=== PATIENT | female | born 1975 | race African-American/Black ===

== ENCOUNTER 2018-12-06 13:11 | Emergency (ER) | payer SELFPAY ==
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
== END 2018-12-06 13:54 | disposition home or self-care (01) ==
LOC: ER 13:11
DX: Z71.1 Person with feared health complaint in whom no diagnosis is made (principal); I10 Essential (primary) hypertension; Z72.0 Tobacco use
CPT/HCPCS: 99283

== ENCOUNTER 2019-10-24 14:52 | Emergency (ER) | payer SELFPAY ==
--- NOTE | 2019-10-24 15:18 | ER ---
Nurse's Notes [facility] Name: Barb Duff Age: 44 yrs Sex: Female : 1975 Arrival Date: 10/24/2019 Time: 14:54 Bed 11 Private MD: Diagnosis: Cellulitis of face;Conjunctivitis Presentation: 10/24 14:59 Presenting complaint: Abscess on forehead and chin x 3 days, left eye redness and pain hb upon waking today. Transition of care: patient was not received from another setting of care. Onset of symptoms was October 24, 2019. Risk Assessment: Do you want to hurt yourself or someone else? Patient reports no desire to harm self or others. Initial Sepsis Screen: Does the patient meet any 2 criteria? No. Patient's initial sepsis screen is negative. Care prior to arrival: None. 14:59 Method Of Arrival: Ambulatory hb 14:59 Acuity: MARA 4 hb 15:15 Initial Sepsis Screen: Does the patient have a suspected source of infection? No. hb Patient's initial sepsis screen is negative. 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 - Social history:: Smoking status: Patient uses tobacco products, smokes one-half pack cigarettes per day. - Ebola Screening: : No symptoms or risks identified at this time. Screenin:15 Abuse screen: Denies threats or abuse. Denies injuries from another. Nutritional hb screening: No deficits noted. Tuberculosis screening: No symptoms or risk factors identified. Fall Risk None identified. Assessment: 15:15 General: Appears in no apparent distress. Behavior is calm, cooperative. Pain: Pain hb currently is 5 out of 10 on a pain scale. Neuro: Level of Consciousness is awake, alert, obeys commands, Oriented to person, place, time, situation. Cardiovascular: Capillary refill < 3 seconds Patient's skin is warm and dry. Respiratory: Airway is patent Respiratory effort is even, unlabored, Respiratory pattern is regular, symmetrical. GI: No signs and/or symptoms were reported involving the gastrointestinal system. : No signs and/or symptoms were reported regarding the genitourinary system. EENT: left eye redness. Derm: abscess on forehead, chin, neck. Musculoskeletal: No signs and/or symptoms reported regarding the musculoskeletal system. Vital Signs: 15:01 BP 153 / 81; Pulse 71; Resp 16; Temp 98.2; Pulse Ox 100% on R/A; Weight 79.38 kg; hb Height 5 ft. 5 in. (165.10 cm); Pain 5/10; 15:01 Body Mass Index 29.12 (79.38 kg, 165.10 cm) hb ED Course: 14:54 Patient arrived in ED. as 14:59 Triage completed. hb 15:01 Arm band placed on. hb 15:03 Leonora Bates FNP-C is PHCP. snw 15:03 Ruben Galo MD is Attending Physician. snw 15:15 Patient has correct armband on for positive identification. Call light in reach. hb 15:23 Rajani Lynn, RN is Primary Nurse. hb 15:47 No provider procedures requiring assistance completed. Patient did not have IV access hb during this emergency room visit. 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 Exp: 04/29/2021. Lot #: [id number]. } Route: IM; Site: left deltoid; 15:56 Follow up: Response: No adverse reaction hb 15:37 Drug: Hibiclens 4 % 1 application Route: Topical; Site: affected area; hb 15:56 Follow up: Response: No adverse reaction hb Outcome: 15:17 Discharge ordered by . carissa 15:54 Discharged to home ambulatory. hb 15:54 Condition: stable 15:54 Discharge instructions given to patient, Instructed on discharge instructions, follow up and referral plans. medication usage, wound care, Demonstrated understanding of instructions, follow-up care, medications, Prescriptions given X 1. 15:55 Patient left the ED. hb Signatures: Leonora Bates, FURNITURE FABRICATOR-C FURNITURE FABRICATOR-Yessica Dahl Heather, RN RN hb
--- NOTE | 2019-10-24 15:18 | EDPHYS ---
Physician Documentation [facility] Name: Barb Duff Age: 44 yrs Sex: Female : 1975 Arrival Date: 10/24/2019 Time: 14:54 Bed 11 Private MD: ED Physician Ruben Galo HPI: 10/24 15:33 This 44 yrs old Black Female presents to ER via Ambulatory with complaints of Abscess, snw Redness of Eye. 15:33 the patient presents with a swollen area of the chin and forehead. Description: snw ruptured last pm and areas are mildly scabbed now. Onset: The symptoms/episode began/occurred 1 week(s) ago, and became persistent. Possible cause(s): unknown. Associated signs and symptoms: Pertinent positives: when chin abscess popped it squirted in pt"s left eye and now conjunctiva is injected and itching. Severity of symptoms: At their worst the symptoms were moderate. The patient has not experienced similar symptoms in the past. It is unknown whether or not the patient has recently seen a physician. afebrile, full eomi. 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 - Social history:: Smoking status: Patient uses tobacco products, smokes one-half pack cigarettes per day. - Ebola Screening: : No symptoms or risks identified at this time. ROS: 15:32 Constitutional: Negative for fever, chills, and weight loss. snw 15:32 ENT: Negative for injury, pain, and discharge, Neck: Negative for injury, pain, and swelling, Cardiovascular: Negative for chest pain, palpitations, and edema, Respiratory: Negative for shortness of breath, cough, wheezing, and pleuritic chest pain, Abdomen/GI: Negative for abdominal pain, nausea, vomiting, diarrhea, and constipation, Back: Negative for injury and pain, : Negative for injury, bleeding, discharge, and swelling, MS/Extremity: Negative for injury and deformity, Neuro: Negative for headache, weakness, numbness, tingling, and seizure, Psych: Negative for depression, anxiety, suicide ideation, homicidal ideation, and hallucinations. 15:32 Eyes: Positive for itching, redness. 15:32 Skin: Positive for cellulitis, of the chin and forehead. Exam: 15:31 Constitutional: This is a well developed, well nourished patient who is awake, alert, snw and in no acute distress. ENT: Nares patent. No nasal discharge, no septal abnormalities noted. Tympanic membranes are normal and external auditory canals are clear. Oropharynx with no redness, swelling, or masses, exudates, or evidence of obstruction, uvula midline. Mucous membranes moist. Neck: Trachea midline, no thyromegaly or masses palpated, and no cervical lymphadenopathy. Supple, full range of motion without nuchal rigidity, or vertebral point tenderness. No Meningismus. Chest/axilla: Normal chest wall appearance and motion. Nontender with no deformity. No lesions are appreciated. Cardiovascular: Regular rate and rhythm with a normal S1 and S2. No gallops, murmurs, or rubs. Normal PMI, no JVD. No pulse deficits. Respiratory: Lungs have equal breath sounds bilaterally, clear to auscultation and percussion. No rales, rhonchi or wheezes noted. No increased work of breathing, no retractions or nasal flaring. Abdomen/GI: Soft, non-tender, with normal bowel sounds. No distension or tympany. No guarding or rebound. No evidence of tenderness throughout. Back: No spinal tenderness. No costovertebral tenderness. Full range of motion. Skin: Warm, dry with normal turgor. Normal color with no rashes, no lesions, and no evidence of cellulitis. MS/ Extremity: Pulses equal, no cyanosis. Neurovascular intact. Full, normal range of motion. Neuro: Awake and alert, GCS 15, oriented to person, place, time, and situation. Cranial nerves II-XII grossly intact. Motor strength 5/5 in all extremities. Sensory grossly intact. Cerebellar exam normal. Normal gait. Psych: Awake, alert, with orientation to person, place and time. Behavior, mood, and affect are within normal limits. 15:31 Head/face: Noted is swelling, tenderness, that is moderate, of the forehead and chin. 15:31 Eyes: Pupils: no acute changes, Conjunctiva: injected, in the left eye. Vital Signs: 15:01 BP 153 / 81; Pulse 71; Resp 16; Temp 98.2; Pulse Ox 100% on R/A; Weight 79.38 kg; hb Height 5 ft. 5 in. (165.10 cm); Pain 5/10; 15:01 Body Mass Index 29.12 (79.38 kg, 165.10 cm) hb MDM: 15:03 Patient medically screened. snw 15:32 Data reviewed: vital signs, nurses notes. Data interpreted: Pulse oximetry: on room air snw is 100 %. Interpretation: normal. Counseling: I had a detailed discussion with the patient and/or guardian regarding: the historical points, exam findings, and any diagnostic results supporting the discharge/admit diagnosis, the presence of at least one elevated blood pressure reading (>120/80) during this emergency department visit, the need for outpatient follow up, to return to the emergency department if symptoms worsen or persist or if there are any questions or concerns that arise at home. Special discussion: I have referred the patient to see his PCP for further evaluation of high blood pressure. I discussed in detail with the patient the higher chance of wound infection based on his presenting history. Based on the history and exam findings, there is no indication for further emergent testing or inpatient evaluation. I discussed with the patient/guardian the need to see the primary care provider for further evaluation of the symptoms. 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 Exp: hb 04/29/2021. Lot #: [id number]. } Route: IM; Site: left deltoid; 15:56 Follow up: Response: No adverse reaction hb 15:37 Drug: Hibiclens 4 % 1 application Route: Topical; Site: affected area; hb 15:56 Follow up: Response: No adverse reaction hb Disposition: 17:50 Co-signature as Attending Physician, Ruben Galo MD Did not see or evaluate the ps1 patient. Signing the chart for administrative purposes. Not an endorsement of care provided. . Disposition: 10/24/19 15:17 Discharged to Home. Impression: Cellulitis of face, Conjunctivitis. - Condition is Stable. - Discharge Instructions: Cellulitis, Adult, Bacterial Conjunctivitis, VIS, Tetanus, Diphtheria (Td) - CDC, Hand Washing, Heat Therapy. - Prescriptions for Clindamycin HCl 300 mg Oral Capsule - take 1 capsule by ORAL route every 6 hours for 10 days; 40 capsule. - Work release form, Medication Reconciliation Form, Thank You Letter, Antibiotic Education, Prescription Opioid Use form. - Follow up: Private Physician; When: 2 - 3 days; Reason: Recheck today's complaints, Continuance of care, Re-evaluation by your physician. Follow up: Emergency Department; When: As needed; Reason: Worsening of condition. Signatures: Leonora Bates, YOLANDA-C SUPERVISOR DATA PROCESSING-Csnw Rajani Lynn RN RN Ruben Christine MD MD ps1 Corrections: (The following items were deleted from the chart) 15:51 15:33 afebrile. snw snw 15:55 15:17 10/24/2019 15:17 Discharged to Home. Impression: Cellulitis of face; hb Conjunctivitis. Condition is Stable. Forms are Medication Reconciliation Form, Thank You Letter, Antibiotic Education, Prescription Opioid Use. Follow up: Private Physician; When: 2 - 3 days; Reason: Recheck today's complaints, Continuance of care, Re-evaluation by your physician. Follow up: Emergency Department; When: As needed; Reason: Worsening of condition. snw
[2019-10-24] MEDS ORDERED: CLINDAMYCIN IV 150 MG/ML (4 mL) VIAL ONE (15:28)
[2019-10-24] MEDS ORDERED: TETANUS & DIPHTHERIA TOX,ADULT 0.5 ML VIAL ONE (15:28)
[2019-10-24] MEDS ORDERED: TOBRAMYCIN SULF 0.3% OPTH OINT ONE (15:28)
[2019-10-24 16:07] VITALS: BP 153/81; TEMP 98.2; O2SAT 100
== END 2019-10-24 15:55 | disposition home or self-care (01) ==
LOC: ER 14:52
DX: L03.211 Cellulitis of face (principal); H10.9 Unspecified conjunctivitis; I10 Essential (primary) hypertension; I50.9 Heart failure, unspecified; F17.210 Nicotine dependence, cigarettes, uncomplicated; Z23 Encounter for immunization
CPT/HCPCS: 90471; 90714; 96372; 99283; S0077

== ENCOUNTER 2020-02-10 | Emergency (ER) | payer SELFPAY ==
--- NOTE | 2020-02-10 12:56 | EDPHYS ---
Physician Documentation [facility] Name: Barb Duff Age: 44 yrs Sex: Female : 1975 Arrival Date: 02/10/2020 Time: 11:51 Bed 15 Private MD: ED Physician Ruben Galo HPI: 02/09 12:43 This 44 yrs old Black Female presents to ER via Ambulatory with complaints of Abscess. ps1 12:43 Patient states that she has had small abscess on chin and forehead for 4 days. No ps1 fever. Pain mild. No drainage. Previously seen and evaluated for same in September. No fever, cough, or known COVID encounter. . Historical: - Allergies: 12:30 No Known Allergies; em - Home Meds: 12:30 carvedilol 3.125 mg Oral tab 1 tab 2 times per day [Active]; clonidine HCl 0.2 mg Oral em tab [Active]; Entresto 49-51 mg Oral tab 1 tab 2 times per day [Active]; hydralazine 50 mg Oral tab 1 tab 2 times per day [Active]; Lasix 40 mg Oral tab 1 tab once daily [Active]; Metoprolol Tartrate Oral [Active]; - PMHx: 12:30 CHF; Hypertension; em - PSHx: 12:30 Tubal ligation; em - Immunization history:: Adult Immunizations up to date. - Social history:: Smoking status: Patient reports the use of cigarette tobacco products, smokes one-half pack cigarettes per day. ROS: 12:43 Constitutional: Negative for fever, chills, and weight loss, Eyes: Negative for injury, ps1 pain, redness, and discharge, Cardiovascular: Negative for chest pain, palpitations, and edema, Respiratory: Negative for shortness of breath, cough, wheezing, and pleuritic chest pain, Abdomen/GI: Negative for abdominal pain, nausea, vomiting, diarrhea, and constipation. 12:43 Skin: Positive for furuncle. Exam: 12:43 Constitutional: This is a well developed, well nourished patient who is awake, alert, ps1 and in no acute distress. Eyes: Pupils equal round and reactive to light, extra-ocular motions intact. Lids and lashes normal. Conjunctiva and sclera are non-icteric and not injected. ENT: Nares patent. No nasal discharge, no septal abnormalities noted. Tympanic membranes are normal and external auditory canals are clear. Oropharynx with no redness, swelling, or masses, exudates, or evidence of obstruction, uvula midline. Mucous membranes moist. Neck: Trachea midline, no thyromegaly or masses palpated, and no cervical lymphadenopathy. Supple, full range of motion without nuchal rigidity, or vertebral point tenderness. No Meningismus. Chest/axilla: Normal chest wall appearance and motion. Nontender with no deformity. No lesions are appreciated. 12:43 Cardiovascular: normal HR. auscultation deferred. . 12:43 Respiratory: Normal respiratory effort. Auscultation deferred. . 12:43 Abdomen/GI: deferred. No stated pain. 12:43 Skin: multiple furuncle on chin and forehead. . Vital Signs: 12:27 BP 156 / 106; Pulse 74; Resp 18; Temp 97.4; Pulse Ox 100% on R/A; Weight 81.65 kg; em Height 5 ft. 5 in. (165.10 cm); Pain 0/10; 12:38 BP 147 / 85; em 12:27 Body Mass Index 29.95 (81.65 kg, 165.10 cm) em MDM: 12:43 Differential diagnosis: abscess, cellulitis, furuncle. Data reviewed: vital signs, ps1 nurses notes. Counseling: I had a detailed discussion with the patient and/or guardian regarding: the historical points, exam findings, and any diagnostic results supporting the discharge/admit diagnosis, to return to the emergency department if symptoms worsen or persist or if there are any questions or concerns that arise at home. ED course: Multiple furuncle, no cellulitis. Home with bactrim DS. . 12:55 Patient medically screened. ps1 Administered Medications: No medications were administered Disposition: 02/10/20 12:55 Discharged to Home. Impression: Furuncle of face. - Condition is Stable. - Discharge Instructions: Skin Abscess. - Prescriptions for Bactrim DS 800- 160 mg Oral Tablet - take 1 tablet by ORAL route every 12 hours for 10 days; 20 tablet. - Medication Reconciliation Form, Thank You Letter, Antibiotic Education, Prescription Opioid Use form. - Follow up: Private Physician; When: As needed; Reason: Recheck today's complaints, Continuance of care, Re-evaluation by your physician. Follow up: Emergency Department; When: As needed; Reason: Fever > 102 F, Worsening of condition. - Problem is new. - Symptoms are unchanged. Signatures: Gary Melchor RN RN em Ruben Galo MD MD ps1 Corrections: (The following items were deleted from the chart) 13:25 12:55 02/10/2020 12:55 Discharged to Home. Impression: Furuncle of face. Condition is em Stable. Forms are Medication Reconciliation Form, Thank You Letter, Antibiotic Education, Prescription Opioid Use. Follow up: Private Physician; When: As needed; Reason: Recheck today's complaints, Continuance of care, Re-evaluation by your physician. Follow up: Emergency Department; When: As needed; Reason: Fever > 102 F, Worsening of condition. Problem is new. Symptoms are unchanged. ps1
--- NOTE | 2020-02-10 12:56 | ER ---
Nurse's Notes [facility] Name: Barb Duff Age: 44 yrs Sex: Female : 1975 Arrival Date: 02/10/2020 Time: 11:51 Bed 15 Private MD: Diagnosis: Furuncle of face Presentation: 02/09 12:27 Chief complaint: Patient states: swelling that started 3 days ago under chin and on em forehead, denies fever, would like to have some antibiotics. Coronavirus screen: The patient has NOT traveled to a country currently being monitored by the [facility] within the last 14 days. The patient has NOT had contact with any known and/or suspected case of coronavirus. Ebola Screen: Patient negative for fever greater than or equal to 101.5 degrees Fahrenheit, and additional compatible Ebola Virus Disease symptoms Patient denies exposure to infectious person. Patient denies travel to an Ebola-affected area in the 21 days before illness onset. No symptoms or risks identified at this time. Initial Sepsis Screen: Does the patient meet any 2 criteria? No. Patient's initial sepsis screen is negative. Does the patient have a suspected source of infection? Yes: Skin breakdown/wound. Risk Assessment: Do you want to hurt yourself or someone else? Patient reports no desire to harm self or others. 12:27 Method Of Arrival: Ambulatory em 12:27 Acuity: MARA 4 em Historical: - Allergies: 12:30 No Known Allergies; em - Home Meds: 12:30 carvedilol 3.125 mg Oral tab 1 tab 2 times per day [Active]; clonidine HCl 0.2 mg Oral em tab [Active]; Entresto 49-51 mg Oral tab 1 tab 2 times per day [Active]; hydralazine 50 mg Oral tab 1 tab 2 times per day [Active]; Lasix 40 mg Oral tab 1 tab once daily [Active]; Metoprolol Tartrate Oral [Active]; - PMHx: 12:30 CHF; Hypertension; em - PSHx: 12:30 Tubal ligation; em - Immunization history:: Adult Immunizations up to date. - Social history:: Smoking status: Patient reports the use of cigarette tobacco products, smokes one-half pack cigarettes per day. Screenin:31 Abuse screen: Denies threats or abuse. Nutritional screening: No deficits noted. em Tuberculosis screening: No symptoms or risk factors identified. Fall Risk None identified. Assessment: 12:36 General: Appears in no apparent distress. comfortable, well groomed, well developed, em well nourished, Behavior is calm, cooperative, Denies fever. Pain: Denies pain. Neuro: Level of Consciousness is awake, alert, obeys commands, Oriented to person, place, time, situation, Appropriate for age. Cardiovascular: Capillary refill < 3 seconds Patient's skin is warm and dry. Respiratory: Airway is patent Respiratory effort is even, unlabored, Respiratory pattern is regular, symmetrical. GI: Patient currently denies nausea, vomiting. Derm: Skin is intact, is healthy with good turgor, Skin is pink, warm \T\ dry. Wound noted forehead and submental area. Musculoskeletal: Capillary refill < 3 seconds, Range of motion: intact in all extremities. Vital Signs: 12:27 BP 156 / 106; Pulse 74; Resp 18; Temp 97.4; Pulse Ox 100% on R/A; Weight 81.65 kg; em Height 5 ft. 5 in. (165.10 cm); Pain 0/10; 12:38 BP 147 / 85; em 12:27 Body Mass Index 29.95 (81.65 kg, 165.10 cm) em ED Course: 11:51 Patient arrived in ED. mr 12:16 Gary Melchor, RN is Primary Nurse. em 12:29 Triage completed. em 12:31 Arm band placed on. em 12:31 Patient has correct armband on for positive identification. em 12:33 Ruben Galo MD is Attending Physician. ps1 13:24 No provider procedures requiring assistance completed. Patient did not have IV access em during this emergency room visit. Administered Medications: No medications were administered Outcome: 12:55 Discharge ordered by . ps1 13:24 Discharged to home ambulatory. em 13:24 Condition: good 13:24 Discharge instructions given to patient, Instructed on discharge instructions, follow up and referral plans. medication usage, Demonstrated understanding of instructions, follow-up care, medications, Prescriptions given X 1. 13:25 Patient left the ED. em Signatures: Elizabeth Raya mr Gary Melchor, KATHLEEN RN em Ruben Galo MD MD ps1
== END 2020-02-10 13:25 | disposition home or self-care (01) ==
CPT/HCPCS: 99282

== ENCOUNTER 2022-06-29 11:29 | Emergency (ER) | payer SELFPAY ==
--- OUTSIDE RECORDS SUMMARY | 2022-06-29 11:35 | XMS REPORT | Continuity of Care Document ---
:1975 Author Organization [facility] t Address [address] [place] [address] [address] [place] [address] Care Team Providers Name Role Phone PCP, PATIENT DOES NOT HAVE A Primary Care Physician UnavailAnisha Benton MD Attending Clinician [phone] Doctor Unassigned, [place] Attending Clinician Unavailable ANISHA PALM Attending Clinician Unavailable 2, [facility] Attending Clinician Unavailable ANISHA PALM Admitting Clinician Unavailable Payers Payer Name Policy Type Policy Number Effective Date Expiration Date S sherri MEDICAID PENDING PENDING 2021 00:00:00 Problems Condition Condition Condition Status Onset Resolution Last Treating Co mments Source Name Details Category Date Date Treatment Clinician Date Heart Heart Disease Active 2020-11 Univers failure failure 2-03 ity of 00:00: [address] Hypertensi Hypertensi Disease Active 2020-11 U nivers ve urgency ve urgency 2-02 it y of 00:00: [address] Obesity Obesity Disease Active 2020-11 Univers (BMI (BMI 2-02 ity of 30-39.9) 30-39.9) 00:00: [address] Essential Essential Disease Active Uni vers hypertensi hypertensi 6-13 [place] benign [place] [facility] Contracept Contracept Disease Active U nivers piero piero 6-13 ity of management management 00:00: [place] [facility] BV BV Disease Active Univers (bacterial (bacterial 6-13 it y of vaginosis[place] vaginosis[place] Sexually Sexually Disease Active Unive rs transmitte transmitte 6-13 [place] d disease d disease [place] History of History of Disease Active U nivers tubal tubal 6-13 ity of ligation ligation 00:00: [address] Allergies, Adverse Reactions, Alerts Allergy Allergy Status Severity Reaction(s) Onset Inactive Treating Comm ents Source Name Type Date Date Clinician NO KNOWN Drug Active Univers ALLERGIE Class ity of [facility] Social History Social Habit Start Date Stop Date Quantity Comments Source History of Cigarette Smoker Universi ty of tobacco use [facility] Exposure to Not sure University of SARS-CoV-2 [facility] (event) [place] Tobacco use and 2021-11-05 2021-11-05 Never used Universit y of exposure 00:00:00 00:00:00 [facility] History SDOH 2021-11-05 2021-11-05 2 University o f Stress 00:00:00 00:00:00 [facility] History SDOH 2021-11-05 2021-11-05 2 University o f Financial 00:00:00 00:00:00 [facility] History SDOH Food 2021-11-05 2021-11-05 1 Univers ity of Worry 00:00:00 00:00:00 [facility] History SDOH Food 2021-11-05 2021-11-05 1 Univers ity of Scarcity 00:00:00 00:00:00 [facility] History SDOH 2021-11-05 2021-11-05 2 University o f Transport Med 00:00:00 00:00:00 [facility] al Branch History SDOH 2021-11-05 2021-11-05 2 University o f Transport Non-Med 00:00:00 00:00:00 [facility] [place] Alcohol intake 2021-11-05 2021-11-05 0 /d University of 00:00:00 00:00:00 [facility] Sex Ass[birth year] At [birth year] Universit y of 00:00:00 00:00:00 [facility] Smoking Status Start Date Stop Date Source Current every day [facility] [place] smoker Medical Branch Former smoker 2021-11-05 00:00:00 2021-11-05 00:00:00 [facility] Medical Branch Medications Ordered Filled Start Stop Current Ordering Indication Dosage Frequency Signature Comments Components Source Medication Medication Date Date Medication? Clinician (SIG) Name Name metoprolol 2020-11 Yes [id number] 75mg Take 3 Univers succinate 2-13 tablets by ity of XL 25 mg 24 00:00: mouth 2 [place] hr tablet 00 (two) Medical times Branch daily. hydrALAZINE 2020-11 Yes [id number] 50mg Take 1 Univers 50 mg 2-13 tablet by ity of tablet 00:00: mouth [place] 00 every 12 Medical (twelve) Branch hours. bumetanide 2020-11 Yes [id number] 2mg Take 1 Univers 2 mg tablet 2-13 tablet by ity of 00:00: mouth 2 [place] 00 (two) Medical times Branch daily. atorvastati 2020-11 Yes [id number] 40mg Take 1 Univers n 40 mg 2-13 tablet by ity of tablet 00:00: mouth at [place] 00 bedtime. Medical Branch aspirin 81 2020-11 Yes [id number] 81mg Take 1 Univers mg chewable 2-13 tablet by ity of tablet 00:00: mouth [place] 00 daily. Medical Branch Magnesium 2020-11 Yes [id number] 400mg Take 400 Univers Oxide 420 2-13 mg by ity of mg Tab 00:00: mouth [place] 00 daily. Medical Branch metoprolol 2020-11 Yes [id number] 75mg Take 3 Univers succinate 2-13 tablets by ity of XL 25 mg 24 00:00: mouth 2 [place] hr tablet 00 (two) Medical times Branch daily. hydrALAZINE 2020-11 Yes [id number] 50mg Take 1 Univers 50 mg 2-13 tablet by ity of tablet 00:00: mouth [place] 00 every 12 Medical (twelve) Branch hours. bumetanide 2020-11 Yes [id number] 2mg Take 1 Univers 2 mg tablet 2-13 tablet by ity of 00:00: mouth 2 [place] 00 (two) Medical times Branch daily. atorvastati 2020-11 Yes [id number] 40mg Take 1 Univers n 40 mg 2-13 tablet by ity of tablet 00:00: mouth at [place] 00 bedtime. Medical Branch aspirin 81 2020-11 Yes [id number] 81mg Take 1 Univers mg chewable 2-13 tablet by ity of tablet 00:00: mouth [place] 00 daily. Medical Branch Magnesium 2020-11 Yes [id number] 400mg Take 400 Univers Oxide 420 2-13 mg by ity of mg Tab 00:00: mouth [place] 00 daily. Medical Branch metoprolol 2020-11 Yes [id number] 75mg Take 3 Univers succinate 2-13 tablets by ity of XL 25 mg 24 00:00: mouth 2 [place] hr tablet 00 (two) Medical times Branch daily. hydrALAZINE 2020-11 Yes [id number] 50mg Take 1 Univers 50 mg 2-13 tablet by ity of tablet 00:00: mouth [place] 00 every 12 Medical (twelve) Branch hours. bumetanide 2020-11 Yes [id number] 2mg Take 1 Univers 2 mg tablet 2-13 tablet by ity of 00:00: mouth 2 [place] 00 (two) Medical times Branch daily. atorvastati 2020-11 Yes [id number] 40mg Take 1 Univers n 40 mg 2-13 tablet by ity of tablet 00:00: mouth at [place] 00 bedtime. Medical Branch aspirin 81 2020-11 Yes [id number] 81mg Take 1 Univers mg chewable 2-13 tablet by ity of tablet 00:00: mouth [place] 00 daily. Medical Branch Magnesium 2020-11 Yes [id number] 400mg Take 400 Univers Oxide 420 2-13 mg by ity of mg Tab 00:00: mouth [place] 00 daily. Medical Branch KLOR-CON 2020-11 Yes Univers M20 20 mEq 2-10 ity of tablet 00:00: [place] 00 Medical Branch KLOR-CON 2020-11 Yes Univers M20 20 mEq 2-10 ity of tablet 00:00: [place] 00 Medical Branch KLOR-CON 2020-11 Yes Univers M20 20 mEq 2-10 ity of tablet 00:00: [place] 00 Medical Branch magnesium 2020-11 Yes [id number] 400mg Take 400 Univers oxide 420 2-07 mg by ity of mg Tab 00:00: mouth [place] 00 daily. Medical Branch cloNIDine 2020-11 Yes [id number] .1mg Take 0.5 Univers 0.2 mg 2-07 tablets by ity of tablet 00:00: mouth 2 [place] 00 (two) Medical times Branch daily. metoprolol 2020-11 Yes [id number] 75mg Take 3 Univers succinate 2-07 tablets by ity of XL 25 mg 24 00:00: mouth 2 [place] hr tablet 00 (two) Medical times Branch daily. aspirin 81 2020-11 Yes [id number] 81mg Take 1 Univers mg chewable 2-07 tablet by ity of tablet 00:00: mouth [place] 00 daily. Medical Branch atorvastati 2020-11 Yes [id number] 40mg Take 1 Univers n 40 mg 2-07 tablet by ity of tablet 00:00: mouth at [place] 00 bedtime. Medical Branch bumetanide 2020-11 Yes [id number] 2mg Take 1 Univers 2 mg tablet 2-07 tablet by ity of 00:00: mouth 2 [place] 00 (two) Medical times Branch daily. hydrALAZINE 2020-11 Yes [id number] 50mg Take 1 Univers 50 mg 2-07 tablet by ity of tablet 00:00: mouth [place] 00 every 12 Medical (twelve) Branch hours. sacubitriL- 2020-11 Yes [id number] 1{tbl} Take 1 Univers valsartan 2-07 tablet by ity o f (ENTRESTO) 00:00[place] 24-26 [place] 00 (two) Medical tablet times Branch daily. magnesium 2020-11 Yes [id number] 400mg Take 400 Univers oxide 420 2-07 mg by ity of mg Tab 00:00: mouth [place] 00 daily. Medical Branch cloNIDine 2020-11 Yes [id number] .1mg Take 0.5 Univers 0.2 mg 2-07 tablets by ity of tablet 00:00: mouth 2 [place] 00 (two) Medical times Branch daily. metoprolol 2020-11 Yes [id number] 75mg Take 3 Univers succinate 2-07 tablets by ity of XL 25 mg 24 00:00: mouth 2 [place] hr tablet 00 (two) Medical times Branch daily. aspirin 81 2020-11 Yes [id number] 81mg Take 1 Univers mg chewable 2-07 tablet by ity of tablet 00:00: mouth [place] 00 daily. Medical Branch atorvastati 2020-11 Yes [id number] 40mg Take 1 Univers n 40 mg 2-07 tablet by ity of tablet 00:00: mouth at [place] 00 bedtime. Medical Branch bumetanide 2020-11 Yes [id number] 2mg Take 1 Univers 2 mg tablet 2-07 tablet by ity of 00:00: mouth 2 [place] 00 (two) Medical times Branch daily. hydrALAZINE 2020-11 Yes [id number] 50mg Take 1 Univers 50 mg 2-07 tablet by ity of tablet 00:00: mouth [place] 00 every 12 Medical (twelve) Branch hours. sacubitriL- 2020-11 Yes [id number] 1{tbl} Take 1 Univers valsartan 2-07 tablet by ity o f (ENTRESTO) 00:00: [place] 24-26 [place] 00 (two) Medical tablet times Branch daily. magnesium 2020-11 Yes [id number] 400mg Take 400 Univers oxide 420 2-07 mg by ity of mg Tab 00:00: mouth [place] 00 daily. Medical Branch cloNIDine 2020-11 Yes [id number] .1mg Take 0.5 Univers 0.2 mg 2-07 tablets by ity of tablet 00:00: mouth 2 [place] 00 (two) Medical times Branch daily. metoprolol 2020-11 Yes [id number] 75mg Take 3 Univers succinate 2-07 tablets by ity of XL 25 mg 24 00:00: mouth 2 [place] hr tablet 00 (two) Medical times Branch daily. aspirin 81 2020-11 Yes [id number] 81mg Take 1 Univers mg chewable 2-07 tablet by ity of tablet 00:00: mouth [place] 00 daily. Medical Branch atorvastati 2020-11 Yes [id number] 40mg Take 1 Univers n 40 mg 2-07 tablet by ity of tablet 00:00: mouth at [place] 00 bedtime. Medical Branch bumetanide 2020-11 Yes [id number] 2mg Take 1 Univers 2 mg tablet 2-07 tablet by ity of 00:00: mouth 2 [place] 00 (two) Medical times Branch daily. hydrALAZINE 2020-11 Yes [id number] 50mg Take 1 Univers 50 mg 2-07 tablet by ity of tablet 00:00: mouth [place] 00 every 12 Medical (twelve) Branch hours. sacubitriL- 2020-11 Yes [id number] 1{tbl} Take 1 Univers valsartan 2-07 tablet by ity o f (ENTRESTO) 00:00: [place] 24-26 [place] 00 (two) Medical tablet times Branch daily. sacubitriL- 2020-11 Yes [id number] 1{tbl} Take 1 Univers valsartan 2-07 tablet by ity o f (ENTRESTO) 00:00: [place] 24-26 mg 00 (two) Medical tablet times Branch daily. sacubitriL- 2020-11 Yes [id number] 1{tbl} Take 1 Univers valsartan 2-07 tablet by ity o f (ENTRESTO) 00:00: [place] 24-26 [place] 00 (two) Medical tablet times Branch daily. sacubitriL- 2020-11 Yes [id number] 1{tbl} Take 1 Univers valsartan 2-07 tablet by ity o f (ENTRESTO) 00:00: [place] 24-26 [place] 00 (two) Medical tablet times Branch daily. Procedures Procedure Date / Time Performed Performing Clinician Shanita PETERS'S CONSENT 2021-11-05 16:05:09 Doctor Unassigned, No U [facility] Name Medical [facility] h FORM Encounters Start End Encounter Admission Attending Care Care Encounter Source Date/Time Date/Time Type Type Clinicians Facility Department ID 2022-03-27 2022-03-27 Outpatient [facility] [id number] Univers 00:00:00 00:00:00 [facility] 2022-02-20 2022-02-20 Outpatient [facility] [id number] Univers 00:00:00 00:00:00 [facility] 2022-01-23 2022-01-23 Outpatient [facility] [id number] Univers 00:00:00 00:00:00 [facility] 2022-01-09 2022-01-09 Outpatient [facility] [id number] Univers 00:00:00 00:00:00 [facility] 2021-12-12 2021-12-12 Outpatient [facility] [id number] Univers 00:00:00 00:00:00 [facility] 2021-12-06 2021-12-06 [facility] [id number] Univers 00:00:00 00:00:00 [facility] HEALTH [id number] it y of [facility] [id number] MANN [phone] [address] OFFICE BUILDING 2021-11-21 2021-11-21 Telephone NEVAEH PalmIT [id number] Univers 00:00:00 00:00:00 [facility] HEALTH [id number] i ty of [facility] CL[place]ICS [id number] [phone] [address] 2021-11-08 2021-11-08 [facility] [id number] Univers 00:00:00 00:00:00 Management [facility] HEALTH [id number] ity of [facility] [id number] [phone] [address] OFFICE BUILDING 2021-11-05 2021-11-05 Outpatient [facility] [id number] Univers 00:00:00 00:00:00 ity of [facility] 2021-11-05 2021-11-05 Orders Doctor [place] [id number] Univers 00:00:00 00:00:00 Only Unassigned, JUAN A [id number] ity of [place] [facility] [id number] [place] [phone] [address] 2021-11-02 2021-11-02 Outpatient R GUILLERMOALEXY [facility] [id number] Univers 11:15:00 13:41:22 [facility] 2021-11-02 2021-11-02 [place] 2, [facility] [id number] Univers 11:18:54 11:33:54 Visit Britany Palmheydi Man [place] [id number] [id number] ity [id number] PROF[place] [phone] [address] [facility] 2021-11-01 2021-11-01 Telephone Arpita [facility] [id number] Univers 00:00:00 00:00:00 [facility] [id number] i [facility] [id number] [phone] [facility] 059 Branch 2021-10-24 2021-10-30 Inpatient X [facility] [id number] Univers 15:00:00 17:30:00 [facility] Results This patient has no known results.
--- NOTE | 2022-06-29 11:57 | EDPHYS ---
Physician Documentation [facility] Name: Barb Duff Age: 47 yrs Sex: Female : 1975 Arrival Date: 06/29/2022 Time: 11:33 Bed DIS2 Private MD: ED Physician Chaka Cotton HPI: 06/29 11:53 This 47 yrs old Black Female presents to ER via Ambulatory with complaints of right ear jl9 ringing.. 11:53 Onset: The symptoms/episode began/occurred 3 day(s) ago. Modifying factors: The jl9 symptoms are alleviated by. Associated signs and symptoms: Pertinent negatives: dizziness, headache, lightheadedness, nausea, visual changes. 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 - Social history:: Smoking status: Patient reports the use of cigarette tobacco products, smokes one-half pack cigarettes per day. ROS: 11:54 Constitutional: Negative for fever, chills, and weight loss. jl9 11:54 Eyes: Negative for injury, pain, redness, and discharge, ENT: Negative for injury, pain, and discharge. Right ear ringing. Neck: Negative for injury, pain, and swelling, Cardiovascular: Negative for chest pain, palpitations, and edema, Respiratory: Negative for shortness of breath, cough, wheezing, and pleuritic chest pain, Abdomen/GI: Negative for abdominal pain, nausea, vomiting, diarrhea, and constipation, Back: Negative for injury and pain, : Negative for injury, bleeding, discharge, and swelling, MS/Extremity: Negative for injury and deformity, Skin: Negative for injury, rash, and discoloration, Neuro: Negative for headache, weakness, numbness, tingling, and seizure, Psych: Negative for depression, anxiety, suicide ideation, homicidal ideation, and hallucinations, Allergy/Immunology: Negative for hives, rash, and allergies, Endocrine: Negative for neck swelling, polydipsia, polyuria, polyphagia, and marked weight changes, Hematologic/Lymphatic: Negative for swollen nodes, abnormal bleeding, and unusual bruising. Exam: 11:55 Constitutional: This is a well developed, well nourished patient who is awake, alert, jl9 and in no acute distress. Head/Face: Normocephalic, atraumatic. Eyes: Pupils equal round and reactive to light, extra-ocular motions intact. Lids and lashes normal. Conjunctiva and sclera are non-icteric and not injected. Cornea within normal limits. Periorbital areas with no swelling, redness, or edema. 11:55 Neck: Trachea midline, no thyromegaly or masses palpated, and no cervical lymphadenopathy. Supple, full range of motion without nuchal rigidity, or vertebral point tenderness. No Meningismus. Chest/axilla: Normal chest wall appearance and motion. Nontender with no deformity. No lesions are appreciated. Cardiovascular: Regular rate and rhythm with a normal S1 and S2. No gallops, murmurs, or rubs. Normal PMI, no JVD. No pulse deficits. Respiratory: Lungs have equal breath sounds bilaterally, clear to auscultation and percussion. No rales, rhonchi or wheezes noted. No increased work of breathing, no retractions or nasal flaring. Abdomen/GI: Soft, non-tender, with normal bowel sounds. No distension or tympany. No guarding or rebound. No evidence of tenderness throughout. Back: No spinal tenderness. No costovertebral tenderness. Full range of motion. Skin: Warm, dry with normal turgor. Normal color with no rashes, no lesions, and no evidence of cellulitis. MS/ Extremity: Pulses equal, no cyanosis. Neurovascular intact. Full, normal range of motion. Neuro: Awake and alert, GCS 15, oriented to person, place, time, and situation. Cranial nerves II-XII grossly intact. Motor strength 5/5 in all extremities. Sensory grossly intact. Cerebellar exam normal. Normal gait. Psych: Awake, alert, with orientation to person, place and time. Behavior, mood, and affect are within normal limits. 11:55 ENT: TM's: bulging, on the right, erythema, that is moderate, on the right, fluid levels, on the right. Vital Signs: 11:36 BP 155 / 86; Pulse 81; Resp 17; Temp 98.0; Pulse Ox 100% ; Weight 87.54 kg; Height 5 ap3 ft. 5 in. (165.10 cm); 11:36 Body Mass Index 32.12 (87.54 kg, 165.10 cm) ap3 MDM: 11:49 Patient medically screened. [facility] 11:56 Data reviewed: vital signs, nurses notes. Counseling: I had a detailed discussion with jlOli the patient and/or guardian regarding: the historical points, exam findings, and any diagnostic results supporting the discharge/admit diagnosis, the need for outpatient follow up, to return to the emergency department if symptoms worsen or persist or if there are any questions or concerns that arise at home. Administered Medications: No medications were administered Disposition Summary: 06/29/22 11:56 Discharge Ordered Location: Home jl9 Condition: Stable jl9 Diagnosis - Otitis media, unspecified, right ear jl9 Followup: jl9 - With: Private Physician - When: 1 - 2 days - Reason: Recheck today's complaints, Continuance of care, Re-evaluation by your physician Discharge Instructions: - Discharge Summary Sheet jl9 - Otitis Media, Adult, [id number] jl9 Forms: - Medication Reconciliation Form jl9 - Thank You Letter jl9 - Antibiotic Education jl9 - Prescription Opioid Use jl9 Prescriptions: - Amoxicillin 875 mg Oral Tablet - take 1 tablet by ORAL route every 12 hours for 10 days; 20 tablet; Refills: 0, jl9 Product Selection Permitted - Medrol (Justin) 4 mg Oral Tablets, Dose Pack - take 1 tablet by ORAL route as directed - follow package instructions; 1 jl9 packet; Refills: 0, Product Selection Permitted Signatures: Chaka Cotton MD MD cha Prokisch, Amanda, RN RN phan3 Chucho Heller jl9
--- NOTE | 2022-06-29 11:57 | ER ---
Nurse's Notes [facility] Name: Barb Duff Age: 47 yrs Sex: Female : 1975 Arrival Date: 06/29/2022 Time: 11:33 Bed DIS2 Private MD: Diagnosis: Otitis media, unspecified, right ear Presentation: 06/29 11:36 Chief complaint: Patient states: she is hearing a buzzing sound in her right ear. She ap3 states it sounds like a buzzing sound that follows her around, and resembles the sound after she gets fluid in her ear. It is also reported that patient has an ingrown hair in her scalp, and she has fluid that comes out of the top of her head from the ingrown hair. Patient states that her PCP is aware and has been following this issue but was unaware if this could be causing the ringing in her right ear. Coronavirus screen: At this time, the client does not indicate any symptoms associated with coronavirus-19. Ebola Screen: No symptoms or risks identified at this time. Initial Sepsis Screen: Does the patient meet any 2 criteria? No. Patient's initial sepsis screen is negative. Does the patient have a suspected source of infection? No. Patient's initial sepsis screen is negative. Risk Assessment: Do you want to hurt yourself or someone else? Patient reports no desire to harm self or others. Onset of symptoms was June 26, 2022. 11:36 Method Of Arrival: Ambulatory ap3 11:36 Acuity: MARA 3 ap3 Triage Assessment: 11:45 General: Appears in no apparent distress. Behavior is calm, cooperative. Pain: Denies ap3 pain. EENT: Reports ringing in right ear since 06/26/2022. Neuro: Level of Consciousness is awake, alert, obeys commands, Oriented to person, place, time, situation, Gait is steady, Speech is normal. Cardiovascular: Patient's skin is warm and dry. Respiratory: Airway is patent Respiratory effort is even, unlabored, Respiratory pattern is regular, symmetrical. 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 - Social history:: Smoking status: Patient reports the use of cigarette tobacco products, smokes one-half pack cigarettes per day. Screenin:45 Abuse screen: Denies threats or abuse. Nutritional screening: No deficits noted. ap3 Tuberculosis screening: No symptoms or risk factors identified. 12:12 Fall Risk None identified. ap3 Vital Signs: 11:36 BP 155 / 86; Pulse 81; Resp 17; Temp 98.0; Pulse Ox 100% ; Weight 87.54 kg; Height 5 ap3 ft. 5 in. (165.10 cm); 11:36 Body Mass Index 32.12 (87.54 kg, 165.10 cm) ap3 ED Course: 11:33 Patient arrived in ED. as 11:41 Triage completed. ap3 11:46 Chucho Heller is PHCP. jl9 11:46 Chaka Cotton MD is Attending Physician. jl9 11:46 Arm band placed on left wrist. ap3 12:12 No provider procedures requiring assistance completed. Patient did not have IV access ap3 during this emergency room visit. 12:13 Patient has correct armband on for positive identification. Bed in low position. Call ap3 light in reach. Adult w/ patient. Administered Medications: No medications were administered Medication: 12:13 VIS not applicable for this client. ap3 Outcome: 11:56 Discharge ordered by . jl9 12:12 Discharged to home ambulatory, with family. ap3 12:12 Condition: good 12:12 Discharge instructions given to patient, Instructed on discharge instructions, follow up and referral plans. medication usage, Demonstrated understanding of instructions, follow-up care, medications, Prescriptions given X 2. 12:13 Patient left the ED. ap3 Signatures: Yessica Ruiz Amanda RN RN ap3 Chucho Heller jl9
[2022-06-29 12:24] VITALS: BP 155/86; TEMP 98; O2SAT 100
== END 2022-06-29 12:13 | disposition home or self-care (01) ==
LOC: ER 11:29
DX: H66.91 Otitis media, unspecified, right ear (principal); I10 Essential (primary) hypertension; I50.9 Heart failure, unspecified; F17.210 Nicotine dependence, cigarettes, uncomplicated
CPT/HCPCS: 99282

== ENCOUNTER 2024-06-27 15:46 | Emergency (ER) | payer SELFPAY ==
--- OUTSIDE RECORDS SUMMARY | 2024-06-27 15:52 | XMS REPORT | Continuity of Care Document ---
Author Name Unknown Address [address] [facility] [address] [place] [address] [facility] Address [address] [facility] 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 Phone Pcp, Patient Does Not Have A Primary Care Physic annita MALATHI CHILDERS Attending Clinician Unavailable CULLEN ATKINSON Attending Clinician Unavail JULIA Khan Attending Clinician Julia Maciel CNM Attending Clinician [phone] China Cullen CHEN Attending Clinician + Doctor Unassigned, Tuckerman Attending Clinician U AREN Dave Attending Clinician UnavailAren Moncada MD Attending Clinician [phone] JENNA KAPOOR Attending Clinician Unavailable Jenna Tyler Attending Clinician [phone] [facility] Unava ilmookie Provider, Neliakayla Temp Attending Clinician Shanique vailaKACI Cleveland Attending Clinician Unavailable Kaci Baron Attending Clinician [phone] Chelly Levy MD Attending Clinician [phone] CHARLETTE GRIMM S Attending Clinician Unavailable Charlette Vega S Attending Clinician [phone] RADHA MATSON Attending Clinician Unavailable RADHA MATSON Attending Clinician Unavailable Radha Maston DO Attending Clinician [phone] KATJA THOMPSON Attending Clinician Unavailable Katja Thompson MD Attending Clinician [phone] Slade COLLIER, Enedelia Alejandro Attending Clinician Unaalexey Palm MD, Aiyana Man Attending Clinician + AIYANA PALM Attending Clinician Unaponcho connelly 2, [facility] Attending Clinician Unavailable Kermit WANG, Lisseth Mittal Attending Clinician UnavailLakeisha So Attending Clinician [phone] Linnea ORTEGA, Coleen Attending Clinician [phone] Alicia Benton MD Attending Clinician [phone] MORAREN HENSLEY Admitting Clinician UnavailAIYANA Larsen Admitting Clinician Cedric Palm MD, Aiyana Man Admitting Clinician + Payers Payer Name Policy Type Policy Number Effective Date Expirati on Date Source MEDICAID PENDING PENDING 2021 00:00:00 Problems Condition Name Condition Details Condition Category Status Onset Date Resolution Date Last Treatment Date Treating Clinician Comments Source Tobacco use disorder Tobacco use disorder Disease Active 02-09 00:00: 00 [facility] Heart failure Heart failure Disease Active 2020-11 00:00: 00 [facility] Hypertensi ve urgency Hypertensi ve urgency Disease Active 2020-11 00:00: 00 [facility] Essential hypertensi on, benign Essential hypertensi on, benign Disease Active 05-06 00:00: 00 [facility] History of tubal ligation History of tubal ligation Disease Active 05-06 00:00: 00 [facility] Obesity (BMI 30-39.9) Obesity (BMI 30-39.9) Disease Resolve d 2020-11 2- 00:00: 00 2024-03-09 00:00:00 2024-03-09 14:15:46 [facility] Contracept piero management Contracept piero management Disease Resolve d 05-06 00:00: 00 2023-02-09 00:00:00 2023-02-09 14:08:22 [facility] Sexually transmitte d disease exposure Sexually transmitte d disease exposure Disease Resolve d 05-06 00:00: 00 2023-02-09 00:00:00 2023-02-09 14:08:46 [facility] BV (bacterial vaginosis) BV (bacterial vaginosis) Disease Resolve d 05-06 00:00: 00 2023-02-06 00:00:00 2023-02-06 13:08:54 [facility] Allergies, Adverse Reactions, Alerts Allergy Name Allergy Type Status Severity Reaction(s) Onset Date Inactive Date Treating Clinician Comments Source NO KNOWN ALLERGIE S Drug Class Active [facility] Social History Social Habit Start Date Stop Date Quantity Comments Source History of tobacco use Cigarette Smoker [facility] ASSERTION [facility] History SDOH Alcohol Std Drinks [facility] Gender identity [facility] Alcoholic beverage intake 2024-03-17 00:00:00 2024-03-17 00:00:00 Current drinker of alcohol (finding) [facility] Alcohol intake 2024-03-17 00:00:00 2024-03-17 00:00:00 Current drinker of alcohol (finding) [facility] History of Social function 2024-02-09 00:00:00 2024-02-09 00:00:00 [facility] Exposure to SARS-CoV-2 (event) 2023-03-07 00:00:00 2023-03-17 15:14:00 Not sure [facility] Alcohol Comment 2023-02-06 00:00:00 2023-02-06 00:00:00 socially [facility] History SDOH Financial 2022-10-10 00:00:00 2022-10-10 00:00:00 3 [facility] History SDOH Food Worry 2022-10-10 00:00:00 2022-10-10 00:00:00 1 [facility] History SDOH Food Scarcity 2022-10-10 00:00:00 2022-10-10 00:00:00 1 [facility] History SDOH Transport Med 2022-10-10 00:00:00 2022-10-10 00:00:00 2 [facility] History SDOH Transport Non-Med 2022-10-10 00:00:00 2022-10-10 00:00:00 2 [facility] History SDOH Alcohol Frequency 2022-10-10 00:00:00 2022-10-10 00:00:00 1 [facility] History SDOH Alcohol Binge 2022-10-10 00:00:00 2022-10-10 00:00:00 1 [facility] Tobacco use and exposure 2022-07-01 00:00:00 2022-07-01 00:00:00 Smokeless tobacco non-user [facility] Cigarettes smoked current (pack per day) - Reported 2022-07-01 00:00:00 2022-07-01 00:00:00 [facility] Cigarette pack-years 2022-07-01 00:00:00 2022-07-01 00:00:00 [facility] History SDOH Stress 2021-11-05 00:00:00 2021-11-05 00:00:00 2 [facility] Sex assigned at 1975 00:00:00 1975 00:00:00 [facility] Smoking Status Start Date Stop Date Source [facility] smoker 2022-07-01 00:00:00 [facility] Ex-smoker 2021-11-05 00:00:00 2021-11-05 00:00:00 [facility] Medications Ordered Medication Name Filled Medication Name Start Date Stop Date Current Medication? Ordering Clinician Indication Dosage Frequency Signature (SIG) Comments Components Source etonogestre L (NEXPLANON) implant 68 mg 6-20 19:30: 00 05-13 19:39 :03 No 68mg [facility] sacubitriL- valsartan (ENTRESTO) 97-103 mg tablet 03-23 00:00: 00 Yes 1{tbl} Take 1 tablet by mouth in the morning and 1 tablet in the evening. [facility] levonorgest reL (MIRENA) IUD 1 Device 03-17 19:30: 00 03-17 19:07 :00 No [id number] 100 1{devic e} 1 Device, Intrauteri ne, ONCE, 1 dose, On Fri03/17/24 at 1430, Routine [facility] sacubitriL- valsartan (ENTRESTO) 24-26 mg tablet 03-12 00:00: 00 Yes [id number] 1{tbl} Take 1 tablet by mouth in the morning and 1 tablet in the evening. [facility] ARIPIPRAZOL E 15 mg tablet 03-12 00:00: 00 Yes [id number] 15mg TAKE ONE (1) TABLET(S) BY MOUTH ONCE A DAY AT BEDTIME. [facility] sacubitriL- valsartan (ENTRESTO) 49-51 mg tablet -18 13:22: 56 Yes 1{tbl} Take 1 tablet by mouth in the morning and 1 tablet in the evening. [facility] amLODIPine 5 mg tablet 2-14 00:00: 00 Yes [id number] 5mg Take 1 tablet by mouth in the morning. [facility] atorvastati n 40 mg tablet - 00:00: 00 Yes [id number] 40mg Take 1 tablet by mouth at bedtime. [facility] bumetanide 2 mg tablet - 00:00: 00 Yes [id number] 2mg Take 1 tablet by mouth in the morning and 1 tablet in the evening. [facility] metoprolol succinate XL 50 mg 24 hr tablet -06 00:00: 00 Yes [id number] 50mg Take 1 tablet by mouth in the morning and 1 tablet in the evening. [facility] ARIPiprazol e (ABILIFY) 15 mg tablet 2-06 00:00: 00 Yes [id number] 15mg Take 1 tablet by mouth at bedtime. [facility] dapaglifloz in propanediol (FARXIGA) 10 mg tablet 2-06 00:00: 00 02-08 00:00 :00 No 10mg Take 1 tablet by mouth in the morning. [facility] metoprolol succinate XL 25 mg 24 hr tablet 4-24 00:00: 00 Yes [id number] 25mg Take 1 tablet by mouth in the morning and 1 tablet in the evening. [facility] ARIPiprazol e (ABILIFY) 15 mg tablet 4-24 00:00: 00 Yes [id number] 15mg Take 1 tablet by mouth at bedtime. [facility] atorvastati n 40 mg tablet 4-24 00:00: 00 Yes [id number] 40mg Take 1 tablet by mouth at bedtime. [facility] bumetanide 2 mg tablet 4-24 00:00: 00 Yes [id number] 2mg Take 1 tablet by mouth in the morning and 1 tablet in the evening. [facility] amLODIPine 5 mg tablet 4-24 00:00: 00 Yes [id number] 5mg Take 1 tablet by mouth in the morning. [facility] metroNIDAZO LE 500 mg tablet 3-19 00:00: 00 20 04:59 :00 No [id number] 2000mg Take 4 tablets by mouth once now for 1 dose. [facility] sacubitriL- valsartan (ENTRESTO) 24-26 mg tablet 2-13 00:00: 00 Yes [id number] 1{tbl} Take 1 tablet by mouth in the morning and 1 tablet in the evening. [facility] ARIPiprazol e (ABILIFY) 15 mg tablet 2-13 00:00: 00 Yes [id number] 15mg Take 1 tablet by mouth at bedtime. [facility] ATORVASTATI N 40 mg tablet 2-08 00:00: 00 Yes [id number] TAKE ONE (1) TABLET(S) BY MOUTH ONCE A DAY AT BEDTIME. [facility] BUMETANIDE 2 mg tablet 1-09 00:00: 00 Yes [id number] TAKE ONE (1) TABLET BY MOUTH 2 (TWO) TIMES DAILY. [facility] ARIPiprazol e (ABILIFY) 15 mg tablet 2021-11 2-19 00:00: 00 Yes [id number] 15mg Take 1 tablet by mouth in the morning. [facility] METOPROLOL SUCCINATE XL 25 mg 24 hr tablet 2021-11 00:00: 00 Yes [id number] TAKE THREE (3) TABLET(S) BY MOUTH TWICE A DAY. [facility] AMLODIPINE 5 mg tablet 2021-11 00:00: 00 Yes [id number] TAKE ONE (1) TABLET BY MOUTH DAILY. [facility] cefdinir (OMNICEF) capsule 300 mg 2021-11 18:30: 00 09-27 18:34 :00 No 300mg 300 mg, Oral, ONCE, 1 dose, On Fri09/27/22 at 1330, TOYIN
Re ason for Anti-Infec tive: Documented Infection< br>Documen anisha Infection Site: Urine
D uration of Therapy: 7 days [facility] cefdinir 300 mg capsule 2021-11 00:00: 00 10-08 05:59 :00 No [id number] 300mg Take 1 capsule by mouth every 12 (twelve) hours for 10 days. [facility] ciprofloxac in HCl 500 mg tablet 2021-11 0 00:00: 00 09-23 04:59 :00 No [id number] 250mg Take 0.5 tablets by mouth in the morning and 0.5 tablets in the evening. Do all this for 3 days. [facility] METOPROLOL SUCCINATE XL 25 mg 24 hr tablet 2021-11 0-07 00:00: 00 Yes [id number] TAKE THREE (3) TABLET(S) BY MOUTH TWICE A DAY. [facility] DULoxetine 30 mg capsule 2021-11 0-03 00:00: 00 Yes [id number] 30mg Take 1 capsule by mouth in the morning. [facility] cetirizine 10 mg tablet 2021-11 0-03 00:00: 00 02-08 00:00 :00 No [id number] 10mg Take 1 tablet by mouth in the morning. [facility] ATORVASTATI N 40 mg tablet 8-29 00:00: 00 Yes [id number] TAKE ONE (1) TABLET(S) BY MOUTH ONCE A DAY AT BEDTIME. [facility] ofloxacin 0.3 % otic drops 8-10 00:00: 00 Yes [id number] 5[drp] Place 5 Drops in right ear in the morning and 5 Drops in the evening. [facility] DULoxetine 30 mg capsule 8-08 00:00: 00 Yes [id number] 30mg Take 1 capsule by mouth in the morning. [facility] METOPROLOL SUCCINATE XL 25 mg 24 hr tablet 8-03 00:00: 00 Yes [id number] TAKE THREE (3) TABLET(S) BY MOUTH TWICE A DAY. [facility] ATORVASTATI N 40 mg tablet 418 00:00: 00 Yes [id number] TAKE ONE (1) TABLET(S) BY MOUTH ONCE A DAY AT BEDTIME. [facility] amLODIPine 5 mg tablet 3-23 00:00: 00 Yes [id number] 5mg Take 1 tablet by mouth daily. [facility] METOPROLOL SUCCINATE XL 25 mg 24 hr tablet 3-23 00:00: 00 06-26 00:00 :00 No [id number] TAKE THREE (3) TABLET(S) BY MOUTH TWICE A DAY. [facility] bumetanide 2 mg tablet 2022-0 3-02 00:00: 00 Yes [id number] 2mg Take 1 tablet by mouth 2 (two) times daily. [facility] ARIPiprazol e (ABILIFY) 15 mg tablet 12-11 00:00: 00 Yes [id number] 15mg Take 1 tablet by mouth at bedtime. [facility] aspirin 81 mg chewable tablet 2020-11 00:00: 00 Yes [id number] 81mg Take 1 tablet by mouth daily. [facility] metoprolol succinate XL 25 mg 24 hr tablet 2020-11 00:00: 00 Yes [id number] 75mg Take 3 tablets by mouth 2 (two) times daily. [facility] hydrALAZINE 50 mg tablet 2020-11 00:00: 00 Yes [id number] 50mg Take 1 tablet by mouth every 12 (twelve) hours. [facility] bumetanide 2 mg tablet 2020-11 00:00: 00 Yes [id number] 2mg Take 1 tablet by mouth 2 (two) times daily. [facility] atorvastati n 40 mg tablet 2020-11 00:00: 00 Yes [id number] 40mg Take 1 tablet by mouth at bedtime. [facility] Magnesium Oxide 420 mg Tab 2020-11 00:00: 00 02-08 00:00 :00 No [id number] 400mg Take 400 mg by mouth daily. [facility] KLOR-CON M20 20 mEq tablet 2020-11 00:00: 00 Yes [facility] magnesium oxide 420 mg Tab 2020-11 00:00: 00 Yes [id number] 400mg Take 400 mg by mouth daily. [facility] cloNIDine 0.2 mg tablet 2020-11 00:00: 00 Yes [id number] .1mg Take 0.5 tablets by mouth 2 (two) times daily. [facility] metoprolol succinate XL 25 mg 24 hr tablet 2020-11 00:00: 00 Yes [id number] 75mg Take 3 tablets by mouth 2 (two) times daily. [facility] aspirin 81 mg chewable tablet 2020-11 00:00: 00 Yes [id number] 81mg Take 1 tablet by mouth daily. [facility] atorvastati n 40 mg tablet 2020-11 00:00: 00 Yes [id number] 40mg Take 1 tablet by mouth at bedtime. [facility] bumetanide 2 mg tablet 2020-11 00:00: 00 Yes [id number] 2mg Take 1 tablet by mouth 2 (two) times daily. [facility] hydrALAZINE 50 mg tablet 2020-11 00:00: 00 Yes [id number] 50mg Take 1 tablet by mouth every 12 (twelve) hours. [facility] sacubitriL- valsartan (ENTRESTO) 24-26 mg tablet 2020-11 00:00: 00 Yes [id number] 1{tbl} Take 1 tablet by mouth 2 (two) times daily. [facility] Immunizations Ordered Immunization Name Filled Immunization Name Date Status Comments Source Influenza Virus Vaccine Quad .5 mL IM 6+ MO 2023-02-06 00:00:00 Completed [facility] Influenza Virus Vaccine Quad .5 mL IM 6+ MO 2023-02-06 00:00:00 Completed [facility] Influenza Virus Vaccine Quad .5 mL IM 6+ MO 2023-02-06 00:00:00 Completed [facility] Influenza Virus Vaccine Quad .5 mL IM 6+ MO 2023-02-06 00:00:00 Completed [facility] Influenza Virus Vaccine Quad .5 mL IM 6+ MO 2023-02-06 00:00:00 Completed [facility] Influenza Virus Vaccine Quad .5 mL IM 6+ MO 2023-02-06 00:00:00 Completed [facility] Influenza Virus Vaccine Quad .5 mL IM 6+ MO 2023-02-06 00:00:00 Completed [facility] Influenza Virus Vaccine Quad .5 mL IM 6+ MO (FLUZONE/FLULAVAL/F LUARIX) 2023-02-06 00:00:00 Completed [facility] Influenza Virus Vaccine Quad .5 mL IM 6+ MO (FLUZONE/FLULAVAL/F LUARIX) 2023-02-06 00:00:00 Completed [facility] Influenza Virus Vaccine Quad .5 mL IM 6+ MO (FLUZONE/FLULAVAL/F LUARIX) 2023-02-06 00:00:00 Completed [facility] SARS-COV-2 COVID-19 PFIZER VACCINE 2021-03-08 00:00:00 Completed [facility] SARS-COV-2 COVID-19 PFIZER VACCINE 2021-03-08 00:00:00 Completed [facility] SARS-COV-2 COVID-19 PFIZER VACCINE 2021-03-08 00:00:00 Completed [facility] SARS-COV-2 COVID-19 PFIZER VACCINE 2021-03-08 00:00:00 Completed [facility] SARS-COV-2 COVID-19 PFIZER VACCINE 2021-03-08 00:00:00 Completed [facility] SARS-COV-2 COVID-19 PFIZER VACCINE 2021-03-08 00:00:00 Completed [facility] SARS-COV-2 COVID-19 PFIZER VACCINE 2021-03-08 00:00:00 Completed [facility] SARS-COV-2 COVID-19 PFIZER VACCINE 2021-03-08 00:00:00 Completed [facility] SARS-COV-2 COVID-19 PFIZER VACCINE 2021-03-08 00:00:00 Completed [facility] SARS-COV-2 COVID-19 PFIZER VACCINE 2021-03-08 00:00:00 Completed [facility] SARS-COV-2 COVID-19 PFIZER VACCINE 2021-03-08 00:00:00 Completed [facility] SARS-COV-2 COVID-19 PFIZER VACCINE 2021-03-08 00:00:00 Completed [facility] SARS-COV-2 COVID-19 PFIZER VACCINE 2021-03-08 00:00:00 Completed [facility] SARS-COV-2 COVID-19 PFIZER VACCINE 2021-03-08 00:00:00 Completed [facility] SARS-COV-2 COVID-19 PFIZER VACCINE 2021-03-08 00:00:00 Completed [facility] SARS-COV-2 COVID-19 PFIZER VACCINE 2021-03-08 00:00:00 Completed [facility] SARS-COV-2 COVID-19 PFIZER VACCINE 2021-03-08 00:00:00 Completed [facility] SARS-COV-2 COVID-19 PFIZER VACCINE 2021-03-08 00:00:00 Completed [facility] SARS-COV-2 COVID-19 PFIZER VACCINE 2021-03-08 00:00:00 Completed [facility] SARS-COV-2 COVID-19 PFIZER VACCINE 2021-02-15 00:00:00 Completed [facility] SARS-COV-2 COVID-19 PFIZER VACCINE 2021-02-15 00:00:00 Completed [facility] SARS-COV-2 COVID-19 PFIZER VACCINE 2021-02-15 00:00:00 Completed [facility] SARS-COV-2 COVID-19 PFIZER VACCINE 2021-02-15 00:00:00 Completed [facility] SARS-COV-2 COVID-19 PFIZER VACCINE 2021-02-15 00:00:00 Completed [facility] SARS-COV-2 COVID-19 PFIZER VACCINE 2021-02-15 00:00:00 Completed [facility] SARS-COV-2 COVID-19 PFIZER VACCINE 2021-02-15 00:00:00 Completed [facility] SARS-COV-2 COVID-19 PFIZER VACCINE 2021-02-15 00:00:00 Completed [facility] SARS-COV-2 COVID-19 PFIZER VACCINE 2021-02-15 00:00:00 Completed [facility] SARS-COV-2 COVID-19 PFIZER VACCINE 2021-02-15 00:00:00 Completed [facility] SARS-COV-2 COVID-19 PFIZER VACCINE 2021-02-15 00:00:00 Completed [facility] SARS-COV-2 COVID-19 PFIZER VACCINE 2021-02-15 00:00:00 Completed [facility] SARS-COV-2 COVID-19 PFIZER VACCINE 2021-02-15 00:00:00 Completed [facility] SARS-COV-2 COVID-19 PFIZER VACCINE 2021-02-15 00:00:00 Completed [facility] SARS-COV-2 COVID-19 PFIZER VACCINE 2021-02-15 00:00:00 Completed [facility] SARS-COV-2 COVID-19 PFIZER VACCINE 2021-02-15 00:00:00 Completed [facility] SARS-COV-2 COVID-19 PFIZER VACCINE 2021-02-15 00:00:00 Completed [facility] SARS-COV-2 COVID-19 PFIZER VACCINE 2021-02-15 00:00:00 Completed [facility] SARS-COV-2 COVID-19 PFIZER VACCINE 2021-02-15 00:00:00 Completed [facility] SARS-COV-2 COVID-19 PFIZER VACCINE Unknown Completed [facility] SARS-COV-2 COVID-19 PFIZER VACCINE Unknown Completed [facility] Influenza Virus Vaccine Quad .5 mL IM 6+ MO (FLUZONE/FLULAVAL/F LUARIX) Unknown Completed [facility] SARS-COV-2 COVID-19 PFIZER VACCINE Unknown Completed [facility] SARS-COV-2 COVID-19 PFIZER VACCINE Unknown Completed [facility] Influenza Virus Vaccine Quad .5 mL IM 6+ MO (FLUZONE/FLULAVAL/F LUARIX) Unknown Completed [facility] SARS-COV-2 COVID-19 PFIZER VACCINE Unknown Completed [facility] SARS-COV-2 COVID-19 PFIZER VACCINE Unknown Completed [facility] Influenza Virus Vaccine Quad .5 mL IM 6+ MO (FLUZONE/FLULAVAL/F LUARIX) Unknown Completed [facility] SARS-COV-2 COVID-19 PFIZER VACCINE Unknown Completed [facility] SARS-COV-2 COVID-19 PFIZER VACCINE Unknown Completed [facility] Influenza Virus Vaccine Quad .5 mL IM 6+ MO (FLUZONE/FLULAVAL/F LUARIX) Unknown Completed [facility] SARS-COV-2 COVID-19 PFIZER VACCINE Unknown Completed [facility] SARS-COV-2 COVID-19 PFIZER VACCINE Unknown Completed [facility] Influenza Virus Vaccine Quad .5 mL IM 6+ MO (FLUZONE/FLULAVAL/F LUARIX) Unknown Completed [facility] SARS-COV-2 COVID-19 PFIZER VACCINE Unknown Completed [facility] SARS-COV-2 COVID-19 PFIZER VACCINE Unknown Completed [facility] Influenza Virus Vaccine Quad .5 mL IM 6+ MO (FLUZONE/FLULAVAL/F LUARIX) Unknown Completed [facility] SARS-COV-2 COVID-19 PFIZER VACCINE Unknown Completed [facility] SARS-COV-2 COVID-19 PFIZER VACCINE Unknown Completed [facility] Influenza Virus Vaccine Quad .5 mL IM 6+ MO (FLUZONE/FLULAVAL/F LUARIX) Unknown Completed [facility] SARS-COV-2 COVID-19 PFIZER VACCINE Unknown Completed [facility] SARS-COV-2 COVID-19 PFIZER VACCINE Unknown Completed [facility] Influenza Virus Vaccine Quad .5 mL IM 6+ MO (FLUZONE/FLULAVAL/F LUARIX) Unknown Completed [facility] SARS-COV-2 COVID-19 PFIZER VACCINE Unknown Completed [facility] SARS-COV-2 COVID-19 PFIZER VACCINE Unknown Completed [facility] Influenza Virus Vaccine Quad .5 mL IM 6+ MO (FLUZONE/FLULAVAL/F LUARIX) Unknown Completed [facility] SARS-COV-2 COVID-19 PFIZER VACCINE Unknown Completed [facility] SARS-COV-2 COVID-19 PFIZER VACCINE Unknown Completed [facility] Influenza Virus Vaccine Quad .5 mL IM 6+ MO (FLUZONE/FLULAVAL/F LUARIX) Unknown Completed [facility] SARS-COV-2 COVID-19 PFIZER VACCINE Unknown Completed [facility] SARS-COV-2 COVID-19 PFIZER VACCINE Unknown Completed [facility] Influenza Virus Vaccine Quad .5 mL IM 6+ MO (FLUZONE/FLULAVAL/F LUARIX) Unknown Completed [facility] SARS-COV-2 COVID-19 PFIZER VACCINE Unknown Completed [facility] SARS-COV-2 COVID-19 PFIZER VACCINE Unknown Completed [facility] Influenza Virus Vaccine Quad .5 mL IM 6+ MO (FLUZONE/FLULAVAL/F LUARIX) Unknown Completed [facility] SARS-COV-2 COVID-19 PFIZER VACCINE Unknown Completed [facility] SARS-COV-2 COVID-19 PFIZER VACCINE Unknown Completed [facility] Influenza Virus Vaccine Quad .5 mL IM 6+ MO (FLUZONE/FLULAVAL/F LUARIX) Unknown Completed [facility] SARS-COV-2 COVID-19 PFIZER VACCINE Unknown Completed [facility] SARS-COV-2 COVID-19 PFIZER VACCINE Unknown Completed [facility] Influenza Virus Vaccine Quad .5 mL IM 6+ MO (FLUZONE/FLULAVAL/F LUARIX) Unknown Completed [facility] SARS-COV-2 COVID-19 PFIZER VACCINE Unknown Completed [facility] SARS-COV-2 COVID-19 PFIZER VACCINE Unknown Completed [facility] Influenza Virus Vaccine Quad .5 mL IM 6+ MO (FLUZONE/FLULAVAL/F LUARIX) Unknown Completed [facility] Vital Signs Vital Name Observation Time Observation Value Comments S ource Systolic blood pressure 2024-05-13 19:17:00 160 mm[Hg] [facility] Diastolic blood pressure 2024-05-13 19:17:00 80 mm[Hg] [facility] Heart rate 2024-05-13 19:12:00 89 /min [facility] Body temperature 2024-05-13 19:12:00 35.5 Jasmin [facility] Respiratory rate 2024-05-13 19:12:00 18 /min [facility] Body height 2024-05-13 19:12:00 165.1 cm [facility] Body weight 2024-05-13 19:12:00 83.734 kg [facility] BMI 2024-05-13 19:12:00 30.72 kg/m2 [facility] Systolic blood pressure 2024-03-17 18:01:00 161 mm[Hg] [facility] Diastolic blood pressure 2024-03-17 18:01:00 95 mm[Hg] [facility] Heart rate 2024-03-17 18:01:00 91 /min [facility] Body temperature 2024-03-17 18:01:00 36.56 Jasmin [facility] Respiratory rate 2024-03-17 18:01:00 18 /min [facility] Body height 2024-03-17 18:01:00 165.1 [facility] [facility] weight 2024-03-17 18:01:00 84.913 kg [facility] BMI 2024-03-17 18:01:00 31.15 kg/m2 [facility] Systolic blood pressure 2024-03-09 18:04:00 185 mm[facility]Hg[facility] Diastolic blood pressure 2024-03-09 18:04:00 117 mm[Hg] [facility] Heart rate 2024-03-09 18:04:00 90 /min [facility] Body temperature 2024-03-09 18:04:00 36.39 Jasmin [facility] Respiratory rate 2024-03-09 18:04:00 18 /min [facility] Body height 2024-03-09 18:04:00 165.1 cm [facility] Body weight 2024-03-09 18:04:00 85.186 kg [facility] BMI 2024-03-09 18:04:00 31.25 kg/m2 [facility] Systolic blood pressure 2024-02-09 18:18:00 152 mm[Hg] [facility] Diastolic blood pressure 2024-02-09 18:18:00 94 mm[Hg] [facility] Heart rate 2024-02-09 18:18:00 82 /min [facility] Body temperature 2024-02-09 18:12:00 36.22 Jasmin [facility] Respiratory rate 2024-02-09 18:12:00 18 /min [facility] Body height 2024-02-09 18:12:00 165.1 cm [facility] Body weight 2024-02-09 18:12:00 85.872 kg [facility] BMI 2024-02-09 18:12:00 31.50 kg/m2 [facility] Systolic blood pressure 2024-01-15 03:00:00 170 mm[Hg] [facility] Diastolic blood pressure 2024-01-15 03:00:00 97 mm[Hg] [facility] Heart rate 2024-01-15 03:00:00 100 /min [facility] Respiratory rate 2024-01-15 03:00:00 16 /min [facility] Oxygen saturation in Arterial blood by Pulse oximetry 2024-01-15 03:00:00 100 /min [facility] Body temperature 2024-01-14 21:18:00 36.67 Jasmin [facility] Body weight 2024-01-14 21:16:00 88.451 kg [facility] BMI 2024-01-14 21:16:00 32.45 kg/m2 [facility] Systolic blood pressure 2024-01-11 19:41:00 177 mm[Hg] [facility] Diastolic blood pressure 2024-01-11 19:41:00 101 mm[Hg] [facility] Heart rate 2024-01-11 19:41:00 105 /min [facility] Respiratory rate 2024-01-11 19:41:00 18 /min [facility] Oxygen saturation in Arterial blood by Pulse oximetry 2024-01-11 19:41:00 100 /min [facility] Body temperature 2024-01-11 18:20:00 36.94 Jasmin [facility] Systolic blood pressure 2023-07-29 18:30:00 131 mm[Hg] [facility] Diastolic blood pressure 2023-07-29 18:30:00 90 mm[Hg] [facility] Heart rate 2023-07-29 18:30:00 101 /min [facility] Body temperature 2023-07-29 18:30:00 36.39 Jasmin [facility] Respiratory rate 2023-07-29 18:30:00 18 /min [facility] Body height 2023-07-29 18:30:00 165.1 cm [facility] Body weight 2023-07-29 18:30:00 88.633 kg [facility] BMI 2023-07-29 18:30:00 32.52 kg/m2 [facility] Body temperature 2023-02-11 16:05:00 36.78 Jasmin [facility] Body weight 2023-02-11 16:05:00 87.952 kg [facility] BMI 2023-02-11 16:05:00 32.27 kg/m2 [facility] Systolic blood pressure 2023-02-06 18:13:00 122 mm[Hg] [facility] Diastolic blood pressure 2023-02-06 18:13:00 78 mm[Hg] [facility] Heart rate 2023-02-06 18:08:00 83 /min [facility] Body temperature 2023-02-06 18:07:00 36.39 Jasmin [facility] Respiratory rate 2023-02-06 18:07:00 18 /min [facility] Body height 2023-02-06 18:07:00 165.1 cm [facility] Body weight 2023-02-06 18:07:00 86.093 kg [facility] BMI 2023-02-06 18:07:00 31.58 kg/m2 [facility] Systolic blood pressure 2022-09-27 19:56:00 154 mm[Hg] [facility] Diastolic blood pressure 2022-09-27 19:56:00 98 mm[Hg] [facility] Heart rate 2022-09-27 19:56:00 73 /min [facility] Respiratory rate 2022-09-27 19:56:00 16 /min [facility] Oxygen saturation in Arterial blood by Pulse oximetry 2022-09-27 19:56:00 100 /min [facility] Body temperature 2022-09-27 16:18:00 37 Jasmin [facility] Body weight 2022-09-27 16:18:00 87.544 kg [facility] BMI 2022-09-27 16:18:00 32.12 kg/m2 [facility] Systolic blood pressure 2022-09-19 22:53:37 126 mm[Hg] [facility] Diastolic blood pressure 2022-09-19 22:53:37 88 mm[Hg] [facility] Heart rate 2022-09-19 22:53:37 88 /min [facility] Respiratory rate 2022-09-19 22:53:37 18 /min [facility] Oxygen saturation in Arterial blood by Pulse oximetry 2022-09-19 22:53:37 99 /min [facility] Body temperature 2022-09-19 21:41:00 35.72 Jasmin [facility] Systolic blood pressure 2022-09-18 18:50:00 141 mm[Hg] [facility] Diastolic blood pressure 2022-09-18 18:50:00 92 mm[Hg] [facility] Heart rate 2022-09-18 18:50:00 95 /min [facility] Body temperature 2022-09-18 18:50:00 37.22 Jasmin [facility] Respiratory rate 2022-09-18 18:50:00 18 /min [facility] Body weight 2022-09-18 18:50:00 87.544 kg [facility] BMI 2022-09-18 18:50:00 32.12 kg/m2 [facility] Oxygen saturation in Arterial blood by Pulse oximetry 2022-09-18 18:50:00 99 /min [facility] Systolic blood pressure 2022-09-14 13:32:00 147 mm[Hg] [facility] Diastolic blood pressure 2022-09-14 13:32:00 94 mm[Hg] [facility] Heart rate 2022-09-14 13:32:00 98 /min [facility] Body temperature 2022-09-14 13:32:00 36.72 Jasmin [facility] Respiratory rate 2022-09-14 13:32:00 17 /min [facility] Body height 2022-09-14 13:32:00 165.1 cm [facility] 2022-09-14 13:32:00 82.555 kg [facility] BMI 2022-09-14 13:32:00 30.29 kg/m2 [facility] Oxygen saturation in Arterial blood by Pulse oximetry 2022-09-14 13:32:00 100 /min [facility] Systolic blood pressure 2022-07-03 17:43:00 147 mm[Hg] [facility] Diastolic blood pressure 2022-07-03 17:43:00 98 mm[Hg] [facility] Heart rate 2022-07-03 17:43:00 83 /min [facility] Body temperature 2022-07-03 17:43:00 37.61 Jasmin [facility] Respiratory rate 2022-07-03 17:43:00 18 /min [facility] Body height 2022-07-03 17:43:00 165.1 cm [facility] Body weight 2022-07-03 17:43:00 80.74 kg [facility] BMI 2022-07-03 17:43:00 29.62 kg/m2 [facility] Oxygen saturation in Arterial blood by Pulse oximetry 2022-07-03 17:43:00 100 /min [facility] Procedures Procedure Date / Time Performed Performing Clinician Source POCT TEST 2024-03-17 18:07:00 Mary Oakes [facility] CONSENT/REFUSAL FOR DIAGNOSIS AND TREATMENT 2024-02-09 17:59:35 Doctor Unassigned, [place] [facility] URINALYSIS 2024-01-15 02:50:00 [facility]FF 2024-01-14 21:53:00 Aren Cuevas [facility] HB ABO GROUPING 2024-01-14 21:53:00 Aren Cuevas [facility] EXTRA TUBE LT. BLUE 2024-01-14 21:53:00 Quan Cuevas [facility] EXTRA TUBE ORANGE 2024-01-14 21:53:00 Lou Cuevas [facility] CONSENT/REFUSAL FOR DIAGNOSIS AND TREATMENT 2024-01-14 21:06:07 Doctor Unassigned, [place] [facility] ASSIGNMENT OF BENEFITS 2024-01-11 19:18:38 Docto r Unassigned, [place] [facility] POCT TEST 2024-01-11 18:48:00 Jenna Kapoor [facility] CBC WITH DIFF 2024-01-11 18:47:00 Jenna Kapoor [facility] URINALYSIS 2024-01-11 18:47:00 Jenna Kapoor [facility] CONSENT/REFUSAL FOR DIAGNOSIS AND TREATMENT 2024-01-11 18:16:05 Doctor Unassigned, [place] [facility] BCCS-RELATED DOCUMENTATION 2023-08-05 05:01:00 D octor Unassigned, [place] [facility] GC & CHLAMYDIA AMPLIFIED ASSAY 2023-02-06 19:10:00 Julia Oakes [facility] HIV 1/2 AG-AB WITH REFLEX 2023-02-06 19:10:00 Julia Palomo [facility] HIGH RISK HPV-THIN PREP 2023-02-06 19:10:00 Julia Oakes [facility] TRICHOMONAS AMPLIFIED ASSAY 2023-02-06 19:10:00 Julia Oakes [facility] PAP SMEAR-LIQUID BASED-CP 2023-02-06 19:10:00 Julia Palomo [facility] SYPHILIS IGG/IGM 2023-02-06 19:10:00 Julia Oakes [facility] "RWSP SUMMER ONLY" FLU VACC(), 6+ MONTHS, IM, QUAD (FLUZONE/FLULAVAL/FLUARIX) 2023-02-06 19:08:03 Julia Oakes [facility] ASSIGNMENT OF BENEFITS 2023-02-06 17:54:16 Docto r Unassigned, [place] [facility] CONSENT FOR FREE TREATMENT FORM 2022-12-13 15:45:38 Doctor Unassigned, [place] [facility] URINE DRUG (IMMUNOASSAY) - COMPREHENSIVE DRUG SCREEN 2022-09-27 17:01:00 Chelly Ohara [facility] URINALYSIS 2022-09-27 17:01:00 [facility] URINE CULTURE 2022-09-27 17:01:00 Roland Levy [facility] CONSENT/REFUSAL FOR DIAGNOSIS AND TREATMENT 2022-09-27 16:55:29 Doctor Unassigned, [place] [facility] COMP. METABOLIC PANEL (92973) 2022-09-19 22:01:00 Charlette Grimm [facility] CBC WITH DIFF 2022-09-19 22:01:[address] [facility] URINALYSIS 2022-09-19 22:01:[address] [facility] CONSENT/REFUSAL FOR DIAGNOSIS AND TREATMENT 2022-09-19 21:34:44 Doctor Unassigned, [place] [facility] CONSENT/REFUSAL FOR DIAGNOSIS AND TREATMENT 2022-09-18 18:53:06 Doctor Unassigned, [place] [facility] CONSENT/REFUSAL FOR DIAGNOSIS AND TREATMENT 2022-09-14 13:26:46 Doctor Unassigned, [place] [facility] ND REMOVAL IMPACTED CERUMEN INSTRUMENTATION UNILAT 2022-07-03 20:09:56 Katja Thompson [facility] CONSENT/REFUSAL FOR DIAGNOSIS AND TREATMENT 2022-07-03 17:20:03 Doctor Unassigned, [place] [facility] CONSENT FOR FREE TREATMENT FORM 2021-11-05 16:05:09 Doctor Unassigned, [place] [facility] Encounters Start Date/Time End Date/Time Encounter Type Admission Type Attending [facility] Care Facility Care Department Encounter ID Source 2024-05-13 14:15:00 2024-05-13 14:55:45 Office Visit Malathi Childers [facility] MATERNAL & CHILD HEALTH [facility] 1.2.840.114 350.1.13.10 4.2.7.2.686 [id number] [facility] 2024-05-13 14:15:00 2024-05-13 14:55:45 Outpatient MALATHI AKERS [facility] [id number] [facility] 2024-05-13 14:15:00 2024-05-13 14:15:00 Outpatient MALATHI AKERS [facility] [id number] [facility] 2024-04-28 12:30:00 2024-04-28 12:30:00 Outpatient R MALATHI CHILDERS [facility] [id number] [facility] 2024-03-17 12:45:00 2024-03-17 13:46:06 Outpatient R JULIA OAKES [facility] [id number] [facility] 2024-03-17 12:45:00 2024-03-17 13:46:06 Office Visit Julia Oakes [facility]ET [facility] CHILD [facility] 1.20.114 350.1.13.10 4.2.7.2.686 [id number] [facility] 2024-03-09 13:30:00 2024-03-09 13:34:22 Outpatient R CULLEN ATKINSON [facility] [id number] [facility] 2024-03-09 13:30:00 2024-03-09 13:34:22 Office Visit Cullen Atkinson [facility] CHILD [facility] 1.840.114 350.1.13.10 4.2.7.2.686 [id number] [facility] 2024-02-11 00:00:00 2024-02-11 00:00:00 Telephone Cullen Atkinson [facility] P[facility]ET [facility] CHILD [facility] 1.840.114 350.1.13.10 4.2.7.2.686 [id number] [facility] 2024-02-09 13:30:00 2024-02-09 14:06:10 Outpatient R CULLEN ATKINSON [facility] [id number] [facility] 2024-02-09 13:30:00 2024-02-09 14:06:10 Office Visit Cullen Atkinson [facility] & CHILD [facility] 1.2840.114 350.1.13.10 4.2.7.2.686 [id number] [facility] 2024-02-09 00:00:00 2024-02-09 00:00:00 Orders Only Doctor Unassigned, [place]erman [facility] 1.2.840.114 350.1.13.10 4.2.7.2.686 [id number] [facility] 2024-01-14 15:18:00 2024-01-14 21:46:00 Emergency X AREN CUEVAS [facility] ERT [id number] [facility] 2024-01-14 15:18:00 2024-01-14 21:46:00 Emergency Aren Cuevas [facility] 1.840.114 350.1.13.10 4.2.7.2.686 [id number] [facility] 2024-01-11 12:23:00 2024-01-11 13:42:00 Emergency X JENNA KAPOOR [facility] ERT [id number] [facility] 2024-01-11 12:23:00 2024-01-11 13:42:00 Emergency EbJenna woods [facility] 1..840.114 350.1.13.10 4.2.7.2.686 [id number] [facility] 2023-08-26 00:00:00 2023-08-26 00:00:00 Telephone Cullen Atkinson [facility] MATERNAL & [facility] 1..840.114 350.1.13.10 4.2.7.2.686 [id number] [facility] 2023-08-13 07:57:14 2023-08-13 23:59:00 Outpatient R JULIA OAKES [facility] [id number] [facility] 2023-08-13 07:57:14 2023-08-13 23:59:00 Hospital Encounter Julia Oakes [facility] 1.2840.114 350.1.13.10 4.2.7.2.686 [id number] [facility] 2023-08-05 00:00:00 2023-08-05 00:00:00 Orders Only Doctor Unassigned, Tuckerman [facility] 1.2.840.114 350.1.13.10 4.2.7.2.686 [id number] [facility] 2023-07-29 13:30:00 2023-07-29 13:45:00 Office Visit Cullen Atkinson [facility] CHILD [facility] 1.2.840.114 350.1.13.10 4.2.7.2.686 [id number] [facility] 2023-07-29 13:30:00 2023-07-29 13:30:00 Outpatient R CULLEN ATKINSON [facility] [id number] [facility] 2023-06-04 00:00:00 2023-06-04 00:00:00 Telephone Julia Oakes [facility] P[facility]ET [facility] 1.2840.114 350.1.13.10 4.2.7.2.686 [id number] [facility] 2023-04-08 06:54:10 2023-04-08 23:59:00 Hospital Encounter Julia Oakes [facility] 1.2.840.114 350.1.13.10 4.2.7.2.686 [id number] [facility] 2023-04-08 00:00:00 2023-04-08 23:59:00 Outpatient R JULIA OAKES [facility] [id number] [facility] 2023-03-17 00:00:00 2023-03-17 00:00:00 Outpatient [facility] [id number] [facility] 2023-02-11 11:00:00 2023-02-11 11:12:11 Nurse Visit Visit, Demetrio Nurse Julia Oakes [facility] P[facility]ET [facility] CHILD [facility] 1..114 350.1.13.10 4.2.7.2.686 [id number] [facility] 2023-02-11 11:00:00 2023-02-11 11:00:00 Outpatient JULIA AVILA [facility] [id number] [facility] 2023-02-10 14:00:00 2023-02-10 14:00:00 Outpatient JULIA AVILA [facility] [id number] [facility] 2023-02-09 00:00:00 2023-02-09 00:00:00 [facility] CHILD [facility] 1..114 350.1.13.10 4.2.7.2.686 [id number] [facility] 2023-02-06 13:00:00 2023-02-06 14:12:49 Outpatient JULIA AVILA [facility] [id number] [facility] 2023-02-06 13:00:00 2023-02-06 14:12:49 Office Visit Provider, Julia Lopez [facility] POCKET [facility] CHILD [facility] 1..114 350.1.13.10 4.2.7.2.686 [id number] [facility] 2023-02-06 00:00:00 2023-02-06 00:00:00 Orders Only Doctor Unassigned, Tuckerman [facility] 1..114 350.1.13.10 4.2.7.2.686 [id number] [facility] 2023-01-03 13:00:00 2023-01-03 13:00:00 Outpatient R CULLEN ATKINSON [facility] [id number] [facility] 2022-12-13 00:00:00 2022-12-13 00:00:00 Outpatient [facility] [id number] [facility] 2022-12-13 00:00:00 2022-12-13 00:00:00 Orders Only Doctor Unassigned, Tuckerman [facility] 1.840.114 350.1.13.10 4.2.7.2.686 [id number] [facility] 2022-10-01 15:06:10 2022-10-01 15:06:10 Outpatient [facility] [id number] Aren Del Real Tom 2022-09-27 11:19:00 2022-09-27 15:02:00 Emergency X KACI GUEVARA [facility] ERT [id number] [facility] 2022-09-27 11:19:00 2022-09-27 15:02:00 Emergency Kaci Guevara Whitney [facility] 1.840.114 350.1.13.10 4.2.7.2.686 [id number] [facility] 2022-09-19 16:43:00 2022-09-19 18:04:00 Emergency X CHARLETTE GRIMM [facility] ERT [id number] [facility] 2022-09-19 16:43:00 2022-09-19 18:04:00 Emergency Charlette Grimm S [facility] 1..840.114 350.1.13.10 4.2.7.2.686 [id number] [facility] 2022-09-18 13:54:00 2022-09-18 15:42:00 Emergency X RADHA MATSON HEE-KWANG [facility] ERT [id number] [facility] 2022-09-18 13:54:00 2022-09-18 15:42:00 Emergency Radha Matson [facility] 1.2840.114 350.1.13.10 4.2.7.2.686 [id number] [facility] 2022-09-14 08:33:00 2022-09-14 10:02:00 Emergency X GRIMM, CHARLETTE [facility] ERT [id number] [facility] 2022-09-14 08:33:00 2022-09-14 10:02:00 Emergency Charlette Grimm S [facility] 1.2840.114 350.1.13.10 4.2.7.2.686 [id number] [facility] 2022-09-10 15:18:56 2022-09-10 15:18:56 Outpatient [facility] [id number] Aren Santos 2022-08-26 00:00:00 2022-08-26 00:00:00 Outpatient [facility] [id number] [facility] 2022-07-03 12:44:00 2022-07-03 15:27:00 Emergency X KATJA THOMPSON [facility] ERT [id number] [facility] 2022-07-03 12:44:00 2022-07-03 15:27:00 Emergency Katja Thompson [facility] 1.2840.114 350.1.13.10 4.2.7.2.686 [id number] [facility] 2022-07-03 00:00:00 2022-07-03 00:00:00 Orders Only Doctor Unassigned, Tuckerman [facility] 1.2.840.114 350.1.13.10 4.2.7.2.686 [id number] [facility] 2022-07-01 00:00:00 2022-07-01 00:00:00 Outpatient [facility] [id number] [facility] 2022-03-27 00:00:00 2022-03-27 00:00:00 Outpatient [facility] [id number] [facility] 2022-02-27 00:00:00 2022-02-27 00:00:00 Case Management Enedelia June [facility] 1.840.114 350.1.13.10 4.2.7.2.686 [id number] [facility] 2022-02-20 00:00:00 2022-02-20 00:00:00 Outpatient [facility] [id number] [facility] 2022-01-23 00:00:00 2022-01-23 00:00:00 Outpatient [facility] [id number] [facility] 2022-01-09 00:00:00 2022-01-09 00:00:00 Outpatient [facility] [id number] [facility] 2021-12-12 00:00:00 2021-12-12 00:00:00 Outpatient [facility] [id number] [facility] 2021-12-06 00:00:00 2021-12-06 00:00:00 Telephone Maribeljesusgisell Aiyana [facility] MEDICAL OFFICE BUILDING 1.840.114 350.1.13.10 4.2.7.2.686 [id number] [facility] 2021-11-21 00:00:00 2021-11-21 00:00:00 Telephone Aiyana Palm [facility] .84.114 350.1.13.10 4.2.7.2.686 [id number] [facility] 2021-11-08 00:00:00 2021-11-08 00:00:00 [facility] 1.84.114 350.1.13.10 4.2.7.2.686 [id number] [facility] 2021-11-05 00:00:00 2021-11-05 00:00:00 Outpatient [facility] [id number] [facility] 2021-11-05 00:00:00 2021-11-05 00:00:00 Orders Only Doctor Unassigned, Tuckerman [facility] 1.2840.114 350.1.13.10 4.2.7.2.686 [id number] [facility] 2021-11-02 11:15:00 2021-11-02 13:41:22 Outpatient R AIYANA PALM [facility] [id number] [facility] 2021-11-02 11:18:54 2021-11-02 11:33:54 Vulcanized Fiber Unit Operator Visit 2, Adc Lab Aiyana Palm [facility] 1.2840.114 350.1.13.10 4.2.7.2.686 [id number] [facility] 2021-11-01 00:00:00 2021-11-01 00:00:00 Telephone Aiyana Palm [facility] 1.20.114 350.1.13.10 4.2.7.2.686 [id number] [facility] 2021-10-31 00:00:00 2021-10-31 00:00:00 Transition of Care Lisseth Carmen 1.20.114 350.1.13.10 4.2.7.2.686 [id number] [facility] 2021-10-24 15:00:00 2021-10-30 17:30:00 Inpatient X AIYANA PALM [facility] [id number] [facility] 2021-10-24 15:00:00 2021-10-30 17:30:00 Hospital Encounter Da Doylerupali Chaneltron, Coleen Benton, Alicia [facility] [id number] [id number] [id number] [facility] 2021-10-24 15:00:00 2021-10-30 17:30:00 [id number] 2021-10-30 00:00:00 2021-10-30 00:00:00 [facility] [id number] [id number] [id number] [facility] 2021-10-29 00:00:00 2021-10-29 00:00:00 Telephone [facility] [id number] 350.1.13.10 4.2.7.2.686 [id number] [facility] Results Test Description Test Time Test Comments Results Result Co mments [id number] 18:07:00* Test Item Value Reference Range Interpretation Comme nts POCT PREG (test code = 1605) Negative On board controls acceptable with C Line (test code = 3574) Yes POCT PREG LOT # (test code = 3575) POCT PREG TEST DATE ( test code = 3576) [facility] - ONCE [id number] 22:01:00 * Test Item Value Reference Range Interpretation Comme nts ABO & RH (test code = 20) O POSITIVE IAT (test code = 1185) Negative [facility] WITH [id number] 19:17:50* Test Item Value Reference Range Interpretation Comme nts WBC (test code = 6690-2) 10.20 4.30-11.10 RBC (test code = 789-8) 3.70 3.93-5.25 L HGB (test code = 718-7) 8.5 g/dL 11.6-15.0 L HCT (test code = 4544-3) 28.6 % 35.7-45.2 L MCV (test code = 787-2) 77.3 fL 80.6-95.5 L MCH (test code = 785-6) 23.0 pg 25.9-32.8 L MCHC (test code = 786-4) 29.7 g/dL 31.6-35.1 L RDW-SD (test code = 43750-0) 45.0 fL 39.0-49.9 RDW-CV (test code = 788-0) 16.2 % 12.0-15.5 H PLT (test code = 777-3) 508 166-358 H MPV (test code = 36676-7) 9.6 fL 9.5-12.9 NRBC/100 WBC (test code = 6824419386) 0.0 0.0-10.0 NRBC x10^3 (test code = 5542181681) See_Comment [Automated messa ge] The system which generated this result transmitted reference range: 10*3/?L. The reference range was not used to interpret this result as normal/abnormal. GRAN MAT (NEUT) % (test code = 770-8) 73.8 % IMM GRAN % (test code = 6863535107) 0.40 % LYMPH % (test code = 736-9) 15.1 % MONO % (test code = 5905-5) 8.8 % EOS % (test code = 713-8) 1.4 % BASO % (test code = 706-2) 0.5 % GRAN MAT x10^3(ANC) (test code = 6217456996) 7.53 10*3/uL 1.88-7.09 H IMM GRAN x10^3 (test code = 5462673224) 0.04 10*3/uL 0.00-0.06 LYMPH x10^3 (test code = 731-0) 1.54 10*3/uL 1.32-3.29 MONO x10^3 (test code = 742-7) 0.90 10*3/uL 0.33-0.92 EOS x10^3 (test code = 711-2) 0.14 10*3/uL 0.03-0.39 BASO x10^3 (test code = 704-7) 0.05 10*3/uL 0.01-0.07 Lab Interpretation (test code = 19058-7) [id number] Test Item Value Reference Range Interpretation Comme nts POCT PREG (test code = 1605) Negative On board controls acceptable with C Line (test code = 3574) Yes POCT PREG LOT # (test code = 3575) [id number] POCT PREG TEST DATE ( test code = 3576) 12-29-24 Lab Interpretation (test cod e = 13242-1) Normal [facility] ONLY - SYPHILIS [id number] 15:32:18* Test Item Value Reference Range Interpretation Comme [facility] Syphilis IgG/IgM (test code = 98069-2) Non-reactive Non-reactive RUTH (test code = RUTH) Non-reactive - No serologic evidence of T. pallidum infection. Cannot exclude incubating or early syphilis. Submit a second specimen in 2-4 weeks if syphilis is clinically suspected. Equivocal - Further testing to follow. Reactive - Further testing to follow. Lab Interpretation (test code = 90210-7) Normal [facility] ONLY - SYPHILIS [id number] 15:32:18* Test Item Value Reference Range Interpretation Comme [facility] Syphilis IgG/IgM (test code = 52642-5) Non-reactive Non-reactive RUTH (test code = RUTH) Non-reactive - No serologic evidence of T. pallidum infection. Cannot exclude incubating or early syphilis. Submit a second specimen in 2-4 weeks if syphilis is clinically suspected. Equivocal - Further testing to follow. Reactive - Further testing to follow. Lab Interpretation (test code = 99540-4) Normal [facility] 1/2 AG-AB WITH [id number] 05:46:30* Test Item Value Reference Range Interpretation Comme [facility] HIV Semi-quantitative (test code = 65895-3) 0.08 Negative RUTH (test code = RUTH) Non-reactive for HIV-1 antigen and HIV-1/HIV-2 antibodies. ?No laboratory evidence of HIV infection. ?Repeat in 2-4 weeks if acute HIV infection is suspected. [facility] WITH [id number] 05:46:30* Test Item Value Reference Range Interpretation Comme nts HIV Semi-quantitative (test code = 25364-6) 0.08 Negative RUTH (test code = RUTH) Non-reactive for HIV-1 antigen and HIV-1/HIV-2 antibodies. ?No laboratory evidence of HIV infection. ?Repeat in 2-4 weeks if acute HIV infection is suspected. [facility]. METABOLIC PANEL ([id number] 22:30:43* Test Item Value Reference Range Interpretation Comme nts NA (test code = 5880032695) 138 mmol/L 135-145 K (test code = 1904282098) 4.9 mmol/L 3.5-5.0 CL (test code = 2860113026) 102 mmol/L 98-108 CO2 TOTAL (test code = 2739413850) 24 mmol/L 23-31 AGAP (test code = 2955655457) 2-16 BUN (test code = 5309201061) 32 mg/dL 7-23 H GLUCOSE (test code = 8278373393) 80 mg/dL 70-110 CREATININE (test code = 5112665705) 1.84 mg/dL 0.50-1.04 H TOTAL BILI (test code = 9118311210) 0.9 mg/dL 0.1-1.1 CALCIUM (test code = 6692909459) 9.5 mg/dL 8.6-10.6 T PROTEIN (test code = 5979120268) 8.0 g/dL 6.3-8.2 ALBUMIN (test code = 9032755928) 4.9 g/dL 3.5-5.0 ALK PHOS (test code = 8316126378) 65 U/L 34-122 ALTv (test code = 1742-6) 15 U/L 5-35 AST(SGOT) (test code = 0399617206) 23 U/L 13-40 eGFR (test code = 6344194456) mL/min/1.73m2 RUTH (test code = RUTH) Association of Glomerular Filtration Rate (GFR) and Staging of Kidney Disease* + --+ --+ ------+| GFR (mL/min/1.73 m2) ?| With Kidney Damage ?| ?Without Kidney Damage+ --------+ --------+ +| ?>90 ?| ?Stage one ?| ? Normal ?+ ---+ ---+ -------+| ?60-89 ?| ?Stage two ?| ? Decreased GFR ? + --+ --+ ------+| ?30-59 ?| ?Stage three ?| ? Stage three ? + --+ --+ ------+| ?15-29 ?| ?Stage four ? | ? Stage four ?+ ---+ ---+ -------+| ?<15 (or dialysis) ? ?| ?Stage five ? | ? Stage five ?+ ---+ ---+ -------+ *Each stage assumes the associated GFR level has been in effect for at least three months. ?Stages 1 to 5, with or without kidney disease, indicate chronic kidney disease. Notes: Determination of stages one and two (with eGFR >59mL/min/1.73 m2) requires estimation of kidney damage for at least three months as defined by structural or functional abnormalities of the kidney, manifested by either:Pathological abnormalities or Markers of kidney damage (including abnormalities in the composition of the blood or urine or abnormalities in imaging tests). Lab Interpretation (test code = 04116-8) Abnormal [facility] WITH [id number] 22:20:21* Test Item Value Reference Range Interpretation Comme nts WBC (test code = 6690-2) See_Comment [Automated [employer]] The system which generated this result transmitted reference range: 4.30 - 11.10 10*3/?L. The reference range was not used to interpret this result as normal/abnormal. RBC (test code = 789-8) See_Comment [Automated [employer]] The system which generated this result transmitted reference range: 3.93 - 5.25 10*6/?L. The reference range was not used to interpret this result as normal/abnormal. HGB (test code = 718-7) 12.4 g/dL 11.6-15.0 HCT (test code = 4544-3) 38.2 % 35.7-45.2 MCV (test code = 787-2) 85.7 fL 80.6-95.5 MCH (test code = 785-6) 27.8 pg 25.9-32.8 MCHC (test code = 786-4) 32.5 g/dL 31.6-35.1 RDW-SD (test code = 97929-5) 42.5 fL 39.0-49.9 RDW-CV (test code = 788-0) 13.8 % 12.0-15.5 PLT (test code = 777-3) See_Comment H [Automated messa ge] The system which generated this result transmitted reference range: 166 - 358 10*3/?L. The reference range was not used to interpret this result as normal/abnormal. MPV (test code = 31657-2) 10.0 fL 9.5-12.9 NRBC/100 WBC (test code = 0459289192) See_Comment [Automated [employer] ssage] The system which generated this result transmitted reference range: 0.0 - 10.0 /100 WBCs. The reference range was not used to interpret this result as normal/abnormal. NRBC x10^3 (test code = 7159356942) See_Comment [Automated [employer]] The system which generated this result transmitted reference range: 10*3/?L. The reference range was not used to interpret this result as normal/abnormal. GRAN MAT (NEUT) % (test code = 770-8) 63.9 % IMM GRAN % (test code = 9465963371) 0.40 % LYMPH % (test code = 736-9) 22.8 % MONO % (test code = 5905-5) 10.7 % EOS % (test code = 713-8) 1.6 % BASO % (test code = 706-2) 0.6 % GRAN MAT x10^3(ANC) (test code = 5789995905) 6.15 10*3/uL 1.88-7.09 IMM GRAN x10^3 (test code = 7169070601) 0.04 10*3/uL 0.00-0.06 LYMPH x10^3 (test code = 731-0) 2.20 10*3/uL 1.32-3.29 MONO x10^3 (test code = 742-7) 1.03 10*3/uL 0.33-0.92 H EOS x10^3 (test code = 711-2) 0.15 10*3/uL 0.03-0.39 BASO x10^3 (test code = 704-7) 0.06 10*3/uL 0.01-0.07 Lab Interpretation (test code = 58048-5) Abnormal [facility] Notes Date/Time Note Provider Source 2024-02-11 15:50:36 Notified patient of lab results-anemia. Instructed patient to take OTC multi vitamin and iron/vitamin C or with orange juice to aide with absorption. Discussed foods high in iron. Pt verbalized understanding. KARLI DEVLIN RN 02/11/2024 3:52 PM Karli Devlin RN [facility] 2024-02-11 15:15:37 Please advise patient she is anemic, she should try otc iron and multiviatmin, vit c/orange juice to help with absorption, and eating iron rich foods KRISTI Nguyen 02/11/2024 3:16 PM [facility] 2024-01-14 21:46:29 Pt discharged to home. Discharge instructions given to pt regarding management of condition and instructions to follow up with PCP. Pt verbalized understanding. PIV removed without complications. Patient in possession of all belongings. Pt ambulates to lobby with steady gait. E Putnam RN [facility] 2024-01-14 19:52:21 Reading room contacted regarding ultrasound results. Per radiologist, critical reads are priority and ultrasound scans will be sent to TRA. [facility] 2024-01-14 16:48:17 Pt to ultrasound via wheelchair. [facility] 2024-01-14 16:35:20 Nurse Report Report given to KATHLEEN Doty. Chief complaint, assessment findings, infusion verify and orders reviewed. Plan of care discussed between both nurses with verbalized understanding. No further questions, comments, or concerns at this time. Danika Odonnell RN, [facility] [employer] Danika Odnonell RN [facility] 2024-01-14 16:00:58 Pt ambulates to RR without assistance with steady gait. Pt able to give urine sample for possible UA. [facility] 2024-01-14 15:44:12 Pt given urine cup and notified UA is needed. Pt does not need to use RR at this time. [facility] 2024-01-14 15:37:10 Dr Cuevas in G2 for initial pt evaluation [facility] 2024-01-14 15:18:16 Barb Duff is a 48 year old female to ED for excessive vaginal bleeding and pelvic pain. Pt reports bleeding for the past 3 weeks that stopped last night. Pt reports clots. AAO X3, speaking clearly. [facility] Lucinda Jeffrey RN [facility] 2024-01-11 13:42:12 Discharged by provider. E Theodore RN [facility] 2024-01-11 12:22:41 Has not taken BP meds today [employer] [facility] 2024-01-11 12:18:47 Barb Duff is a 48 year old female c/o vaginal bleeding for 3 weeks, abnormal periods for 2 months, states last intercourse 1 month ago, denies vaginal discharge, states today having more cramping, states has had clots the entire 3 weeks, wants an ultrasound as can't get into [facility] until February 06, E Jimenez RN [facility]
--- NOTE | 2024-06-27 16:03 | ER ---
Nurse's Notes [facility] Name: Barb Duff Age: 49 yrs Sex: Female : 1975 Arrival Date: 06/27/2024 Time: 15:46 Bed 13 Private MD: Diagnosis: Acute dacryoadenitis, left lacrimal gland;Cellulitis of face Presentation: 06/27 15:56 Chief complaint: Patient states: facial swelling below left eye that started on Friday me1 and has gotten worse. Pain 7/10. Reports some nasal drainage. Coronavirus screen: Vaccine status: Patient reports receiving the 2nd dose of the covid vaccine. Ebola Screen: No symptoms or risks identified at this time. Initial Sepsis Screen: Does the patient meet any 2 criteria? No. Patient's initial sepsis screen is negative. Does the patient have a suspected source of infection? No. Patient's initial sepsis screen is negative. Risk Assessment: Do you want to hurt yourself or someone else? Patient reports no desire to harm self or others. Onset of symptoms was June 25, 2024. 15:56 Method Of Arrival: Ambulatory oh1 15:56 Acuity: MARA 4 me1 Triage Assessment: 15:59 Headache History: Denies prior headaches. General: Appears comfortable, well groomed, me1 well developed, well nourished, Behavior is calm, cooperative, appropriate for age, Reports sinus pain, facial swellng on the left side under the eye. Pain: Complains of pain in left lower eyelid Pain does not radiate. Pain currently is 7 out of 10 on a pain scale. Quality of pain is described as tender, Pain began gradually, 2-3 days ago. Is continuous, Also complains of no other associated symptoms. EENT: No signs and/or symptoms were reported regarding the EENT system. Neuro: Level of Consciousness is awake, alert, obeys commands, Oriented to person, place, time, situation, Appropriate for age. Cardiovascular: Patient's skin is warm and dry. Respiratory: Airway is patent Respiratory effort is even, unlabored, Respiratory pattern is regular, symmetrical. GI: No signs and/or symptoms were reported involving the gastrointestinal system. : No signs and/or symptoms were reported regarding the genitourinary system. Derm: Skin is intact, is healthy with good turgor, Skin is pink, warm \T\ dry. Musculoskeletal: No signs and/or symptoms reported regarding the musculoskeletal system. 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 - Infectious Disease History:: Denies. - Social history:: Smoking status: Patient reports the use of cigarette tobacco products, smokes one-half pack cigarettes per day. Screenin:05 [facility] ED Fall Risk Assessment (Adult) History of falling in the last 3 months, kc6 including since admission No falls in past 3 months (0 pts) Confusion or Disorientation No (0 pts) Intoxicated or Sedated No (0 pts) Impaired Gait No (0 pts) Mobility Assist Device Used No (0 pt) Altered Elimination No (0 pt) Score/Fall Risk Level 0 - 2 = Low Risk. Abuse screen: Denies threats or abuse. Denies injuries from another. Nutritional screening: No deficits noted. Tuberculosis screening: No symptoms or risk factors identified. Assessment: 16:06 General: Appears in no apparent distress. comfortable, well groomed, well developed, kc6 Behavior is calm, cooperative, appropriate for age. Pain: Complains of pain in face and left eye. Neuro: Level of Consciousness is awake, alert, obeys commands, Oriented to person, place, time, situation, Appropriate for age. Cardiovascular: Capillary refill < 3 seconds. Respiratory: Airway is patent Trachea midline Respiratory effort is even, unlabored, Respiratory pattern is regular, symmetrical. GI: No signs and/or symptoms were reported involving the gastrointestinal system. : No signs and/or symptoms were reported regarding the genitourinary system. Musculoskeletal: No signs and/or symptoms reported regarding the musculoskeletal system. Circulation, motion, and sensation intact. Capillary refill < 3 seconds, Range of motion: intact in all extremities. Vital Signs: 15:56 BP 183 / 94; Pulse 101; Resp 18; Temp 97.6; Pulse Ox 100% ; Weight 83.91 kg; Height 5 me1 ft. 5 in. ; Pain 7/10; 15:56 Body Mass Index 30.79 (83.91 kg, 165.1 cm) me1 15:56 Pain Scale: Adult oh1 ED Course: 15:51 Patient arrived in ED. im 15:52 Dusty Hurley MD is Attending Physician. ec2 15:59 Triage completed. me1 15:59 Arm band placed on Patient placed in an exam room. me1 16:05 Roseann Kahn, KATHLEEN is Primary Nurse. kc6 16:05 Patient has correct armband on for positive identification. Bed in low position. Call kc6 light in reach. Side rails up X 1. Pulse ox on. NIBP on. Pillow given. 16:14 No provider procedures requiring assistance completed. Patient did not have IV access kc6 during this emergency room visit. Administered Medications: 16:14 Drug: Trimethoprim-Sulfamethoxazole PO (160 mg-800 mg (DS) 1 tablet PO once Route: PO; kc6 Medication: 16:15 VIS not applicable for this client. kc6 Outcome: 16:03 Discharge ordered by MD. ec2 16:14 Discharged to home ambulatory, kc6 16:14 Condition: good 16:14 Discharge instructions given to patient, Instructed on discharge instructions, follow up and referral plans. medication usage, Demonstrated understanding of instructions, follow-up care, medications, Prescriptions given X 1, 16:15 Patient left the ED. kc6 Signatures: Roseann Kahn, KATHLEEN RN 6 Zhanna Tang Michelle RN RN oh1 Dusty Hurley MD MD 2
--- NOTE | 2024-06-27 16:03 | EDPHYS ---
Physician Documentation [facility] Name: Barb Duff Age: 49 yrs Sex: Female : 1975 Arrival Date: 06/27/2024 Time: 15:46 Bed 13 Private MD: ED Physician Dusty Hurley HPI: 06/27 16:04 This 49 yrs old Black Female presents to ER via Ambulatory with complaints of Sinus ec2 Pain, Facial Swelling. 16:04 Patient arrives today d/t concern for L facial swelling. Reports that she had noted L ec2 facial swelling. no fevers, chills, nausea, vomiting. Patient reports that she has no dental pain. Does smoke regularly. Patient reports that she did notice increased discharge in the left eye earlier this morning when she woke up.. 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 - Infectious Disease History:: Denies. - Social history:: Smoking status: Patient reports the use of cigarette tobacco products, smokes one-half pack cigarettes per day. ROS: 16:04 Constitutional: as per hpi ec2 Exam: 16:04 Constitutional: GEN: NAD Head: atraumatic Eyes: EOMI Ears: External ears are ec2 normal. CV: Tachycardia LUNGS: no respiratory distress ABD: non-distended SKIN: Faint soft tissue swelling to the left maxillary area leading to the left lacrimal duct area, no fluctuance appreciated, questionable erythema. MSK: no evidence of trauma NEURO: moves all extremities equally Vital Signs: 15:56 BP 183 / 94; Pulse 101; Resp 18; Temp 97.6; Pulse Ox 100% ; Weight 83.91 kg; Height 5 me1 ft. 5 in. ; Pain 7/10; 15:56 Body Mass Index 30.79 (83.91 kg, 165.1 cm) me1 15:56 Pain Scale: Adult me1 MDM: 15:55 Patient medically screened. ec2 16:04 Data reviewed: vital signs. ED course: Patient arrives today for left facial swelling. ec2 Examination remarkable for well-appearing nontoxic individual is otherwise in no acute distress with a reassuring examination with skin findings as noted above. I suspect dacrocystitis causing the patient's soft tissue swelling in the above area. Possible concurrent cellulitis however not convincingly. I instructed the patient on warm compresses and start the patient on Augmentin. I considered other processes such as dental abscess, maxillary abscess. Additionally considered obtaining lab work and CT scanning of the face however patient without systemic signs symptoms and clinical picture does not fit with abscess. Will start antibiotics and have the patient follow-up outpatient expectantly, return precautions given.. Administered Medications: 16:14 Drug: Trimethoprim-Sulfamethoxazole PO (160 mg-800 mg (DS) 1 tablet PO once Route: PO; kc6 Disposition Summary: 06/27/24 16:03 Discharge Ordered Notes: Location: Home ec2 Condition: Stable ec2 Diagnosis - Acute dacryoadenitis, left lacrimal gland ec2 - Cellulitis of face ec2 Followup: ec2 - With: Private Physician - When: - Reason: Re-evaluation by your physician Discharge Instructions: - Discharge Summary Sheet ec2 - Cellulitis, Adult ec2 Forms: - Medication Reconciliation Form ec2 - Antibiotic Education ec2 - Prescription Opioid Use ec2 - Patient Portal Instructions ec2 - Leadership Thank You Letter ec2 Prescriptions: - Bactrim DS 800-160 mg Oral Tablet - take 1 tablet ORAL route every 12 hours for 7 days; 14 tablet; Refills: 0, ec2 Product Selection Permitted Signatures: Roseann Kahn RN RN kc6 Aida Sykes RN RN me1 Dusty Hurley MD MD ec2 Corrections: (The following items were deleted from the chart) 16:07 16:04 Constitutional: GEN: NAD Head: atraumatic Eyes: EOMI Ears: External ears are ec2 normal. CV: regular rate LUNGS: no respiratory distress ABD: non-distended SKIN: Faint soft tissue swelling to the left maxillary area leading to the left lacrimal duct area, no fluctuance appreciated, questionable erythema. MSK: no evidence of trauma NEURO: moves all extremities equally ec2
[2024-06-27] MEDS ORDERED: SMZ./TMP. 800/160 MG TABLET ONE (16:09)
[2024-06-27 18:43] VITALS: BP 183/94; TEMP 97.6; O2SAT 100
== END 2024-06-27 16:15 | disposition home or self-care (01) ==
LOC: ER 15:46
DX: H04.012 Acute dacryoadenitis, left lacrimal gland (principal); L03.211 Cellulitis of face
CPT/HCPCS: 99283

== ENCOUNTER 2024-09-16 16:29 | Emergency (ER) | payer SELFPAY ==
--- OUTSIDE RECORDS SUMMARY | 2024-09-16 16:33 | XMS REPORT | Continuity of Care Document ---
Author Name Unknown Address [address] [place] [address] [facility] 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 Building Construction Engineer Name Role Phone Pcp, Patient Does Not Have A Primary Care Physic annita DELMI CHILDERS Attending Clinician Unavailable HOLLY ATKINSON Attending Clinician Unavail able Holly Jules Attending Clinician + JULIA OAKES Attending Clinician UnavailJulia Kwok CNM Attending Clinician [phone] Holly Jules Attending Clinician + Doctor Unassigned, [place] Attending Clinician U AREN Dave Attending Clinician UnavailAren Moncada MD Attending Clinician [phone] SHA KAPOOR Attending Clinician Unavailable Sha Tyler Attending Clinician [phone] Visit, Demetrio Nurse Attending Clinician Unava ilable Provider, Demetrio Temp Attending Clinician Shanique vailable JO BAY Attending Clinician Unavailable Jo Baron Soledad Attending Clinician [phone] Mildred ORTEGA, Chelly Hemphill Attending Clinician [phone] CHARLETTE GRIMM Attending Clinician Unavailable Charlette Vega Attending Clinician [phone] CHRISTOPHER MATSON Attending Clinician Unavailable CHRISTOPHER MATSON Attending Clinician Unavailable TeddyChristopher velez DO Attending Clinician [phone] CHUCK THOMPSON Attending Clinician Unavailable Chuck Thompson MD Attending Clinician [phone] Slade KRISHNANSW, Enedelia Alejandro Attending Clinician Nina Palm MD, Anisha Man Attending Clinician + ANISHA PALM Attending Clinician Cedric connelly 2, [facility] Attending Clinician Unavailable Kermit WANG, Lisseth Mittal Attending Clinician UnavailLakeisha So Attending Clinician [phone] Coleen Yarbrough MD Attending Clinician [phone] Alicia Benton MD Attending Clinician [phone] MORRICALAREN Admitting Clinician UnavailANISHA Larsen Admitting Clinician Cedric Palm MD, Anisha Man Admitting Clinician + Payers Payer Name Policy Type Policy Number Effective Date Expirati on Date Source [employer] 0-100% [id number] 2024 00:00:00 MEDICAID PENDING PENDING 2021 00:00:00 Problems Condition Name Condition Details Condition Category Status Onset Date Resolution Date Last Treatment Date Treating Clinician Comments Source Tobacco use disorder Tobacco use disorder Disease Active 02-09 00:00: 00 [facility] Heart failure Heart failure Disease Active 2020-11 00:00: 00 [facility] Hypertensi ve urgency Hypertensi ve urgency Disease Active 2020-11 00:00: 00 [facility] Essential hypertensi on, benign Essential hypertensi on, benign Disease Active 05-06 00:00: 00 [facility] History of tubal ligation History of tubal ligation Disease Active 05-06 00:00: 00 [facility] Obesity (BMI 30-39.9) Obesity (BMI 30-39.9) Disease Resolve d 2020-11 00:00: 00 2024-03-09 00:00:00 2024-03-09 14:15:46 [facility] Contracept piero management Contracept piero management Disease Resolve d 05-06 00:00: 00 2023-02-09 00:00:00 2023-02-09 14:08:22 [facility] Sexually transmitte d disease exposure Sexually transmitte d disease exposure Disease Resolve d 05-06 00:00: 00 2023-02-09 00:00:00 2023-02-09 14:08:46 [facility] BV (bacterial vaginosis) BV (bacterial vaginosis) Disease Resolve d 05-06 00:00: 00 2023-02-06 00:00:00 2023-02-06 13:08:54 [facility] Allergies, Adverse Reactions, Alerts Allergy Name Allergy Type Status Severity Reaction(s) Onset Date Inactive Date Treating Clinician Comments Source NO KNOWN ALLERGIE S Drug Class Active [facility] Social History Social Habit Start Date Stop Date Quantity Comments Source History of tobacco use Cigarette Smoker [facility] ASSERTION [facility] History SDOH Alcohol Std Drinks [facility] Gender identity [facility] Alcoholic beverage intake 2024-08-11 00:00:00 2024-08-11 00:00:00 Current drinker of alcohol (finding) [facility] Tobacco use and exposure 2024-08-11 00:00:00 2024-08-11 00:00:00 Smokeless tobacco non-user [facility] Cigarettes smoked current (pack per day) - Reported 2024-08-11 00:00:00 2024-08-11 00:00:00 [facility] Cigarette pack-years 2024-08-11 00:00:00 2024-08-11 00:00:00 [facility] Alcohol intake 2024-03-17 00:00:00 2024-03-17 00:00:00 Current drinker of alcohol (finding) [facility] History of Social function 2024-02-09 00:00:00 2024-02-09 00:00:00 [facility] Exposure to SARS-CoV-2 (event) 2023-03-07 00:00:00 2023-03-17 15:14:00 Not sure [facility] Alcohol Comment 2023-02-06 00:00:00 2023-02-06 00:00:00 socially [facility] History SDOH Financial 2022-10-10 00:00:00 2022-10-10 00:00:00 3 [facility] History SDOH Food Worry 2022-10-10 00:00:00 2022-10-10 00:00:00 1 [facility] History SDOH Food Scarcity 2022-10-10 00:00:00 2022-10-10 00:00:00 1 [facility] History SDOH Transport Med 2022-10-10 00:00:00 2022-10-10 00:00:00 2 [facility] History SDOH Transport Non-Med 2022-10-10 00:00:00 2022-10-10 00:00:00 2 [facility] History SDOH Alcohol Frequency 2022-10-10 00:00:00 2022-10-10 00:00:00 1 [facility] History SDOH Alcohol Binge 2022-10-10 00:00:00 2022-10-10 00:00:00 1 [facility] History SDOH Stress 2021-11-05 00:00:00 2021-11-05 00:00:00 2 [facility] Sex assigned at 1975 00:00:00 1975 00:00:00 [facility] Smoking Status Start Date Stop Date Source [facility] smoker 2024-08-11 00:00:00 [facility] Ex-smoker 2021-11-05 00:00:00 2021-11-05 00:00:00 [facility] Medications Ordered Medication Name Filled Medication Name Start Date Stop Date Current Medication? Ordering Clinician Indication Dosage Frequency Signature (SIG) Comments Components Source etonogestre L (NEXPLANON) implant 68 mg 20 19:30: 00 05-13 19:39 :03 No 68mg [facility] sacubitriL- valsartan (ENTRESTO) 97-103 mg tablet 03-23 00:00: 00 Yes 1{tbl} Take 1 tablet by mouth in the morning and 1 tablet in the evening. [facility] levonorgest reL (MIRENA) IUD 1 Device 03-17 19:30: 00 03-17 19:07 :00 No [id number] 100 1{devic e} 1 Device, Intrauteri ne, ONCE, 1 dose, On Fri03/17/24 at 1430, Routine [facility] sacubitriL- valsartan (ENTRESTO) 24-26 mg tablet 03-12 00:00: 00 Yes [id number] 1{tbl} Take 1 tablet by mouth in the morning and 1 tablet in the evening. [facility] ARIPIPRAZOL E 15 mg tablet 03-12 00:00: 00 Yes [id number] 15mg TAKE ONE (1) TABLET(S) BY MOUTH ONCE A DAY AT BEDTIME. [facility] sacubitriL- valsartan (ENTRESTO) 49-51 mg tablet 18 13:22: 56 Yes 1{tbl} Take 1 tablet by mouth in the morning and 1 tablet in the evening. [facility] amLODIPine 5 mg tablet 2-14 00:00: 00 Yes [id number] 5mg Take 1 tablet by mouth in the morning. [facility] atorvastati n 40 mg tablet -06 00:00: 00 Yes [id number] 40mg Take 1 tablet by mouth at bedtime. [facility] bumetanide 2 mg tablet - 00:00: 00 Yes [id number] 2mg Take 1 tablet by mouth in the morning and 1 tablet in the evening. [facility] metoprolol succinate XL 50 mg 24 hr tablet 2-06 00:00: 00 Yes [id number] 50mg Take 1 tablet by mouth in the morning and 1 tablet in the evening. [facility] ARIPiprazol e (ABILIFY) 15 mg tablet 2-06 00:00: 00 Yes [id number] 15mg Take 1 tablet by mouth at bedtime. [facility] dapaglifloz in propanediol (FARXIGA) 10 mg tablet 2-06 00:00: 00 02-08 00:00 :00 No 10mg Take 1 tablet by mouth in the morning. [facility] metoprolol succinate XL 25 mg 24 hr tablet 4-24 00:00: 00 Yes [id number] 25mg Take 1 tablet by mouth in the morning and 1 tablet in the evening. [facility] ARIPiprazol e (ABILIFY) 15 mg tablet 4-24 00:00: 00 Yes [id number] 15mg Take 1 tablet by mouth at bedtime. [facility] atorvastati n 40 mg tablet 4-24 00:00: 00 Yes [id number] 40mg Take 1 tablet by mouth at bedtime. [facility] bumetanide 2 mg tablet 4-24 00:00: 00 Yes [id number] 2mg Take 1 tablet by mouth in the morning and 1 tablet in the evening. [facility] amLODIPine 5 mg tablet 4-24 00:00: 00 Yes [id number] 5mg Take 1 tablet by mouth in the morning. [facility] metroNIDAZO LE 500 mg tablet 3-19 00:00: 00 02-10 04:59 :00 No [id number] 2000mg Take 4 tablets by mouth once now for 1 dose. [facility] sacubitriL- valsartan (ENTRESTO) 24-26 mg tablet 2-13 00:00: 00 Yes [id number] 1{tbl} Take 1 tablet by mouth in the morning and 1 tablet in the evening. [facility] ARIPiprazol e (ABILIFY) 15 mg tablet 01-06 00:00: 00 Yes [id number] 15mg Take 1 tablet by mouth at bedtime. [facility] ATORVASTATI N 40 mg tablet 01-01 00:00: 00 Yes [id number] TAKE ONE (1) TABLET(S) BY MOUTH ONCE A DAY AT BEDTIME. [facility] BUMETANIDE 2 mg tablet 12-02 00:00: 00 Yes [id number] TAKE ONE (1) TABLET BY MOUTH 2 (TWO) TIMES DAILY. [facility] ARIPiprazol e (ABILIFY) 15 mg tablet 2021-11 00:00: 00 Yes [id number] 15mg Take 1 tablet by mouth in the morning. [facility] METOPROLOL SUCCINATE XL 25 mg 24 hr tablet 2021-11 00:00: 00 Yes [id number] TAKE THREE (3) TABLET(S) BY MOUTH TWICE A DAY. [facility] AMLODIPINE 5 mg tablet 2021-11 00:00: 00 Yes [id number] TAKE ONE (1) TABLET BY MOUTH DAILY. [facility] cefdinir (OMNICEF) capsule 300 mg 2021-11 18:30: 00 09-27 18:34 :00 No 300mg 300 mg, Oral, ONCE, 1 dose, On Fri09/27/22 at 1330, TOYIN
Re ason for Anti-Infec tive: Documented Infection< br>Documen anisha Infection Site: Urine
D uration of Therapy: 7 days [facility] cefdinir 300 mg capsule 2021-11 00:00: 00 10-08 05:59 :00 No [id number] 300mg Take 1 capsule by mouth every 12 (twelve) hours for 10 days. [facility] ciprofloxac in HCl 500 mg tablet 2021-11 00:00: 00 09-23 04:59 :00 No [id number] 250mg Take 0.5 tablets by mouth in the morning and 0.5 tablets in the evening. Do all this for 3 days. [facility] METOPROLOL SUCCINATE XL 25 mg 24 hr tablet 2021-11 0-07 00:00: 00 Yes [id number] TAKE THREE (3) TABLET(S) BY MOUTH TWICE A DAY. [facility] DULoxetine 30 mg capsule 2021-11 0-03 00:00: 00 Yes [id number] 30mg Take 1 capsule by mouth in the morning. [facility] cetirizine 10 mg tablet 2021-11 0-03 00:00: 00 02-08 00:00 :00 No [id number] 10mg Take 1 tablet by mouth in the morning. [facility] ATORVASTATI N 40 mg tablet 8- 00:00: 00 Yes [id number] TAKE ONE (1) TABLET(S) BY MOUTH ONCE A DAY AT BEDTIME. [facility] ofloxacin 0.3 % otic drops 8- 00:00: 00 Yes [id number] 5[drp] Place 5 Drops in right ear in the morning and 5 Drops in the evening. [facility] DULoxetine 30 mg capsule 8- 00:00: 00 Yes [id number] 30mg Take 1 capsule by mouth in the morning. [facility] METOPROLOL SUCCINATE XL 25 mg 24 hr tablet 8- 00:00: 00 Yes [id number] TAKE THREE (3) TABLET(S) BY MOUTH TWICE A DAY. [facility] ATORVASTATI N 40 mg tablet 418 00:00: 00 Yes [id number] TAKE ONE (1) TABLET(S) BY MOUTH ONCE A DAY AT BEDTIME. [facility] amLODIPine 5 mg tablet 3- 00:00: 00 Yes [id number] 5mg Take 1 tablet by mouth daily. [facility] METOPROLOL SUCCINATE XL 25 mg 24 hr tablet 3-23 00:00: 00 06-26 00:00 :00 No [id number] TAKE THREE (3) TABLET(S) BY MOUTH TWICE A DAY. [facility] bumetanide 2 mg tablet 01-23 00:00: 00 Yes [id number] 2mg Take 1 tablet by mouth 2 (two) times daily. [facility] ARIPiprazol e (ABILIFY) 15 mg tablet 12-11 00:00: 00 Yes [id number] 15mg Take 1 tablet by mouth at bedtime. [facility] aspirin 81 mg chewable tablet 2020-11 00:00: 00 Yes [id number] 81mg Take 1 tablet by mouth daily. [facility] metoprolol succinate XL 25 mg 24 hr tablet 2020-11 00:00: 00 Yes [id number] 75mg Take 3 tablets by mouth 2 (two) times daily. [facility] hydrALAZINE 50 mg tablet 2020-11 00:00: 00 Yes [id number] 50mg Take 1 tablet by mouth every 12 (twelve) hours. [facility] bumetanide 2 mg tablet 2020-11 00:00: 00 Yes [id number] 2mg Take 1 tablet by mouth 2 (two) times daily. [facility] atorvastati n 40 mg tablet 2020-11 00:00: 00 Yes [id number] 40mg Take 1 tablet by mouth at bedtime. [facility] Magnesium Oxide 420 mg Tab 2020-11 00:00: 00 02-08 00:00 :00 No [id number] 400mg Take 400 mg by mouth daily. [facility] KLOR-CON M20 20 mEq tablet 2020-11 00:00: 00 Yes [facility] magnesium oxide 420 mg Tab 2020-11 00:00: 00 Yes [id number] 400mg Take 400 mg by mouth daily. [facility] cloNIDine 0.2 mg tablet 2020-11 00:00: 00 Yes [id number] .1mg Take 0.5 tablets by mouth 2 (two) times daily. [facility] metoprolol succinate XL 25 mg 24 hr tablet 2020-11 00:00: 00 Yes [id number] 75mg Take 3 tablets by mouth 2 (two) times daily. [facility] aspirin 81 mg chewable tablet 2020-11 00:00: 00 Yes [id number] 81mg Take 1 tablet by mouth daily. [facility] atorvastati n 40 mg tablet 2020-11 00:00: 00 Yes [id number] 40mg Take 1 tablet by mouth at bedtime. [facility] bumetanide 2 mg tablet 2020-11 00:00: 00 Yes [id number] 2mg Take 1 tablet by mouth 2 (two) times daily. [facility] hydrALAZINE 50 mg tablet 2020-11 00:00: 00 Yes [id number] 50mg Take 1 tablet by mouth every 12 (twelve) hours. [facility] sacubitriL- valsartan (ENTRESTO) 24-26 mg tablet 2020-11 00:00: 00 Yes [id number] 1{tbl} Take 1 tablet by mouth 2 (two) times daily. [facility] Immunizations Ordered Immunization Name Filled Immunization Name Date Status Comments Source Influenza Virus Vaccine Quad .5 mL IM 6+ MO 2023-02-06 00:00:00 Completed [facility] Influenza Virus Vaccine Quad .5 mL IM 6+ MO 2023-02-06 00:00:00 Completed [facility] Influenza Virus Vaccine Quad .5 mL IM 6+ MO 2023-02-06 00:00:00 Completed [facility] Influenza Virus Vaccine Quad .5 mL IM 6+ MO 2023-02-06 00:00:00 Completed [facility] Influenza Virus Vaccine Quad .5 mL IM 6+ MO 2023-02-06 00:00:00 Completed [facility] Influenza Virus Vaccine Quad .5 mL IM 6+ MO (FLUZONE/FLULAVAL/F LUARIX) 2023-02-06 00:00:00 Completed [facility] Influenza Virus Vaccine Quad .5 mL IM 6+ MO (FLUZONE/FLULAVAL/F LUARIX) 2023-02-06 00:00:00 Completed [facility] SARS-COV-2 COVID-19 PFIZER VACCINE 2021-03-08 00:00:00 Completed [facility] SARS-COV-2 COVID-19 PFIZER VACCINE 2021-03-08 00:00:00 Completed [facility] SARS-COV-2 COVID-19 PFIZER VACCINE 2021-03-08 00:00:00 Completed [facility] SARS-COV-2 COVID-19 PFIZER VACCINE 2021-03-08 00:00:00 Completed [facility] SARS-COV-2 COVID-19 PFIZER VACCINE 2021-03-08 00:00:00 Completed [facility] SARS-COV-2 COVID-19 PFIZER VACCINE 2021-03-08 00:00:00 Completed [facility] SARS-COV-2 COVID-19 PFIZER VACCINE 2021-03-08 00:00:00 Completed [facility] SARS-COV-2 COVID-19 PFIZER VACCINE 2021-03-08 00:00:00 Completed [facility] SARS-COV-2 COVID-19 PFIZER VACCINE 2021-03-08 00:00:00 Completed [facility] SARS-COV-2 COVID-19 PFIZER VACCINE 2021-03-08 00:00:00 Completed [facility] SARS-COV-2 COVID-19 PFIZER VACCINE 2021-03-08 00:00:00 Completed [facility] SARS-COV-2 COVID-19 PFIZER VACCINE 2021-03-08 00:00:00 Completed [facility] SARS-COV-2 COVID-19 PFIZER VACCINE 2021-03-08 00:00:00 Completed [facility] SARS-COV-2 COVID-19 PFIZER VACCINE 2021-03-08 00:00:00 Completed [facility] SARS-COV-2 COVID-19 PFIZER VACCINE 2021-03-08 00:00:00 Completed [facility] SARS-COV-2 COVID-19 PFIZER VACCINE 2021-03-08 00:00:00 Completed [facility] SARS-COV-2 COVID-19 PFIZER VACCINE 2021-02-15 00:00:00 Completed [facility] SARS-COV-2 COVID-19 PFIZER VACCINE 2021-02-15 00:00:00 Completed [facility] SARS-COV-2 COVID-19 PFIZER VACCINE 2021-02-15 00:00:00 Completed [facility] SARS-COV-2 COVID-19 PFIZER VACCINE 2021-02-15 00:00:00 Completed [facility] SARS-COV-2 COVID-19 PFIZER VACCINE 2021-02-15 00:00:00 Completed [facility] SARS-COV-2 COVID-19 PFIZER VACCINE 2021-02-15 00:00:00 Completed [facility] SARS-COV-2 COVID-19 PFIZER VACCINE 2021-02-15 00:00:00 Completed [facility] SARS-COV-2 COVID-19 PFIZER VACCINE 2021-02-15 00:00:00 Completed [facility] SARS-COV-2 COVID-19 PFIZER VACCINE 2021-02-15 00:00:00 Completed [facility] SARS-COV-2 COVID-19 PFIZER VACCINE 2021-02-15 00:00:00 Completed [facility] SARS-COV-2 COVID-19 PFIZER VACCINE 2021-02-15 00:00:00 Completed [facility] SARS-COV-2 COVID-19 PFIZER VACCINE 2021-02-15 00:00:00 Completed [facility] SARS-COV-2 COVID-19 PFIZER VACCINE 2021-02-15 00:00:00 Completed [facility] SARS-COV-2 COVID-19 PFIZER VACCINE 2021-02-15 00:00:00 Completed [facility] SARS-COV-2 COVID-19 PFIZER VACCINE 2021-02-15 00:00:00 Completed [facility] SARS-COV-2 COVID-19 PFIZER VACCINE 2021-02-15 00:00:00 Completed [facility] Influenza Virus Vaccine Quad .5 mL IM 6+ MO (FLUZONE/FLULAVAL/F LUARIX) Unknown Completed [facility] SARS-COV-2 COVID-19 PFIZER VACCINE Unknown Completed [facility] Influenza Virus Vaccine Quad .5 mL IM 6+ MO (FLUZONE/FLULAVAL/F LUARIX) Unknown Completed [facility] SARS-COV-2 COVID-19 PFIZER VACCINE Unknown Completed [facility] Influenza Virus Vaccine Quad .5 mL IM 6+ MO (FLUZONE/FLULAVAL/F LUARIX) Unknown Completed [facility] SARS-COV-2 COVID-19 PFIZER VACCINE Unknown Completed [facility] Influenza Virus Vaccine Quad .5 mL IM 6+ MO (FLUZONE/FLULAVAL/F LUARIX) Unknown Completed [facility] SARS-COV-2 COVID-19 PFIZER VACCINE Unknown Completed [facility] SARS-COV-2 COVID-19 PFIZER VACCINE Unknown Completed [facility] Influenza Virus Vaccine Quad .5 mL IM 6+ MO (FLUZONE/FLULAVAL/F LUARIX) Unknown Completed [facility] SARS-COV-2 COVID-19 PFIZER VACCINE Unknown Completed [facility] Influenza Virus Vaccine Quad .5 mL IM 6+ MO (FLUZONE/FLULAVAL/F LUARIX) Unknown Completed [facility] Influenza, split virus, trivalent, PF (AFLURIA/FLUARIX/FL ULAVAL/FLUZONE) Unknown Completed [facility] SARS-COV-2 COVID-19 PFIZER VACCINE Unknown Completed [facility] Influenza Virus Vaccine Quad .5 mL IM 6+ MO (FLUZONE/FLULAVAL/F LUARIX) Unknown Completed [facility] SARS-COV-2 COVID-19 PFIZER VACCINE Unknown Completed [facility] Influenza Virus Vaccine Quad .5 mL IM 6+ MO (FLUZONE/FLULAVAL/F LUARIX) Unknown Completed [facility] SARS-COV-2 COVID-19 PFIZER VACCINE Unknown Completed [facility] Influenza Virus Vaccine Quad .5 mL IM 6+ MO (FLUZONE/FLULAVAL/F LUARIX) Unknown Completed [facility] SARS-COV-2 COVID-19 PFIZER VACCINE Unknown Completed [facility] Influenza Virus Vaccine Quad .5 mL IM 6+ MO (FLUZONE/FLULAVAL/F LUARIX) Unknown Completed [facility] SARS-COV-2 COVID-19 PFIZER VACCINE Unknown Completed [facility] Influenza Virus Vaccine Quad .5 mL IM 6+ MO (FLUZONE/FLULAVAL/F LUARIX) Unknown Completed [facility] Vital Signs Vital Name Observation Time Observation Value Comments S sherri Systolic blood pressure 2024-08-11 18:35:00 139 mm[Hg] [facility] Diastolic blood pressure 2024-08-11 18:35:00 84 mm[Hg] [facility] Heart rate 2024-08-11 18:35:00 89 /min [facility] Body temperature 2024-08-11 18:35:00 35.94 Jasmin [facility] Respiratory rate 2024-08-11 18:35:00 17 /min [facility] Body height 2024-08-11 18:35:00 165.1 cm [facility] Body weight 2024-08-11 18:35:00 84.777 kg [facility] BMI 2024-08-11 18:35:00 31.10 kg/m2 [facility] Systolic blood pressure 2024-05-13 19:17:00 160 mm[Hg] [facility] Diastolic blood pressure 2024-05-13 19:17:00 80 mm[Hg] [facility] Heart rate 2024-05-13 19:12:00 89 /min [facility] Body temperature 2024-05-13 19:12:00 35.5 Jasmin [facility] Respiratory rate 2024-05-13 19:12:00 18 /min [facility] Body height 2024-05-13 19:12:00 165.1 cm [facility] Body weight 2024-05-13 19:12:00 83.734 kg [facility] BMI 2024-05-13 19:12:00 30.72 kg/m2 [facility] Systolic blood pressure 2024-03-17 18:01:00 161 mm[Hg] [facility] Diastolic blood pressure 2024-03-17 18:01:00 95 mm[Hg] [facility] Heart rate 2024-03-17 18:01:00 91 /min [facility] Body temperature 2024-03-17 18:01:00 36.56 Jasmin [facility] Respiratory rate 2024-03-17 18:01:00 18 /min [facility] Body height 2024-03-17 18:01:00 165.1 cm [facility] Body weight 2024-03-17 18:01:00 84.913 kg [facility] BMI 2024-03-17 18:01:00 31.15 kg/m2 [facility] Systolic blood pressure 2024-03-09 18:04:00 185 mm[Hg] [place] [facility] Diastolic blood pressure 2024-03-09 18:04:00 117 mm[Hg] [facility] Heart rate 2024-03-09 18:04:00 90 /min [facility] Body temperature 2024-03-09 18:04:00 36.39 Jasmin [facility] Respiratory rate 2024-03-09 18:04:00 18 /min [facility] Body height 2024-03-09 18:04:00 165.1 cm [facility] Body weight 2024-03-09 18:04:00 85.186 kg [facility] BMI 2024-03-09 18:04:00 31.25 kg/m2 [facility] Systolic blood pressure 2024-02-09 18:18:00 152 mm[Hg] [facility] Diastolic blood pressure 2024-02-09 18:18:00 94 mm[Hg] [facility] Heart rate 2024-02-09 18:18:00 82 /min [facility] Body temperature 2024-02-09 18:12:00 36.22 Jasmin [facility] Respiratory rate 2024-02-09 18:12:00 18 /min [facility] Body height 2024-02-09 18:12:00 165.1 cm [facility] Body weight 2024-02-09 18:12:00 85.872 kg [facility] BMI 2024-02-09 18:12:00 31.50 kg/m2 [facility] Systolic blood pressure 2024-01-15 03:00:00 170 mm[Hg] [place] [facility] Diastolic blood pressure 2024-01-15 03:00:00 97 mm[Hg] [facility] Heart rate 2024-01-15 03:00:00 100 /min [facility] Respiratory rate 2024-01-15 03:00:00 16 /min [facility] Oxygen saturation in Arterial blood by Pulse oximetry 2024-01-15 03:00:00 100 /min [facility] Body temperature 2024-01-14 21:18:00 36.67 Jasmin [facility] Body weight 2024-01-14 21:16:00 88.451 kg [facility] BMI 2024-01-14 21:16:00 32.45 kg/m2 [facility] Systolic blood pressure 2024-01-11 19:41:00 177 mm[Hg] [facility] Diastolic blood pressure 2024-01-11 19:41:00 101 mm[Hg] [facility] Heart rate 2024-01-11 19:41:00 105 /min [facility] Respiratory rate 2024-01-11 19:41:00 18 /min [facility] Oxygen saturation in Arterial blood by Pulse oximetry 2024-01-11 19:41:00 100 /min [facility] Body temperature 2024-01-11 18:20:00 36.94 Jasmin [facility] Systolic blood pressure 2023-07-29 18:30:00 131 mm[Hg] [facility] Diastolic blood pressure 2023-07-29 18:30:00 90 mm[Hg] [facility] Heart rate 2023-07-29 18:30:00 101 /min [facility] Body temperature 2023-07-29 18:30:00 36.39 Jasmin [facility] Respiratory rate 2023-07-29 18:30:00 18 /min [facility] Body height 2023-07-29 18:30:00 165.1 cm [facility] Body weight 2023-07-29 18:30:00 88.633 kg [facility] BMI 2023-07-29 18:30:00 32.52 kg/m2 [facility] Body temperature 2023-02-11 16:05:00 36.78 Jasmin [facility] Body weight 2023-02-11 16:05:00 87.952 kg [facility] BMI 2023-02-11 16:05:00 32.27 kg/m2 [facility] Systolic blood pressure 2023-02-06 18:13:00 122 mm[Hg] [facility] Diastolic blood pressure 2023-02-06 18:13:00 78 mm[Hg] [facility] Heart rate 2023-02-06 18:08:00 83 /min [facility] Body temperature 2023-02-06 18:07:00 36.39 Jasmin [facility] Respiratory rate 2023-02-06 18:07:00 18 /min [facility] Body height 2023-02-06 18:07:00 165.1 cm [facility] Body weight 2023-02-06 18:07:00 86.093 kg [facility] BMI 2023-02-06 18:07:00 31.58 kg/m2 [facility] Systolic blood pressure 2022-09-27 19:56:00 154 mm[Hg] [facility] Diastolic blood pressure 2022-09-27 19:56:00 98 mm[Hg] [facility] Heart rate 2022-09-27 19:56:00 73 /min [facility] Respiratory rate 2022-09-27 19:56:00 16 /min [facility] Oxygen saturation in Arterial blood by Pulse oximetry 2022-09-27 19:56:00 100 /min [facility] Body temperature 2022-09-27 16:18:00 37 Jasmin [facility] Body weight 2022-09-27 16:18:00 87.544 kg [facility] BMI 2022-09-27 16:18:00 32.12 kg/m2 [facility] Systolic blood pressure 2022-09-19 22:53:37 126 mm[Hg] [facility] Diastolic blood pressure 2022-09-19 22:53:37 88 mm[Hg] [facility] Heart rate 2022-09-19 22:53:37 88 /min [facility] Respiratory rate 2022-09-19 22:53:37 18 /min [facility] Oxygen saturation in Arterial blood by Pulse oximetry 2022-09-19 22:53:37 99 /min [facility] Body temperature 2022-09-19 21:41:00 35.72 Jasmin [facility] Systolic blood pressure 2022-09-18 18:50:00 141 mm[Hg] [facility] Diastolic blood pressure 2022-09-18 18:50:00 92 mm[Hg] [facility] Heart rate 2022-09-18 18:50:00 95 /min [facility] Body temperature 2022-09-18 18:50:00 37.22 Jasmin [facility] Respiratory rate 2022-09-18 18:50:00 18 /min [facility] Body weight 2022-09-18 18:50:00 87.544 kg [facility] BMI 2022-09-18 18:50:00 32.12 kg/m2 [facility] Oxygen saturation in Arterial blood by Pulse oximetry 2022-09-18 18:50:00 99 /min [facility] Systolic blood pressure 2022-09-14 13:32:00 147 mm[Hg] [facility] Diastolic blood pressure 2022-09-14 13:32:00 94 mm[Hg] [facility] Heart rate 2022-09-14 13:32:00 98 /min [facility] Body temperature 2022-09-14 13:32:00 36.72 Jasmin [facility] Respiratory rate 2022-09-14 13:32:00 17 /min [facility] Body height 2022-09-14 13:32:00 165.1 cm [facility] Body weight 2022-09-14 13:32:00 82.555 kg [facility] BMI 2022-09-14 13:32:00 30.29 kg/m2 [facility] Oxygen saturation in Arterial blood by Pulse oximetry 2022-09-14 13:32:00 100 /min [facility] Systolic blood pressure 2022-07-03 17:43:00 147 mm[Hg] [facility] Diastolic blood pressure 2022-07-03 17:43:00 98 mm[Hg] [facility] Heart rate 2022-07-03 17:43:00 83 /min [facility] Body temperature 2022-07-03 17:43:00 37.61 Jasmin [facility] Respiratory rate 2022-07-03 17:43:00 18 /min [facility] Body height 2022-07-03 17:43:00 165.1 cm [facility] Body weight 2022-07-03 17:43:00 80.74 kg [facility] BMI 2022-07-03 17:43:00 29.62 kg/m2 [facility] Oxygen saturation in Arterial blood by Pulse oximetry 2022-07-03 17:43:00 100 /min [facility] Procedures Procedure Date / Time Performed Performing Clinician Source "STATE SUPPLY" FLU VACC ([id number]), 6+ MONTHS, IM, TIV (AFLURIA/FLUARIX/FLULAVAL/ FLUZONE) 2024-08-11 18:53:04 Holly Atkinson [facility] POCT TEST 2024-03-17 18:07:00 Mary Oakes [facility] CONSENT/REFUSAL FOR DIAGNOSIS AND TREATMENT 2024-02-09 17:59:35 Doctor Unassigned, [place] [facility] URINALYSIS 2024-01-15 02:50:00 [facility] 2024-01-14 21:53:00 Aren Cuevas [facility] HB ABO GROUPING 2024-01-14 21:53:00 Aren Cuevas [facility] EXTRA TUBE LT. BLUE 2024-01-14 21:53:00 Quan Cuevas [facility] EXTRA TUBE ORANGE 2024-01-14 21:53:00 Lou Cuevas [facility] CONSENT/REFUSAL FOR DIAGNOSIS AND TREATMENT 2024-01-14 21:06:07 Doctor Unassigned, [place] [facility] ASSIGNMENT OF BENEFITS 2024-01-11 19:18:38 Docto r Unassigned, [place] [facility] POCT TEST 2024-01-11 18:48:00 Sha Kapoor [facility] CBC WITH DIFF 2024-01-11 18:47:00 Sha Kapoor [facility] URINALYSIS 2024-01-11 18:47:00 Sha Kapoor sitFormerly [facility] CONSENT/REFUSAL FOR DIAGNOSIS AND TREATMENT 2024-01-11 18:16:05 Doctor Unassigned, [place] [facility] BCCS-RELATED DOCUMENTATION 2023-08-05 05:01:00 Dwayne barrett Unassigned, [place] [facility] GC & CHLAMYDIA AMPLIFIED ASSAY 2023-02-06 19:10:00 Julia Oakes [facility] HIV 1/2 AG-AB WITH REFLEX 2023-02-06 19:10:00 Julia Palomo [facility] HIGH RISK HPV-THIN PREP 2023-02-06 19:10:00 Julia Oakes [facility] TRICHOMONAS AMPLIFIED ASSAY 2023-02-06 19:10:00 Julia Oakes [facility] PAP SMEAR-LIQUID BASED-CP 2023-02-06 19:10:00 Julia Palomo [facility] SYPHILIS IGG/IGM 2023-02-06 19:10:00 Julia Oakes [facility] "RWSP SUMMER ONLY" FLU VACC(), 6+ MONTHS, IM, QUAD (FLUZONE/FLULAVAL/FLUARIX) 2023-02-06 19:08:03 Julia Oakes [facility] ASSIGNMENT OF BENEFITS 2023-02-06 17:54:16 Docto r Unassigned, [place] [facility] CONSENT FOR FREE TREATMENT FORM 2022-12-13 15:45:38 Doctor Unassigned, [place] [facility] URINE DRUG (IMMUNOASSAY) - COMPREHENSIVE DRUG SCREEN 2022-09-27 17:01:00 Chelly Ohara [facility] URINALYSIS 2022-09-27 17:01:00 [facility] CULTURE 2022-09-27 17:01:00 Roland Levy [facility] CONSENT/REFUSAL FOR DIAGNOSIS AND TREATMENT 2022-09-27 16:55:29 Doctor Unassigned, [place] [facility] COMP. METABOLIC PANEL ([id number]) 2022-09-19 22:01:00 Charlette Grimm [facility] CBC WITH DIFF 2022-09-19 22:01:00 Charlette Grimm [facility] URINALYSIS 2022-09-19 22:01:00 Charlette Grimm [facility] CONSENT/REFUSAL FOR DIAGNOSIS AND TREATMENT 2022-09-19 21:34:44 Doctor Unassigned, [place] [facility] CONSENT/REFUSAL FOR DIAGNOSIS AND TREATMENT 2022-09-18 18:53:06 Doctor Unassigned, [place] [facility] CONSENT/REFUSAL FOR DIAGNOSIS AND TREATMENT 2022-09-14 13:26:46 Doctor Unassigned, [place] [facility] NM REMOVAL IMPACTED CERUMEN INSTRUMENTATION UNILAT 2022-07-03 20:09:56 Chuck Thompson [facility] CONSENT/REFUSAL FOR DIAGNOSIS AND TREATMENT 2022-07-03 17:20:03 Doctor Unassigned, [place] [facility] CONSENT FOR FREE TREATMENT FORM 2021-11-05 16:05:09 Doctor Unassigned, [place] [facility] Encounters Start Date/Time End Date/Time Encounter Type Admission Type Attending Clinicians Care Facility Care Department Encounter ID Source 2024-08-11 13:30:00 2024-08-11 14:15:24 Outpatient R HOLLY ATKINSON [facility] [id number] [facility] 2024-08-11 13:30:00 2024-08-11 14:15:24 Office Visit Holly Atkinson [facility] 1.2.840.114 350.1.13.10 4.2.7.2.686 [id number] [facility] 2024-06-30 00:00:00 2024-06-30 00:00:00 Outpatient [facility] [id number] [facility] 2024-05-13 14:15:00 2024-05-13 14:55:45 Outpatient R DELMI CHILDERS [facility] [id number] [facility] 2024-05-13 14:15:00 2024-05-13 14:55:45 Office Visit Delmi Childers [facility] 1..840.114 350.1.13.10 4.2.7.2.686 [id number] [facility] 2024-05-13 14:15:00 2024-05-13 14:15:00 Outpatient R DELMI CHILDERS [facility] [id number] [facility] 2024-04-28 12:30:00 2024-04-28 12:30:00 Outpatient R DELMI CHILDERS [facility] [id number] [facility] 2024-03-17 12:45:00 2024-03-17 13:46:06 Outpatient R JULIA OAKES [facility] [id number] [facility] 2024-03-17 12:45:00 2024-03-17 13:46:06 Office Visit Julia Oakes [facility] 1..840.114 350.1.13.10 4.2.7.2.686 [id number] 107 [id number] [facility] 2024-03-09 13:30:00 2024-03-09 13:34:22 Outpatient R HOLLY ATKINSON [facility] [id number] [facility] 2024-03-09 13:30:00 2024-03-09 13:34:22 Office Visit Holly Atkinson [facility] 1.2.840.114 350.1.13.10 4.2.7.2.686 [id number] [facility] 2024-02-11 00:00:00 2024-02-11 00:00:00 Telephone Holly Atkinson [facility] CHILD [facility] 1.2.840.114 350.1.13.10 4.2.7.2.686 [id number] [facility] 2024-02-09 13:30:00 2024-02-09 14:06:10 Outpatient R HOLLY ATKINSON [facility] [id number] [facility] 2024-02-09 13:30:00 2024-02-09 14:06:10 Office Visit Holly Atkinson [facility] [facility] CHILD [facility] 1.2840.114 350.1.13.10 4.2.7.2.686 [id number] 107 [id number] [facility] 2024-02-09 00:00:00 2024-02-09 00:00:00 Orders Only Doctor Unassigned, [place] [facility] 1.2840.114 350.1.13.10 4.2.7.2.686 [id number] [facility] 2024-01-14 15:18:00 2024-01-14 21:46:00 Emergency X AREN [facility] ERT [id number] [facility] 2024-01-14 15:18:00 2024-01-14 21:46:00 Emergency Aren Cuevas [facility] 1.2840.114 350.1.13.10 4.2.7.2.686 [id number] [facility] 2024-01-11 12:23:00 2024-01-11 13:42:00 Emergency X SHA [facility] ERT [id number] [facility] 2024-01-11 12:23:00 2024-01-11 13:42:00 Emergency Sha Kapoor [facility] 1.2.840.114 350.1.13.10 4.2.7.2.686 [id number] [facility] 2023-08-26 00:00:00 2023-08-26 00:00:00 Telephone Holly Atkinson [facility] 1.840.114 350.1.13.10 4.2.7.2.686 [id number] [facility] 2023-08-13 07:57:14 2023-08-13 23:59:00 Outpatient R JULIA OAKES [facility] [id number] [facility] 2023-08-13 07:57:14 2023-08-13 23:59:00 Hospital Encounter Julia Oakes [facility] 1.0.114 350.1.13.10 4.2.7.2.686 [id number] [facility] 2023-08-05 00:00:00 2023-08-05 00:00:00 Orders Only Doctor Unassigned, [place] [facility] 1.2840.114 350.1.13.10 4.2.7.2.686 [id number] [facility] 2023-07-29 13:30:00 2023-07-29 13:45:00 Office Visit Holly Atkinson [facility] 1.2840.114 350.1.13.10 4.2.7.2.686 [id number] [facility] 2023-07-29 13:30:00 2023-07-29 13:30:00 Outpatient R HOLLY ATKINSON [facility] [id number] [facility] 2023-06-04 00:00:00 2023-06-04 00:00:00 Telephone Julia Oakes [facility] [place] [facility] CHILD [facility] 1.2.840.114 350.1.13.10 4.2.7.2.686 [id number] 107 [id number] [facility] 2023-04-08 06:54:10 2023-04-08 23:59:00 Hospital Encounter Julia Oakes [facility] 1..840.114 350.1.13.10 4.2.7.2.686 [id number] [facility] 2023-04-08 00:00:00 2023-04-08 23:59:00 Outpatient R JULIA OAKES [facility] [id number] [facility] 2023-03-17 00:00:00 2023-03-17 00:00:00 Outpatient [facility] [id number] [facility] 2023-02-11 11:00:00 2023-02-11 11:12:11 Nurse Visit Visit, [facility] Nurse Julia Oakes [facility] 1.2.840.114 350.1.13.10 4.2.7.2.686 [id number] [facility] 2023-02-11 11:00:00 2023-02-11 11:00:00 Outpatient R JULIA OAKES [facility] [id number] [facility] 2023-02-10 14:00:00 2023-02-10 14:00:00 Outpatient R JULIA OAKES [facility] [id number] [facility] 2023-02-09 00:00:00 2023-02-09 00:00:00 Case Management Julia Oakes [facility] CHILD [facility] 1..840.114 350.1.13.10 4.2.7.2.686 [id number] 107 [id number] [facility] 2023-02-06 13:00:00 2023-02-06 14:12:49 Outpatient JULIA AVILA [facility] [id number] [facility] 2023-02-06 13:00:00 2023-02-06 14:12:49 Office Visit Provider, [facility] Julia Calero [facility] 1.2.840.114 350.1.13.10 4.2.7.2.686 [id number] [facility] 2023-02-06 00:00:00 2023-02-06 00:00:00 Orders Only Doctor Unassigned, [place] [facility] 1..840.114 350.1.13.10 4.2.7.2.686 [id number] [facility] 2023-01-03 13:00:00 2023-01-03 13:00:00 Outpatient R HOLLY ATKINSON [facility] [id number] [facility] 2022-12-13 00:00:00 2022-12-13 00:00:00 Outpatient [facility] [id number] [facility] 2022-12-13 00:00:00 2022-12-13 00:00:00 Orders Only Doctor Unassigned, [place] [facility] 1.840.114 350.1.13.10 4.2.7.2.686 [id number] [facility] 2022-10-01 15:06:10 2022-10-01 15:06:10 Outpatient [facility] [id number] Aren Santos 2022-09-27 11:19:00 2022-09-27 15:02:00 Emergency X [facility] ERT [id number] [facility] 2022-09-27 11:19:00 2022-09-27 15:02:00 Emergency Jo [facility] 1.2.840.114 350.1.13.10 4.2.7.2.686 [id number] [facility] 2022-09-19 16:43:00 2022-09-19 18:04:00 Emergency X [facility] ERT [id number] [facility] 2022-09-19 16:43:00 2022-09-19 18:04:00 Emergency Charlette Grimm [facility] 1..840.114 350.1.13.10 4.2.7.2.686 [id number] [facility] 2022-09-18 13:54:00 2022-09-18 15:42:00 Emergency X CHRISTOPHER MATSON [facility] ERT [id number] [facility] 2022-09-18 13:54:00 2022-09-18 15:42:00 Emergency Christopher Matson [facility] 1.2.840.114 350.1.13.10 4.2.7.2.686 [id number] [facility] 2022-09-14 08:33:00 2022-09-14 10:02:00 Emergency X [facility] ERT [id number] [facility] 2022-09-14 08:33:00 2022-09-14 10:02:00 Emergency Charlette Grimm [facility] 1..840.114 350.1.13.10 4.2.7.2.686 [id number] [facility] 2022-09-10 15:18:56 2022-09-10 15:18:56 Outpatient [facility] [id number] Aren Santos 2022-08-26 00:00:00 2022-08-26 00:00:00 Outpatient [facility] [id number] [facility] 2022-07-03 12:44:00 2022-07-03 15:27:00 Emergency X [facility] ERT [id number] [facility] 2022-07-03 12:44:00 2022-07-03 15:27:00 Emergency Chuck Thompson [facility] 1..840.114 350.1.13.10 4.2.7.2.686 [id number] [facility] 2022-07-03 00:00:00 2022-07-03 00:00:00 Orders Only Doctor Unassigned, [place] [facility] 1..840.114 350.1.13.10 4.2.7.2.686 [id number] [facility] 2022-07-01 00:00:00 2022-07-01 00:00:00 Outpatient [facility] [id number] [facility] 2022-03-27 00:00:00 2022-03-27 00:00:00 Outpatient [facility] [id number] [facility] 2022-02-27 00:00:00 2022-02-27 00:00:00 Case Management Enedelia June 1..840.114 350.1.13.10 4.2.7.2.686 [id number] [facility] [facility]-20 00:00:00 2022-02-20 00:00:00 Outpatient [facility] [id number] [facility] 2022-01-23 00:00:00 2022-01-23 00:00:00 Outpatient [facility] [id number] [facility] 2022-01-09 00:00:00 2022-01-09 00:00:00 Outpatient [facility] [id number] [facility] 2021-12-12 00:00:00 2021-12-12 00:00:00 Outpatient [facility] [id number] [facility] 2021-12-06 00:00:00 2021-12-06 00:00:00 Telephone Anisha Palm [facility] MEDICAL OFFICE BUILDING 1.2.840.114 350.1.13.10 4.2.7.2.686 [id number] [facility] 2021-11-21 00:00:00 2021-11-21 00:00:00 Telephone Anisha Palm [facility] 1..840.114 350.1.13.10 4.2.7.2.686 [id number] [facility] 2021-11-08 00:00:00 2021-11-08 00:00:00 Case Management Anisha Palm [facility] MEDICAL OFFICE BUILDING 1..840.114 350.1.13.10 4.2.7.2.686 [id number] [facility] 2021-11-05 00:00:00 2021-11-05 00:00:00 Outpatient [facility] [id number] [facility] 2021-11-05 00:00:00 2021-11-05 00:00:00 Orders Only Doctor Unassigned, [place] [facility] 1.840.114 350.1.13.10 4.2.7.2.686 [id number] [facility] 2021-11-02 11:15:00 2021-11-02 13:41:22 [id number] [facility] 2021-11-02 11:18:54 2021-11-02 11:33:54 Competitive Athlete Visit 2, Adc Lab Anisha Palm [facility] 1.20.114 350.1.13.10 4.2.7.2.686 [id number] [facility] 2021-11-01 00:00:00 2021-11-01 00:00:00 [facility] 1.20.114 350.1.13.10 4.2.7.2.686 [id number] [facility] 2021-10-31 00:00:00 2021-10-31 00:00:00 Transition of Care Lisseth Carmen [facility] 1.0.114 350.1.13.10 4.2.7.2.686 [id number] [facility] 2021-10-24 15:00:00 2021-10-30 17:30:00 [id number] 2021-10-24 15:00:00 2021-10-30 17:30:00 [facility]patient [facility] [id number] [facility] 2021-10-24 15:00:00 2021-10-30 17:30:00 Hospital Encounter Lakeisha Doyle, Coleen Benton, Alicia Palm [facility] 1..114 350.1.13.10 4.2.7.2.686 [id number] [facility] 2021-10-30 00:00:00 2021-10-30 00:00:00 [facility] 1.20.114 350.1.13.10 4.2.7.2.686 [id number] [facility] 2021-10-29 00:00:00 2021-10-29 00:00:00 Telephone Anisha Palm [facility] 1.2.840.114 350.1.13.10 4.2.7.2.686 [id number] [facility] Results Test Description Test Time Test Comments Results Result Co mments Source [id number] 18:07:00* Test Item Value Reference Range Interpretation Comme nts POCT PREG (test code = 1605) Negative On board controls acceptable with C Line (test code = 3574) Yes POCT PREG LOT # (test code = 3575) POCT PREG TEST DATE ( test code = 3576) [facility] and Screen - ONCE [id number] 22:01:00 * Test Item Value Reference Range Interpretation Comme nts ABO & RH (test code = 20) O POSITIVE IAT (test code = 1185) Negative [facility]CBC WITH [id number] 19:17:50* Test Item Value Reference Range Interpretation [...] g/dL 31.6-35.1 L RDW-SD (test code = 75016-7) 45.0 fL 39.0-49.9 RDW-CV (test code = 788-0) 16.2 % 12.0-15.5 H PLT (test code = 777-3) 508 166-358 H MPV (test code = 46174-9) 9.6 fL 9.5-12.9 NRBC/100 WBC (test code = 2478326428) 0.0 0.0-10.0 NRBC x10^3 (test code = 6634886792) See_Comment [Automated messa ge] The system which generated this result transmitted reference range: 10*3/?L. The reference range was not used to interpret this result as normal/abnormal. GRAN MAT (NEUT) % (test code = 770-8) 73.8 % IMM GRAN % (test code = 3141919042) 0.40 % LYMPH % (test code = 736-9) 15.1 % MONO % (test code = 5905-5) 8.8 % EOS % (test code = 713-8) 1.4 % BASO % (test code = 706-2) 0.5 % GRAN MAT x10^3(ANC) (test code = 2053934692) 7.53 10*3/uL 1.88-7.09 H IMM GRAN x10^3 (test code = 2282136205) 0.04 10*3/uL 0.00-0.06 LYMPH x10^3 (test code = 731-0) 1.54 10*3/uL 1.32-3.29 MONO x10^3 (test code = 742-7) 0.90 10*3/uL 0.33-0.92 EOS x10^3 (test code = 711-2) 0.14 10*3/uL 0.03-0.39 BASO x10^3 (test code = 704-7) 0.05 10*3/uL 0.01-0.07 Lab Interpretation (test code = 48860-3) Abnormal [facility] [id number] 18:48:00* Test Item Value Reference Range Interpretation Comme nts POCT PREG (test code = 1605) Negative On board controls acceptable with C Line (test code = 3574) Yes POCT PREG LOT # (test code = 3573) 324140 POCT PREG TEST DATE ( test code = 3576) 12-29-24 Lab Interpretation (test cod e = 31209-6) Normal [facility] - SYPHILIS [id number] 15:32:18* Test Item Value Reference Range Interpretation Comme nts Syphilis IgG/IgM (test code = 61932-9) Non-reactive Non-reactive RUTH (test code = RUTH) Non-reactive - No serologic evidence of T. pallidum infection. Cannot exclude incubating or early syphilis. Submit a second specimen in 2-4 weeks if syphilis is clinically suspected. Equivocal - Further testing to follow. Reactive - Further testing to follow. Lab Interpretation (test code = 03309-5) Normal [facility] ONLY - SYPHILIS [id number] 15:32:18* Test Item Value Reference Range Interpretation Comme [facility] Syphilis IgG/IgM (test code = 57787-0) Non-reactive Non-reactive RUTH (test code = RUTH) Non-reactive - No serologic evidence of T. pallidum infection. Cannot exclude incubating or early syphilis. Submit a second specimen in 2-4 weeks if syphilis is clinically suspected. Equivocal - Further testing to follow. Reactive - Further testing to follow. Lab Interpretation (test code = 17148-7) Normal [facility] 1/2 AG-AB WITH [id number] 05:46:30* Test Item Value Reference Range Interpretation Comme [facility] HIV Semi-quantitative (test code = 51790-4) 0.08 Negative RUTH (test code = RUTH) Non-reactive for HIV-1 antigen and HIV-1/HIV-2 antibodies. ?No laboratory evidence of HIV infection. ?Repeat in 2-4 weeks if acute HIV infection is suspected. General acute hospital 1/2 AG-AB WITH [id number] 05:46:30* Test Item Value Reference Range Interpretation Comme [facility] HIV Semi-quantitative (test code = 20104-6) 0.08 Negative RUTH (test code = RUTH) Non-reactive for HIV-1 antigen and HIV-1/HIV-2 antibodies. ?No laboratory evidence of HIV infection. ?Repeat in 2-4 weeks if acute HIV infection is suspected. [facility]. METABOLIC PANEL (23816)2022-09-19 22:30:43* Test Item Value Reference Range Interpretation Comme nts NA (test code = 6560569926) 138 mmol/L 135-145 K (test code = 6067237317) 4.9 mmol/L 3.5-5.0 CL (test code = 2065853480) 102 mmol/L 98-108 CO2 TOTAL (test code = 7137842924) 24 mmol/L 23-31 AGAP (test code = 9042210063) 2-16 BUN (test code = 9219301715) 32 mg/dL 7-23 H GLUCOSE (test code = 8198715257) 80 mg/dL 70-110 CREATININE (test code = 5489750122) 1.84 mg/dL 0.50-1.04 H TOTAL BILI (test code = 6227323334) 0.9 mg/dL 0.1-1.1 CALCIUM (test code = 9994990659) 9.5 mg/dL 8.6-10.6 T PROTEIN (test code = 3912515441) 8.0 g/dL 6.3-8.2 ALBUMIN (test code = 8925546671) 4.9 g/dL 3.5-5.0 ALK PHOS (test code = 1805979945) 65 U/L 34-122 ALTv (test code = 1742-6) 15 U/L 5-35 AST(SGOT) (test code = 3206521944) 23 U/L 13-40 eGFR (test code = 1084845259) mL/min/1.73m2 RUTH (test code = RUTH) Association [...] imaging tests). Lab Interpretation (test code = 99682-9) Abnormal [facility] WITH [id number] 22:20:21* Test Item Value Reference Range Interpretation Comme nts WBC (test code = 6690-2) See_Comment [Automated 1SDKa ge] The system which generated this result transmitted reference range: 4.30 - 11.10 10*3/?L. The reference range was not used to interpret this result as normal/abnormal. RBC (test code = 789-8) See_Comment [Automated 1SDKa ge] The system which generated this result [...] 32.5 g/dL 31.6-35.1 RDW-SD (test code = 47717-0) 42.5 fL 39.0-49.9 RDW-CV (test code = 788-0) 13.8 % 12.0-15.5 PLT (test code = 777-3) See_Comment H [Automated 1SDKa ge] The system which generated this result transmitted reference range: 166 - 358 10*3/?L. The reference range was not used to interpret this result as normal/abnormal. MPV (test code = 29154-7) 10.0 fL 9.5-12.9 NRBC/100 WBC (test code = 9794300487) See_Comment [Automated USDS ssage] The system which generated this result transmitted reference range: 0.0 - 10.0 /100 WBCs. The reference range was not used to interpret this result as normal/abnormal. NRBC x10^3 (test code = 9127563219) See_Comment [Automated 1SDKa ge] The system which generated this result transmitted reference range: 10*3/?L. The reference range was not used to interpret this result as normal/abnormal. GRAN MAT (NEUT) % (test code = 770-8) 63.9 % IMM GRAN % (test code = 4463262394) 0.40 % LYMPH % (test code = 736-9) 22.8 % MONO % (test code = 5905-5) 10.7 % EOS % (test code = 713-8) 1.6 % BASO % (test code = 706-2) 0.6 % GRAN MAT x10^3(ANC) (test code = 8969698162) 6.15 10*3/uL 1.88-7.09 IMM GRAN x10^3 (test code = 3727776443) 0.04 10*3/uL 0.00-0.06 LYMPH x10^3 (test code = 731-0) 2.20 10*3/uL 1.32-3.29 MONO x10^3 (test code = 742-7) 1.03 10*3/uL 0.33-0.92 H EOS x10^3 (test code = 711-2) 0.15 10*3/uL 0.03-0.39 BASO x10^3 (test code = 704-7) 0.06 10*3/uL 0.01-0.07 Lab Interpretation (test code = 68473-6) Abnormal [facility] Notes Date/Time Note Provider Source 2024-02-11 15:50:36 Notified patient of lab results-anemia. Instructed patient to take OTC multi vitamin and iron/vitamin C or with orange juice to aide with absorption. Discussed foods high in iron. Pt verbalized understanding. MERCED DEVLIN RN 02/11/2024 3:52 PM Merced Devlin RN [facility] 2024-02-11 15:15:37 Please advise patient she is anemic, she should try otc iron and multiviatmin, vit c/orange juice to help with absorption, and eating iron rich foods KRISTI Nguyen 02/11/2024 3:16 PM [facility] 2024-01-14 21:46:29 Pt discharged to home. Discharge instructions given to pt regarding management of condition and instructions to follow up with PCP. Pt verbalized understanding. PIV removed without complications. Patient in possession of all belongings. Pt ambulates to lobby with steady gait. E Putnam RN [facility] 2024-01-14 19:52:21 Reading room contacted regarding ultrasound results. Per radiologist, critical reads are priority and ultrasound scans will be sent to TRA. [facility] 2024-01-14 16:48:17 Pt to ultrasound via wheelchair. [facility] 2024-01-14 16:35:20 Nurse Report Report given to KATHLEEN Doty. Chief complaint, assessment findings, infusion verify and orders reviewed. Plan of care discussed between both nurses with verbalized understanding. No further questions, comments, or concerns at this time. Danika Odonnell RN, YSABEL TRANSITION COORDINATOR Danika Odonnell RN [facility] 2024-01-14 16:00:58 Pt ambulates to without assistance with steady gait. Pt able to give urine sample for possible UA. [facility] 2024-01-14 15:44:12 Pt given urine cup and notified UA is needed. Pt does not need to use RR at this time. [facility] 2024-01-14 15:37:10 Dr Cuevas in G2 for initial pt evaluation [facility] 2024-01-14 15:18:16 Cecy Duff is a 48 year old female to ED for excessive vaginal bleeding and pelvic pain. Pt reports bleeding for the past 3 weeks that stopped last night. Pt reports clots. AAO X3, speaking clearly. [facility] Lucinda Jeffrey RN [facility] 2024-01-11 13:42:12 Discharged by provider. [facility] Cheryl Theodore RN [facility] 2024-01-11 12:22:41 Has not taken BP meds today [facility] 2024-01-11 12:18:47 Cecy Duff is a 48 year old female c/o vaginal bleeding for 3 weeks, abnormal periods for 2 months, states last intercourse 1 month ago, denies vaginal discharge, states today having more cramping, states has had clots the entire 3 weeks, wants an ultrasound as can't get into [facility] until February 06, TRANSITION COORDINATOR Rita Jimenez RN [facility]
--- NOTE | 2024-09-16 21:44 | RAD REPORT ---
EXAMINATION: ONE VIEW CHEST XR CLINICAL INDICATION: Female, 49 years old.,left breast swelling TECHNIQUE: Frontal chest projection is submitted. Examination is limited by patient positioning and t echnique. COMPARISON: 02/06/2018 FINDINGS: The lungs are well inflated and clear. No pneumothorax or sizable effusion. The heart is upper limit of normal in size. IMPRESSION: No acute intrathoracic abnormalities.
--- NOTE | 2024-09-16 21:44 | RAD REPORT ---
EXAM: US Extremity Nonvascular Complete HISTORY: SWELLING COMPARISON: None TECHNIQUE: Sonographic grayscale and color flow imaging of the left nipple/areolar complex including the region of interest as described by the patient. FINDINGS: No suspicious masses or cysts. Mild ductal prominence throughout the periareolar region, without susp icious intraductal lesions. No abnormal shadowing. No significant skin thickening on ultrasound. IMPRESSION: No suspicious abnormalities of the left nipple/perianal complex.
[2024-09-16 21:45] LABS: Specific Gravity 1.019 (1.005-1.030); Urine Bacteria None Seen /HPF (<20); Urine Bilirubin NEGATIVE (Negative); Urine Blood 3+ (OVER) (Negative); Urine Clarity Extremely Turbid (Clear); Urine Color Light-Yellow (Yellow); Urine Culture Reflex Order NOT NEEDED; Urine Glucose 4+ (Over) (Negative); Urine Ketones NEGATIVE (Negative); Urine Microscopic Reflex YN ORDER UMIC; Urine Mucus Slight /HPF (None Seen); Urine Nitrite NEGATIVE (Negative); Urine Protein TRACE (Negative); Urine RBC <5 /HPF (None Seen); Urine Urobilinogen Normal (Normal); Urine WBC <5 /HPF (<5)
--- NOTE | 2024-09-16 22:09 | EDPHYS ---
Physician Documentation [facility] Name: Barb Duff Age: 49 yrs Sex: Female : 1975 Arrival Date: 09/16/2024 Time: 16:29 Bed 25 Private MD: ED Physician Chaka Cotton HPI: 09/16 20:00 This 49 yrs old Black Female presents to ER via Ambulatory with complaints of Breast cp Lump. 20:00 Patient is a 49-year-old female with past medical history significant for CHF and cp hypertension who presents to the emergency department with complaints of bloody drainage from her left breast nipple that has been intermittent for the past week. She also complains of some tenderness. Denies palpating a specific lump and states she does have an upcoming scheduled mammogram in October. She denies any fevers, chills and/or sweats. 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 - Infectious Disease History:: Denies. - Social history:: Smoking status: Patient reports the use of cigarette tobacco products, denies chronic smoking, but will smoke occasionally. ROS: 20:05 Constitutional: HX per HPI cp 20:05 Constitutional: Negative for body aches, chills, fever, poor PO intake, cp 20:05 Respiratory: Negative for cough, shortness of breath, wheezing, 20:05 Abdomen/GI: Negative for abdominal pain, nausea, vomiting, and diarrhea, 20:05 Skin: Negative for cellulitis, rash, 20:05 All other systems are negative, Exam: 20:10 Constitutional: The patient appears in no acute distress, alert, awake, non-toxic, well cp developed, well nourished, 20:10 Head/Face: Normocephalic, atraumatic. cp 20:10 Chest/axilla: Breasts: nipple discharge, is not appreciated, tenderness, that is mild of the left breast, no masses palpated, areola skin appears cracked with tenderness to palpation, Lymph nodes: lymphadenopathy is not appreciated, 20:10 Cardiovascular: Rate: normal, Rhythm: regular, 20:10 Respiratory: the patient does not display signs of respiratory distress, Respirations: normal, no use of accessory muscles, no retractions, labored breathing, is not present, Breath sounds: are clear throughout, no decreased breath sounds, no stridor, no wheezing, Vital Signs: 17:01 BP 169 / 97; Pulse 91; Resp 18; Temp 98.8; Pulse Ox 100% ; Weight 83.91 kg; Height 5 db ft. 5 in. ; Pain 7/10; 19:30 BP 161 / 99; Pulse 88; Resp 18; Pulse Ox 99% on R/A; tl4 20:00 BP 165 / 97; Pulse 83; Resp 16; Pulse Ox 100% on R/A; tl4 21:00 BP 170 / 99; Pulse 78; Resp 18; Pulse Ox 100% on R/A; tl4 22:20 BP 165 / 94; Pulse 78; Resp 18; Temp 98.1(O); Pulse Ox 99% on R/A; tl4 17:01 Body Mass Index 30.79 (83.91 kg, 165.1 cm) db 17:01 Pain Scale: Adult db MDM: 17:01 Medical Screening Exam initiated cp 22:07 Data reviewed: vital signs, nurses notes, radiologic studies, plain films, ultrasound, cp and as a result, I will discharge patient. 22:07 Differential diagnosis: cancer, cyst, cellulitis, abscess, mastitis. Counseling: I had cp a detailed discussion with the patient and/or guardian regarding the historical points, exam findings, and any diagnostic results supporting the discharge/admit diagnosis, radiology results, the need for outpatient follow up, a family practitioner, to return to the emergency department if symptoms worsen or persist or if there are any questions or concerns that arise at home. 09/16 19:55 Order name: Urinalysis w/ reflexes; Complete Time: 22:05 cp 09/16 19:55 Order name: Test, Urine; Complete Time: 22:06 cp 09/16 19:55 Order name: XRAY Chest (1 view); Complete Time: 22:06 cp 09/16 21:22 Order name: Extremity Nonvascular Complete; Complete Time: 22:06 EDMS 09/16 22:06 Interpretation: Report reviewed. cp Administered Medications: No medications were administered Disposition Summary: 09/16/24 22:08 Discharge Ordered Notes: Location: Home cp Problem: new cp Symptoms: are unchanged cp Condition: Stable cp Diagnosis - Encounter for examination and observation for other specified reasons - left breast cp discharge Followup: cp - With: Private Physician - When: 2 - 3 days - Reason: Recheck today's complaints Discharge Instructions: - Discharge Summary Sheet cp - Breast Self-Awareness cp - Breast Ultrasound cp Forms: - Medication Reconciliation Form cp - Antibiotic Education cp - Prescription Opioid Use cp - Patient Portal Instructions cp - Leadership Thank You Letter cp Prescriptions: - Cephalexin 500 mg Oral Capsule - take 1 capsule ORAL route every 8 hours for 10 days; 30 capsule; Refills: 0, cp Product Selection Permitted - Ibuprofen 800 mg Oral Tablet - take 1 tablet ORAL route every 8 hours As needed take with food; 30 tablet; cp Refills: 0, Product Selection Permitted Signatures: Dispatcher [employer] EDMS Chaka Matt PA PA cp La Schneider RN RN db Isidro Head RN RN tl4 Corrections: (The following items were deleted from the chart) 19:55 19:55 Urinalysis+U.LAB.BRZ ordered. EDMS EDMS 19:55 19:55 Test, Urine+UC.LAB.BRZ ordered. EDMS EDMS 21:20 21:20 Follow Up Breast Axilla Comp ordered. EDMS EDMS 21:33 19:55 Extrmty Nonvasular Limited+US.RAD.BRZ ordered. EDMS EDMS
--- NOTE | 2024-09-16 22:09 | ER ---
Nurse's Notes [facility] Name: Barb Duff Age: 49 yrs Sex: Female : 1975 Arrival Date: 09/16/2024 Time: 16:29 Bed 25 Private MD: Diagnosis: Encounter for examination and observation for other specified reasons-left breast discharge Presentation: 09/16 17:01 Chief complaint: Patient states: LEFT BREAST "LEAKING LIQUID" X 1 WEEK. STATES HAS db PAIN. DENIES LUMP. Coronavirus screen: Client denies travel out of the [place] in the last 14 days. At this time, the client does not indicate any symptoms associated with coronavirus-19. Ebola Screen: Patient negative for fever greater than or equal to 101.5 degrees Fahrenheit, and additional compatible Ebola Virus Disease symptoms Patient denies exposure to infectious person. Patient denies travel to an Ebola-affected area in the 21 days before illness onset. No symptoms or risks identified at this time. Initial Sepsis Screen: Does the patient meet any 2 criteria? No. Patient's initial sepsis screen is negative. Does the patient have a suspected source of infection? No. Patient's initial sepsis screen is negative. Risk Assessment: Do you want to hurt yourself or someone else? Patient reports no desire to harm self or others. Onset of symptoms was September 10, 2024. 17:01 Method Of Arrival: Ambulatory db 17:01 Acuity: MARA 3 db Triage Assessment: 17:03 General: Appears in no apparent distress. uncomfortable, Behavior is calm, cooperative. db Pain: Complains of pain in chest. Neuro: Level of Consciousness is awake, alert, obeys commands, Oriented to person, place, time, situation. Respiratory: Airway is patent Respiratory effort is even, unlabored, Respiratory pattern is regular, symmetrical. 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 - Infectious Disease History:: Denies. - Social history:: Smoking status: Patient reports the use of cigarette tobacco products, denies chronic smoking, but will smoke occasionally. Screenin:19 [facility] ED Fall Risk Assessment (Adult) History of falling in the last 3 months, tl4 including since admission No falls in past 3 months (0 pts) Confusion or Disorientation No (0 pts) Intoxicated or Sedated No (0 pts) Impaired Gait No (0 pts) Mobility Assist Device Used No (0 pt) Altered Elimination No (0 pt) Score/Fall Risk Level 0 - 2 = Low Risk Oriented to surroundings, Maintained a safe environment, Educated pt \\T\\ family on fall prevention, incl call for assistance when getting out of bed, Assessed \\T\\ reinforced patient's understanding of fall precautions. Abuse screen: Denies threats or abuse. Denies injuries from another. Nutritional screening: No deficits noted. Tuberculosis screening: No symptoms or risk factors identified. Assessment: 20:05 General: Appears in no apparent distress. Behavior is calm, cooperative. Pain: tl4 Complains of pain in left breast Pain does not radiate. Neuro: Level of Consciousness is awake, alert, obeys commands, Oriented to person, place, time, situation, Moves all extremities. Full function Gait is steady, Speech is normal. Cardiovascular: Denies chest pain, diaphoresis, fatigue, lightheadedness, nausea, palpitations, shortness of breath, syncope, vomiting, Capillary refill < 3 seconds Patient's skin is warm and dry. Respiratory: Airway is patent Respiratory effort is even, unlabored, Respiratory pattern is regular, symmetrical, Breath sounds are clear bilaterally. GI: No signs and/or symptoms were reported involving the gastrointestinal system. : No signs and/or symptoms were reported regarding the genitourinary system. EENT: No signs and/or symptoms were reported regarding the EENT system. Derm: No signs and/or symptoms reported regarding the dermatologic system. Musculoskeletal: Circulation, motion, and sensation intact. Range of motion: intact in all extremities, Reports pain in left breast. Vital Signs: 17:01 BP 169 / 97; Pulse 91; Resp 18; Temp 98.8; Pulse Ox 100% ; Weight 83.91 kg; Height 5 db ft. 5 in. ; Pain 7/10; 19:30 BP 161 / 99; Pulse 88; Resp 18; Pulse Ox 99% on R/A; tl4 20:00 BP 165 / 97; Pulse 83; Resp 16; Pulse Ox 100% on R/A; tl4 21:00 BP 170 / 99; Pulse 78; Resp 18; Pulse Ox 100% on R/A; tl4 22:20 BP 165 / 94; Pulse 78; Resp 18; Temp 98.1(O); Pulse Ox 99% on R/A; tl4 17:01 Body Mass Index 30.79 (83.91 kg, 165.1 cm) db 17:01 Pain Scale: Adult db ED Course: 16:42 Patient arrived in ED. im 16:59 Chaka Matt PA is PHCP. cp 16:59 Chaka Cotton MD is Attending Physician. cp 17:03 Triage completed. db 17:03 Arm band placed on Patient placed in waiting room. db 20:04 Isidro Head, KATHLEEN is Primary Nurse. tl4 20:19 Patient has correct armband on for positive identification. Placed in gown. Bed in low tl4 position. Call light in reach. Side rails up X 1. Provided Education on: ed process, call villalpando. Client placed on continuous cardiac and pulse oximetry monitoring. NIBP monitoring applied. Door closed. Noise minimized. Lights dimmed. Moved to private room. Warm blanket given. 20:19 No provider procedures requiring assistance completed. tl4 20:53 XRAY Chest (1 view) In Process Unspecified. EDMS 21:22 Extremity Nonvascular Complete In Process Unspecified. EDMS 22:21 Patient did not have IV access during this emergency room visit. tl4 Administered Medications: No medications were administered Medication: 20:18 VIS not applicable for this client. tl4 Outcome: 22:08 Discharge ordered by . cp 22:21 Discharged to home ambulatory, tl4 22:21 Condition: stable 22:21 Discharge instructions given to patient, Instructed on discharge instructions, follow up and referral plans. medication usage, Demonstrated understanding of instructions, follow-up care, medications, Prescriptions given X 2, 22:21 Patient left the ED. tl4 Signatures: Dispatcher [employer] EDMS Chaka Matt PA PA cp Benton, Danielle, RN RN Zhanna Hernandez Toni RN RN tl4 Corrections: (The following items were deleted from the chart) 21:33 20:37 In radiology for [id number]. EDMS EDMS
[2024-09-17 08:06] VITALS: BP 165/94; TEMP 98.1; O2SAT 99
== END 2024-09-16 22:21 | disposition home or self-care (01) ==
LOC: ER 16:29
DX: N64.52 Nipple discharge (principal)
CPT/HCPCS: 71045; 76881; 81001; 81025; 99283

== ENCOUNTER 2025-01-29 15:43 | Emergency (ER) | payer SELFPAY ==
--- OUTSIDE RECORDS SUMMARY | 2025-01-29 15:50 | XMS REPORT | Continuity of Care Document ---
Author Name Unknown Address [address] [place] [address] [facility] Address [address] [place] [address] Care Team Providers Care Digital Solution Architect Name Role Phone Pcp, Patient Does Not Have A Primary Care Physic annita MALATHI CHILDERS Attending Clinician Unavailable Doctor Unassigned, [place] Attending Clinician U BERNABE Balderas Attending Clinician Unavailable Bernabe Schmitt Attending Clinician [phone] CULLEN ATKINSON Attending Clinician Unavail able Cullen Jules Attending Clinician + Malathi Leonard Attending Clinician [phone] JULIA OAKES Attending Clinician UnavailJulia Kwok CNM Attending Clinician [phone] Cullen Jules Attending Clinician + Doctor Unassigned, [place] Attending Clinician U AREN Dave Attending Clinician UnavailAren Moncada MD Attending Clinician [phone] JENNA KAPOOR Attending Clinician Unavailable Emelia HERNANDEZP, Jenna Attending Clinician [phone] Visit, [facility] Nurse Attending Clinician Unava ilmookie Provider, [facility] Temp Attending Clinician Shanique KACI Dubon Attending Clinician Unavailable Phu GUERRERO, Kaci Rowe Attending Clinician [phone] Chelly Levy MD Attending Clinician [phone] CHARLETTE GRIMM Attending Clinician Unavailable Charlette Vega Attending Clinician [phone] RADHA MATSON Attending Clinician Unavailable RADHA MATSON Attending Clinician Unavailable Radha Matson DO Attending Clinician [phone] KATJA THOMPSON Attending Clinician Unavailable Katja Thompson MD Attending Clinician [phone] Slade COLLIER, Enedelia Alejandro Attending Clinician Unava ilmookie Palm MD, Aiyana Man Attending Clinician + AIYANA PALM Attending Clinician Unav ailmookie 2, [facility] Attending Clinician Unavailable Kermit WANG, Lisseth Mittal Attending Clinician Unavailab Lakeisha Gerard Attending Clinician [phone] Coleen Yarbrough MD Attending Clinician [phone] Alicia Benton MD Attending Clinician [phone] BERNABE TOLENTINO Admitting Clinician Unavailable MORAREN HENSLEY Admitting Clinician UnavailAIYANA Larsen Admitting Clinician Unav godwin Palm MD, Aiyana Man Admitting Clinician + Payers Payer Name Policy Type Policy Number Effective Date Expirati on Date Source MEDICAID PENDING PENDING 2021 00:00:00 Problems Condition Name Condition Details Condition Category Status Onset Date Resolution Date Last Treatment Date Treating Clinician Comments Source Tobacco use disorder Tobacco use disorder Disease Active 02-09 00:00: 00 [facility] Heart failure Heart failure Disease Active 2020-11 00:00: 00 [facility] Hypertensi ve urgency Hypertensi ve urgency Disease Active 2020-11 00:00: 00 [facility] Essential hypertensi on, benign Essential hypertensi on, benign Disease Active 05-06 00:00: 00 [facility] History of tubal ligation History of tubal ligation Disease Active 05-06 00:00: 00 [facility] Obesity (BMI 30-39.9) Obesity (BMI 30-39.9) Disease Resolve d 2020-11 00:00: 00 2024-03-09 00:00:00 2024-03-09 14:15:46 [facility] Contracept piero management Contracept piero management Disease Resolve d 05-06 00:00: 00 2023-02-09 00:00:00 2023-02-09 14:08:22 [facility] Sexually transmitte d disease exposure Sexually transmitte d disease exposure Disease Resolve d 05-06 00:00: 00 2023-02-09 00:00:00 2023-02-09 14:08:46 [facility] BV (bacterial vaginosis) BV (bacterial vaginosis) Disease Resolve d 05-06 00:00: 00 2023-02-06 00:00:00 2023-02-06 13:08:54 [facility] Allergies, Adverse Reactions, Alerts Allergy Name Allergy Type Status Severity Reaction(s) Onset Date Inactive Date Treating Clinician Comments Source NO KNOWN ALLERGIE S Drug Class Active [facility] Social History Social Habit Start Date Stop Date Quantity Comments Source History of tobacco use Cigarette Smoker [facility] ASSERTION [facility] History SDOH Alcohol Std Drinks [facility] History of Social function 2024-12-29 00:00:00 2024-12-29 00:00:00 [facility] Alcoholic beverage intake 2024-08-11 00:00:00 2024-08-11 00:00:00 Current drinker of alcohol (finding) [facility] Tobacco use and exposure 2024-08-11 00:00:00 2024-08-11 00:00:00 Smokeless tobacco non-user [facility] Cigarettes smoked current (pack per day) - Reported 2024-08-11 00:00:00 2024-08-11 00:00:00 [facility] Cigarette pack-years 2024-08-11 00:00:00 2024-08-11 00:00:00 [facility] Alcohol intake 2024-03-17 00:00:00 2024-03-17 00:00:00 Current drinker of alcohol (finding) [facility] Exposure to SARS-CoV-2 (event) 2023-03-07 00:00:00 2023-03-17 15:14:00 Not sure [facility] Alcohol Comment 2023-02-06 00:00:00 2023-02-06 00:00:00 socially [facility] History SDOH Financial 2022-10-10 00:00:00 2022-10-10 00:00:00 3 [facility] History SDOH Food Worry 2022-10-10 00:00:00 2022-10-10 00:00:00 1 [facility] History SDOH Food Scarcity 2022-10-10 00:00:00 2022-10-10 00:00:00 1 [facility] History SDOH Transport Med 2022-10-10 00:00:00 2022-10-10 00:00:00 2 [facility] History SDOH Transport Non-Med 2022-10-10 00:00:00 2022-10-10 00:00:00 2 [facility] History SDOH Alcohol Frequency 2022-10-10 00:00:00 2022-10-10 00:00:00 1 [facility] History SDOH Alcohol Binge 2022-10-10 00:00:00 2022-10-10 00:00:00 1 [facility] History SDOH Stress 2021-11-05 00:00:00 2021-11-05 00:00:00 2 [facility] Sex assigned at 1975 00:00:00 1975 00:00:00 [facility] Smoking Status Start Date Stop Date Source Current every day smoker [facility] Occasional tobacco smoker 2024-08-11 00:00:00 [facility] Ex-smoker 2021-11-05 00:00:00 2021-11-05 00:00:00 [facility] Medications Ordered Medication Name Filled Medication Name Start Date Stop Date Current Medication? Ordering Clinician Indication Dosage Frequency Signature (SIG) Comments Components Source iopamidol (ISOVUE 370-500 mL) injection 85 mL 12-09 23:15: 00 12-09 23:15 :00 No [id number] 85mL 85 mL, Intravenou s, ONCE, 1 dose, On Mar 12/09/24 at 1715, Routine [facility] clindamycin in 5 % dextrose (CLEOCIN) 900 mg/50 mL IV piggyback RTU 900 mg 12-09 23:00: 00 12-09 23:35 :00 No 900mg 900 mg, IV Piggyback, ONCE, 1 dose, On Mar 12/09/24 at 1700, Administer over 30 Minutes, 50 mL, Reason for Anti-Infec tive: Documented Infection, Documented Infection Site: HEENT, Duration of Therapy: Once (ED), Restricted use approved by: ED PROVIDER [facility] dexamethaso ne sod phos PF injection 10 mg 12-09 23:00: 00 12-09 23:04 :00 No 10mg 10 mg, Slow IV Push, ONCE, 1 dose, On Mar 12/09/24 at 1700, 1 mL [facility] acetaminoph en (TYLENOL) tablet 650 mg 12-09 22:45: 00 12-09 22:47 :00 No 650mg 650 mg, Oral, ONCE, 1 dose, On Mar 12/09/24 at 1645, TOYIN [facility] chlorhexidi ne 0.12 % mouthwash 12-09 00:00: 00 Yes [id number] 15mL Swish and spit out 15 mL in the morning and 15 mL in the evening. [facility] clindamycin 150 mg capsule 12-09 00:00: 00 12-17 05:59 :00 Yes [id number] 450mg Take 3 capsules by mouth 4 (four) times daily for 7 days. [facility] Saccharomyc es boulardii (FLORASTOR) 250 mg capsule 1-16 00:00: 00 12-17 05:59 :00 Yes [id number] 250mg Take 1 capsule by mouth in the morning and 1 capsule in the evening. Do all this for 7 days. [facility] ARIPIPRAZOL E 15 mg tablet 2023-11 2-27 00:00: 00 Yes [id number] 15mg TAKE ONE (1) TABLET(S) BY MOUTH ONCE A DAY AT BEDTIME. [facility] SERTraline (ZOLOFT) 25 mg tablet 2023-11 1-13 00:00: 00 Yes [id number] 25mg Take 1 tablet by mouth in the morning. [facility] METOPROLOL SUCCINATE XL 50 mg 24 hr tablet 2023-11 004 00:00: 00 Yes [id number] 50mg TAKE ONE (1) TABLET(S) BY MOUTH TWICE A DAY. [facility] etonogestre L (NEXPLANON) implant 68 mg 6-20 19:30: 00 05-13 19:39 :03 No 68mg [facility] sacubitriL- valsartan (ENTRESTO) 97-103 mg tablet 03-23 00:00: 00 Yes 1{tbl} Take 1 tablet by mouth in the morning and 1 tablet in the evening. [facility] levonorgest reL (MIRENA) IUD 1 Device 03-17 19:30: 00 03-17 19:07 :00 No [id number] 100 1{devic e} 1 Device, Intrauteri ne, ONCE, 1 dose, On Fri03/17/24 at 1430, Routine [facility] sacubitriL- valsartan (ENTRESTO) 24-26 mg tablet 4- 00:00: 00 Yes [id number] 1{tbl} Take 1 tablet by mouth in the morning and 1 tablet in the evening. [facility] ARIPIPRAZOL E 15 mg tablet 4-19 00:00: 00 Yes [id number] 15mg TAKE ONE (1) TABLET(S) BY MOUTH ONCE A DAY AT BEDTIME. [facility] sacubitriL- valsartan (ENTRESTO) 49-51 mg tablet 3-18 13:22: 56 Yes 1{tbl} Take 1 tablet by mouth in the morning and 1 tablet in the evening. [facility] amLODIPine 5 mg tablet 2-14 00:00: 00 Yes [id number] 5mg Take 1 tablet by mouth in the morning. [facility] atorvastati n 40 mg tablet 2-06 00:00: 00 Yes [id number] 40mg Take 1 tablet by mouth at bedtime. [facility] bumetanide 2 mg tablet 2-06 00:00: 00 Yes [id number] 2mg Take 1 tablet by mouth in the morning and 1 tablet in the evening. [facility] metoprolol succinate XL 50 mg 24 hr tablet 2-06 00:00: 00 Yes [id number] 50mg Take 1 tablet by mouth in the morning and 1 tablet in the evening. [facility] ARIPiprazol e (ABILIFY) 15 mg tablet 2-06 00:00: 00 Yes [id number] 15mg Take 1 tablet by mouth at bedtime. [facility] dapaglifloz in propanediol (FARXIGA) 10 mg tablet 2-06 00:00: 00 02-08 00:00 :00 No 10mg Take 1 tablet by mouth in the morning. [facility] metoprolol succinate XL 25 mg 24 hr tablet 4-24 00:00: 00 Yes [id number] 25mg Take 1 tablet by mouth in the morning and 1 tablet in the evening. [facility] ARIPiprazol e (ABILIFY) 15 mg tablet 4-24 00:00: 00 Yes [id number] 15mg Take 1 tablet by mouth at bedtime. [facility] atorvastati n 40 mg tablet 4-24 00:00: 00 Yes [id number] 40mg Take 1 tablet by mouth at bedtime. [facility] bumetanide 2 mg tablet 4-24 00:00: 00 Yes [id number] 2mg Take 1 tablet by mouth in the morning and 1 tablet in the evening. [facility] amLODIPine 5 mg tablet 4-24 00:00: 00 Yes [id number] 5mg Take 1 tablet by mouth in the morning. [facility] metroNIDAZO LE 500 mg tablet 02-09 00:00: 00 02-10 04:59 :00 No [id number] 2000mg Take 4 tablets by mouth once now for 1 dose. [facility] sacubitriL- valsartan (ENTRESTO) 24-26 mg tablet - 00:00: 00 Yes [id number] 1{tbl} Take 1 tablet by mouth in the morning and 1 tablet in the evening. [facility] ARIPiprazol e (ABILIFY) 15 mg tablet 01-06 00:00: 00 Yes [id number] 15mg Take 1 tablet by mouth at bedtime. [facility] ATORVASTATI N 40 mg tablet 2-08 00:00: 00 Yes [id number] TAKE ONE (1) TABLET(S) BY MOUTH ONCE A DAY AT BEDTIME. [facility] BUMETANIDE 2 mg tablet 1-09 00:00: 00 Yes [id number] TAKE ONE (1) TABLET BY MOUTH 2 (TWO) TIMES DAILY. [facility] ARIPiprazol e (ABILIFY) 15 mg tablet 2021-11 00:00: 00 Yes [id number] 15mg Take 1 tablet by mouth in the morning. [facility] METOPROLOL SUCCINATE XL 25 mg 24 hr tablet 2021-11 2- 00:00: 00 Yes [id number] TAKE THREE (3) TABLET(S) BY MOUTH TWICE A DAY. [facility] AMLODIPINE 5 mg tablet 2021-11 00:00: 00 Yes [id number] TAKE ONE (1) TABLET BY MOUTH DAILY. [facility] cefdinir (OMNICEF) capsule 300 mg 2021-11 18:30: 00 09-27 18:34 :00 No 300mg 300 mg, Oral, ONCE, 1 dose, On Fri09/27/22 at 1330, TOYIN
Re ason for Anti-Infec tive: Documented Infection< br>Documen anisha Infection Site: Urine
D uration of Therapy: 7 days [facility] cefdinir 300 mg capsule 2021-11 00:00: 00 10-08 05:59 :00 No [id number] 300mg Take 1 capsule by mouth every 12 (twelve) hours for 10 days. [facility] ciprofloxac in HCl 500 mg tablet 2021-11 00:00: 00 09-23 04:59 :00 No [id number] 250mg Take 0.5 tablets by mouth in the morning and 0.5 tablets in the evening. Do all this for 3 days. [facility] METOPROLOL SUCCINATE XL 25 mg 24 hr tablet 2021-11 0 00:00: 00 Yes [id number] TAKE THREE (3) TABLET(S) BY MOUTH TWICE A DAY. [facility] DULoxetine 30 mg capsule 2021-11 0 00:00: 00 Yes [id number] 30mg Take 1 capsule by mouth in the morning. [facility] cetirizine 10 mg tablet 2021-11 0- 00:00: 00 02-08 00:00 :00 No [id number] 10mg Take 1 tablet by mouth in the morning. [facility] ATORVASTATI N 40 mg tablet 07-22 00:00: 00 Yes [id number] TAKE ONE (1) TABLET(S) BY MOUTH ONCE A DAY AT BEDTIME. [facility] ofloxacin 0.3 % otic drops 8- 00:00: 00 Yes [id number] 5[drp] Place 5 Drops in right ear in the morning and 5 Drops in the evening. [facility] DULoxetine 30 mg capsule 808 00:00: 00 Yes [id number] 30mg Take 1 capsule by mouth in the morning. [facility] METOPROLOL SUCCINATE XL 25 mg 24 hr tablet 8- 00:00: 00 Yes [id number] TAKE THREE (3) TABLET(S) BY MOUTH TWICE A DAY. [facility] ATORVASTATI N 40 mg tablet 18 00:00: 00 Yes [id number] TAKE ONE (1) TABLET(S) BY MOUTH ONCE A DAY AT BEDTIME. [facility] amLODIPine 5 mg tablet 02-13 00:00: 00 Yes [id number] 5mg Take 1 tablet by mouth daily. [facility] METOPROLOL SUCCINATE XL 25 mg 24 hr tablet 02-13 00:00: 00 06-26 00:00 :00 No [id number] TAKE THREE (3) TABLET(S) BY MOUTH TWICE A DAY. [facility] bumetanide 2 mg tablet 01-23 00:00: 00 Yes [id number] 2mg Take 1 tablet by mouth 2 (two) times daily. [facility] ARIPiprazol e (ABILIFY) 15 mg tablet 12-11 00:00: 00 Yes [id number] 15mg Take 1 tablet by mouth at bedtime. [facility] aspirin 81 mg chewable tablet 2020-11 00:00: 00 Yes [id number] 81mg Take 1 tablet by mouth daily. [facility] metoprolol succinate XL 25 mg 24 hr tablet 2020-11 00:00: 00 Yes [id number] 75mg Take 3 tablets by mouth 2 (two) times daily. [facility] hydrALAZINE 50 mg tablet 2020-11 00:00: 00 Yes [id number] 50mg Take 1 tablet by mouth every 12 (twelve) hours. [facility] bumetanide 2 mg tablet 2020-11 00:00: 00 Yes [id number] 2mg Take 1 tablet by mouth 2 (two) times daily. [facility] atorvastati n 40 mg tablet 2020-11 00:00: 00 Yes [id number] 40mg Take 1 tablet by mouth at bedtime. [facility] Magnesium Oxide 420 mg Tab 2020-11 00:00: 00 02-08 00:00 :00 No [id number] 400mg Take 400 mg by mouth daily. [facility] KLOR-CON M20 20 mEq tablet 2020-11 00:00: 00 Yes [facility] magnesium oxide 420 mg Tab 2020-11 00:00: 00 Yes [id number] 400mg Take 400 mg by mouth daily. [facility] cloNIDine 0.2 mg tablet 2020-11 00:00: 00 Yes [id number] .1mg Take 0.5 tablets by mouth 2 (two) times daily. [facility] metoprolol succinate XL 25 mg 24 hr tablet 2020-11 00:00: 00 Yes [id number] 75mg Take 3 tablets by mouth 2 (two) times daily. [facility] aspirin 81 mg chewable tablet 2020-11 00:00: 00 Yes [id number] 81mg Take 1 tablet by mouth daily. [facility] atorvastati n 40 mg tablet 2020-11 00:00: 00 Yes [id number] 40mg Take 1 tablet by mouth at bedtime. [facility] bumetanide 2 mg tablet 2020-11 00:00: 00 Yes [id number] 2mg Take 1 tablet by mouth 2 (two) times daily. [facility] hydrALAZINE 50 mg tablet 2020-11 00:00: 00 Yes [id number] 50mg Take 1 tablet by mouth every 12 (twelve) hours. [facility] sacubitriL- valsartan (ENTRESTO) 24-26 mg tablet 2020-11 00:00: 00 Yes [id number] 1{tbl} Take 1 tablet by mouth 2 (two) times daily. [facility] Immunizations Ordered Immunization Name Filled Immunization Name Date Status Comments Source Influenza, split virus, trivalent, PF (AFLURIA/FLUARIX/FL ULAVAL/FLUZONE) 2024-08-11 00:00:00 Completed [facility] Influenza Virus Vaccine Quad .5 mL IM 6+ MO (FLUZONE/FLULAVAL/F LUARIX) 2023-02-06 00:00:00 Completed [facility] Influenza Virus Vaccine Quad .5 mL IM 6+ MO 2023-02-06 00:00:00 Completed [facility] Influenza Virus Vaccine Quad .5 mL IM 6+ MO 2023-02-06 00:00:00 Completed [facility] Influenza Virus Vaccine Quad .5 mL IM 6+ MO 2023-02-06 00:00:00 Completed [facility] Influenza Virus Vaccine Quad .5 mL IM 6+ MO 2023-02-06 00:00:00 Completed [facility] Influenza Virus Vaccine Quad .5 mL IM 6+ MO 2023-02-06 00:00:00 Completed [facility] Influenza Virus Vaccine Quad .5 mL IM 6+ MO (FLUZONE/FLULAVAL/F LUARIX) 2023-02-06 00:00:00 Completed [facility] Influenza Virus Vaccine Quad .5 mL IM 6+ MO (FLUZONE/FLULAVAL/F LUARIX) 2023-02-06 00:00:00 Completed [facility] SARS-COV-2 COVID-19 PFIZER VACCINE 2021-03-08 00:00:00 Completed SARS-COV-2 COVID-19 PFIZER VACCINE 2021-03-08 00:00:00 Completed [facility] SARS-COV-2 COVID-19 PFIZER VACCINE 2021-03-08 00:00:00 Completed [facility] SARS-COV-2 COVID-19 PFIZER VACCINE 2021-03-08 00:00:00 Completed [facility] SARS-COV-2 COVID-19 PFIZER VACCINE 2021-03-08 00:00:00 Completed [facility] SARS-COV-2 COVID-19 PFIZER VACCINE 2021-03-08 00:00:00 Completed [facility] SARS-COV-2 COVID-19 PFIZER VACCINE 2021-03-08 00:00:00 Completed [facility] SARS-COV-2 COVID-19 PFIZER VACCINE 2021-03-08 00:00:00 Completed [facility] SARS-COV-2 COVID-19 PFIZER VACCINE 2021-03-08 00:00:00 Completed [facility] SARS-COV-2 COVID-19 PFIZER VACCINE 2021-03-08 00:00:00 Completed [facility] SARS-COV-2 COVID-19 PFIZER VACCINE 2021-03-08 00:00:00 Completed [facility] SARS-COV-2 COVID-19 PFIZER VACCINE 2021-03-08 00:00:00 Completed [facility] SARS-COV-2 COVID-19 PFIZER VACCINE 2021-03-08 00:00:00 Completed [facility] SARS-COV-2 COVID-19 PFIZER VACCINE 2021-03-08 00:00:00 Completed [facility] SARS-COV-2 COVID-19 PFIZER VACCINE 2021-03-08 00:00:00 Completed [facility] SARS-COV-2 COVID-19 PFIZER VACCINE 2021-03-08 00:00:00 Completed [facility] SARS-COV-2 COVID-19 PFIZER VACCINE 2021-03-08 00:00:00 Completed [facility] SARS-COV-2 COVID-19 PFIZER VACCINE 2021-02-15 00:00:00 Completed [facility] SARS-COV-2 COVID-19 PFIZER VACCINE 2021-02-15 00:00:00 Completed [facility] SARS-COV-2 COVID-19 PFIZER VACCINE 2021-02-15 00:00:00 Completed [facility] SARS-COV-2 COVID-19 PFIZER VACCINE 2021-02-15 00:00:00 Completed [facility] SARS-COV-2 COVID-19 PFIZER VACCINE 2021-02-15 00:00:00 Completed [facility] SARS-COV-2 COVID-19 PFIZER VACCINE 2021-02-15 00:00:00 Completed [facility] SARS-COV-2 COVID-19 PFIZER VACCINE 2021-02-15 00:00:00 Completed [facility] SARS-COV-2 COVID-19 PFIZER VACCINE 2021-02-15 00:00:00 Completed [facility] SARS-COV-2 COVID-19 PFIZER VACCINE 2021-02-15 00:00:00 Completed [facility] SARS-COV-2 COVID-19 PFIZER VACCINE 2021-02-15 00:00:00 Completed [facility] SARS-COV-2 COVID-19 PFIZER VACCINE 2021-02-15 00:00:00 Completed [facility] SARS-COV-2 COVID-19 PFIZER VACCINE 2021-02-15 00:00:00 Completed [facility] SARS-COV-2 COVID-19 PFIZER VACCINE 2021-02-15 00:00:00 Completed [facility] SARS-COV-2 COVID-19 PFIZER VACCINE 2021-02-15 00:00:00 Completed [facility] SARS-COV-2 COVID-19 PFIZER VACCINE 2021-02-15 00:00:00 Completed [facility] SARS-COV-2 COVID-19 PFIZER VACCINE 2021-02-15 00:00:00 Completed [facility] SARS-COV-2 COVID-19 PFIZER VACCINE 2021-02-15 00:00:00 Completed [facility] Influenza Virus Vaccine Quad .5 mL IM 6+ MO (FLUZONE/FLULAVAL/F LUARIX) Unknown Completed [facility] SARS-COV-2 COVID-19 PFIZER VACCINE Unknown Completed [facility] Influenza Virus Vaccine Quad .5 mL IM 6+ MO (FLUZONE/FLULAVAL/F LUARIX) Unknown Completed [facility] SARS-COV-2 COVID-19 PFIZER VACCINE Unknown Completed [facility] Influenza Virus Vaccine Quad .5 mL IM 6+ MO (FLUZONE/FLULAVAL/F LUARIX) Unknown Completed [facility] SARS-COV-2 COVID-19 PFIZER VACCINE Unknown Completed [facility] Influenza Virus Vaccine Quad .5 mL IM 6+ MO (FLUZONE/FLULAVAL/F LUARIX) Unknown Completed [facility] SARS-COV-2 COVID-19 PFIZER VACCINE Unknown Completed [facility] SARS-COV-2 COVID-19 PFIZER VACCINE Unknown Completed [facility] Influenza Virus Vaccine Quad .5 mL IM 6+ MO (FLUZONE/FLULAVAL/F LUARIX) Unknown Completed [facility] SARS-COV-2 COVID-19 PFIZER VACCINE Unknown Completed [facility] Influenza Virus Vaccine Quad .5 mL IM 6+ MO (FLUZONE/FLULAVAL/F LUARIX) Unknown Completed [facility] Influenza, split virus, trivalent, PF (AFLURIA/FLUARIX/FL ULAVAL/FLUZONE) Unknown Completed [facility] SARS-COV-2 COVID-19 PFIZER VACCINE Unknown Completed [facility] Influenza Virus Vaccine Quad .5 mL IM 6+ MO (FLUZONE/FLULAVAL/F LUARIX) Unknown Completed [facility] SARS-COV-2 COVID-19 PFIZER VACCINE Unknown Completed [facility] Influenza Virus Vaccine Quad .5 mL IM 6+ MO (FLUZONE/FLULAVAL/F LUARIX) Unknown Completed [facility] SARS-COV-2 COVID-19 PFIZER VACCINE Unknown Completed [facility] Influenza Virus Vaccine Quad .5 mL IM 6+ MO (FLUZONE/FLULAVAL/F LUARIX) Unknown Completed [facility] SARS-COV-2 COVID-19 PFIZER VACCINE Unknown Completed [facility] Influenza Virus Vaccine Quad .5 mL IM 6+ MO (FLUZONE/FLULAVAL/F LUARIX) Unknown Completed [facility] SARS-COV-2 COVID-19 PFIZER VACCINE Unknown Completed [facility] Influenza Virus Vaccine Quad .5 mL IM 6+ MO (FLUZONE/FLULAVAL/F LUARIX) Unknown Completed [facility] Vital Signs Vital Name Observation Time Observation Value Comments S ource Systolic blood pressure 2024-12-09 23:33:00 171 mm[Hg] [facility] acute hospital Diastolic blood pressure 2024-12-09 23:33:00 94 mm[Hg] [facility] acute hospital Heart rate 2024-12-09 23:33:00 91 /min [facility] Body temperature 2024-12-09 23:33:00 36.17 Jasmin [facility] Respiratory rate 2024-12-09 23:33:00 15 /min [facility] Oxygen saturation in Arterial blood by Pulse oximetry 2024-12-09 23:33:00 99 /min [facility] acute hospital Body height 2024-12-09 20:12:00 165.1 cm [facility] Body weight 2024-12-09 20:12:00 87.091 kg [facility] BMI 2024-12-09 20:12:00 31.95 kg/m2 [facility] Systolic blood pressure 2024-11-12 19:20:00 150 mm[Hg] [facility] acute hospital Diastolic blood pressure 2024-11-12 19:20:00 90 mm[Hg] [facility] acute hospital Heart rate 2024-11-12 19:19:00 85 /min [facility] Body temperature 2024-11-12 19:19:00 35.72 Jasmin [facility] Respiratory rate 2024-11-12 19:19:00 18 /min [facility] Body height 2024-11-12 19:19:00 165.1 cm [facility] Body weight 2024-11-12 19:19:00 87.091 kg [facility] BMI 2024-11-12 19:19:00 31.95 kg/m2 [facility] Systolic blood pressure 2024-08-11 18:35:00 139 mm[Hg] General acute hospital Diastolic blood pressure 2024-08-11 18:35:00 84 mm[Hg] General acute hospital Heart rate 2024-08-11 18:35:00 89 /min [facility] Body temperature 2024-08-11 18:35:00 35.94 Jasmin [facility] Respiratory rate 2024-08-11 18:35:00 17 /min [facility] Body height 2024-08-11 18:35:00 165.1 cm [facility] Body weight 2024-08-11 18:35:00 84.777 kg [facility] BMI 2024-08-11 18:35:00 31.10 kg/m2 [facility] Systolic blood pressure 2024-05-13 19:17:00 160 mm[Hg] General acute hospital Diastolic blood pressure 2024-05-13 19:17:00 80 mm[Hg] General acute hospital Heart rate 2024-05-13 19:12:00 89 /min [facility] Body temperature 2024-05-13 19:12:00 35.5 Jasmin [facility] Respiratory rate 2024-05-13 19:12:00 18 /min [facility] Body height 2024-05-13 19:12:00 165.1 cm [facility] Body weight 2024-05-13 19:12:00 83.734 kg [facility] BMI 2024-05-13 19:12:00 30.72 kg/m2 [facility] Systolic blood pressure 2024-03-17 18:01:00 161 mm[Hg] General acute hospital Diastolic blood pressure 2024-03-17 18:01:00 95 mm[Hg] General acute hospital Heart rate 2024-03-17 18:01:00 91 /min [facility] Body temperature 2024-03-17 18:01:00 36.56 Jasmin [facility] Respiratory rate 2024-03-17 18:01:00 18 /min [facility] Body height 2024-03-17 18:01:00 165.1 cm [facility] Body weight 2024-03-17 18:01:00 84.913 kg [facility] BMI 2024-03-17 18:01:00 31.15 kg/m2 [facility] Systolic blood pressure 2024-03-09 18:04:00 185 mm[Hg] General acute hospital Diastolic blood pressure 2024-03-09 18:04:00 117 mm[Hg] General acute hospital Heart rate 2024-03-09 18:04:00 90 /min [facility] Body temperature 2024-03-09 18:04:00 36.39 Jasmin [facility] Respiratory rate 2024-03-09 18:04:00 18 /min [facility] Body height 2024-03-09 18:04:00 165.1 cm [facility] Body weight 2024-03-09 18:04:00 85.186 kg [facility] BMI 2024-03-09 18:04:00 31.25 kg/m2 [facility] Systolic blood pressure 2024-02-09 18:18:00 152 mm[Hg] General acute hospital Diastolic blood pressure 2024-02-09 18:18:00 94 mm[Hg] General acute hospital Heart rate 2024-02-09 18:18:00 82 /min [facility] Body temperature 2024-02-09 18:12:00 36.22 Jasmin [facility] Respiratory rate 2024-02-09 18:12:00 18 /min [facility] Body height 2024-02-09 18:12:00 165.1 cm [facility] Body weight 2024-02-09 18:12:00 85.872 kg [facility] BMI 2024-02-09 18:12:00 31.50 kg/m2 [facility] Systolic blood pressure 2024-01-15 03:00:00 170 mm[Hg] General acute hospital Diastolic blood pressure 2024-01-15 03:00:00 97 mm[Hg] General acute hospital Heart rate 2024-01-15 03:00:00 100 /min [facility] Respiratory rate 2024-01-15 03:00:00 16 /min [facility] Oxygen saturation in Arterial blood by Pulse oximetry 2024-01-15 03:00:00 100 /min General acute hospital Body temperature 2024-01-14 21:18:00 36.67 Jasmin [facility] Body weight 2024-01-14 21:16:00 88.451 kg [facility] BMI 2024-01-14 21:16:00 32.45 kg/m2 [facility] Systolic blood pressure 2024-01-11 19:41:00 177 mm[Hg] General acute hospital Diastolic blood pressure 2024-01-11 19:41:00 101 mm[Hg] General acute hospital Heart rate 2024-01-11 19:41:00 105 /min [facility] Respiratory rate 2024-01-11 19:41:00 18 /min [facility] Oxygen saturation in Arterial blood by Pulse oximetry 2024-01-11 19:41:00 100 /min General acute hospital Body temperature 2024-01-11 18:20:00 36.94 Jasmin [facility] Systolic blood pressure 2023-07-29 18:30:00 131 mm[Hg] General acute hospital Diastolic blood pressure 2023-07-29 18:30:00 90 mm[Hg] General acute hospital Heart rate 2023-07-29 18:30:00 101 /min [facility] Body temperature 2023-07-29 18:30:00 36.39 Jasmin [facility] Respiratory rate 2023-07-29 18:30:00 18 /min [facility] Body height 2023-07-29 18:30:00 165.1 cm [facility] Body weight 2023-07-29 18:30:00 88.633 kg [facility] BMI 2023-07-29 18:30:00 32.52 kg/m2 [facility] Body temperature 2023-02-11 16:05:00 36.78 Jasmin [facility] Body weight 2023-02-11 16:05:00 87.952 kg [facility] BMI 2023-02-11 16:05:00 32.27 kg/m2 [facility] Systolic blood pressure 2023-02-06 18:13:00 122 mm[Hg] General acute hospital Diastolic blood pressure 2023-02-06 18:13:00 78 mm[Hg] General acute hospital Heart rate 2023-02-06 18:08:00 83 /min [facility] Body temperature 2023-02-06 18:07:00 36.39 Jasmin [facility] Respiratory rate 2023-02-06 18:07:00 18 /min [facility] Body height 2023-02-06 18:07:00 165.1 cm [facility] Body weight 2023-02-06 18:07:00 86.093 kg [facility] BMI 2023-02-06 18:07:00 31.58 kg/m2 [facility] Systolic blood pressure 2022-09-27 19:56:00 154 mm[Hg] General acute hospital Diastolic blood pressure 2022-09-27 19:56:00 98 mm[Hg] General acute hospital Heart rate 2022-09-27 19:56:00 73 /min [facility] Respiratory rate 2022-09-27 19:56:00 16 /min [facility] Oxygen saturation in Arterial blood by Pulse oximetry 2022-09-27 19:56:00 100 /min [facility] acute hospital Body temperature 2022-09-27 16:18:00 37 Jasmin [facility] Body weight 2022-09-27 16:18:00 87.544 kg [facility] BMI 2022-09-27 16:18:00 32.12 kg/m2 [facility] Systolic blood pressure 2022-09-19 22:53:37 126 mm[Hg] General acute hospital Diastolic blood pressure 2022-09-19 22:53:37 88 mm[Hg] General acute hospital Heart rate 2022-09-19 22:53:37 88 /min [facility] Respiratory rate 2022-09-19 22:53:37 18 /min [facility] Oxygen saturation in Arterial blood by Pulse oximetry 2022-09-19 22:53:37 99 /min General acute hospital Body temperature 2022-09-19 21:41:00 35.72 Jasmin [facility] Systolic blood pressure 2022-09-18 18:50:00 141 mm[Hg] General acute hospital Diastolic blood pressure 2022-09-18 18:50:00 92 mm[Hg] General acute hospital Heart rate 2022-09-18 18:50:00 95 /min [facility] Body temperature 2022-09-18 18:50:00 37.22 Jasmin [facility] Respiratory rate 2022-09-18 18:50:00 18 /min [facility] Body weight 2022-09-18 18:50:00 87.544 kg Univ [facility] BMI 2022-09-18 18:50:00 32.12 kg/m2 [facility] Oxygen saturation in Arterial blood by Pulse oximetry 2022-09-18 18:50:00 99 /min General acute hospital Systolic blood pressure 2022-09-14 13:32:00 147 mm[Hg] General acute hospital Diastolic blood pressure 2022-09-14 13:32:00 94 mm[Hg] General acute hospital Heart rate 2022-09-14 13:32:00 98 /min [facility] Body temperature 2022-09-14 13:32:00 36.72 Jasmin [facility] Respiratory rate 2022-09-14 13:32:00 17 /min [facility] Body height 2022-09-14 13:32:00 165.1 cm [facility] Body weight 2022-09-14 13:32:00 82.555 kg Univ [facility] BMI 2022-09-14 13:32:00 30.29 kg/m2 [facility] Oxygen saturation in Arterial blood by Pulse oximetry 2022-09-14 13:32:00 100 /min General acute hospital Systolic blood pressure 2022-07-03 17:43:00 147 mm[Hg] General acute hospital Diastolic blood pressure 2022-07-03 17:43:00 98 mm[Hg] General acute hospital Heart rate 2022-07-03 17:43:00 83 /min [facility] Body temperature 2022-07-03 17:43:00 37.61 Jasmin [facility] Respiratory rate 2022-07-03 17:43:00 18 /min [facility] Body height 2022-07-03 17:43:00 165.1 cm [facility] Body weight 2022-07-03 17:43:00 80.74 kg Univ [facility] BMI 2022-07-03 17:43:00 29.62 kg/m2 [facility] Oxygen saturation in Arterial blood by Pulse oximetry 2022-07-03 17:43:00 100 /min [facility] Procedures Procedure Date / Time Performed Performing Clinician Source CT SOFT TISSUE NECK W CONTRAST 2024-12-09 22:28:36 Bernabe Tolentino [facility] TEST, SERUM 2024-12-09 21:10:00 Bernabe Tolentino [facility] COMP. METABOLIC PANEL (82821) 2024-12-09 21:10:00 Bernabe Tolentino [facility] CBC WITH DIFF 2024-12-09 21:10:00 Bernabe Tolentino [facility] BCCS-RELATED DOCUMENTATION 2024-08-25 23:25:13 D octor Unassigned, [place] [facility] "STATE SUPPLY" FLU VACC (), 6+ MONTHS, IM, TIV (AFLURIA/FLUARIX/FLULAVAL/ FLUZONE) 2024-08-11 18:53:04 Cullen Atkinson [facility] POCT TEST 2024-03-17 18:07:00 Mary Oakes [facility] CONSENT/REFUSAL FOR DIAGNOSIS AND TREATMENT 2024-02-09 17:59:35 Doctor Unassigned, [place] [facility] URINALYSIS 2024-01-15 02:50:00 [facility]FF 2024-01-14 21:53:00 Aren Cuevas [facility] HB ABO GROUPING 2024-01-14 21:53:00 Aren Cuevas [facility] EXTRA TUBE LT. BLUE 2024-01-14 21:53:00 Quan Cuevas [facility] EXTRA TUBE ORANGE 2024-01-14 21:53:00 Lou Cuevas [facility] CONSENT/REFUSAL FOR DIAGNOSIS AND TREATMENT 2024-01-14 21:06:07 Doctor Unassigned, [place] [facility] ASSIGNMENT OF BENEFITS 2024-01-11 19:18:38 Docto r Unassigned, [place] [facility] POCT TEST 2024-01-11 18:48:00 Jenna Kapoor [facility] CBC WITH DIFF 2024-01-11 18:47:00 Jenna [facility] URINALYSIS 2024-01-11 18:47:00 [facility]AT[facility] 2024-01-11 18:16:05 Doctor Unassigned, [place] [facility] BCCS-RELATED DOCUMENTATION 2023-08-05 05:01:00 D octor Unassigned, [place] [facility] GC & CHLAMYDIA AMPLIFIED ASSAY 2023-02-06 19:10:00 Julia Oakes [facility] HIV 1/2 AG-AB WITH REFLEX 2023-02-06 19:10:00 Julia Palomo [facility] HIGH RISK HPV-THIN PREP 2023-02-06 19:10:00 Julia Oakes [facility] TRICHOMONAS AMPLIFIED ASSAY 2023-02-06 19:10:00 Julia Oakes [facility] PAP SMEAR-LIQUID BASED-CP 2023-02-06 19:10:00 Julia Palomo [facility] SYPHILIS IGG/IGM 2023-02-06 19:10:00 Julia Oakes [facility] "RWSP SUMMER ONLY" FLU VACC(), 6+ MONTHS, IM, QUAD (FLUZONE/FLULAVAL/FLUARIX) 2023-02-06 19:08:03 Julia Oakes [facility] ASSIGNMENT OF BENEFITS 2023-02-06 17:54:16 Docto r Unassigned, [place] [facility] CONSENT FOR FREE TREATMENT FORM 2022-12-13 15:45:38 Doctor Unassigned, [place] [facility] URINE DRUG (IMMUNOASSAY) - COMPREHENSIVE DRUG SCREEN 2022-09-27 17:01:00 Chelly Ohara [facility] URINALYSIS 2022-09-27 17:01:00 [facility] CULT[facility] 2022-09-27 17:01:00 Roland Levy [facility] CONSENT/REFUSAL FOR DIAGNOSIS AND TREATMENT 2022-09-27 16:55:29 Doctor Unassigned, [place] [facility] COMP. METABOLIC PANEL ([id number]) 2022-09-19 22:01:00 Charlette Grimm [facility] CBC WITH DIFF 2022-09-19 22:01:00 Charlette Grimm [facility] URINALYSIS 2022-09-19 22:01:00 [facility] CONSENT/REFUSAL FOR DIAGNOSIS AND TREATMENT 2022-09-19 21:34:44 Doctor Unassigned, [place] [facility] CONSENT/REFUSAL FOR DIAGNOSIS AND TREATMENT 2022-09-18 18:53:06 Doctor Unassigned, [place] [facility] CONSENT/REFUSAL FOR DIAGNOSIS AND TREATMENT 2022-09-14 13:26:46 Doctor Unassigned, [place] [facility] VA REMOVAL IMPACTED CERUMEN INSTRUMENTATION UNILAT 2022-07-03 20:09:56 Katja Thompson [facility] CONSENT/REFUSAL FOR DIAGNOSIS AND TREATMENT 2022-07-03 17:20:03 Doctor Unassigned, [place] [facility] CONSENT FOR FREE TREATMENT FORM 2021-11-05 16:05:09 Doctor Unassigned, [place] [facility] Encounters Start Date/Time End Date/Time Encounter Type Admission Type Attending [facility] Facility Care Department Encounter ID Source 2024-08-25 00:00:00 2025-01-08 06:53:18 Orders Only Doctor Unassigned, [place] Doctor Unassigned, [place] [facility] 1.2.840.114 350.1.13.10 4.2.7.2.686 [id number] [facility] 2024-12-09 14:15:00 2024-12-09 17:39:00 Emergency X BERNABE TOLENTINO [facility] ERT [id number] [facility] 2024-12-09 14:15:00 2024-12-09 17:39:00 Emergency [facility] 1.2.840.114 350.1.13.10 4.2.7.2.686 [id number] [facility] 2024-12-07 07:21:54 2024-12-07 23:59:00 Outpatient R CULLEN ATKINSON [facility] [id number] [facility] 2024-12-07 07:21:54 2024-12-07 23:59:00 Hospital Encounter Cullen Atkinson REPLACED BY [facility] 1.2.840.114 350.1.13.10 4.2.7.2.686 [id number] [facility] 2024-11-12 13:15:00 2024-11-12 13:38:24 Outpatient R MALATHI CHILDERS [facility] [id number] [facility] 2024-11-12 13:15:00 2024-11-12 13:38:24 Office Visit Malathi Childers [facility] SALON/SPA MANAGER [facility] 1.2.840.114 350.1.13.10 4.2.7.2.686 [id number] [facility] 2024-11-08 07:00:41 2024-11-08 23:59:00 Outpatient R CULLEN ATKINSON [facility] [id number] [facility] 2024-11-08 07:00:41 2024-11-08 23:59:00 Hospital Encounter Cullen Atkinson REPLACED BY [facility] 1.2.840.114 350.1.13.10 4.2.7.2.686 [id number] [facility] 2024-11-08 09:15:00 2024-11-08 09:15:00 Outpatient R MALATHI CHILDERS [facility] [id number] [facility] 2024-11-08 09:15:00 2024-11-08 09:15:00 Outpatient R MALATHI CHILDERS [facility] [id number] [facility] 2024-08-11 13:30:00 2024-08-11 14:15:24 Outpatient R CULLEN ATKINSON [facility] [id number] [facility] 2024-08-11 13:30:00 2024-08-11 14:15:24 Office Visit Cullen Atkinson [facility] SALON/SPA MANAGER [facility] MATERNAL & CHILD [facility] 1.2.840.114 350.1.13.10 4.2.7.2.686 [id number] [facility] 2024-06-30 00:00:00 2024-06-30 00:00:00 Outpatient [facility] [id number] [facility] 2024-05-13 14:15:00 2024-05-13 14:55:45 Outpatient R MALATHI CHILDERS [facility] [id number] [facility] 2024-05-13 14:15:00 2024-05-13 14:55:45 Office Visit Alvarado Malathi [facility] SALON/SPA MANAGER [facility] & CHILD [facility] ..840.114 350.1.13.10 4.2.7.2.686 [id number] [facility] 2024-05-13 14:15:00 2024-05-13 14:15:00 Outpatient R MALATHI CHILDERS [facility] [id number] [facility] 2024-04-28 12:30:00 2024-04-28 12:30:00 Outpatient R MALATHI CHILDERS [facility] [id number] [facility] 2024-03-17 12:45:00 2024-03-17 13:46:06 Outpatient R JULIA OAKES [facility] [id number] [facility] 2024-03-17 12:45:00 2024-03-17 13:46:06 Office Visit Julia Oakes [facility] SALON/SPA MANAGER [facility] MATERNAL & CHILD [facility] 1..840.114 350.1.13.10 4.2.7.2.686 [id number] [facility] 2024-03-09 13:30:00 2024-03-09 13:34:22 Outpatient R ROBERTMARKEDGAR CULLEN [facility] [id number] [facility] 2024-03-09 13:30:00 2024-03-09 13:34:22 Office Visit Cullen Atkinson [facility] SALON/SPA MANAGER [facility] & CHILD [facility] 1.840.114 350.1.13.10 4.2.7.2.686 [id number] [facility] 2024-02-11 00:00:00 2024-02-11 00:00:00 Telephone Cullen Atkinson [facility] SALON/SPA MANAGER [facility] & CHILD [facility] 1.840.114 350.1.13.10 4.2.7.2.686 [id number] [facility] 2024-02-09 13:30:00 2024-02-09 14:06:10 Outpatient R CULLEN ATKINSON [facility] [id number] [facility] 2024-02-09 13:30:00 2024-02-09 14:06:10 Office Visit Damon Atknisonilclover Kay [facility] SALON/SPA MANAGER [facility] 1.84.114 350.1.13.10 4.2.7.2.686 [id number] [facility] 2024-02-09 00:00:00 2024-02-09 00:00:00 Orders Only Doctor Unassigned, [place] [facility] 1..114 350.1.13.10 4.2.7.2.686 [id number] [facility] 2024-01-14 15:18:00 2024-01-14 21:46:00 Emergency X ESMERRICALAREN [facility] ERT [id number] [facility] 2024-01-14 15:18:00 2024-01-14 21:46:00 Emergency Morrical, Aren [facility] 1.0.114 350.1.13.10 4.2.7.2.686 [id number] [facility] 2024-01-11 12:23:00 2024-01-11 13:42:00 Emergency X JENNA KAPOOR [facility] ERT [id number] [facility] 2024-01-11 12:23:00 2024-01-11 13:42:00 Emergency Jenna Kapoor [facility] 1.0.114 350.1.13.10 4.2.7.2.686 [id number] [facility] 2023-08-26 00:00:00 2023-08-26 00:00:00 Telephone Cullen Atkinson [facility] SALON/SPA MANAGER [facility] 1.0.114 350.1.13.10 4.2.7.2.686 [id number] [facility] 2023-08-13 07:57:14 2023-08-13 23:59:00 Outpatient R JULIA OAKES [facility] [id number] [facility] 2023-08-13 07:57:14 2023-08-13 23:59:00 Hospital Encounter Julia Oakes [facility] 1.0.114 350.1.13.10 4.2.7.2.686 [id number] [facility] 2023-08-05 00:00:00 2023-08-05 00:00:00 Orders Only Doctor Unassigned, [place] [facility] 1.840.114 350.1.13.10 4.2.7.2.686 [id number] [facility] 2023-07-29 13:30:00 2023-07-29 13:45:00 Office Visit Cullen Atkinson [facility] SALON/SPA MANAGER [facility] & CHILD [facility] 1..840.114 350.1.13.10 4.2.7.2.686 [id number] [facility] 2023-07-29 13:30:00 2023-07-29 13:30:00 Outpatient R CULLEN ATKINSON [facility] [id number] [facility] 2023-06-04 00:00:00 2023-06-04 00:00:00 Telephone Julia Oakes [facility] SALON/SPA MANAGER [facility] 1..840.114 350.1.13.10 4.2.7.2.686 [id number] [facility] 2023-04-08 06:54:10 2023-04-08 23:59:00 Hospital Encounter Julia Oakes [facility] 1..840.114 350.1.13.10 4.2.7.2.686 [id number] [facility] 2023-04-08 00:00:00 2023-04-08 23:59:00 Outpatient JULIA AVILA [facility] [id number] [facility] 2023-03-17 00:00:00 2023-03-17 00:00:00 Outpatient [facility] [id number] [facility] 2023-02-11 11:00:00 2023-02-11 11:12:11 Nurse Visit Visit, Ang-Rmchp Nurse Julia Oakes [facility] SALON/SPA MANAGER [facility] 1..840.114 350.1.13.10 4.2.7.2.686 [id number] [facility] 2023-02-11 11:00:00 2023-02-11 11:00:00 Outpatient R JULIA OAKES [facility] [id number] [facility] 2023-02-10 14:00:00 2023-02-10 14:00:00 Outpatient R JULAI OAKES [facility] [id number] [facility] 2023-02-09 00:00:00 2023-02-09 00:00:00 Case Management Julia Oakes [facility] SALON/SPA MANAGER [facility] & CHILD [facility] 1.2.840.114 350.1.13.10 4.2.7.2.686 [id number] [facility] 2023-02-06 13:00:00 2023-02-06 14:12:49 Outpatient JULIA AVILA [facility] [id number] [facility] 2023-02-06 13:00:00 2023-02-06 14:12:49 Office Visit Provider, N[facility]mp [facility] 1..840.114 350.1.13.10 4.2.7.2.686 [id number] [facility] 2023-02-06 00:00:00 2023-02-06 00:00:00 Orders Only Doctor Unassigned, [place] [facility] 1.840.114 350.1.13.10 4.2.7.2.686 [id number] [facility] 2023-01-03 13:00:00 2023-01-03 13:00:00 Outpatient R CULLEN ATKINSON [facility] [id number] [facility] 2022-12-13 00:00:00 2022-12-13 00:00:00 Outpatient [facility] [id number] [facility] 2022-12-13 00:00:00 2022-12-13 00:00:00 Orders Only Doctor Unassigned, [place] [facility] 1.2840.114 350.1.13.10 4.2.7.2.686 [id number] [facility] 2022-10-01 15:06:10 2022-10-01 15:06:[address] [facility] [id number] Aren Santos 2022-09-27 11:19:00 2022-09-27 15:02:00 Emergency X KACI BAY [facility] ERT [id number] [facility] 2022-09-27 11:19:00 2022-09-27 15:02:00 Emergency Kaci [place] [facility] 1.2.840.114 350.1.13.10 4.2.7.2.686 [id number] [facility] 2022-09-19 16:43:00 2022-09-19 18:04:00 Emergency X CHARLETTE GRIMM [facility] ERT [id number] [facility] 2022-09-19 16:43:00 2022-09-19 18:04:00 Emergency Charlette Grimm [facility] 1.2.840.114 350.1.13.10 4.2.7.2.686 [id number] [facility] 2022-09-18 13:54:00 2022-09-18 15:42:00 Emergency X HUYEN FOZIASISI GARRIDOEABDOUL [facility] ERT [id number] [facility] 2022-09-18 13:54:00 2022-09-18 15:42:00 Emergency Radha Mat[facility] [id number] [facility] 2022-09-14 08:33:00 2022-09-14 10:02:00 Emergency X CHARLETTE GRIMM [facility] ERT [id number] [facility] 2022-09-14 08:33:00 2022-09-14 10:02:00 Emergency Charlette Grimm [facility] 1.2840.114 350.1.13.10 4.2.7.2.686 [id number] [facility] 2022-09-10 15:18:56 2022-09-10 15:18:56 Outpatient [facility] [id number] Aren Santos 2022-08-26 00:00:00 2022-08-26 00:00:00 Outpatient [facility] [id number] [facility] 2022-07-03 12:44:00 2022-07-03 15:27:00 Emergency X KATJA [facility]PSON [facility] ERT [id number] [facility] 2022-07-03 12:44:00 2022-07-03 15:27:00 Emergency Katja Thompson [facility] 1.2840.114 350.1.13.10 4.2.7.2.686 [id number] [facility] 2022-07-03 00:00:00 2022-07-03 00:00:00 Orders Only Doctor Unassigned, [place] [facility] 1.2840.114 350.1.13.10 4.2.7.2.686 [id number] [facility] 2022-07-01 00:00:00 2022-07-01 00:00:00 Outpatient [facility] [id number] [facility] 2022-03-27 00:00:00 2022-03-27 00:00:00 Outpatient [facility] [id number] [facility] 2022-02-27 00:00:00 2022-02-27 00:00:00 Case Management Enedelia June 1.2.840.114 350.1.13.10 4.2.7.2.686 [id number] [facility] 2022-02-20 00:00:00 2022-02-20 00:00:00 Outpatient [facility] [id number] [facility] 2022-01-23 00:00:00 2022-01-23 00:00:00 Outpatient [facility] [id number] [facility] 2022-01-09 00:00:00 2022-01-09 00:00:00 Outpatient [facility] [id number] [facility] 2021-12-12 00:00:00 2021-12-12 00:00:00 Outpatient [facility] [id number] [facility] 2021-12-06 00:00:00 2021-12-06 00:00:00 [facility] 1..840.114 350.1.13.10 4.2.7.2.686 [id number] [facility] 2021-11-21 00:00:00 2021-11-21 00:00:00 Telephone Aiyana Palm [facility] 1.840.114 350.1.13.10 4.2.7.2.686 [id number] [facility] 2021-11-08 00:00:00 2021-11-08 00:00:00 [facility] 1.840.114 350.1.13.10 4.2.7.2.686 [id number] [facility] 2021-11-05 00:00:00 2021-11-05 00:00:00 Outpatient [facility] [id number] [facility] 2021-11-05 00:00:00 2021-11-05 00:00:00 Orders Only Doctor Unassigned, [place] [facility] 1.840.114 350.1.13.10 4.2.7.2.686 [id number] [facility] 2021-11-02 11:15:00 2021-11-02 13:41:22 [id number] 2021-11-02 11:18:54 2021-11-02 11:33:54 Filling Machine Tender Visit 2[facility] 1.0.114 350.1.13.10 4.2.7.2.686 [id number] [facility] 2021-11-01 00:00:00 2021-11-01 00:00:[facility]114 350.1.13.10 4.2.7.2.686 [id number] [facility] 2021-10-31 00:00:00 2021-10-31 00:00:00 Transition of Care Lisseth Carmen [facility] 1..114 350.1.13.10 4.2.7.2.686 [id number] [facility] 2021-10-24 15:00:00 2021-10-30 17:30:00 Inpatient X [facility] [id number] [facility] 2021-10-24 15:00:00 2021-10-30 17:30:00 Inpatient [facility] [id number] [facility] 2021-10-24 15:00:00 2021-10-30 17:30:00 Hospital En[facility] Doyle[facility]114 350.1.13.10 4.2.7.2.686 [id number] [facility] 2021-10-30 00:00:00 2021-10-30 00:00:00 Case Management Aiyana Palm [facility] 1.2.840.114 350.1.13.10 4.2.7.2.686 [id number] [facility] 2021-10-29 00:00:00 2021-10-29 00:00:00 [facility].114 350.1.13.10 4.2.7.2.686 [id number] [facility] Results Test Description Test Time Test Comments Results Resul t Comments Source CT Soft tissue neck w contrast 2024-11-24 6 22:36:32 CT SOFT TISSUE NECK W CONTRAST HISTORY: Female 49 years Neck abscess, deep tissue left facial swelling from orbits to jaw COMPARISON: None TECHNIQUE: Routine contrast enhanced CT neck FINDINGS: Mild fat stranding and edema in the left premaxillary soft tissues withouta discrete fluid collection present to suggest abscess. Scattered dentalcaries and periapical lucencies are seen within the maxillary dentition. The nasopharynx, oropharynx, hypopharynx and larynx are patent withoutasymmetric soft tissue density. The trachea and cervical esophagus areunremarkable. The oral tongue and floor of mouth are unremarkable. The parotid and submandibular salivary glands are unremarkable. The thyroid gland demonstrates 2 subcentimeter nodules in the left lobe butis otherwise unremarkable. No pathologically enlarged cervical lymph nodes are present by CT sizecriteria. A small calcified granuloma is seen in the left upper lobe. [facility]OL[facility] ([id number])2024-12-09 21:53:49* Test Item Value Reference Range Interpretation Comme nts NA (test code = 0478419498) 136 mmol/L 135-145 K (test code = 4292891450) 4.0 mmol/L 3.5-5.0 CL (test code = 6445654717) 104 mmol/L 98-108 CO2 TOTAL (test code = 4126854018) 26 mmol/L 23-31 AGAP (test code = 7492986662) 6 2-16 BUN (test code = 4700607708) 17 mg/dL 7-23 GLUCOSE (test code = 4662891440) 98 mg/dL 70-110 CREATININE (test code = 2160-0) 1.12 mg/dL 0.50-1.04 H TOTAL BILI (test code = 9570887163) 0.3 mg/dL 0.1-1.1 CALCIUM (test code = 7705963640) 9.2 mg/dL 8.6-10.6 T PROTEIN (test code = 1713449099) 7.0 g/dL 6.3-8.2 ALBUMIN (test code = 3030609664) 3.9 g/dL 3.5-5.0 ALK PHOS (test code = 7745840705) 68 U/L 34-122 ALTv (test code = 1742-6) 13 U/L 5-35 AST(SGOT) (test code = 2503060271) 35 U/L 13-40 eGFR (test code = 26708-5) 60.4 mL/min/1.73m2 CKD-EPI eGFR (2020). Assuming creatinine has been stable day-to-day for at least three months, the eGFR indicates Category G2 (60 - 89 mL/min/1.73 m2) Lab Interpretation (test code = 26185-4) [facility] [id number] 21:44:47* Test Item Value Reference Range Interpretation Comme nts WBC (test code = 6690-2) 9.63 4.30-11.10 RBC (test code = 789-8) 3.13 3.93-5.25 L HGB (test code = 718-7) 8.7 g/dL 11.6-15.0 L HCT (test code = 4544-3) 28.4 % 35.7-45.2 L MCV (test code = 787-2) 90.7 fL 80.6-95.5 MCH (test code = 785-6) 27.8 pg 25.9-32.8 MCHC (test code = 786-4) 30.6 g/dL 31.6-35.1 L RDW-SD (test code = 93097-5) 47.9 fL 39.0-49.9 RDW-CV (test code = 788-0) 14.7 % 12.0-15.5 PLT (test code = 777-3) 498 166-358 H MPV (test code = 45436-8) 9.2 fL 9.5-12.9 L NRBC/100 WBC (test code = 3207576526) 0.0 0.0-10.0 NRBC x10^3 (test code = 7271945602) See_Comment [Automated messa ge] The system which generated this result transmitted reference range: 10*3/?L. The reference range was not used to interpret this result as normal/abnormal. GRAN MAT (NEUT) % (test code = 770-8) 70.5 % IMM GRAN % (test code = 5040736117) 0.40 % LYMPH % (test code = 736-9) 16.0 % MONO % (test code = 5905-5) 10.2 % EOS % (test code = 713-8) 2.2 % BASO % (test code = 706-2) 0.7 % GRAN MAT x10^3(ANC) (test code = 7683863507) 6.79 10*3/uL 1.88-7.09 IMM GRAN x10^3 (test code = 0173496796) 0.04 10*3/uL 0.00-0.06 LYMPH x10^3 (test code = 731-0) 1.54 10*3/uL 1.32-3.29 MONO x10^3 (test code = 742-7) 0.98 10*3/uL 0.33-0.92 H EOS x10^3 (test code = 711-2) 0.21 10*3/uL 0.03-0.39 BASO x10^3 (test code = 704-7) 0.07 10*3/uL 0.01-0.07 Lab Interpretation (test code = 50880-1) Abnormal [facility] [id number] 23:25:13 Ordered by an unspecified provider.[facility] [id number] 18:07:00* Test Item Value Reference Range Interpretation Comme nts POCT PREG (test code = 1605) Negative On board controls acceptable with C Line (test code = 3574) Yes POCT PREG LOT # (test code = 3575) POCT PREG TEST DATE ( test code = 3576) [facility] [id number] 18:07:00* Test Item Value Reference Range Interpretation Comme nts POCT PREG (test code = 1605) Negative On board controls acceptable with C Line (test code = 3574) Yes POCT PREG LOT # (test code = 3575) POCT PREG TEST DATE ( test code = 3576) [facility] and Screen - ONCE [id number] 22:01:00 * Test Item Value Reference Range Interpretation Comme nts ABO & RH (test code = 20) O POSITIVE IAT (test code = 1185) Negative [facility] WITH [id number] 19:17:50* Test Item Value Reference Range Interpretation [...] g/dL 31.6-35.1 L RDW-SD (test code = 57428-2) 45.0 fL 39.0-49.9 RDW-CV (test code = 788-0) 16.2 % 12.0-15.5 H PLT (test code = 777-3) 508 166-358 H MPV (test code = 86457-8) 9.6 fL 9.5-12.9 NRBC/100 WBC (test code = 6850518986) 0.0 0.0-10.0 NRBC x10^3 (test code = 1901023720) See_Comment [Automated messa ge] The system which generated this result transmitted reference range: 10*3/?L. The reference range was not used to interpret this result as normal/abnormal. GRAN MAT (NEUT) % (test code = 770-8) 73.8 % IMM GRAN % (test code = 6060333735) 0.40 % LYMPH % (test code = 736-9) 15.1 % MONO % (test code = 5905-5) 8.8 % EOS % (test code = 713-8) 1.4 % BASO % (test code = 706-2) 0.5 % GRAN MAT x10^3(ANC) (test code = 7260972669) 7.53 10*3/uL 1.88-7.09 H IMM GRAN x10^3 (test code = 9826276328) 0.04 10*3/uL 0.00-0.06 LYMPH x10^3 (test code = 731-0) 1.54 10*3/uL 1.32-3.29 MONO x10^3 (test code = 742-7) 0.90 10*3/uL 0.33-0.92 EOS x10^3 (test code = 711-2) 0.14 10*3/uL 0.03-0.39 BASO x10^3 (test code = 704-7) 0.05 10*3/uL 0.01-0.07 Lab Interpretation (test code = 96683-6) [facility]normal [facility] [id number] 18:48:00* Test Item Value Reference Range Interpretation Comme nts POCT PREG (test code = 1605) Negative On board controls acceptable with C Line (test code = 3574) Yes POCT PREG LOT # (test code = 3575 927479 POCT PREG TEST DATE ( test code = 3576) 12-29-24 Lab Interpretation (test cod e = 81761-5) Normal [facility] - SYPHILIS [id number] 15:32:18* Test Item Value Reference Range Interpretation Comme nts Syphilis IgG/IgM (test code = 11711-6) Non-reactive Non-reactive RUTH (test code = RUTH) Non-reactive - No serologic evidence of T. pallidum infection. Cannot exclude incubating or early syphilis. Submit a second specimen in 2-4 weeks if syphilis is clinically suspected. Equivocal - Further testing to follow. Reactive - Further testing to follow. Lab Interpretation (test code = 44250-9) Normal [facility] [place] [id number] 15:32:18* Test Item Value Reference Range Interpretation Comme [facility] Syphilis IgG/IgM (test code = 04485-4) Non-reactive Non-reactive RUTH (test code = RUTH) Non-reactive - No serologic evidence of T. pallidum infection. Cannot exclude incubating or early syphilis. Submit a second specimen in 2-4 weeks if syphilis is clinically suspected. Equivocal - Further testing to follow. Reactive - Further testing to follow. Lab Interpretation (test code = 67444-3) Normal [facility] 1/2 AG-AB WITH [id number] 05:46:30* Test Item Value Reference Range Interpretation Comme [facility] HIV Semi-quantitative (test code = 75430-7) 0.08 Negative RUTH (test code = RUTH) Non-reactive for HIV-1 antigen and HIV-1/HIV-2 antibodies. ?No laboratory evidence of HIV infection. ?Repeat in 2-4 weeks if acute HIV infection is suspected. [facility] 1/2 AG-AB WITH [id number] 05:46:30* Test Item Value Reference Range Interpretation Comme [facility] HIV Semi-quantitative (test code = 95394-8) 0.08 Negative RUTH (test code = RUTH) Non-reactive for HIV-1 antigen and HIV-1/HIV-2 antibodies. ?No laboratory evidence of HIV infection. ?Repeat in 2-4 weeks if acute HIV infection is suspected. [facility]OLIC PANEL ([id number])2022-09-19 22:30:43* Test Item Value Reference Range Interpretation Comme nts NA (test code = 8854041101) 138 mmol/L 135-145 K (test code = 8755031890) 4.9 mmol/L 3.5-5.0 CL (test code = 6279654918) 102 mmol/L 98-108 CO2 TOTAL (test code = 6920682749) 24 mmol/L 23-31 AGAP (test code = 8921941145) 2-16 BUN (test code = 7226445935) 32 mg/dL 7-23 H GLUCOSE (test code = 9175198959) 80 mg/dL 70-110 CREATININE (test code = 4210924671) 1.84 mg/dL 0.50-1.04 H TOTAL BILI (test code = 8511878600) 0.9 mg/dL 0.1-1.1 CALCIUM (test code = 5649970411) 9.5 mg/dL 8.6-10.6 T PROTEIN (test code = 2823599707) 8.0 g/dL 6.3-8.2 ALBUMIN (test code = 9957313625) 4.9 g/dL 3.5-5.0 ALK PHOS (test code = 1720113734) 65 U/L 34-122 ALTv (test code = 1742-6) 15 U/L 5-35 AST(SGOT) (test code = 7942561928) 23 U/L 13-40 eGFR (test code = 2875298983) mL/min/1.73m2 RUTH (test code = RUTH) Association [...] imaging tests). Lab Interpretation (test code = 83550-3) Abnormal [facility] WITH [id number] 22:20:21* Test Item Value Reference Range Interpretation Comme nts WBC (test code = 6690-2) See_Comment [Automated messa ge] The system which generated this result transmitted reference range: 4.30 - 11.10 10*3/?L. The reference range was not used to interpret this result as normal/abnormal. RBC (test code = 789-8) See_Comment [Automated messa ge] The system which [...] 32.5 g/dL 31.6-35.1 RDW-SD (test code = 13677-4) 42.5 fL 39.0-49.9 RDW-CV (test code = 788-0) 13.8 % 12.0-15.5 PLT (test code = 777-3) See_Comment H [Automated messa ge] The system which generated this result transmitted reference range: 166 - 358 10*3/?L. The reference range was not used to interpret this result as normal/abnormal. MPV (test code = 51158-4) 10.0 fL 9.5-12.9 NRBC/100 WBC (test code = 6051447336) See_Comment [Automated Plantiga ssage] The system which generated this result transmitted reference range: 0.0 - 10.0 /100 WBCs. The reference range was not used to interpret this result as normal/abnormal. NRBC x10^3 (test code = 8705837257) See_Comment [Automated messa ge] The system which generated this result transmitted reference range: 10*3/?L. The reference range was not used to interpret this result as normal/abnormal. GRAN MAT (NEUT) % (test code = 770-8) 63.9 % IMM GRAN % (test code = 7016634890) 0.40 % LYMPH % (test code = 736-9) 22.8 % MONO % (test code = 5905-5) 10.7 % EOS % (test code = 713-8) 1.6 % BASO % (test code = 706-2) 0.6 % GRAN MAT x10^3(ANC) (test code = 4526274732) 6.15 10*3/uL 1.88-7.09 IMM GRAN x10^3 (test code = 6670869149) 0.04 10*3/uL 0.00-0.06 LYMPH x10^3 (test code = 731-0) 2.20 10*3/uL 1.32-3.29 MONO x10^3 (test code = 742-7) 1.03 10*3/uL 0.33-0.92 H EOS x10^3 (test code = 711-2) 0.15 10*3/uL 0.03-0.39 BASO x10^3 (test code = 704-7) 0.06 10*3/uL 0.01-0.07 Lab Interpretation (test code = 10951-8) Abnormal [facility] Notes Date/Time Note Provider Source 2024-12-09 17:38:42 Pt discharged with diagnosis of L facial swelling and dental infection. Printed and verbal instructions reviewed with and given to pt. Prescriptions given x 3. Pt verbalized understanding of teaching, medications, and recommended follow-up. Denies questions or concerns at this time. Pt ambulatory at discharge. Appears in no apparent distress. No ataxia noted. A OPERATOR Francy Birch RN [facility] 2024-12-09 14:09:09 Pt arrived ambulatory states she has been having a HAx3 days, and woke up this morning with the left side of her face swollen, out of BP metoprolol x2days. A OPERATOR Rita Mcneal RN [facility] 2024-11-12 13:15:00 Addended by: MALATHI CHILDERS on: 11/12/2024 01:49 PM Modules accepted: Level of Service A OPERATOR [facility] 2024-02-11 15:50:36 Notified patient of lab results-anemia. Instructed patient to take OTC multi vitamin and iron/vitamin C or with orange juice to aide with absorption. Discussed foods high in iron. Pt verbalized understanding. KARLI DEVLIN RN 02/11/2024 3:52 PM Karli Devlin RN [facility] 2024-02-11 15:15:37 Please advise patient she is anemic, she should try otc iron and multiviatmin, vit c/orange juice to help with absorption, and eating iron rich foods KRISTI Nguyen 02/11/2024 3:16 PM [facility] 2024-01-14 21:46:29 Pt discharged to home. Discharge instructions given to pt regarding management of condition and instructions to follow up with PCP. Pt verbalized understanding. PIV removed without complications. Patient in possession of all belongings. Pt ambulates to lobby with steady gait. A OPERATOR Sofia Putnam RN [facility] 2024-01-14 19:52:21 Reading room contacted regarding ultrasound results. Per radiologist, critical reads are priority and ultrasound scans will be sent to TRA. [facility] 2024-01-14 16:48:17 Pt to ultrasound via wheelchair. [facility] 2024-01-14 16:35:20 Nurse Report Report given to KATHLEEN Doty. Chief complaint, assessment findings, infusion verify and orders reviewed. Plan of care discussed between both nurses with verbalized understanding. No further questions, comments, or concerns at this time. Danika Odonnell RN, [facility] A OPERATOR Danika Odonnell RN [facility] 2024-01-14 16:00:58 Pt ambulates to RR without assistance with steady gait. Pt able to give urine sample for possible UA. [facility] 2024-01-14 15:44:12 Pt given urine cup and notified UA is needed. Pt does not need to use RR at this time. [facility] 2024-01-14 15:37:10 Dr Cuevas in G2 for initial pt evaluation [facility] 2024-01-14 15:18:16 Barb Duff is a 48 year old female to ED for excessive vaginal bleeding and pelvic pain. Pt reports bleeding for the past 3 weeks that stopped last night. Pt reports clots. AAO X3, speaking clearly. E Jeffrey RN [facility] 2024-01-11 13:42:12 Discharged by provider. E Theodore RN [facility] 2024-01-11 12:22:41 Has not taken BP meds today A OPERATOR [facility] 2024-01-11 12:18:47 Barb Duff is a 48 year old female c/o vaginal bleeding for 3 weeks, abnormal periods for 2 months, states last intercourse 1 month ago, denies vaginal discharge, states today having more cramping, states has had clots the entire 3 weeks, wants an ultrasound as can't get into [employer] [facility] until February 06, E Jimenez RN [facility]
--- NOTE | 2025-01-29 17:40 | RAD REPORT ---
EXAM: Chest Single View HISTORY: 49 years Female COUGH COMPARISON: 09/16/2024 FINDINGS: LUNGS/PLEURA: The lungs are clear. No pleural effusions or pneumothorax. No pulmonary edema. CARDIAC/MEDIASTINUM: Mild cardiomegaly UPPER ABDOMEN: No significant abnormality. BONES: No acute abnormality. LINES/TUBES/OTHER: N/A IMPRESSION: No evidence of acute cardiopulmonary disease. No significant change from prior.
[2025-01-29 18:00] LABS: Hemoglobin 12.2 g/dL (12.0-15.0); MPV 7.7 fL (7.6-11.3)
[2025-01-29 18:03] LABS: Absolute Basophils 0.1 K/uL (0-0.5); Absolute Eosinophils 0.2 K/uL (0-0.5); Absolute Lymphocytes (CBC) 1.2 K/uL (0.7-4.9); Absolute Monocytes 0.4 K/uL (0.1-1.3); Absolute Neutrophil 4.7 K/uL (1.8-8.0); Eosinophils % 2.6 % (0-4.4); Hematocrit 39.9 % (36.0-45.0); Lymphocytes % 18.5 % (15.3-44.8); MCH 25.4 pg (27.0-35.0); MCHC 30.6 g/dL (32.0-36.0); MCV 83.1 fL (80-100); Monocytes % 6.5 % (3.3-12.3); Neutrophils % 71.4 % (41.7-73.7); Nucleated Red Blood Cells % 0.1 % (0-0); Platelets 516 thou/uL (152-406); Red Cell Distribution Width 22.4 % (12.1-15.2)
[2025-01-29 18:16] LABS: PT Prothrombin Time 11.5 SECONDS (10-13.0); Protime INR 1.01
[2025-01-29 18:18] LABS: Albumin 3.8 g/dL (3.4-5.0); Anion Gap 9.8 mEq/L (5.0-15.0); Bilirubin Direct 0.2 mg/dL (0-0.2); Bilirubin Indirect, Calculated 0.3 mg/dL (0.2-0.8); Bilirubin Total 0.5 mg/dL (0.2-1.0); Potassium 3.8 mEq/L (3.5-5.1); Protein, Total 7.8 g/dL (6.4-8.2); Troponin High Sensitivity 21.3 pg/mL (<58.9)
--- NOTE | 2025-01-29 18:54 | RAD REPORT ---
EXAMINATION: CTA CHEST PE CLINICAL INDICATION: Female, 49 years old. DYSPNEA TECHNIQUE: This examination was performed according to an angiographic protocol with 3D post-processi ng. This involves 3D reconstructions, MIPs, volume rendered images and/or shaded surface rendering. One or more of the following dose reduction techniques were used: Automated exposure control, adjustm ent of the mA and/or kV according to patient size, and/or iterative reconstruction. Unless otherwise specified, incidental findings do not require dedicated imaging follow-up. [id number]. COMPARISON: 02/04/2017 FINDINGS: LOWER NECK: Visualized thyroid gland and soft tissues are normal. LUNGS AND AIRWAYS: Airways are clear. No evidence of airspace or interstitial process.No suspicious a nd/or stable pulmonary nodules. PLEURA: No pleural effusion. No pneumothorax. Hemidiaphragms are normally positioned. MEDIASTINUM AND LYMPH NODES: No mediastinal mass or fluid collection. Normal size mediastinal, hilar, and axillary lymph nodes. Mild distal esophageal thickening. THORACIC AORTA: No thoracic aortic aneurysm. PULMONARY ARTERIES: Caliber is within normal limits. No pulmonary emboli identified. HEART: Mild cardiomegaly. No coronary calcifications.No significant pericardial effusion. OSSEOUS STRUCTURES AND CHEST WALL: No fracture or suspicious osseous lesions. UPPER ABDOMEN: No acute abnormalities.Partially imaged right renal lesion, likely a cyst. Indetermina te left upper pole renal lesion measuring 15 mm. IMPRESSION: No evidence of pulmonary emboli to the subsegmental level. Lungs are clear. Cardiomegaly. Indeterminate left upper pole renal lesion. Recommend nonemergent renal protocol CT or MRI.
--- NOTE | 2025-01-29 18:55 | ER ---
Nurse's Notes [facility] Name: Barb Duff Age: 49 yrs Sex: Female : 1975 Arrival Date: 01/29/2025 Time: 15:43 Bed DX4 Private MD: Diagnosis: Chronic combined systolic (congestive) and diastolic (congestive) heart failure;Essential (primary) hypertension Presentation: 01/29 16:05 Chief complaint: Patient states: I was out of my fluid medication for a week, (Bumex) iw has been back on it for a day, has been coughing up some phlegm and wants to make sure her lungs aren't full of fluid, denies SOB. Coronavirus screen: At this time, the client does not indicate any symptoms associated with coronavirus-19. Ebola Screen: No symptoms or risks identified at this time. Initial Sepsis Screen: Does the patient meet any 2 criteria? No. Patient's initial sepsis screen is negative. Does the patient have a suspected source of infection? No. Patient's initial sepsis screen is negative. Risk Assessment: Do you want to hurt yourself or someone else? Patient reports no desire to harm self or others. Onset of symptoms was January 29, 2025. 16:05 Method Of Arrival: Ambulatory iw 16:09 Acuity: MARA 3 iw Historical: - Allergies: 16:09 No Known Allergies; iw - Home Meds: 16:09 amlodipine 5 mg tab 1 tab once daily [Active]; aspirin 81 mg Oral tab 81 mg [Active]; iw atorvastatin 40 mg Oral tab [Active]; Abilify oral [Active]; Entresto 24-26 mg Oral tab 1 tab 2 times per day [Active]; bumetanide 2 mg Oral tab [Active]; metoprolol succinate 25 mg Oral Tb24 [Active]; Farxiga oral [Active]; - PMHx: 16:09 CHF; Hypertension; iw - PSHx: 16:09 Ligation of fallopian tube; iw - Immunization history:: Adult Immunizations up to date. - Infectious Disease History:: Denies. - Social history:: Smoking status: Patient reports the use of cigarette tobacco products, pack every 2-3 days . Screenin:08 [facility] [place] ED Fall Risk Assessment (Adult) History of falling in the last 3 months, iw including since admission No falls in past 3 months (0 pts) Confusion or Disorientation No (0 pts) Intoxicated or Sedated No (0 pts) Impaired Gait No (0 pts) Mobility Assist Device Used No (0 pt) Altered Elimination No (0 pt) Score/Fall Risk Level 0 - 2 = Low Risk Oriented to surroundings, Maintained a safe environment. Abuse screen: Denies threats or abuse. Denies injuries from another. Nutritional screening: No deficits noted. Tuberculosis screening: No symptoms or risk factors identified. Assessment: 15:55 Reassessment: not in lobby when called. iw 16:10 Pain: Denies pain. iw 18:07 General: Appears in no apparent distress. Behavior is calm, cooperative. Pain: Denies iw pain. Neuro: Level of Consciousness is awake, alert, obeys commands, Oriented to person, place, time, situation, Moves all extremities. Full function. Cardiovascular: Reports shortness of breath, Patient's skin is warm and dry. Respiratory: Reports cough that is Respiratory effort is even, unlabored, Respiratory pattern is regular, symmetrical. Derm: Skin is intact, is healthy with good turgor. Musculoskeletal: Range of motion: intact in all extremities. Vital Signs: 16:05 BP 189 / 112; Pulse 98; Resp 18; Temp 97.3; Pulse Ox 100% on R/A; Weight 83.01 kg; iw Height 5 ft. 5 in. ; Pain 0/10; 19:23 BP 162 / 105; Pulse 87; Resp 16; Pulse Ox 97% on R/A; iw 16:05 Body Mass Index 30.45 (83.01 kg, 165.1 cm) iw 16:05 Pain Scale: Adult ED Course: 15:50 Patient arrived in ED. al6 16:09 Triage completed. iw 16:10 Arm band placed on. iw 16:28 Chaka Cotton MD is Attending Physician. gabbie 17:31 CXR XRAY In Process Unspecified. EDMS 17:47 Amara Good, KATHLEEN is Primary Nurse. iw 17:50 Initial lab(s) drawn, by me, sent to lab. Inserted saline lock: 20 gauge in right iw antecubital area, using aseptic technique. Blood collected. Flushed with 10 mL NS. 18:38 CT Chest For PE Angio In Process Unspecified. EDMS 18:55 Morales Ritter MD is Referral Physician. [facility] Administered Medications: 19:44 Drug: Mucomyst - Acetylcysteine PO 600 mg PO once Route: PO; iw 19:45 Drug: Norvasc PO 5 mg PO once Route: PO; iw Medication: 18:08 VIS not applicable for this client. iw Outcome: 18:55 Discharge ordered by . [facility] 19:45 Discharged to home ambulatory, iw 19:45 Condition: good 19:45 Discharge instructions given to patient, family, Instructed on discharge instructions, follow up and referral plans. Demonstrated understanding of instructions, follow-up care, 19:45 Patient left the ED. iw Signatures: Dispatcher [employer] EDChaka Garcia MD MD cha Williams, Irene, RN RN iw Cathy Nur Corrections: (The following items were deleted from the chart) 16:10 16:05 Pulse 98bpm; Resp 18bpm; Pulse Ox 100% RA; Temp 97.3F; 83.01 kg; Height 5 ft. 5 iw in.; BMI: 30.4; Pain 0/10, Adult; iw
--- NOTE | 2025-01-29 18:55 | EDPHYS ---
Physician Documentation [facility] Name: Barb Duff Age: 49 yrs Sex: Female : 1975 Arrival Date: 01/29/2025 Time: 15:43 Bed DX4 Private MD: ED Physician Chaka Cotton HPI: 01/29 18:04 This 49 yrs old Black Female presents to ER via Ambulatory with complaints of wants to gabbie make sure no fluid is around the heart. 18:04 The patient has shortness of breath at rest, with light activity. Onset: The gabbie symptoms/episode began/occurred 3 day(s) ago. Duration: The symptoms are intermittent, with no pattern. The patient's shortness of breath has no apparent modifying factors. Associated signs and symptoms: Pertinent positives: non-productive cough. Severity of symptoms: At their worst the symptoms were mild in the emergency department the symptoms are unchanged. The patient has not experienced similar symptoms in the past. Historical: - Allergies: 16:09 No Known Allergies; iw - Home Meds: 16:09 amlodipine 5 mg tab 1 tab once daily [Active]; aspirin 81 mg Oral tab 81 mg [Active]; iw atorvastatin 40 mg Oral tab [Active]; Abilify oral [Active]; Entresto 24-26 mg Oral tab 1 tab 2 times per day [Active]; bumetanide 2 mg Oral tab [Active]; metoprolol succinate 25 mg Oral Tb24 [Active]; Farxiga oral [Active]; - PMHx: 16:09 CHF; Hypertension; iw - PSHx: 16:09 Ligation of fallopian tube; iw - Immunization history:: Adult Immunizations up to date. - Infectious Disease History:: Denies. - Social history:: Smoking status: Patient reports the use of cigarette tobacco products, pack every 2-3 days . ROS: 18:05 Constitutional: Negative for fever, chills, and weight loss, Eyes: Negative for injury, gabbie pain, redness, and discharge, ENT: Negative for injury, pain, and discharge, Neck: Negative for injury, pain, and swelling, Cardiovascular: Negative for chest pain, palpitations, and edema, Abdomen/GI: Negative for abdominal pain, nausea, vomiting, diarrhea, and constipation, Back: Negative for injury and pain, : Negative for injury, bleeding, discharge, and swelling, MS/Extremity: Negative for injury and deformity, Skin: Negative for injury, rash, and discoloration, Neuro: Negative for headache, weakness, numbness, tingling, and seizure, Psych: Negative for depression, anxiety, suicide ideation, homicidal ideation, and hallucinations, Allergy/Immunology: Negative for hives, rash, and allergies, Endocrine: Negative for neck swelling, polydipsia, polyuria, polyphagia, and marked weight changes, Hematologic/Lymphatic: Negative for swollen nodes, abnormal bleeding, and unusual bruising, 18:05 Respiratory: Positive for shortness of breath, at rest. Exam: 18:05 Constitutional: This is a well developed, well nourished patient who is awake, alert, gabbie and in no acute distress. Head/Face: Normocephalic, atraumatic. Eyes: Pupils equal round and reactive to light, extra-ocular motions intact. Lids and lashes normal. Conjunctiva and sclera are non-icteric and not injected. Cornea within normal limits. Periorbital areas with no swelling, redness, or edema. ENT: Nares patent. No nasal discharge, no septal abnormalities noted. Tympanic membranes are normal and external auditory canals are clear. Oropharynx with no redness, swelling, or masses, exudates, or evidence of obstruction, uvula midline. Mucous membranes moist. Neck: Trachea midline, no thyromegaly or masses palpated, and no cervical lymphadenopathy. Supple, full range of motion without nuchal rigidity, or vertebral point tenderness. No Meningismus. Chest/axilla: Normal chest wall appearance and motion. Nontender with no deformity. No lesions are appreciated. Cardiovascular: Regular rate and rhythm with a normal S1 and S2. No gallops, murmurs, or rubs. Normal PMI, no JVD. No pulse deficits. Abdomen/GI: Soft, non-tender, with normal bowel sounds. No distension or tympany. No guarding or rebound. No evidence of tenderness throughout. Back: No spinal tenderness. No costovertebral tenderness. Full range of motion. Skin: Warm, dry with normal turgor. Normal color with no rashes, no lesions, and no evidence of cellulitis. MS/ Extremity: Pulses equal, no cyanosis. Neurovascular intact. Full, normal range of motion., bilateral aka Neuro: Awake and alert, GCS 15, oriented to person, place, time, and situation. Cranial nerves II-XII grossly intact. Motor strength 5/5 in all extremities. Sensory grossly intact. Cerebellar exam normal. Normal gait. Psych: Awake, alert, with orientation to person, place and time. Behavior, mood, and affect are within normal limits. 18:05 ECG was reviewed by the Attending Physician. 18:05 Respiratory: the patient does not display signs of respiratory distress, Respirations: normal, Breath sounds: are clear throughout, no bronchial sounds, no decreased breath sounds, no rales, rhonchi, no stridor, no wheezing, Respiratory rate: 18 18:05 Musculoskeletal/extremity: ROM: no acute changes, intact in all extremities, full active range of motion, full passive range of motion, Circulation is intact in all extremities. Sensation intact. Compartment Syndrome exam of affected extremity: is normal. Joints: All joints appear normal with full range of motion. Weight bearing: able to fully bear weight, without difficulty, Tendon exam: specific tendon testing normal through active and passive range of motion DVT Exam: No signs of deep vein thrombosis. no pain, no swelling, no tenderness, negative Homans' sign noted on exam, no appreciated bluish discoloration, no erythema, no increased warmth, Vital Signs: 16:05 BP 189 / 112; Pulse 98; Resp 18; Temp 97.3; Pulse Ox 100% on R/A; Weight 83.01 kg; iw Height 5 ft. 5 in. ; Pain 0/10; 19:23 BP 162 / 105; Pulse 87; Resp 16; Pulse Ox 97% on R/A; iw 16:05 Body Mass Index 30.45 (83.01 kg, 165.1 cm) iw 16:05 Pain Scale: Adult iw MDM: 16:28 Medical Screening Exam initiated gabbie 18:07 Differential diagnosis: Anemia Anxiety Reaction asthma, Bronchitis CHF exacerbation, gabbie Chronic Obstructive Pulmonary Disease Myocardial Infarction pneumonia, Pneumothorax Psychogenic pulmonary edema, Pulmonary Embolism reactive airway disease, Sepsis Unstable Angina. Antibiotic administration: Not indicated. Differential Diagnosis sepsis, flu. Immunization status:. Data reviewed: vital signs, nurses notes, lab test result(s), EKG, radiologic studies, CT scan, plain films. Consideration of Admission/Observation Escalation of care including admission/observation considered. I considered the following discharge prescriptions or medication management in the emergency department Medications were administered in the Emergency Department. See MAR. Independent interpretation of the following test(s) in the Emergency Department EKG: See my EKG interpretation above. Test considered but Not performed: MRI: no 2 d echo. Care significantly affected by the following chronic conditions: Hypertension, Congestive Heart Failure, Obesity. 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 01/29 16:31 Order name: Basic Metabolic Panel; Complete Time: 18:51 [facility] 01/29 16:31 Order name: CBC with Diff [facility] 01/29 16:31 Order name: Troponin HS; Complete Time: 18:51 [facility] 01/29 16:31 Order name: BNP; Complete Time: 18:51 [facility] 01/29 16:31 Order name: LFT's; Complete Time: 18:51 [facility] 01/29 16:31 Order name: PT-INR; Complete Time: 18:51 [facility] 01/29 18:19 Order name: Manual Differential EDMS 01/29 16:13 Order name: CXR XRAY; Complete Time: 18:02 01/29 16:31 Order name: CT Chest For PE Angio; Complete Time: 18:55 [facility] 01/29 16:31 Order name: Cardiac monitoring; Complete Time: 17:48 [facility] 01/29 16:31 Order name: EKG - Nurse/Tech; Complete Time: 17:48 [facility] 01/29 16:31 Order name: IV Saline Lock; Complete Time: 17:48 [facility] 01/29 16:31 Order name: Labs collected and sent; Complete Time: 17:48 [facility] 01/29 16:31 Order name: O2 Per Protocol; Complete Time: 17:48 [facility] 01/29 16:31 Order name: O2 Sat Monitoring; Complete Time: 17:48 [facility] EC:05 Rate is 93 beats/min. Rhythm is regular. QRS [place] is Normal. SD interval is normal. QRS gabbie interval is normal. QT interval is normal. No Q waves. T waves are Normal. No ST changes noted. Clinical impression: NSR w/ Non-specific ST/T Changes and No evidence of ischemia. Interpreted by me. Reviewed by me. Administered Medications: 19:44 Drug: Mucomyst - Acetylcysteine PO 600 mg PO once Route: PO; iw 19:45 Drug: Norvasc PO 5 mg PO once Route: PO; iw Disposition Summary: 01/29/25 18:55 Discharge Ordered Notes: Location: Home gabbie Problem: new gabbie Symptoms: have improved gabbie Condition: Stable gabbie Diagnosis - Chronic combined systolic (congestive) and diastolic (congestive) heart failure gabbie - Essential (primary) hypertension gabbie Followup: gabbie - With: Private Physician - When: 2 - 3 days - Reason: Recheck today's complaints, Continuance of care, Re-evaluation by your physician Followup: gabbie - With: Mroales Ritter MD - When: 2 - 3 days - Reason: Recheck today's complaints, Continuance of care, Re-evaluation by your physician Discharge Instructions: - Discharge Summary Sheet gabbie - Heart Failure, Diagnosis gabbie - Hypertension, Adult gabbie - Hypertension, Adult, [id number] gabbie - How to Take Your Blood Pressure, [id number] gabbie - Heart Failure, Diagnosis, Kddf-ic-[id number] gabbie - Managing Your Hypertension gabbie - Supporting Someone With Heart Failure gabbie - Heart Failure Action Plan gabbie - Preventing Heart Failure gabbie - Living With Heart Failure gabbie - Heart Failure Eating Plan gabbie Forms: - Medication Reconciliation Form gabbie - Antibiotic Education gabbie - Prescription Opioid Use gabbie - Patient Portal Instructions gabbie - Leadership Thank You Letter gabbie Signatures: Dispatcher [employer] Chaka London MD MD cha Williams, Irene, RN RN iw Corrections: (The following items were deleted from the chart) 16:31 16:31 BASIC METABOLIC PANEL+C.LAB.BRZ ordered. EDMS EDMS 16:31 16:31 CBC+H.LAB.BRZ ordered. EDMS EDMS 16:31 16:31 Troponin High Sensitivity+C.LAB.BRZ ordered. EDMS EDMS 16:31 16:31 PROBNP+C.LAB.BRZ ordered. EDMS EDMS 16:31 16:31 HEPATIC FUNCTION+C.LAB.BRZ ordered. EDMS EDMS 16:31 16:31 Urinalysis+U.LAB.BRZ ordered. EDMS EDMS 16:31 16:31 PROTIME (+INR)+COAG.LAB.BRZ ordered. EDMS EDMS 16:32 16:32 Chest For PE Angio+CT.RAD.BRZ ordered. EDMS EDMS
[2025-01-29] MEDS ORDERED: AMLODIPINE 5 MG TAB ONE (19:37)
[2025-01-29] MEDS ORDERED: ACETYLCYST 6,000 MG/30 ML VIAL ONE (19:37)
[2025-01-29 19:55] LABS: Band Neutrophils 7 % (0-1); Differential Total Cells Count 100; Eosinophils 1 % (0-3); Lymphocytes 27 % (15-42); Monocytes 5 % (0-10); Reactive Lymphocytes 3 %; Segmented Neutrophils 57 % (40-80)
[2025-01-29 19:56] LABS: Anisocytosis 1+; Blood Morphology Comment NOTED (NOT SEEN); Platelet Estimate ADEQ
[2025-01-29 20:02] VITALS: TEMP 97.3
[2025-01-29 20:08] VITALS: BP 162/105; O2SAT 97
--- NOTE | 2025-02-01 11:10 | EKG ---
Test Date: 2025-01-29 Test Time: 17:35:57 Tile Grinder: CODY MEASUREMENT RESULTS: Intervals: Rate: 93 HI: 180 QRSD: 100 QT: 382 QTc: 474 [place]: P: 27 HI: 180 QRS: 33 T: 69 INTERPRETIVE STATEMENTS: Normal sinus rhythm Left ventricular hypertrophy Abnormal ECG Compared to ECG 02/04/2018 13:10:55 Left ventricular hypertrophy now present T-wave abnormality no longer present Possible ischemia no longer present Prolonged QT interval no longer present Electronically Signed On 02-01-25 11:02:23 CDT by Franky Vides
== END 2025-01-29 19:45 | disposition home or self-care (01) ==
LOC: ER 15:43
DX: I50.42 Chronic combined systolic (congestive) and diastolic (congestive) heart failure (principal); I10 Essential (primary) hypertension
CPT/HCPCS: 36415; 71045; 71275; 80048; 80076; 83880; 84484; 85025; 85610; 93005; 99284; J7608; Q9967

== ENCOUNTER 2025-03-27 11:02 | Emergency (ER) | payer SELFPAY ==
--- OUTSIDE RECORDS SUMMARY | 2025-03-27 11:06 | XMS REPORT | Continuity of Care Document ---
Author Name Unknown Address [address] [facility] [place] [address] [facility] Address [address] [facility] [place] [address] Care Team Providers Care Blower Insulator Name Role Phone PCP, PATIENT DOES NOT HAVE A Primary Care Physic annita Unavailable MALATHI CHILDERS Attending Clinician Unavailable Malathi Leonard Attending Clinician [phone] Doctor Unassigned, [place] Attending Clinician U BERNABE Balderas Attending Clinician Unavailable Bernabe Schmitt Attending Clinician [phone] CULLEN ATKINSON Attending Clinician Unavail able Cullen Jules Attending Clinician + JULIA AOKES Attending Clinician UnavailJulia Kwok CNM Attending Clinician [phone] Cullen Jules Attending Clinician + Doctor Unassigned, [place] Attending Clinician U AREN Dave Attending Clinician UnavailAren Moncada MD Attending Clinician [phone] JENNA KAPOOR Attending Clinician Unavailable Jenna Tyler Attending Clinician [phone] Visit, [facility] Nurse Attending Clinician Unaalexey land Provider, [facility] Temp Attending Clinician Shanique KACI Dubon Attending Clinician Unavailable Kaci Baron Attending Clinician [phone] Chelly Levy MD Attending Clinician [phone] CHARLETTE GRIMM Attending Clinician Unavailable Charlette Vega S Attending Clinician [phone] RADHA MATSON Attending Clinician Unavailable RADHA MATSON Attending Clinician Unavailable Radha Matson DO Attending Clinician [phone] KATJA THOMPSON Attending Clinician Unavailable Katja Thompson MD Attending Clinician [phone] Enedelia June LMSW Attending Clinician Unaalexey Palm MD, Aiyana Man Attending Clinician + AIYANA PALM Attending Clinician Unaponcho connelly 2, [facility] Attending Clinician Unavailable Lisseth Carmen RN Attending Clinician Unavailab Lakeisha Gerard Attending Clinician [phone] Coleen Yarbrough MD Attending Clinician [phone] Alicia Benton MD Attending Clinician [phone] BERNABE TOLENTINO Admitting Clinician Unavailable MORRAEN HENSLEY Admitting Clinician UnavailAIYANA Larsen Admitting Clinician Cedric Palm MD, Aiyana Man Admitting Clinician + Payers Payer Name Policy Type Policy Number Effective Date Expirati on Date Source [employer] [id number] 2025 00:00:00 MEDICAID PENDING PENDING 2021 00:00:00 Problems Condition Name Condition Details Condition Category Status Onset Date Resolution Date Last Treatment Date Treating Clinician Comments Source Tobacco use disorder Tobacco use disorder Disease Active 3 00:00: 00 [facility] Heart failure Heart failure Disease Active 2020-11 2- 00:00: 00 [facility] Hypertensi ve urgency Hypertensi ve urgency Disease Active 2020-11 00:00: 00 [facility] Essential hypertensi on, benign Essential hypertensi on, benign Disease Active 05-06 00:00: 00 [facility] History of tubal ligation History of tubal ligation Disease Active 05-06 00:00: 00 [facility] Obesity (BMI 30-39.9) Obesity (BMI 30-39.9) Disease Resolve d 2020-11 00:00: 00 2024-03-09 00:00:00 2024-03-09 14:15:46 [facility] Contracept piero management Contracept piero management Disease Resolve d 05-06 00:00: 00 2023-02-09 00:00:00 2023-02-09 14:08:22 [facility] Sexually transmitte d disease exposure Sexually transmitte d disease exposure Disease Resolve d 05-06 00:00: 00 2023-02-09 00:00:00 2023-02-09 14:08:46 [facility] BV (bacterial vaginosis) BV (bacterial vaginosis) Disease Resolve d 05-06 00:00: 00 2023-02-06 00:00:00 2023-02-06 13:08:54 [facility] Allergies, Adverse Reactions, Alerts Allergy Name Allergy Type Status Severity Reaction(s) Onset Date Inactive Date Treating Clinician Comments Source NO KNOWN ALLERGIE S Drug Class Active [facility] Social History Social Habit Start Date Stop Date Quantity Comments Source History of tobacco use Cigarette Smoker [facility] ASSERTION Not [facility] History SDOH Alcohol Std Drinks [facility] Gender [facility] Alcoholic beverage intake 2024-12-30 00:00:00 2024-12-30 00:00:00 Current drinker of alcohol (finding) [facility] History of Social function 2024-12-29 00:00:00 2024-12-29 00:00:00 [facility] Tobacco use and exposure 2024-08-11 00:00:00 2024-08-11 00:00:00 Smokeless tobacco non-user [facility] Cigarettes smoked current (pack per day) - Reported 2024-08-11 00:00:00 2024-08-11 00:00:00 [facility] Cigarette pack-years 2024-08-11 00:00:00 2024-08-11 00:00:00 [facility] Alcohol intake 2024-03-17 00:00:00 2024-03-17 00:00:00 Current drinker of alcohol (finding) [facility] Exposure to SARS-CoV-2 (event) 2023-03-07 00:00:00 2023-03-17 15:14:00 Not sure [facility] Alcohol Comment 2023-02-06 00:00:00 2023-02-06 00:00:00 socially [facility] History SDOH Financial 2022-10-10 00:00:00 2022-10-10 00:00:00 3 [facility] History SDOH Food Worry 2022-10-10 00:00:00 2022-10-10 00:00:00 1 [facility] History SDOH Food Scarcity 2022-10-10 00:00:00 2022-10-10 00:00:00 1 [facility] History SDOH Transport Med 2022-10-10 00:00:00 2022-10-10 00:00:00 2 [facility] History SDOH Transport Non-Med 2022-10-10 00:00:00 2022-10-10 00:00:00 2 [facility] History SDOH Alcohol Frequency 2022-10-10 00:00:00 2022-10-10 00:00:00 1 [facility] History SDOH Alcohol Binge 2022-10-10 00:00:00 2022-10-10 00:00:00 1 [facility] History SDOH Stress 2021-11-05 00:00:00 2021-11-05 00:00:00 2 [facility] Sex assigned at 1975 00:00:00 1975 00:00:00 [facility] Smoking Status Start Date Stop Date Source Current every day smoker [facility] Occasional tobacco smoker 2024-08-11 00:00:00 [facility] Ex-smoker 2021-11-05 00:00:00 2021-11-05 00:00:00 [facility] Medications Ordered Medication Name Filled Medication Name Start Date Stop Date Current Medication? Ordering Clinician Indication Dosage Frequency Signature (SIG) Comments Components Source amLODIPine 5 mg tablet 12-29 00:00: 00 Yes [id number] 5mg Take 1 tablet by mouth in the morning. [facility] atorvastati n 40 mg tablet 12-29 00:00: 00 Yes [id number] 40mg Take 1 tablet by mouth at bedtime. [facility] bumetanide 2 mg tablet 12-29 00:00: 00 Yes [id number] 2mg Take 1 tablet by mouth in the morning and 1 tablet in the evening. [facility] SERTraline (ZOLOFT) 25 mg tablet 12-29 00:00: 00 Yes [id number] 25mg Take 1 tablet by mouth in the morning. [facility] dapaglifloz in propanediol (FARXIGA) 10 mg tablet 12-29 00:00: 00 Yes 10mg Take 1 tablet by mouth in the morning. [facility] iopamidol (ISOVUE 370-500 mL) injection 85 mL 12-09 23:15: 00 12-09 23:15 :00 No [id number] 85mL 85 mL, Intravenou s, ONCE, 1 dose, On Mar 12/09/24 at 1715, Routine [facility] clindamycin in 5 % dextrose (CLEOCIN) 900 mg/50 mL IV piggyback RTU 900 mg 12-09 23:00: 00 12-09 23:35 :00 No 900mg 900 mg, IV Piggyback, ONCE, 1 dose, On Mar 12/09/24 at 1700, Administer over 30 Minutes, 50 mL, Reason for Anti-Infec tive: Documented Infection, Documented Infection Site: HEENT, Duration of Therapy: Once (ED), Restricted use approved by: ED PROVIDER [facility] dexamethaso ne sod phos PF injection 10 mg 12-09 23:00: 00 12-09 23:04 :00 No 10mg 10 mg, Slow IV Push, ONCE, 1 dose, On Mar 12/09/24 at 1700, 1 mL [facility] acetaminoph en (TYLENOL) tablet 650 mg 12-09 22:45: 00 12-09 22:47 :00 No 650mg 650 mg, Oral, ONCE, 1 dose, On Mar 12/09/24 at 1645, TOYIN [facility] chlorhexidi ne 0.12 % mouthwash 12-09 00:00: 00 Yes [id number] 15mL Swish and spit out 15 mL in the morning and 15 mL in the evening. [facility] clindamycin 150 mg capsule 12-09 00:00: 00 12-17 05:59 :00 No [id number] 450mg Take 3 capsules by mouth 4 (four) times daily for 7 days. [facility] Saccharomyc es boulardii (FLORASTOR) 250 mg capsule 12-09 00:00: 00 12-17 05:59 :00 No [id number] 250mg Take 1 capsule by mouth in the morning and 1 capsule in the evening. Do all this for 7 days. [facility] ARIPIPRAZOL E 15 mg tablet 2023-11 00:00: 00 Yes [id number] 15mg TAKE ONE (1) TABLET(S) BY MOUTH ONCE A DAY AT BEDTIME. [facility] SERTraline (ZOLOFT) 25 mg tablet 2023-11 00:00: 00 Yes [id number] 25mg Take 1 tablet by mouth in the morning. [facility] METOPROLOL SUCCINATE XL 50 mg 24 hr tablet 2023-11 004 00:00: 00 Yes [id number] 50mg TAKE ONE (1) TABLET(S) BY MOUTH TWICE A DAY. [facility] etonogestre L (NEXPLANON) implant 68 mg 6-20 19:30: 00 05-13 19:39 :03 No 68mg [facility] sacubitriL- valsartan (ENTRESTO) 97-103 mg tablet 03-23 00:00: 00 Yes 1{tbl} Take 1 tablet by mouth in the morning and 1 tablet in the evening. [facility] levonorgest reL (MIRENA) IUD 1 Device 03-17 19:30: 00 03-17 19:07 :00 No [id number] 100 1{devic e} 1 Device, Intrauteri ne, ONCE, 1 dose, On Fri03/17/24 at 1430, Routine [facility] sacubitriL- valsartan (ENTRESTO) 24-26 mg tablet 03-12 00:00: 00 Yes [id number] 1{tbl} Take 1 tablet by mouth in the morning and 1 tablet in the evening. [facility] ARIPIPRAZOL E 15 mg tablet 03-12 00:00: 00 Yes [id number] 15mg TAKE ONE (1) TABLET(S) BY MOUTH ONCE A DAY AT BEDTIME. [facility] sacubitriL- valsartan (ENTRESTO) 49-51 mg tablet 3-18 13:22: 56 Yes 1{tbl} Take 1 tablet by mouth in the morning and 1 tablet in the evening. [facility] amLODIPine 5 mg tablet 2-14 00:00: 00 Yes [id number] 5mg Take 1 tablet by mouth in the morning. [facility] atorvastati n 40 mg tablet 2-06 00:00: 00 Yes [id number] 40mg Take 1 tablet by mouth at bedtime. [facility] bumetanide 2 mg tablet 2- 00:00: 00 Yes [id number] 2mg Take 1 tablet by mouth in the morning and 1 tablet in the evening. [facility] metoprolol succinate XL 50 mg 24 hr tablet 2024-0 2-06 00:00: 00 Yes [id number] 50mg Take 1 tablet by mouth in the morning and 1 tablet in the evening. [facility] ARIPiprazol e (ABILIFY) 15 mg tablet 2-06 00:00: 00 Yes [id number] 15mg Take 1 tablet by mouth at bedtime. [facility] dapaglifloz in propanediol (FARXIGA) 10 mg tablet 2-06 00:00: 00 02-08 00:00 :00 No 10mg Take 1 tablet by mouth in the morning. [facility] metoprolol succinate XL 25 mg 24 hr tablet 4-24 00:00: 00 Yes [id number] 25mg Take 1 tablet by mouth in the morning and 1 tablet in the evening. [facility] ARIPiprazol e (ABILIFY) 15 mg tablet -24 00:00: 00 Yes [id number] 15mg Take 1 tablet by mouth at bedtime. [facility] atorvastati n 40 mg tablet 4-24 00:00: 00 Yes [id number] 40mg Take 1 tablet by mouth at bedtime. [facility] bumetanide 2 mg tablet 4-24 00:00: 00 Yes [id number] 2mg Take 1 tablet by mouth in the morning and 1 tablet in the evening. [facility] amLODIPine 5 mg tablet 4-24 00:00: 00 Yes [id number] 5mg Take 1 tablet by mouth in the morning. [facility] metroNIDAZO LE 500 mg tablet 3-19 00:00: 00 02-10 04:59 :00 No [id number] 2000mg Take 4 tablets by mouth once now for 1 dose. [facility] sacubitriL- valsartan (ENTRESTO) 24-26 mg tablet 2-13 00:00: 00 Yes [id number] 1{tbl} Take 1 tablet by mouth in the morning and 1 tablet in the evening. [facility] ARIPiprazol e (ABILIFY) 15 mg tablet 2-13 00:00: 00 Yes [id number] 15mg Take 1 tablet by mouth at bedtime. [facility] ATORVASTATI N 40 mg tablet 2-08 00:00: 00 Yes [id number] TAKE ONE (1) TABLET(S) BY MOUTH ONCE A DAY AT BEDTIME. [facility] BUMETANIDE 2 mg tablet 1-09 00:00: 00 Yes [id number] TAKE ONE (1) TABLET BY MOUTH 2 (TWO) TIMES DAILY. [facility] ARIPiprazol e (ABILIFY) 15 mg tablet 2021-11 2-19 00:00: 00 Yes [id number] 15mg Take 1 tablet by mouth in the morning. [facility] METOPROLOL SUCCINATE XL 25 mg 24 hr tablet 2021-11 00:00: 00 Yes [id number] TAKE THREE (3) TABLET(S) BY MOUTH TWICE A DAY. [facility] AMLODIPINE 5 mg tablet 2021-11 00:00: 00 Yes [id number] TAKE ONE (1) TABLET BY MOUTH DAILY. [facility] cefdinir (OMNICEF) capsule 300 mg 2021-11 18:30: 00 09-27 18:34 :00 No 300mg 300 mg, Oral, ONCE, 1 dose, On Fri09/27/22 at 1330, TOYIN
Re ason for Anti-Infec tive: Documented Infection< br>Documen anisha Infection Site: Urine
D uration of Therapy: 7 days [facility] cefdinir 300 mg capsule 2021-11 00:00: 00 10-08 05:59 :00 No [id number] 300mg Take 1 capsule by mouth every 12 (twelve) hours for 10 days. [facility] ciprofloxac in HCl 500 mg tablet 2021-11 0-27 00:00: 00 09-23 04:59 :00 No [id number] 250mg Take 0.5 tablets by mouth in the morning and 0.5 tablets in the evening. Do all this for 3 days. [facility] METOPROLOL SUCCINATE XL 25 mg 24 hr tablet 2021-11 0-07 00:00: 00 Yes [id number] TAKE THREE (3) TABLET(S) BY MOUTH TWICE A DAY. [facility] DULoxetine 30 mg capsule 2021-11 0-03 00:00: 00 Yes [id number] 30mg Take 1 capsule by mouth in the morning. [facility] cetirizine 10 mg tablet 2021-11 0-03 00:00: 00 18 00:00 :00 No [id number] 10mg Take 1 tablet by mouth in the morning. [facility] ATORVASTATI N 40 mg tablet 8-29 00:00: 00 Yes [id number] TAKE ONE (1) TABLET(S) BY MOUTH ONCE A DAY AT BEDTIME. [facility] ofloxacin 0.3 % otic drops 8-10 00:00: 00 Yes [id number] 5[drp] Place 5 Drops in right ear in the morning and 5 Drops in the evening. [facility] DULoxetine 30 mg capsule 8-08 00:00: 00 Yes [id number] 30mg Take 1 capsule by mouth in the morning. [facility] METOPROLOL SUCCINATE XL 25 mg 24 hr tablet 8-03 00:00: 00 Yes [id number] TAKE THREE (3) TABLET(S) BY MOUTH TWICE A DAY. [facility] ATORVASTATI N 40 mg tablet 4-18 00:00: 00 Yes [id number] TAKE ONE (1) TABLET(S) BY MOUTH ONCE A DAY AT BEDTIME. [facility] amLODIPine 5 mg tablet 3-23 00:00: 00 Yes [id number] 5mg Take 1 tablet by mouth daily. [facility] METOPROLOL SUCCINATE XL 25 mg 24 hr tablet 3-23 00:00: 00 06-26 00:00 :00 No [id number] TAKE THREE (3) TABLET(S) BY MOUTH TWICE A DAY. [facility] bumetanide 2 mg tablet 01-23 00:00: 00 Yes [id number] 2mg Take 1 tablet by mouth 2 (two) times daily. [facility] ARIPiprazol e (ABILIFY) 15 mg tablet 12-11 00:00: 00 Yes [id number] 15mg Take 1 tablet by mouth at bedtime. [facility] aspirin 81 mg chewable tablet 2020-11 00:00: 00 Yes [id number] 81mg Take 1 tablet by mouth daily. [facility] metoprolol succinate XL 25 mg 24 hr tablet 2020-11 00:00: 00 Yes [id number] 75mg Take 3 tablets by mouth 2 (two) times daily. [facility] hydrALAZINE 50 mg tablet 2020-11 00:00: 00 Yes [id number] 50mg Take 1 tablet by mouth every 12 (twelve) hours. [facility] bumetanide 2 mg tablet 2020-11 00:00: 00 Yes [id number] 2mg Take 1 tablet by mouth 2 (two) times daily. [facility] atorvastati n 40 mg tablet 2020-11 00:00: 00 Yes [id number] 40mg Take 1 tablet by mouth at bedtime. [facility] Magnesium Oxide 420 mg Tab 2020-11 00:00: 00 02-08 00:00 :00 No [id number] 400mg Take 400 mg by mouth daily. [facility] KLOR-CON M20 20 mEq tablet 2020-11 00:00: 00 Yes [facility] magnesium oxide 420 mg Tab 2020-11 00:00: 00 Yes [id number] 400mg Take 400 mg by mouth daily. [facility] cloNIDine 0.2 mg tablet 2020-11 00:00: 00 Yes [id number] .1mg Take 0.5 tablets by mouth 2 (two) times daily. [facility] metoprolol succinate XL 25 mg 24 hr tablet 2020-11 00:00: 00 Yes [id number] 75mg Take 3 tablets by mouth 2 (two) times daily. [facility] aspirin 81 mg chewable tablet 2020-11 00:00: 00 Yes [id number] 81mg Take 1 tablet by mouth daily. [facility] atorvastati n 40 mg tablet 2020-11 00:00: 00 Yes [id number] 40mg Take 1 tablet by mouth at bedtime. [facility] bumetanide 2 mg tablet 2020-11 00:00: 00 Yes [id number] 2mg Take 1 tablet by mouth 2 (two) times daily. [facility] hydrALAZINE 50 mg tablet 2020-11 00:00: 00 Yes [id number] 50mg Take 1 tablet by mouth every 12 (twelve) hours. [facility] sacubitriL- valsartan (ENTRESTO) 24-26 mg tablet 2020-11 00:00: 00 Yes [id number] 1{tbl} Take 1 tablet by mouth 2 (two) times daily. [facility] Immunizations Ordered Immunization Name Filled Immunization Name Date Status Comments Source Influenza, split virus, trivalent, PF (AFLURIA/FLUARIX/FL ULAVAL/FLUZONE) 2024-08-11 00:00:00 Completed [facility] Influenza Virus Vaccine Quad .5 mL IM 6+ MO (FLUZONE/FLULAVAL/F LUARIX) 2023-02-06 00:00:00 Completed [facility] Influenza Virus Vaccine Quad .5 mL IM 6+ MO 2023-02-06 00:00:00 Completed [facility] Influenza Virus Vaccine Quad .5 mL IM 6+ MO 2023-02-06 00:00:00 Completed [facility] Influenza Virus Vaccine Quad .5 mL IM 6+ MO 2023-02-06 00:00:00 Completed [facility] Influenza Virus Vaccine Quad .5 mL IM 6+ MO 2023-02-06 00:00:00 Completed [facility] Influenza Virus Vaccine Quad .5 mL IM 6+ MO 2023-02-06 00:00:00 Completed [facility] Influenza Virus Vaccine Quad .5 mL IM 6+ MO (FLUZONE/FLULAVAL/F LUARIX) 2023-02-06 00:00:00 Completed [facility] Influenza Virus Vaccine Quad .5 mL IM 6+ MO (FLUZONE/FLULAVAL/F LUARIX) 2023-02-06 00:00:00 Completed [facility] SARS-COV-2 COVID-19 PFIZER VACCINE 2021-03-08 00:00:00 Completed SARS-COV-2 COVID-19 PFIZER VACCINE 2021-03-08 00:00:00 Completed [facility] SARS-COV-2 COVID-19 PFIZER VACCINE 2021-03-08 00:00:00 Completed [facility] SARS-COV-2 COVID-19 PFIZER VACCINE 2021-03-08 00:00:00 Completed [facility] SARS-COV-2 COVID-19 PFIZER VACCINE 2021-03-08 00:00:00 Completed [facility] SARS-COV-2 COVID-19 PFIZER VACCINE 2021-03-08 00:00:00 Completed [facility] SARS-COV-2 COVID-19 PFIZER VACCINE 2021-03-08 00:00:00 Completed [facility] SARS-COV-2 COVID-19 PFIZER VACCINE 2021-03-08 00:00:00 Completed [facility] SARS-COV-2 COVID-19 PFIZER VACCINE 2021-03-08 00:00:00 Completed [facility] SARS-COV-2 COVID-19 PFIZER VACCINE 2021-03-08 00:00:00 Completed [facility] SARS-COV-2 COVID-19 PFIZER VACCINE 2021-03-08 00:00:00 Completed [facility] SARS-COV-2 COVID-19 PFIZER VACCINE 2021-03-08 00:00:00 Completed [facility] SARS-COV-2 COVID-19 PFIZER VACCINE 2021-03-08 00:00:00 Completed [facility] SARS-COV-2 COVID-19 PFIZER VACCINE 2021-03-08 00:00:00 Completed [facility] SARS-COV-2 COVID-19 PFIZER VACCINE 2021-03-08 00:00:00 Completed [facility] SARS-COV-2 COVID-19 PFIZER VACCINE 2021-03-08 00:00:00 Completed [facility] SARS-COV-2 COVID-19 PFIZER VACCINE 2021-03-08 00:00:00 Completed [facility] SARS-COV-2 COVID-19 PFIZER VACCINE 2021-02-15 00:00:00 Completed [facility] SARS-COV-2 COVID-19 PFIZER VACCINE 2021-02-15 00:00:00 Completed [facility] SARS-COV-2 COVID-19 PFIZER VACCINE 2021-02-15 00:00:00 Completed [facility] SARS-COV-2 COVID-19 PFIZER VACCINE 2021-02-15 00:00:00 Completed [facility] SARS-COV-2 COVID-19 PFIZER VACCINE 2021-02-15 00:00:00 Completed [facility] SARS-COV-2 COVID-19 PFIZER VACCINE 2021-02-15 00:00:00 Completed [facility] SARS-COV-2 COVID-19 PFIZER VACCINE 2021-02-15 00:00:00 Completed [facility] SARS-COV-2 COVID-19 PFIZER VACCINE 2021-02-15 00:00:00 Completed [facility] SARS-COV-2 COVID-19 PFIZER VACCINE 2021-02-15 00:00:00 Completed [facility] SARS-COV-2 COVID-19 PFIZER VACCINE 2021-02-15 00:00:00 Completed [facility] SARS-COV-2 COVID-19 PFIZER VACCINE 2021-02-15 00:00:00 Completed [facility] SARS-COV-2 COVID-19 PFIZER VACCINE 2021-02-15 00:00:00 Completed [facility] SARS-COV-2 COVID-19 PFIZER VACCINE 2021-02-15 00:00:00 Completed [facility] SARS-COV-2 COVID-19 PFIZER VACCINE 2021-02-15 00:00:00 Completed [facility] SARS-COV-2 COVID-19 PFIZER VACCINE 2021-02-15 00:00:00 Completed [facility] SARS-COV-2 COVID-19 PFIZER VACCINE 2021-02-15 00:00:00 Completed [facility] SARS-COV-2 COVID-19 PFIZER VACCINE 2021-02-15 00:00:00 Completed [facility] Influenza Virus Vaccine Quad .5 mL IM 6+ MO (FLUZONE/FLULAVAL/F LUARIX) Unknown Completed [facility] SARS-COV-2 COVID-19 PFIZER VACCINE Unknown Completed [facility] Influenza Virus Vaccine Quad .5 mL IM 6+ MO (FLUZONE/FLULAVAL/F LUARIX) Unknown Completed [facility] SARS-COV-2 COVID-19 PFIZER VACCINE Unknown Completed [facility] Influenza Virus Vaccine Quad .5 mL IM 6+ MO (FLUZONE/FLULAVAL/F LUARIX) Unknown Completed [facility] SARS-COV-2 COVID-19 PFIZER VACCINE Unknown Completed [facility] Influenza Virus Vaccine Quad .5 mL IM 6+ MO (FLUZONE/FLULAVAL/F LUARIX) Unknown Completed [facility] SARS-COV-2 COVID-19 PFIZER VACCINE Unknown Completed [facility] SARS-COV-2 COVID-19 PFIZER VACCINE Unknown Completed [facility] Influenza Virus Vaccine Quad .5 mL IM 6+ MO (FLUZONE/FLULAVAL/F LUARIX) Unknown Completed [facility] SARS-COV-2 COVID-19 PFIZER VACCINE Unknown Completed [facility] Influenza Virus Vaccine Quad .5 mL IM 6+ MO (FLUZONE/FLULAVAL/F LUARIX) Unknown Completed [facility] Influenza, split virus, trivalent, PF (AFLURIA/FLUARIX/FL ULAVAL/FLUZONE) Unknown Completed [facility] SARS-COV-2 COVID-19 PFIZER VACCINE Unknown Completed [facility] Influenza Virus Vaccine Quad .5 mL IM 6+ MO (FLUZONE/FLULAVAL/F LUARIX) Unknown Completed [facility] SARS-COV-2 COVID-19 PFIZER VACCINE Unknown Completed [facility] Influenza Virus Vaccine Quad .5 mL IM 6+ MO (FLUZONE/FLULAVAL/F LUARIX) Unknown Completed [facility] SARS-COV-2 COVID-19 PFIZER VACCINE Unknown Completed [facility] Influenza Virus Vaccine Quad .5 mL IM 6+ MO (FLUZONE/FLULAVAL/F LUARIX) Unknown Completed [facility] SARS-COV-2 COVID-19 PFIZER VACCINE Unknown Completed [facility] Influenza Virus Vaccine Quad .5 mL IM 6+ MO (FLUZONE/FLULAVAL/F LUARIX) Unknown Completed [facility] SARS-COV-2 COVID-19 PFIZER VACCINE Unknown Completed [facility] Influenza Virus Vaccine Quad .5 mL IM 6+ MO (FLUZONE/FLULAVAL/F LUARIX) Unknown Completed [facility] Vital Signs Vital Name Observation Time Observation Value Comments S ource Systolic blood pressure 2025-03-15 17:57:00 200 mm[Hg] [facility] Diastolic blood pressure 2025-03-15 17:57:00 100 mm[Hg] [facility] Heart rate 2025-03-15 17:52:00 77 /min [facility] Body temperature 2025-03-15 17:52:00 35.72 Jasmin [facility] Respiratory rate 2025-03-15 17:52:00 18 /min [facility] Body height 2025-03-15 17:52:00 165.1 cm [facility] Body weight 2025-03-15 17:52:00 80.65 kg [facility] BMI 2025-03-15 17:52:00 29.59 kg/m2 [facility] Systolic blood pressure 2024-12-09 23:33:00 171 mm[Hg] [facility] Diastolic blood pressure 2024-12-09 23:33:00 94 mm[Hg] [facility] Heart rate 2024-12-09 23:33:00 91 /min [facility] Body temperature 2024-12-09 23:33:00 36.17 Jasmin [facility] Respiratory rate 2024-12-09 23:33:00 15 /min [facility] Oxygen saturation in Arterial blood by Pulse oximetry 2024-12-09 23:33:00 99 /min [facility] Body height 2024-12-09 20:12:00 165.1 cm [facility] Body weight 2024-12-09 20:12:00 87.091 kg [facility] BMI 2024-12-09 20:12:00 31.95 kg/m2 [facility] Systolic blood pressure 2024-11-12 19:20:00 150 mm[Hg] [facility] Diastolic blood pressure 2024-11-12 19:20:00 90 mm[Hg] [facility] Heart rate 2024-11-12 19:19:00 85 /min [facility] Body temperature 2024-11-12 19:19:00 35.72 Jasmin [facility] Respiratory rate 2024-11-12 19:19:00 18 /min [facility] Body height 2024-11-12 19:19:00 165.1 cm [facility] Body weight 2024-11-12 19:19:00 87.091 kg [facility] BMI 2024-11-12 19:19:00 31.95 kg/m2 [facility] Systolic blood pressure 2024-08-11 18:35:00 139 mm[Hg] [facility] Diastolic blood pressure 2024-08-11 18:35:00 84 mm[Hg] [facility] Heart rate 2024-08-11 18:35:00 89 /min [facility] Body temperature 2024-08-11 18:35:00 35.94 Jasmin [facility] Respiratory rate 2024-08-11 18:35:00 17 /min [facility] Body height 2024-08-11 18:35:00 165.1 cm [facility] Body weight 2024-08-11 18:35:00 84.777 kg [facility] BMI 2024-08-11 18:35:00 31.10 kg/m2 [facility] Systolic blood pressure 2024-05-13 19:17:00 160 mm[Hg] [facility] Diastolic blood pressure 2024-05-13 19:17:00 80 mm[Hg] [facility] Heart rate 2024-05-13 19:12:00 89 /min [facility] Body temperature 2024-05-13 19:12:00 35.5 Jasmin [facility] Respiratory rate 2024-05-13 19:12:00 18 /min [facility] Body height 2024-05-13 19:12:00 165.1 cm [facility] Body weight 2024-05-13 19:12:00 83.734 kg [facility] BMI 2024-05-13 19:12:00 30.72 kg/m2 [facility] Systolic blood pressure 2024-03-17 18:01:00 161 mm[Hg] [facility] Diastolic blood pressure 2024-03-17 18:01:00 95 mm[Hg] [facility] Heart rate 2024-03-17 18:01:00 91 /min [facility] Body temperature 2024-03-17 18:01:00 36.56 Jasmin [facility] Respiratory rate 2024-03-17 18:01:00 18 /min [facility] Body height 2024-03-17 18:01:00 165.1 cm [facility] Body weight 2024-03-17 18:01:00 84.913 kg [facility] BMI 2024-03-17 18:01:00 31.15 kg/m2 [facility] Systolic blood pressure 2024-03-09 18:04:00 185 mm[Hg] [facility] Diastolic blood pressure 2024-03-09 18:04:00 117 mm[Hg] [facility] Heart rate 2024-03-09 18:04:00 90 /min [facility] Body temperature 2024-03-09 18:04:00 36.39 Jasmin [facility] Respiratory rate 2024-03-09 18:04:00 18 /min [facility] Body height 2024-03-09 18:04:00 165.1 cm [facility] Body weight 2024-03-09 18:04:00 85.186 kg [facility] BMI 2024-03-09 18:04:00 31.25 kg/m2 [facility] Systolic blood pressure 2024-02-09 18:18:00 152 mm[Hg] [facility] Diastolic blood pressure 2024-02-09 18:18:00 94 mm[Hg] [facility] Heart rate 2024-02-09 18:18:00 82 /min [facility] Body temperature 2024-02-09 18:12:00 36.22 Jasmin [facility] Respiratory rate 2024-02-09 18:12:00 18 /min [facility] Body height 2024-02-09 18:12:00 165.1 cm [facility] Body weight 2024-02-09 18:12:00 85.872 kg [facility] BMI 2024-02-09 18:12:00 31.50 kg/m2 [facility] Systolic blood pressure 2024-01-15 03:00:00 170 mm[Hg] [facility] Diastolic blood pressure 2024-01-15 03:00:00 97 mm[Hg] [facility] Heart rate 2024-01-15 03:00:00 100 /min [facility] Respiratory rate 2024-01-15 03:00:00 16 /min [facility] Oxygen saturation in Arterial blood by Pulse oximetry 2024-01-15 03:00:00 100 /min [facility] Body temperature 2024-01-14 21:18:00 36.67 Jasmin [facility] Body weight 2024-01-14 21:16:00 88.451 kg [facility] BMI 2024-01-14 21:16:00 32.45 kg/m2 [facility] Systolic blood pressure 2024-01-11 19:41:00 177 mm[Hg] [facility] Diastolic blood pressure 2024-01-11 19:41:00 101 mm[Hg] [facility] Heart rate 2024-01-11 19:41:00 105 /min [facility] Respiratory rate 2024-01-11 19:41:00 18 /min [facility] Oxygen saturation in Arterial blood by Pulse oximetry 2024-01-11 19:41:00 100 /min [facility] Body temperature 2024-01-11 18:20:00 36.94 Jasmin [facility] Systolic blood pressure 2023-07-29 18:30:00 131 mm[Hg] [facility] Diastolic blood pressure 2023-07-29 18:30:00 90 mm[Hg] [facility] Heart rate 2023-07-29 18:30:00 101 /min [facility] Body temperature 2023-07-29 18:30:00 36.39 Jasmin [facility] Respiratory rate 2023-07-29 18:30:00 18 /min [facility] Body height 2023-07-29 18:30:00 165.1 cm [facility] Body weight 2023-07-29 18:30:00 88.633 kg [facility] BMI 2023-07-29 18:30:00 32.52 kg/m2 [facility] Body temperature 2023-02-11 16:05:00 36.78 Jasmin [facility] Body weight 2023-02-11 16:05:00 87.952 kg [facility] BMI 2023-02-11 16:05:00 32.27 kg/m2 [facility] Systolic blood pressure 2023-02-06 18:13:00 122 mm[Hg] [facility] Diastolic blood pressure 2023-02-06 18:13:00 78 mm[Hg] [facility] Heart rate 2023-02-06 18:08:00 83 /min [facility] Body temperature 2023-02-06 18:07:00 36.39 Jasmin [facility] Respiratory rate 2023-02-06 18:07:00 18 /min [facility] Body height 2023-02-06 18:07:00 165.1 cm [facility] Body weight 2023-02-06 18:07:00 86.093 kg [facility] BMI 2023-02-06 18:07:00 31.58 kg/m2 [facility] Systolic blood pressure 2022-09-27 19:56:00 154 mm[Hg] [facility] Diastolic blood pressure 2022-09-27 19:56:00 98 mm[Hg] [facility] Heart rate 2022-09-27 19:56:00 73 /min [facility] Respiratory rate 2022-09-27 19:56:00 16 /min [facility] Oxygen saturation in Arterial blood by Pulse oximetry 2022-09-27 19:56:00 100 /min [facility] Body temperature 2022-09-27 16:18:00 37 Jasmin [facility] Body weight 2022-09-27 16:18:00 87.544 kg [facility] BMI 2022-09-27 16:18:00 32.12 kg/m2 [facility] Systolic blood pressure 2022-09-19 22:53:37 126 mm[Hg] [facility] Diastolic blood pressure 2022-09-19 22:53:37 88 mm[Hg] [facility] Heart rate 2022-09-19 22:53:37 88 /min [facility] Respiratory rate 2022-09-19 22:53:37 18 /min [facility] Oxygen saturation in Arterial blood by Pulse oximetry 2022-09-19 22:53:37 99 /min [facility] Body temperature 2022-09-19 21:41:00 35.72 Jasmin [facility] Systolic blood pressure 2022-09-18 18:50:00 141 mm[Hg] [facility] Diastolic blood pressure 2022-09-18 18:50:00 92 mm[Hg] [facility] Heart rate 2022-09-18 18:50:00 95 /min [facility] Body temperature 2022-09-18 18:50:00 37.22 Jasmin [facility] Respiratory rate 2022-09-18 18:50:00 18 /min [facility] Body weight 2022-09-18 18:50:00 87.544 kg [facility] BMI 2022-09-18 18:50:00 32.12 kg/m2 [facility] Oxygen saturation in Arterial blood by Pulse oximetry 2022-09-18 18:50:00 99 /min [facility] Systolic blood pressure 2022-09-14 13:32:00 147 mm[Hg] [facility] Diastolic blood pressure 2022-09-14 13:32:00 94 mm[Hg] [facility] Heart rate 2022-09-14 13:32:00 98 /min [facility] Body temperature 2022-09-14 13:32:00 36.72 Jasmin [facility] Respiratory rate 2022-09-14 13:32:00 17 /min [facility] Body height 2022-09-14 13:32:00 165.1 cm [facility] Body weight 2022-09-14 13:32:00 82.555 kg [facility] BMI 2022-09-14 13:32:00 30.29 kg/m2 [facility] Oxygen saturation in Arterial blood by Pulse oximetry 2022-09-14 13:32:00 100 /min [facility] Systolic blood pressure 2022-07-03 17:43:00 147 mm[Hg] [facility] Diastolic blood pressure 2022-07-03 17:43:00 98 mm[Hg] [facility] Heart rate 2022-07-03 17:43:00 83 /min [facility] Body temperature 2022-07-03 17:43:00 37.61 Jasmin [facility] Respiratory rate 2022-07-03 17:43:00 18 /min [facility] Body height 2022-07-03 17:43:00 165.1 cm [facility] Body weight 2022-07-03 17:43:00 80.74 kg [facility] BMI 2022-07-03 17:43:00 29.62 kg/m2 [facility] Oxygen saturation in Arterial blood by Pulse oximetry 2022-07-03 17:43:00 100 /min [facility] Procedures Procedure Date / Time Performed Performing Clinician Source CT SOFT TISSUE NECK W CONTRAST 2024-12-09 22:28:36 Bernabe Tolentino [facility] TEST, SERUM 2024-12-09 21:10:00 Bernabe Tolentino [facility] COMP. METABOLIC PANEL (26306) 2024-12-09 21:10:00 Bernabe Tolentino [facility] CBC WITH DIFF 2024-12-09 21:10:00 Bernabe Tolentino [facility] BCCS-RELATED DOCUMENTATION 2024-08-25 23:25:13 D octor Unassigned, [place] [facility] "STATE SUPPLY" FLU VACC (), 6+ MONTHS, IM, TIV (AFLURIA/FLUARIX/FLULAVAL/ FLUZONE) 2024-08-11 18:53:04 Cullen Atkinson [facility] POCT TEST 2024-03-17 18:07:00 Mary Oakes [facility] CONSENT/REFUSAL FOR DIAGNOSIS AND TREATMENT 2024-02-09 17:59:35 Doctor Unassigned, [place] [facility] URINALYSIS 2024-01-15 02:50:00 [facility] 2024-01-14 21:53:00 Aren Cuevas [facility] HB ABO GROUPING 2024-01-14 21:53:00 Aren Cuevas [facility] EXTRA TUBE LT. BLUE 2024-01-14 21:53:00 Quan Cuevas [facility] EXTRA TUBE ORANGE 2024-01-14 21:53:00 Lou Cuevas [facility] CONSENT/REFUSAL FOR DIAGNOSIS AND TREATMENT 2024-01-14 21:06:07 Doctor Unassigned, [place] [facility] ASSIGNMENT OF BENEFITS 2024-01-11 19:18:38 Docto r Unassigned, [place] [facility] POCT TEST 2024-01-11 18:48:00 Jenna Kapoor [facility] CBC WITH DIFF 2024-01-11 18:47:00 [facility] URINALYSIS 2024-01-11 18:47:00 Jenna Kapoor [facility] CONSENT/REFUSAL FOR DIAGNOSIS AND TREATMENT 2024-01-11 18:16:05 Doctor Unassigned, [place] [facility] BCCS-RELATED DOCUMENTATION 2023-08-05 05:01:00 Dwayne barrett Unassigned, [place] [facility] GC & CHLAMYDIA AMPLIFIED ASSAY 2023-02-06 19:10:00 Julia Oakes [facility] HIV 1/2 AG-AB WITH REFLEX 2023-02-06 19:10:00 Julia Palomo [facility] HIGH RISK HPV-THIN PREP 2023-02-06 19:10:00 Julia Oakes [facility] TRICHOMONAS AMPLIFIED ASSAY 2023-02-06 19:10:00 Julia Oakes [facility] PAP SMEAR-LIQUID BASED-CP 2023-02-06 19:10:00 Julia Palomo [facility] SYPHILIS IGG/IGM 2023-02-06 19:10:00 Julia Oakes [facility] "RWSP SUMMER ONLY" FLU VACC(), 6+ MONTHS, IM, QUAD (FLUZONE/FLULAVAL/FLUARIX) 2023-02-06 19:08:03 Julia Oakes [facility] ASSIGNMENT OF BENEFITS 2023-02-06 17:54:16 Docto r Unassigned, [place] [facility] FORM 2022-12-13 15:45:38 Doctor Unassigned, [place] [facility] URINE DRUG (IMMUNOASSAY) - COMPREHENSIVE DRUG SCREEN 2022-09-27 17:01:00 Chelly Ohara [facility] URINALYSIS 2022-09-27 17:01:00 [facility] 2022-09-27 17:01:00 Roland Levy [facility] CONSENT/REFUSAL FOR DIAGNOSIS AND TREATMENT 2022-09-27 16:55:29 Doctor Unassigned, [place] [facility] COMP. METABOLIC PANEL ([id number]) 2022-09-19 22:01:00 Charlette Grimm [facility] CBC WITH DIFF 2022-09-19 22:01:00 Charlette [facility]Gimm [facility] URINALYSIS 2022-09-19 22:01:00 Charlette Grimm [facility] CONSENT/REFUSAL FOR DIAGNOSIS AND TREATMENT 2022-09-19 21:34:44 Doctor Unassigned, [place] [facility] CONSENT/REFUSAL FOR DIAGNOSIS AND TREATMENT 2022-09-18 18:53:06 Doctor Unassigned, [place] [facility] CONSENT/REFUSAL FOR DIAGNOSIS AND TREATMENT 2022-09-14 13:26:46 Doctor Unassigned, [place] [facility] GA REMOVAL IMPACTED CERUMEN INSTRUMENTATION UNILAT 2022-07-03 20:09:56 Katja Thompson [facility] CONSENT/REFUSAL FOR DIAGNOSIS AND TREATMENT 2022-07-03 17:20:03 Doctor Unassigned, [place] [facility] 2021-11-05 16:05:09 Doctor Unassigned, [place] [facility] Encounters Start Date/Time End Date/Time Encounter Type Admission Type Attending [facility] Care Facility Care Department Encounter ID Source 2025-03-15 13:00:00 2025-03-15 13:04:28 Outpatient MALATHI AKERS [facility] [id number] [facility] 2025-03-15 13:00:00 2025-03-15 13:04:28 Office Visit Malathi Childers [facility] 1..840.114 350.1.13.10 4.2.7.2.686 [id number] [facility] 2025-03-14 12:45:00 2025-03-14 12:45:00 Outpatient R MALATHI CHILDERS [facility] [id number] [facility] 2024-08-25 00:00:00 2025-01-08 06:53:18 Orders Only Doctor Unassigned, [place] Doctor Unassigned, [place] [facility] 1..840.114 350.1.13.10 4.2.7.2.686 [id number] [facility] 2024-12-09 14:15:00 2024-12-09 17:39:00 Emergency X BERNABE TOLENTINO [facility] [id number] [facility] 2024-12-09 14:15:00 2024-12-09 17:39:00 Emergency Bernabe Tolentino [facility] 1.84.114 350.1.13.10 4.2.7.2.686 [id number] [facility] 2024-12-07 07:21:54 2024-12-07 23:59:00 Outpatient R CULLEN ATKINSON [facility] [id number] [facility] 2024-12-07 07:21:54 2024-12-07 23:59:00 Hospital Encounter Cullen Atkinson [facility] 1.84.114 350.1.13.10 4.2.7.2.686 [id number] [facility] 2024-11-12 13:15:00 2024-11-12 13:38:24 Outpatient R MALATHI CHILDERS [facility] [id number] [facility] 2024-11-12 13:15:00 2024-11-12 13:38:24 Office Visit Malathi Childers [facility] 1.84.114 350.1.13.10 4.2.7.2.686 [id number] [facility] 2024-11-08 07:00:41 2024-11-08 23:59:00 Outpatient R CULLEN ATKINSON [facility] [id number] [facility] 2024-11-08 07:00:41 2024-11-08 23:59:00 Hospital Encounter Cullen Atkinson [facility] 1.84.114 350.1.13.10 4.2.7.2.686 [id number] [facility] 2024-11-08 09:15:00 2024-11-08 09:15:00 Outpatient R MALATHI CHILDERS [facility] [id number] [facility] 2024-11-08 09:15:00 2024-11-08 09:15:00 Outpatient R MAALTHI CHILDERS [facility] [id number] [facility] 2024-08-11 13:30:00 2024-08-11 14:15:24 Outpatient R CULLEN ATKINSON [facility] [id number] [facility] 2024-08-11 13:30:00 2024-08-11 14:15:24 Office Visit Cullen Atkinson [facility] 1.2.840.114 350.1.13.10 4.2.7.2.686 [id number] [facility] 2024-06-30 00:00:00 2024-06-30 00:00:00 Outpatient [facility] [id number] [facility] 2024-05-13 14:15:00 2024-05-13 14:55:45 Outpatient R MALATHI CHILDERS [facility] [id number] [facility] 2024-05-13 14:15:00 2024-05-13 14:55:45 Office Visit Malathi Childers [facility] 1..840.114 350.1.13.10 4.2.7.2.686 [id number] [facility] 2024-05-13 14:15:00 2024-05-13 14:15:00 Outpatient R MALATHI CHILDERS [facility] [id number] [facility] 2024-04-28 12:30:00 2024-04-28 12:30:00 Outpatient R MALATHI CHILDERS [facility] [id number] [facility] 2024-03-17 12:45:00 2024-03-17 13:46:06 Outpatient R SHAYY JULIA [facility] [id number] [facility] 2024-03-17 12:45:00 2024-03-17 13:46:06 Office Visit Shayy Julia Ivania [facility] 1.2.840.114 350.1.13.10 4.2.7.2.686 [id number] [facility] 2024-03-09 13:30:00 2024-03-09 13:34:22 Outpatient R CULLEN ATKINSON [facility] [id number] [facility] 2024-03-09 13:30:00 2024-03-09 13:34:22 Office Visit Cullen Atkinson [facility] 1..840.114 350.1.13.10 4.2.7.2.686 [id number] [facility] 2024-02-11 00:00:00 2024-02-11 00:00:00 Telephone Cullen Atkinson [facility] 1.2.840.114 350.1.13.10 4.2.7.2.686 [id number] [facility] 2024-02-09 13:30:00 2024-02-09 14:06:10 Outpatient R CULLEN ATKINSON [facility] [id number] [facility] 2024-02-09 13:30:00 2024-02-09 14:06:10 Office Visit Cullen Atkinson [facility] 1.2.840.114 350.1.13.10 4.2.7.2.686 [id number] [facility] 2024-02-09 00:00:00 2024-02-09 00:00:00 Orders Only Doctor Unassigned, [place] [facility] 1.840.114 350.1.13.10 4.2.7.2.686 [id number] [facility] 2024-01-14 15:18:00 2024-01-14 21:46:00 Emergency X AREN CUEVAS [facility] [id number] [facility] 2024-01-14 15:18:00 2024-01-14 21:46:00 Emergency Morrical, [facility] 1.0.114 350.1.13.10 4.2.7.2.686 [id number] [facility] 2024-01-11 12:23:00 2024-01-11 13:42:00 [facility] [id number] 2024-01-11 12:23:00 2024-01-11 13:42:00 Emergency Ebrabelkism, Davidia [facility] 1.0.114 350.1.13.10 4.2.7.2.686 [id number] [facility] 2023-08-26 00:00:00 2023-08-26 00:00:00 Telephone Cullen Atkinson [facility] 1.0.114 350.1.13.10 4.2.7.2.686 [id number] [facility] 2023-08-13 07:57:14 2023-08-13 23:59:00 Outpatient R JULIA OAKES [facility] [id number] [facility] 2023-08-13 07:57:14 2023-08-13 23:59:00 Hospital Encounter Julia Oakes [facility] 1.0.114 350.1.13.10 4.2.7.2.686 [id number] [facility] 2023-08-05 00:00:00 2023-08-05 00:00:00 Orders Only Doctor Unassigned, [place] [facility] 1.2.840.114 350.1.13.10 4.2.7.2.686 [id number] [facility] 2023-07-29 13:30:00 2023-07-29 13:45:00 Office Visit Cullen Atkinson [facility] 1.2.840.114 350.1.13.10 4.2.7.2.686 [id number] [facility] 2023-07-29 13:30:00 2023-07-29 13:30:00 Outpatient CULLEN MENA [facility] [id number] [facility] 2023-06-04 00:00:00 2023-06-04 00:00:00 Telephone Julia Oakes [facility] 1.2.840.114 350.1.13.10 4.2.7.2.686 [id number] [facility] 2023-04-08 06:54:10 2023-04-08 23:59:00 Hospital Encounter Julia Oakes [facility] 1..840.114 350.1.13.10 4.2.7.2.686 [id number] [facility] 2023-04-08 00:00:00 2023-04-08 23:59:00 Outpatient R JULIA OAKES [facility] [id number] [facility] 2023-03-17 00:00:00 2023-03-17 00:00:00 Outpatient [facility] [id number] [facility] 2023-02-11 11:00:00 2023-02-11 11:12:11 Nurse Visit Visit, Demetrio Nurse Julia Oakes [facility] 1.840.114 350.1.13.10 4.2.7.2.686 [id number] [facility] 2023-02-11 11:00:00 2023-02-11 11:00:00 Outpatient JULIA AVILA [facility] [id number] [facility] 2023-02-10 14:00:00 2023-02-10 14:00:00 Outpatient JULIA AVILA [facility] [id number] [facility] 2023-02-09 00:00:00 2023-02-09 00:00:00 Case Management Julia Oakes [facility] 1.840.114 350.1.13.10 4.2.7.2.686 [id number] [facility] 2023-02-06 13:00:00 2023-02-06 14:12:49 Outpatient JULIA AVILA [facility] [id number] [facility] 2023-02-06 13:00:00 2023-02-06 14:12:49 Office Visit Provider, Julia Lopez [facility] 1.840.114 350.1.13.10 4.2.7.2.686 [id number] [facility] 2023-02-06 00:00:00 2023-02-06 00:00:00 Orders Only Doctor Unassigned, [place] [facility] 1.84.114 350.1.13.10 4.2.7.2.686 [id number] [facility] 2023-01-03 13:00:00 2023-01-03 13:00:00 Outpatient CULLEN MENA [facility] [id number] [facility] 2022-12-13 00:00:00 2022-12-13 00:00:00 Outpatient [facility] [id number] [facility] 2022-12-13 00:00:00 2022-12-13 00:00:00 Orders Only Doctor Unassigned, [place] [facility] 1.840.114 350.1.13.10 4.2.7.2.686 [id number] [facility] 2022-10-01 15:06:10 2022-10-01 15:06:10 Outpatient [facility] [address] 2022-09-27 11:19:00 2022-09-27 15:02:00 Emergency X KACI BAY RUST ERT [id number] [facility] 2022-09-27 11:19:00 2022-09-27 15:02:00 Emergency [place]aci [place] [facility] 1.840.114 350.1.13.10 4.2.7.2.686 [id number] [facility] 2022-09-19 16:43:00 2022-09-19 18:04:00 Emergency X CHARLETTE GRIMM RUST ERT [id number] [facility] 2022-09-19 16:43:00 2022-09-19 18:04:00 Emergency Charlette Grimm S [facility] 1.840.114 350.1.13.10 4.2.7.2.686 [id number] [facility] 2022-09-18 13:54:00 2022-09-18 15:42:00 Emergency X RADHA MATSON HEE-KWANG RUST ERT [id number] [facility] 2022-09-18 13:54:00 2022-09-18 15:42:00 Emergency Radha Matson [facility] 1.2.840.114 350.1.13.10 4.2.7.2.686 [id number] [facility] 2022-09-14 08:33:00 2022-09-14 10:02:00 Emergency X CHARLETTE GRIMM RUST ERT [id number] [facility] 2022-09-14 08:33:00 2022-09-14 10:02:00 Emergency Charlette Grimm S [facility] 1.2.840.114 350.1.13.10 4.2.7.2.686 [id number] [facility] 2022-09-10 15:18:56 2022-09-10 15:18:56 Outpatient [facility] [address] 2022-08-26 00:00:00 2022-08-26 00:00:00 Outpatient [facility] [id number] [facility] 2022-07-03 12:44:00 2022-07-03 15:27:00 Emergency X YANICK KATJA RUST ERT [id number] [facility] 2022-07-03 12:44:00 2022-07-03 15:27:00 Emergency Katja Thompson C [facility] 1.2.840.114 350.1.13.10 4.2.7.2.686 [id number] [facility] 2022-07-03 00:00:00 2022-07-03 00:00:00 Orders Only Doctor Unassigned, [place] [facility] 1.2840.114 350.1.13.10 4.2.7.2.686 [id number] [facility] 2022-07-01 00:00:00 2022-07-01 00:00:00 Outpatient [facility] [id number] [facility] 2022-03-27 00:00:00 2022-03-27 00:00:00 Outpatient [facility] [id number] [facility] 2022-02-27 00:00:00 2022-02-27 00:00:00 Case Management Enedelia June [facility] 1..840.114 350.1.13.10 4.2.7.2.686 [id number] [facility] 2022-02-20 00:00:00 2022-02-20 00:00:00 Outpatient [facility] [id number] [facility] 2022-01-23 00:00:00 2022-01-23 00:00:00 Outpatient [facility] [id number] [facility] 2022-01-09 00:00:00 2022-01-09 00:00:00 Outpatient [facility] [id number] [facility] 2021-12-12 00:00:00 2021-12-12 00:00:00 Outpatient [facility] [id number] [facility] 2021-12-06 00:00:00 2021-12-06 00:00:00 [facility] 1..840.114 350.1.13.10 4.2.7.2.686 [id number] [facility] 2021-11-21 00:00:00 2021-11-21 00:00:00 [facility].114 350.1.13.10 4.2.7.2.686 [id number] [facility] 2021-11-08 00:00:00 2021-11-08 00:00:00 [facility] 1..840.114 350.1.13.10 4.2.7.2.686 [id number] [facility] 2021-11-05 00:00:00 2021-11-05 00:00:00 Outpatient [facility] [id number] [facility] 2021-11-05 00:00:00 2021-11-05 00:00:00 Orders Only Doctor Unassigned, [place] [facility] 1.2.840.114 350.1.13.10 4.2.7.2.686 [id number] [facility] 2021-11-02 11:15:00 2021-11-02 13:41:22 Outpatient R [facility] [id number] [facility] 2021-11-02 11:18:54 2021-11-02 11:33:54 [place] Director Visit 2, Adc Lab Aiyana Palm [facility] 1.2840.114 350.1.13.10 4.2.7.2.686 [id number] [facility] 2021-11-01 00:00:00 2021-11-01 00:00:[address] [facility] 1.284.114 350.1.13.10 4.2.7.2.686 [id number] [facility] 2021-10-31 00:00:00 2021-10-31 00:00:00 Transition of Care Lisseth Carmen 1.2840.114 350.1.13.10 4.2.7.2.686 [id number] [facility] 2021-10-24 15:00:00 2021-10-30 17:30:00 [facility] [id number] [facility] 2021-10-24 15:00:00 2021-10-30 17:30:00 Inpatient X GUILLERMOALEXY [facility] [id number] [facility] 2021-10-24 15:00:00 2021-10-30 17:30:00 Hospital Encounter Lakeisha Doyle, Coleen Benton, Alicia [facility] 1.2.840.114 350.1.13.10 4.2.7.2.686 [id number] [facility] 2021-10-30 00:00:00 2021-10-30 00:00:00 Case Management [facility] 1.2.840.114 350.1.13.10 4.2.7.2.686 [id number] [facility] 2021-10-29 00:00:00 2021-10-29 00:00:00 Telephone [facility] 1.2.840.114 350.1.13.10 4.2.7.2.686 [id number] [facility] Results Test Description Test Time [...] is seen in the left upper lobe. [facility]OL[facility] (17219)2024-12-09 21:53:49* Test Item Value Reference Range Interpretation Comme nts NA (test code = 8547749722) 136 mmol/L 135-145 K (test code = 3193063619) 4.0 mmol/L 3.5-5.0 CL (test code = 8005055818) 104 mmol/L 98-108 CO2 TOTAL (test code = 1290313287) 26 mmol/L 23-31 AGAP (test code = 7549917871) 6 2-16 BUN (test code = 9152405667) 17 mg/dL 7-23 GLUCOSE (test code = 7901206063) 98 mg/dL 70-110 CREATININE (test code = 2160-0) 1.12 mg/dL 0.50-1.04 H TOTAL BILI (test code = 2339747554) 0.3 mg/dL 0.1-1.1 CALCIUM (test code = 9306002325) 9.2 mg/dL 8.6-10.6 T PROTEIN (test code = 3390722752) 7.0 g/dL 6.3-8.2 ALBUMIN (test code = 5909948567) 3.9 g/dL 3.5-5.0 ALK PHOS (test code = 4785724549) 68 U/L 34-122 ALTv (test code = 1742-6) 13 U/L 5-35 AST(SGOT) (test code = 9208269147) 35 U/L 13-40 eGFR (test code = 93466-7) 60.4 mL/min/1.73m2 CKD-EPI eGFR (2020). Assuming creatinine has been stable day-to-day for at least three months, the eGFR indicates Category G2 (60 - 89 mL/min/1.73 m2) Lab Interpretation (test code = 13722-5) Abnormal [facility] WITH [id number] 21:44:47* Test Item Value Reference Range Interpretation [...] g/dL 31.6-35.1 L RDW-SD (test code = 54309-3) 47.9 fL 39.0-49.9 RDW-CV (test code = 788-0) 14.7 % 12.0-15.5 PLT (test code = 777-3) 498 166-358 H MPV (test code = 24564-5) 9.2 fL 9.5-12.9 L NRBC/100 WBC (test code = 1462692666) 0.0 0.0-10.0 NRBC x10^3 (test code = 0432477696) See_Comment [Automated messa ge] The system which generated this result transmitted reference range: 10*3/?L. The reference range was not used to interpret this result as normal/abnormal. GRAN MAT (NEUT) % (test code = 770-8) 70.5 % IMM GRAN % (test code = 6105011586) 0.40 % LYMPH % (test code = 736-9) 16.0 % MONO % (test code = 5905-5) 10.2 % EOS % (test code = 713-8) 2.2 % BASO % (test code = 706-2) 0.7 % GRAN MAT x10^3(ANC) (test code = 4572016669) 6.79 10*3/uL 1.88-7.09 IMM GRAN x10^3 (test code = 8201745022) 0.04 10*3/uL 0.00-0.06 LYMPH x10^3 (test code = 731-0) 1.54 10*3/uL 1.32-3.29 MONO x10^3 (test code = 742-7) 0.98 10*3/uL 0.33-0.92 H EOS x10^3 (test code = 711-2) 0.21 10*3/uL 0.03-0.39 BASO x10^3 (test code = 704-7) 0.07 10*3/uL 0.01-0.07 Lab Interpretation (test code = 84835-2) [facility] [id number] 23:25:13 Ordered by an unspecified provider.[facility] [id number] 18:07:00* Test Item Value Reference Range Interpretation Comme nts POCT PREG (test code = 1605) Negative On board controls acceptable with C Line (test code = 3574) Yes POCT PREG LOT # (test code = 3575) POCT PREG TEST DATE ( test code = 3576) [facility] [id number] 18:07:00* Test Item Value Reference Range Interpretation Comme nts POCT PREG (test code = 1605) Negative On board controls acceptable with C Line (test code = 3574) Yes POCT PREG LOT # (test code = 3575) POCT PREG TEST DATE ( test code = 3576) [facility] Screen - ONCE [id number] 22:01:00 * Test Item Value Reference Range Interpretation Comme nts ABO & RH (test code = 20) O POSITIVE IAT (test code = 1185) Negative [facility] WITH [id number] 19:17:50* Test Item Value Reference Range Interpretation [...] g/dL 31.6-35.1 L RDW-SD (test code = 34172-4) 45.0 fL 39.0-49.9 RDW-CV (test code = 788-0) 16.2 % 12.0-15.5 H PLT (test code = 777-3) 508 166-358 H MPV (test code = 88005-1) 9.6 fL 9.5-12.9 NRBC/100 WBC (test code = 1436788504) 0.0 0.0-10.0 NRBC x10^3 (test code = 4478335565) See_Comment [Automated messa ge] The system which generated this result transmitted reference range: 10*3/?L. The reference range was not used to interpret this result as normal/abnormal. GRAN MAT (NEUT) % (test code = 770-8) 73.8 % IMM GRAN % (test code = 1273322728) 0.40 % LYMPH % (test code = 736-9) 15.1 % MONO % (test code = 5905-5) 8.8 % EOS % (test code = 713-8) 1.4 % BASO % (test code = 706-2) 0.5 % GRAN MAT x10^3(ANC) (test code = 4107368357) 7.53 10*3/uL 1.88-7.09 H IMM GRAN x10^3 (test code = 8863923264) 0.04 10*3/uL 0.00-0.06 LYMPH x10^3 (test code = 731-0) 1.54 10*3/uL 1.32-3.29 MONO x10^3 (test code = 742-7) 0.90 10*3/uL 0.33-0.92 EOS x10^3 (test code = 711-2) 0.14 10*3/uL 0.03-0.39 BASO x10^3 (test code = 704-7) 0.05 10*3/uL 0.01-0.07 Lab Interpretation (test code = 09989-2) Abnormal [facility] [id number] 18:48:00* Test Item Value Reference Range Interpretation Comme nts POCT PREG (test code = 1605) Negative On board controls acceptable with C Line (test code = 3574) Yes POCT PREG LOT # (test code = 3575) 245309 POCT PREG TEST DATE ( test code = 3576) 12-29-24 Lab Interpretation (test cod e = 88337-8) Normal [facility] ONLY - SYPHILIS [id number] 15:32:18* Test Item Value Reference Range Interpretation Comme [facility] Syphilis IgG/IgM (test code = 03120-6) Non-reactive Non-reactive RUTH (test code = RUTH) Non-reactive - No serologic evidence of T. pallidum infection. Cannot exclude incubating or early syphilis. Submit a second specimen in 2-4 weeks if syphilis is clinically suspected. Equivocal - Further testing to follow. Reactive - Further testing to follow. Lab Interpretation (test code = 19764-0) Normal [facility] ONLY - SYPHILIS [id number] 15:32:18* Test Item Value Reference Range Interpretation Comme [facility] Syphilis IgG/IgM (test code = 68016-9) Non-reactive Non-reactive RUTH (test code = RUTH) Non-reactive - No serologic evidence of T. pallidum infection. Cannot exclude incubating or early syphilis. Submit a second specimen in 2-4 weeks if syphilis is clinically suspected. Equivocal - Further testing to follow. Reactive - Further testing to follow. Lab Interpretation (test code = 31461-9) Normal [facility] 1[facility]2 AG-AB WITH [id number] 05:46:30* Test Item Value Reference Range Interpretation Comme [facility] HIV Semi-quantitative (test code = 98097-3) 0.08 Negative RUTH (test code = RUTH) Non-reactive for HIV-1 antigen and HIV-1/HIV-2 antibodies. ?No laboratory evidence of HIV infection. ?Repeat in 2-4 weeks if acute HIV infection is suspected. [facility] acute hospital 1/2 AG-AB WITH [id number] 05:46:30* Test Item Value Reference Range Interpretation Comme [facility] HIV Semi-quantitative (test code = 50611-4) 0.08 Negative RUTH (test code = RUTH) Non-reactive for HIV-1 antigen and HIV-1/HIV-2 antibodies. ?No laboratory evidence of HIV infection. ?Repeat in 2-4 weeks if acute HIV infection is suspected. [facility]. METABOLIC PANEL (71801)2022-09-19 22:30:43* Test Item Value Reference Range Interpretation Comme nts NA (test code = 3792592409) 138 mmol/L 135-145 K (test code = 6473703617) 4.9 mmol/L 3.5-5.0 CL (test code = 4795286972) 102 mmol/L 98-108 CO2 TOTAL (test code = 3749464530) 24 mmol/L 23-31 AGAP (test code = 6149144056) 2-16 BUN (test code = 9396288397) 32 mg/dL 7-23 H GLUCOSE (test code = 0307977840) 80 mg/dL 70-110 CREATININE (test code = 4076496324) 1.84 mg/dL 0.50-1.04 H TOTAL BILI (test code = 3774745984) 0.9 mg/dL 0.1-1.1 CALCIUM (test code = 7116143526) 9.5 mg/dL 8.6-10.6 T PROTEIN (test code = 5959447665) 8.0 g/dL 6.3-8.2 ALBUMIN (test code = 1322309695) 4.9 g/dL 3.5-5.0 ALK PHOS (test code = 7414348013) 65 U/L 34-122 ALTv (test code = 1742-6) 15 U/L 5-35 AST(SGOT) (test code = 8089637084) 23 U/L 13-40 eGFR (test code = 5189178863) mL/min/1.73m2 RUTH (test code = RUTH) Association [...] imaging tests). Lab Interpretation (test code = 58280-8) Abnormal [facility] WITH [id number] 22:20:21* Test Item Value Reference Range Interpretation Comme nts WBC (test code = 6690-2) See_Comment [Automated Extended Systems] The system which generated this result transmitted reference range: 4.30 - 11.10 10*3/?L. The reference range was not used to interpret this result as normal/abnormal. RBC (test code = 789-8) See_Comment [Automated Extended Systems] The system which generated this result transmitted [...] 32.5 g/dL 31.6-35.1 RDW-SD (test code = 66912-2) 42.5 fL 39.0-49.9 RDW-CV (test code = 788-0) 13.8 % 12.0-15.5 PLT (test code = 777-3) See_Comment H [Automated Extended Systems] The system which generated this result transmitted reference range: 166 - 358 10*3/?L. The reference range was not used to interpret this result as normal/abnormal. MPV (test code = 73782-9) 10.0 fL 9.5-12.9 NRBC/100 WBC (test code = 4172529346) See_Comment [Automated me ssage] The system which generated this result transmitted reference range: 0.0 - 10.0 /100 WBCs. The reference range was not used to interpret this result as normal/abnormal. NRBC x10^3 (test code = 1909650022) See_Comment [Automated messa ge] The system which generated this result transmitted reference range: 10*3/?L. The reference range was not used to interpret this result as normal/abnormal. GRAN MAT (NEUT) % (test code = 770-8) 63.9 % IMM GRAN % (test code = 2114759365) 0.40 % LYMPH % (test code = 736-9) 22.8 % MONO % (test code = 5905-5) 10.7 % EOS % (test code = 713-8) 1.6 % BASO % (test code = 706-2) 0.6 % GRAN MAT x10^3(ANC) (test code = 3330221951) 6.15 10*3/uL 1.88-7.09 IMM GRAN x10^3 (test code = 0292262441) 0.04 10*3/uL 0.00-0.06 LYMPH x10^3 (test code = 731-0) 2.20 10*3/uL 1.32-3.29 MONO x10^3 (test code = 742-7) 1.03 10*3/uL 0.33-0.92 H EOS x10^3 (test code = 711-2) 0.15 10*3/uL 0.03-0.39 BASO x10^3 (test code = 704-7) 0.06 10*3/uL 0.01-0.07 Lab Interpretation (test code = 21189-4) Abnormal [facility] Notes Date/Time Note Provider Source 2024-12-09 17:38:42 Pt discharged with diagnosis of L facial swelling and dental infection. Printed and verbal instructions reviewed with and given to pt. Prescriptions given x 3. Pt verbalized understanding of teaching, medications, and recommended follow-up. Denies questions or concerns at this time. Pt ambulatory at discharge. Appears in no apparent distress. No ataxia noted. [facility] [employer] Francy Birch RN [facility] 2024-12-09 14:09:09 Pt arrived ambulatory states she has been having a HAx3 days, and woke up this morning with the left side of her face swollen, out of BP metoprolol x2days. [employer] Rita Mcneal RN [facility] 2024-11-12 13:15:00 Addended by: MALATHI CHILDERS on: 11/12/2024 01:49 PM Modules accepted: Level of Service [facility] 2024-02-11 15:50:36 Notified patient of lab results-anemia. Instructed patient to take OTC multi vitamin and iron/vitamin C or with orange juice to aide with absorption. Discussed foods high in iron. Pt verbalized understanding. KARLI DEVLIN RN 02/11/2024 3:52 PM Karli Devlin RN [facility] 2024-02-11 15:15:37 Please advise patient she is anemic, she should try otc iron and multiviatmin, vit c/orange juice to help with absorption, and eating iron rich foods KRISTI Nguyen 02/11/2024 3:16 PM [facility] 2024-01-14 21:46:29 Pt discharged to home. Discharge instructions given to pt regarding management of condition and instructions to follow up with PCP. Pt verbalized understanding. PIV removed without complications. Patient in possession of all belongings. Pt ambulates to [facility] with steady gait. E Putnam RN [facility] 2024-01-14 19:52:21 Reading room contacted regarding ultrasound results. Per radiologist, critical reads are priority and ultrasound scans will be sent to TRA. [facility] 2024-01-14 16:48:17 Pt to ultrasound via wheelchair. [facility] 2024-01-14 16:35:20 Nurse Report Report given to KATHLEEN Doty. Chief complaint, assessment findings, infusion verify and orders reviewed. Plan of care discussed between both nurses with verbalized understanding. No further questions, comments, or concerns at this time. Danika Odonnell RN, [facility] Danika Odonnell RN [facility] 2024-01-14 16:00:58 Pt ambulates to RR without assistance with steady gait. Pt able to give urine sample for possible UA. [facility] 2024-01-14 15:44:12 Pt given urine cup and notified UA is needed. Pt does not need to use RR at this time. [facility] 2024-01-14 15:37:10 Dr Cuevas in G2 for initial pt evaluation [facility] 2024-01-14 15:18:16 Barb Duff is a 48 year old female to ED for excessive vaginal bleeding and pelvic pain. Pt reports bleeding for the past 3 weeks that stopped last night. Pt reports clots. AAO X3, speaking clearly. E Jeffrey RN [facility] 2024-01-11 13:42:12 Discharged by provider. E Theodore RN [facility] 2024-01-11 12:22:41 Has not taken BP meds today [facility] 2024-01-11 12:18:47 Barb Duff is a 48 year old female c/o vaginal bleeding for 3 weeks, abnormal periods for 2 months, states last intercourse 1 month ago, denies vaginal discharge, states today having more cramping, states has had clots the entire 3 weeks, wants an ultrasound as can't get into [employer] [employer] [facility] until February 06, E Jimenez RN [facility]
[2025-03-27] MEDS ORDERED: HYDROCODONE/APAP 5/325 MG TAB ONE (11:20)
--- NOTE | 2025-03-27 12:31 | RAD REPORT ---
EXAMINATION: US RIGHT LOWER EXTREMITY VENOUS DOPPLER CLINICAL INDICATION: Pain;Swelling RIGHT TECHNIQUE: Complete bilateral duplex sonography of the RIGHT lower extremity veins was performed. The examination included compression for vein patency, color Doppler imaging and flow augmentation in response to distal compression of the distal external iliac, common femoral, femoral, popliteal, tibi al, and great and small saphenous veins. COMPARISON: No prior exam. FINDINGS: Duplex sonography testing of the veins of the RIGHT lower extremity was performed. Color flow imaging shows all veins to be compressible with [id number] color filling. Pulsatile and phasic flow is present within all lower extremity deep and superficial veins examined. IMPRESSION: There is no deep vein or superficial vein thrombosis.
--- NOTE | 2025-03-27 13:23 | EDPHYS ---
Physician Documentation [facility] Name: Barb Duff Age: 49 yrs Sex: Female : 1975 Arrival Date: 03/27/2025 Time: 11:02 Bed 11 Private MD: ED Physician Chaka Cotton HPI: 03/27 12:01 This 49 yrs old Black Female presents to ER via Ambulatory with complaints of right Leg dr5 Pain. 12:01 The patient presents with pain, that is acute, tenderness. The complaints affect the dr5 lateral aspect of right thigh, lateral aspect of right knee and lateral aspect of right calf. Onset: The symptoms/episode began/occurred 3 day(s) ago. Patient is a 49-year-old female with history of CHF, hypertension coming in with right leg pain that starts in her right upper leg and radiates down to her right calf. Patient denies chest pain or shortness of breath, denies fall or trauma to right leg. Patient also denies having previous PE or blood clot. Patient reports that pain is worse with ambulation and has taken Tylenol last night that helped the pain. 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 - Social history:: Smoking status: Patient reports the use of cigarette tobacco products, denies chronic smoking, but will smoke occasionally. ROS: 12:01 Constitutional: as per hpi dr5 Exam: 12:01 Constitutional: This is a well developed, well nourished patient who is awake, alert, dr5 and in no acute distress. Head/Face: Normocephalic, atraumatic. Eyes: Pupils equal round and reactive to light, extra-ocular motions intact. Lids and lashes normal. Conjunctiva and sclera are non-icteric and not injected. Cornea within normal limits. Periorbital areas with no swelling, redness, or edema. Neck: Trachea midline, no thyromegaly or masses palpated, and no cervical lymphadenopathy. Supple, full range of motion without nuchal rigidity, or vertebral point tenderness. No Meningismus. Chest/axilla: Normal chest wall appearance and motion. Nontender with no deformity. No lesions are appreciated. Cardiovascular: Regular rate and rhythm with a normal S1 and S2. Normal PMI, no JVD. No pulse deficits. Respiratory: Lungs have equal breath sounds bilaterally, clear to auscultation. No rales, rhonchi or wheezes noted. No increased work of breathing, no retractions or nasal flaring. Back: No spinal tenderness. No costovertebral tenderness. Full range of motion. Skin: Warm, dry with normal turgor. Normal color with no rashes, no lesions, and no evidence of cellulitis. MS/ Extremity: Pulses equal, no cyanosis. Neurovascular intact. Full, normal range of motion. Neuro: Awake and alert, GCS 15, oriented to person, place, time, and situation. Cranial nerves II-XII grossly intact. Motor strength 5/5 in all extremities. Sensory grossly intact. Cerebellar exam normal. Normal gait. Vital Signs: 11:08 BP 153 / 103; Pulse 67; Resp 16; Temp 97.6(O); Pulse Ox 98% on R/A; Weight 79.83 kg; ss Height 5 ft. 5 in. ; Pain 8/10; 11:08 Body Mass Index 29.29 (79.83 kg, 165.1 cm) ss 11:08 Pain Scale: Adult ss MDM: 11:11 Medical Screening Exam initiated dr5 13:59 Differential diagnosis: abrasion, tendonitis, DVT. Data reviewed: vital signs, nurses dr5 notes. I considered the following discharge prescriptions or medication management in the emergency department Medications were administered in the Emergency Department. See MAR. Care significantly affected by the following chronic conditions: Hypertension, Congestive Heart Failure. Care significantly affected by the following Social Determinants of Health: Poor access to healthcare and/or lack of insurance, Poor access to transportation, Problems related to employment. Counseling: I had a detailed discussion with the patient and/or guardian regarding the historical points, exam findings, and any diagnostic results supporting the discharge/admit diagnosis, the presence of at least one elevated blood pressure reading (>120/80) during this emergency department visit, radiology results, the need for outpatient follow up, for definitive care, a family practitioner, to return to the emergency department if symptoms worsen or persist or if there are any questions or concerns that arise at home. ED course: Patient's pain is improved and no DVT noted on US. Will have patient follow-up primary care doctor. Likely muscle strain and recommended to take Tylenol and will give muscle laxer to take as needed With pain. All questions answered and patient ambulated out without pain and with steady gait. Strict ER precautions given. 03/27 11:16 Order name: US Extremity Venous Unilateral Ltd; Complete Time: 12:54 dr5 Administered Medications: 11:28 Drug: HYDROcodone-acetaminophen PO 5 mg-325 mg 2 tabs PO once {Note: pain 8/10 RASS 0.} ll1 Route: PO; 13:29 Follow up: Response: No adverse reaction; Pain is decreased; RASS: Alert and Calm (0) ss Disposition: 22:19 Co-signature as Attending Physician, Chaka Cotton MD I agree with the assessment and gabbie plan of care. Disposition Summary: 03/27/25 13:22 Discharge Ordered Notes: Location: Home dr5 Condition: Stable dr5 Diagnosis - Pain in right leg dr5 Followup: dr5 - With: Emergency Department - When: As needed - Reason: Worsening of condition Followup: dr5 - With: Private Physician - When: 1 - 2 days - Reason: Recheck today's complaints, Continuance of care, Re-evaluation by your physician Discharge Instructions: - Discharge Summary Sheet dr5 - Musculoskeletal Pain dr5 Forms: - Medication Reconciliation Form dr5 - Patient Portal Instructions dr5 - Leadership Thank You Letter dr5 Prescriptions: - Tylenol 325 mg Oral tablet - take 2 tablets ORAL route every 6 hours As needed as needed; 30 tablet; dr5 Refills: 0, Product Selection Permitted - Cyclobenzaprine 10 mg Oral Tablet - take 1 tablet ORAL route every 8 hours As needed; 30 tablet; Refills: 0, dr5 Product Selection Permitted Signatures: Dispatcher [employer] Chaka London MD MD cha Blanchard, Shelby, RN RN ss Darrion Mitchell RN RN ll1 Abram Montes, YOLANDA-C CABIN CLEANING SUPERVISOR-Cdr5
--- NOTE | 2025-03-27 13:23 | ER ---
Nurse's Notes [facility] Name: Barb Duff Age: 49 yrs Sex: Female : 1975 Arrival Date: 03/27/2025 Time: 11:02 Bed 11 Private MD: Diagnosis: Pain in right leg Presentation: 03/27 11:08 Chief complaint: Patient states: R lower leg pain that began 3 days ago. No known ss injury. Coronavirus screen: Client denies travel out of the [place] in the last 14 days. Ebola Screen: Patient denies exposure to infectious person. Patient denies travel to an Ebola-affected area in the 21 days before illness onset. Initial Sepsis Screen: Does the patient meet any 2 criteria? No. Patient's initial sepsis screen is negative. Does the patient have a suspected source of infection? No. Patient's initial sepsis screen is negative. Risk Assessment: Do you want to hurt yourself or someone else? Patient reports no desire to harm self or others. Onset of symptoms was March 24, 2025. 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 - Social history:: Smoking status: Patient reports the use of cigarette tobacco products, denies chronic smoking, but will smoke occasionally. Screenin:14 Abuse screen: Denies threats or abuse. Denies injuries from another. Nutritional ss screening: No deficits noted. Tuberculosis screening: Never had TB. Assessment: 11:14 General: Appears in no apparent distress. comfortable, Behavior is calm, cooperative. ss Pain: Complains of pain in right quadriceps and right knee Pain currently is 8 out of 10 on a pain scale. Quality of pain is described as aching, sharp, Pain began 2-3 days ago. Is continuous. Neuro: Level of Consciousness is awake, alert, obeys commands, Oriented to person, place, time, situation. Cardiovascular: Pulses are palpable in right posterior tibial artery, right dorsalis pedis artery, left posterior tibial artery and left dorsalis pedis artery. Respiratory: Respiratory effort is even, unlabored, Respiratory pattern is regular, symmetrical. GI: No signs and/or symptoms were reported involving the gastrointestinal system. EENT: Oral mucosa is moist. Derm: Skin is intact, is healthy with good turgor, Skin is dry, Skin is pink, warm \T\ dry. normal. 11:28 Reassessment: No changes from previously documented assessment. Patient and/or family ll1 updated on plan of care and expected duration. Pain level reassessed. Patient is alert, oriented x 3, equal unlabored respirations, skin warm/dry/pink. Vital Signs: 11:08 BP 153 / 103; Pulse 67; Resp 16; Temp 97.6(O); Pulse Ox 98% on R/A; Weight 79.83 kg; ss Height 5 ft. 5 in. ; Pain 8/10; 11:08 Body Mass Index 29.29 (79.83 kg, 165.1 cm) ss 11:08 Pain Scale: Adult ss ED Course: 11:05 Patient arrived in ED. mr 11:09 Abram Montes, RICHARD is PHCP. dr5 11:09 Chaka Cotton MD is Attending Physician. dr5 11:10 Triage completed. ss 11:10 Arm band placed on right wrist. ss 11:14 Nadya Fields, RN is Primary Nurse. ss 11:14 Patient has correct armband on for positive identification. ss 12:04 US Extremity Venous Unilateral Ltd In Process Unspecified. EDMS 13:28 No provider procedures requiring assistance completed. Patient did not have IV access ss during this emergency room visit. Administered Medications: 11:28 Drug: HYDROcodone-acetaminophen PO 5 mg-325 mg 2 tabs PO once {Note: pain 8/10 RASS 0.} ll1 Route: PO; 13:29 Follow up: Response: No adverse reaction; Pain is decreased; RASS: Alert and Calm (0) ss Medication: 11:14 VIS not applicable for this client. ss Outcome: 13:22 Discharge ordered by . dr5 13:28 Discharged to home ambulatory, ss 13:28 Condition: good 13:28 Discharge instructions given to patient, Instructed on discharge instructions, follow up and referral plans. medication usage, Demonstrated understanding of instructions, follow-up care, medications, Prescriptions given X 2, 13:28 Patient left the ED. ss Signatures: Dispatcher [employer] SHARMILA RayaElizabeth, Reg Reg mr Nadya Fields, KATHLEEN RN ss Darrion Mitchell, KATHLEEN RN ll1 Abram Montes, YOLANDA-C HEALTHCARE EDUCATOR-[facility] [place]5
[2025-03-27 14:29] VITALS: BP 153/103; TEMP 97.6; O2SAT 98
== END 2025-03-27 13:28 | disposition home or self-care (01) ==
LOC: ER 11:02
DX: M79.604 Pain in right leg (principal); F17.210 Nicotine dependence, cigarettes, uncomplicated
CPT/HCPCS: 93971; 99283

== ENCOUNTER 2025-04-05 13:40 | Emergency (ER) | payer SELFPAY, OTHER ==
--- OUTSIDE RECORDS SUMMARY | 2025-04-05 13:46 | XMS REPORT | Continuity of Care Document ---
Author Name Unknown Address [address] [facility] [place] [address] [facility] Address [address] [place] [address] Care Team Providers Care Explosive Ordnance Manager Name Role Phone PCP, PATIENT DOES NOT HAVE A Primary Care Physic annita Unavailable MALATHI CHILDERS Attending Clinician Unavailable Malathi Leonard Attending Clinician [phone] Doctor Unassigned, [place] Attending Clinician U BERNABE Balderas Attending Clinician Unavailable Bernabe Schmitt Attending Clinician [phone] CULLEN ATKINSON Attending Clinician Unavail able Cullen Jules Attending Clinician + JULIA OAKES Attending Clinician UnavailJulia Kwok CNM Attending Clinician [phone] Cullen Jules Attending Clinician + Doctor Unassigned, [place] Attending Clinician U AREN Dave Attending Clinician UnavailAren Moncada MD Attending Clinician [phone] JENNA KAPOOR Attending Clinician Unavailable Jenna Tyler Attending Clinician [phone] Visit, [facility] Nurse Attending Clinician Unaalexey land Provider, [facility] Temp Attending Clinician Shanique KACI Dubon Attending Clinician Unavailable Kaci Baron Attending Clinician [phone] Chelly Levy MD Attending Clinician [phone] CHARLETTE GRIMM Attending Clinician Unavailable Charlette Vega S Attending Clinician [phone] RADHA MATSON Attending Clinician Unavailable RADHA MATSON Attending Clinician Unavailable Radha Matson DO Attending Clinician [phone] KATJA THOMPSON Attending Clinician Unavailable Katja Thompson MD Attending Clinician [phone] Enedelia June LMSW Attending Clinician Unaalexey Palm MD, Aiyana Man Attending Clinician + AIYANA PALM Attending Clinician Unaponcho connelly 2, [facility] Attending Clinician Unavailable Lisseth Carmen RN Attending Clinician Unavailab Lakeisha Gerard Attending Clinician [phone] Coleen Yarbrough MD Attending Clinician [phone] Alicia Benton MD Attending Clinician [phone] BERNABE TOLENTINO Admitting Clinician Unavailable MORAREN HENSLEY Admitting Clinician UnavailAIYANA Larsen Admitting Clinician Cedric Palm MD, Aiyana Man Admitting Clinician + Payers Payer Name Policy Type Policy Number Effective Date Expirati on Date Source [facility] [id number] 2025 00:00:00 MEDICAID PENDING PENDING 2021 00:00:00 Problems Condition Name Condition Details Condition Category Status Onset Date Resolution Date Last Treatment Date Treating Clinician Comments Source Tobacco use disorder Tobacco use disorder Disease Active 3 00:00: 00 [facility] hospital Heart failure Heart failure Disease Active 2020-11 2- 00:00: 00 [facility] acute hospital Hypertensi ve urgency Hypertensi ve urgency Disease Active 2020-11 00:00: 00 [facility] Essential hypertensi on, benign Essential hypertensi on, benign Disease Active 05-06 00:00: 00 [facility] History of tubal ligation History of tubal ligation Disease Active 05-06 00:00: 00 [facility] acute hospital Obesity (BMI 30-39.9) Obesity (BMI 30-39.9) Disease Resolve d 2020-11 00:00: 00 2024-03-09 00:00:00 2024-03-09 14:15:46 General acute hospital Contracept piero management Contracept piero management Disease Resolve d 05-06 00:00: 00 2023-02-09 00:00:00 2023-02-09 14:08:22 General acute hospital Sexually transmitte d disease exposure Sexually transmitte d disease exposure Disease Resolve d 05-06 00:00: 00 2023-02-09 00:00:00 2023-02-09 14:08:46 General acute hospital BV (bacterial vaginosis) BV (bacterial vaginosis) Disease Resolve d 05-06 00:00: 00 2023-02-06 00:00:00 2023-02-06 13:08:54 General acute hospital Allergies, Adverse Reactions, Alerts Allergy Name Allergy Type Status Severity Reaction(s) Onset Date Inactive Date Treating Clinician Comments Source NO KNOWN ALLERGIE S Drug Class Active [facility] acute hospital Social History Social Habit Start Date Stop Date Quantity Comments Source History of tobacco use Cigarette Smoker [facility] ASSERTION Not General acute hospital History SDOH Alcohol Std Drinks [facility] Gender identity [facility] beverage intake 2024-12-30 00:00:00 2024-12-30 00:00:00 Current drinker of alcohol (finding) [facility] History of Social function 2024-12-29 00:00:00 2024-12-29 00:00:00 [facility] Tobacco use and exposure 2024-08-11 00:00:00 2024-08-11 00:00:00 Smokeless tobacco non-user [facility] Cigarettes smoked current (pack per day) - Reported 2024-08-11 00:00:00 2024-08-11 00:00:00 [facility] Cigarette pack-years 2024-08-11 00:00:00 2024-08-11 00:00:00 [facility] Alcohol intake 2024-03-17 00:00:00 2024-03-17 00:00:00 Current drinker of alcohol (finding) [facility] Exposure to SARS-CoV-2 (event) 2023-03-07 00:00:00 2023-03-17 15:14:00 Not sure [facility] Alcohol Comment 2023-02-06 00:00:00 2023-02-06 00:00:00 socially [facility] History SDOH Financial 2022-10-10 00:00:00 2022-10-10 00:00:00 3 [facility] History SDOH Food Worry 2022-10-10 00:00:00 2022-10-10 00:00:00 1 [facility] History SDOH Food Scarcity 2022-10-10 00:00:00 2022-10-10 00:00:00 1 [facility] History SDOH Transport Med 2022-10-10 00:00:00 2022-10-10 00:00:00 2 [facility] History SDOH Transport Non-Med 2022-10-10 00:00:00 2022-10-10 00:00:00 2 [facility] History SDOH Alcohol Frequency 2022-10-10 00:00:00 2022-10-10 00:00:00 1 [facility] History SDOH Alcohol Binge 2022-10-10 00:00:00 2022-10-10 00:00:00 1 [facility] History SDOH Stress 2021-11-05 00:00:00 2021-11-05 00:00:00 2 [facility] Sex assigned at 1975 00:00:00 1975 00:00:00 [facility] Smoking Status Start Date Stop Date Source Current every day smoker [facility] Occasional tobacco smoker 2024-08-11 00:00:00 [facility] Ex-smoker 2021-11-05 00:00:00 2021-11-05 00:00:00 [facility] Medications Ordered Medication Name Filled Medication Name Start Date Stop Date Current Medication? Ordering Clinician Indication Dosage Frequency Signature (SIG) Comments Components Source amLODIPine 5 mg tablet 12-29 00:00: 00 Yes [id number] 5mg Take 1 tablet by mouth in the morning. [facility] acute hospital atorvastati n 40 mg tablet 12-29 00:00: 00 Yes [id number] 40mg Take 1 tablet by mouth at bedtime. [facility] acute hospital bumetanide 2 mg tablet 12-29 00:00: 00 Yes [id number] 2mg Take 1 tablet by mouth in the morning and 1 tablet in the evening. [facility] acute hospital SERTraline (ZOLOFT) 25 mg tablet 12-29 00:00: 00 Yes [id number] 25mg Take 1 tablet by mouth in the morning. [facility] acute hospital dapaglifloz in propanediol (FARXIGA) 10 mg tablet 12-29 00:00: 00 Yes 10mg Take 1 tablet by mouth in the morning. [facility] acute hospital iopamidol (ISOVUE 370-500 mL) injection 85 mL 12-09 23:15: 00 12-09 23:15 :00 No [id number] 85mL 85 mL, Intravenou s, ONCE, 1 dose, On Mar 12/09/24 at 1715, Routine [facility] clindamycin in 5 % dextrose (CLEOCIN) 900 mg/50 mL IV piggyback RTU 900 mg 12-09 23:00: 00 12-09 23:35 :00 No 900mg 900 mg, IV Piggyback, ONCE, 1 dose, On Mar 12/09/24 at 1700, Administer over 30 Minutes, 50 mL, Reason for Anti-Infec tive: Documented Infection, Documented Infection Site: HEENT, Duration of Therapy: Once (ED), Restricted use approved by: ED PROVIDER [facility] acute hospital dexamethaso ne sod phos PF injection 10 mg 12-09 23:00: 00 12-09 23:04 :00 No 10mg 10 mg, Slow IV Push, ONCE, 1 dose, On Mar 12/09/24 at 1700, 1 mL [facility] hospital acetaminoph en (TYLENOL) tablet 650 mg 12-09 22:45: 00 12-09 22:47 :00 No 650mg 650 mg, Oral, ONCE, 1 dose, On Mar 12/09/24 at 1645, TOYIN [facility] hospital chlorhexidi ne 0.12 % mouthwash 12-09 00:00: 00 Yes [id number] 15mL Swish and spit out 15 mL in the morning and 15 mL in the evening. [facility] clindamycin 150 mg capsule 12-09 00:00: 00 12-17 05:59 :00 No [id number] 450mg Take 3 capsules by mouth 4 (four) times daily for 7 days. [facility] acute hospital Saccharomyc es boulardii (FLORASTOR) 250 mg capsule 12-09 00:00: 00 12-17 05:59 :00 No [id number] 250mg Take 1 capsule by mouth in the morning and 1 capsule in the evening. Do all this for 7 days. [facility] acute hospital ARIPIPRAZOL E 15 mg tablet 2023-11 00:00: 00 Yes [id number] 15mg TAKE ONE (1) TABLET(S) BY MOUTH ONCE A DAY AT BEDTIME. [facility] acute hospital SERTraline (ZOLOFT) 25 mg tablet 2023-11 00:00: 00 Yes [id number] 25mg Take 1 tablet by mouth in the morning. [facility] METOPROLOL SUCCINATE XL 50 mg 24 hr tablet 2023-11 004 00:00: 00 Yes [id number] 50mg TAKE ONE (1) TABLET(S) BY MOUTH TWICE A DAY. [facility] etonogestre L (NEXPLANON) implant 68 mg 6-20 19:30: 00 05-13 19:39 :03 No 68mg [facility] sacubitriL- valsartan (ENTRESTO) 97-103 mg tablet 03-23 00:00: 00 Yes 1{tbl} Take 1 tablet by mouth in the morning and 1 tablet in the evening. [facility] acute hospital levonorgest reL (MIRENA) IUD 1 Device 03-17 19:30: 00 03-17 19:07 :00 No [id number] 100 1{devic e} 1 Device, Intrauteri ne, ONCE, 1 dose, On Fri03/17/24 at 1430, Routine [facility] acute hospital sacubitriL- valsartan (ENTRESTO) 24-26 mg tablet 03-12 00:00: 00 Yes [id number] 1{tbl} Take 1 tablet by mouth in the morning and 1 tablet in the evening. [facility] hospital ARIPIPRAZOL E 15 mg tablet 03-12 00:00: 00 Yes [id number] 15mg TAKE ONE (1) TABLET(S) BY MOUTH ONCE A DAY AT BEDTIME. [facility] sacubitriL- valsartan (ENTRESTO) 49-51 mg tablet 3-18 13:22: 56 Yes 1{tbl} Take 1 tablet by mouth in the morning and 1 tablet in the evening. [facility] amLODIPine 5 mg tablet 2-14 00:00: 00 Yes [id number] 5mg Take 1 tablet by mouth in the morning. [facility] hospital atorvastati n 40 mg tablet 2-06 00:00: 00 Yes [id number] 40mg Take 1 tablet by mouth at bedtime. [facility] acute hospital bumetanide 2 mg tablet 2- 00:00: 00 Yes [id number] 2mg Take 1 tablet by mouth in the morning and 1 tablet in the evening. [facility] acute hospital metoprolol succinate XL 50 mg 24 hr tablet 2024-0 2-06 00:00: 00 Yes [id number] 50mg Take 1 tablet by mouth in the morning and 1 tablet in the evening. [facility] ARIPiprazol e (ABILIFY) 15 mg tablet 2-06 00:00: 00 Yes [id number] 15mg Take 1 tablet by mouth at bedtime. [facility] dapaglifloz in propanediol (FARXIGA) 10 mg tablet 2-06 00:00: 00 02-08 00:00 :00 No 10mg Take 1 tablet by mouth in the morning. [facility] metoprolol succinate XL 25 mg 24 hr tablet 4-24 00:00: 00 Yes [id number] 25mg Take 1 tablet by mouth in the morning and 1 tablet in the evening. [facility] ARIPiprazol e (ABILIFY) 15 mg tablet -24 00:00: 00 Yes [id number] 15mg Take 1 tablet by mouth at bedtime. [facility] atorvastati n 40 mg tablet 4-24 00:00: 00 Yes [id number] 40mg Take 1 tablet by mouth at bedtime. [facility] acute [facility] bumetanide 2 mg tablet 4-24 00:00: 00 Yes [id number] 2mg Take 1 tablet by mouth in the morning and 1 tablet in the evening. [facility] amLODIPine 5 mg tablet 4-24 00:00: 00 Yes [id number] 5mg Take 1 tablet by mouth in the morning. [facility] metroNIDAZO LE 500 mg tablet 3-19 00:00: 00 02-10 04:59 :00 No [id number] 2000mg Take 4 tablets by mouth once now for 1 dose. [facility] acute hospital sacubitriL- valsartan (ENTRESTO) 24-26 mg tablet 2-13 00:00: 00 Yes [id number] 1{tbl} Take 1 tablet by mouth in the morning and 1 tablet in the evening. [facility] acute hospital ARIPiprazol e (ABILIFY) 15 mg tablet 2-13 00:00: 00 Yes [id number] 15mg Take 1 tablet by mouth at bedtime. [facility] acute hospital ATORVASTATI N 40 mg tablet 2-08 00:00: 00 Yes [id number] TAKE ONE (1) TABLET(S) BY MOUTH ONCE A DAY AT BEDTIME. [facility] acute [facility] BUMETANIDE 2 mg tablet 1-09 00:00: 00 Yes [id number] TAKE ONE (1) TABLET BY MOUTH 2 (TWO) TIMES DAILY. [facility] hospital ARIPiprazol e (ABILIFY) 15 mg tablet 2021-11 2-19 00:00: 00 Yes [id number] 15mg Take 1 tablet by mouth in the morning. [facility] METOPROLOL SUCCINATE XL 25 mg 24 hr tablet 2021-11 00:00: 00 Yes [id number] TAKE THREE (3) TABLET(S) BY MOUTH TWICE A DAY. [facility] AMLODIPINE 5 mg tablet 2021-11 00:00: 00 Yes [id number] TAKE ONE (1) TABLET BY MOUTH DAILY. [facility] hospital cefdinir (OMNICEF) capsule 300 mg 2021-11 18:30: 00 09-27 18:34 :00 No 300mg 300 mg, Oral, ONCE, 1 dose, On Fri09/27/22 at 1330, TOYIN
Re ason for Anti-Infec tive: Documented Infection< br>Documen anisha Infection Site: Urine
D uration of Therapy: 7 days [facility] cefdinir 300 mg capsule 2021-11 00:00: 00 10-08 05:59 :00 No [id number] 300mg Take 1 capsule by mouth every 12 (twelve) hours for 10 days. [facility] acute [facility] ciprofloxac in HCl 500 mg tablet 2021-11 0-27 00:00: 00 09-23 04:59 :00 No [id number] 250mg Take 0.5 tablets by mouth in the morning and 0.5 tablets in the evening. Do all this for 3 days. [facility] METOPROLOL SUCCINATE XL 25 mg 24 hr tablet 2021-11 0-07 00:00: 00 Yes [id number] TAKE THREE (3) TABLET(S) BY MOUTH TWICE A DAY. [facility] DULoxetine 30 mg capsule 2021-11 0-03 00:00: 00 Yes [id number] 30mg Take 1 capsule by mouth in the morning. [facility] acute [facility] cetirizine 10 mg tablet 2021-11 0-03 00:00: 00 18 00:00 :00 No [id number] 10mg Take 1 tablet by mouth in the morning. [facility] ATORVASTATI N 40 mg tablet 8-29 00:00: 00 Yes [id number] TAKE ONE (1) TABLET(S) BY MOUTH ONCE A DAY AT BEDTIME. [facility] ofloxacin 0.3 % otic drops 8-10 00:00: 00 Yes [id number] 5[drp] Place 5 Drops in right ear in the morning and 5 Drops in the evening. [facility] DULoxetine 30 mg capsule 8-08 00:00: 00 Yes [id number] 30mg Take 1 capsule by mouth in the morning. [facility] METOPROLOL SUCCINATE XL 25 mg 24 hr tablet 8-03 00:00: 00 Yes [id number] TAKE THREE (3) TABLET(S) BY MOUTH TWICE A DAY. [facility] ATORVASTATI N 40 mg tablet 4-18 00:00: 00 Yes [id number] TAKE ONE (1) TABLET(S) BY MOUTH ONCE A DAY AT BEDTIME. [facility] amLODIPine 5 mg tablet 3-23 00:00: 00 Yes [id number] 5mg Take 1 tablet by mouth daily. [facility] METOPROLOL SUCCINATE XL 25 mg 24 hr tablet 3-23 00:00: 00 06-26 00:00 :00 No [id number] TAKE THREE (3) TABLET(S) BY MOUTH TWICE A DAY. [facility] bumetanide 2 mg tablet 01-23 00:00: 00 Yes [id number] 2mg Take 1 tablet by mouth 2 (two) times daily. [facility] ARIPiprazol e (ABILIFY) 15 mg tablet 12-11 00:00: 00 Yes [id number] 15mg Take 1 tablet by mouth at bedtime. [facility] aspirin 81 mg chewable tablet 2020-11 00:00: 00 Yes [id number] 81mg Take 1 tablet by mouth daily. [facility] metoprolol succinate XL 25 mg 24 hr tablet 2020-11 00:00: 00 Yes [id number] 75mg Take 3 tablets by mouth 2 (two) times daily. [facility] hydrALAZINE 50 mg tablet 2020-11 00:00: 00 Yes [id number] 50mg Take 1 tablet by mouth every 12 (twelve) hours. [facility] acute hospital bumetanide 2 mg tablet 2020-11 00:00: 00 Yes [id number] 2mg Take 1 tablet by mouth 2 (two) times daily. [facility] acute hospital atorvastati n 40 mg tablet 2020-11 00:00: 00 Yes [id number] 40mg Take 1 tablet by mouth at bedtime. [facility] acute [facility] Magnesium Oxide 420 mg Tab 2020-11 00:00: 00 02-08 00:00 :00 No [id number] 400mg Take 400 mg by mouth daily. [facility] acute [facility] KLOR-CON M20 20 mEq tablet 2020-11 00:00: 00 Yes [facility] magnesium oxide 420 mg Tab 2020-11 00:00: 00 Yes [id number] 400mg Take 400 mg by mouth daily. [facility] cloNIDine 0.2 mg tablet 2020-11 00:00: 00 Yes [id number] .1mg Take 0.5 tablets by mouth 2 (two) times daily. [facility] acute [facility] metoprolol succinate XL 25 mg 24 hr tablet 2020-11 00:00: 00 Yes [id number] 75mg Take 3 tablets by mouth 2 (two) times daily. [facility] aspirin 81 mg chewable tablet 2020-11 00:00: 00 Yes [id number] 81mg Take 1 tablet by mouth daily. [facility] atorvastati n 40 mg tablet 2020-11 00:00: 00 Yes [id number] 40mg Take 1 tablet by mouth at bedtime. [facility] acute hospital bumetanide 2 mg tablet 2020-11 00:00: 00 Yes [id number] 2mg Take 1 tablet by mouth 2 (two) times daily. [facility] acute [facility] hydrALAZINE 50 mg tablet 2020-11 00:00: 00 Yes [id number] 50mg Take 1 tablet by mouth every 12 (twelve) hours. [facility] acute hospital sacubitriL- valsartan (ENTRESTO) 24-26 mg tablet 2020-11 00:00: 00 Yes [id number] 1{tbl} Take 1 tablet by mouth 2 (two) times daily. [facility] acute hospital Immunizations Ordered Immunization Name Filled Immunization Name Date Status Comments Source Influenza, split virus, trivalent, PF (AFLURIA/FLUARIX/FL ULAVAL/FLUZONE) 2024-08-11 00:00:00 Completed [facility] Influenza Virus Vaccine Quad .5 mL IM 6+ MO (FLUZONE/FLULAVAL/F LUARIX) 2023-02-06 00:00:00 Completed [facility] Influenza Virus Vaccine Quad .5 mL IM 6+ MO 2023-02-06 00:00:00 Completed [facility] Influenza Virus Vaccine Quad .5 mL IM 6+ MO 2023-02-06 00:00:00 Completed [facility] Influenza Virus Vaccine Quad .5 mL IM 6+ MO 2023-02-06 00:00:00 Completed [facility] Influenza Virus Vaccine Quad .5 mL IM 6+ MO 2023-02-06 00:00:00 Completed [facility] Influenza Virus Vaccine Quad .5 mL IM 6+ MO 2023-02-06 00:00:00 Completed [facility] Influenza Virus Vaccine Quad .5 mL IM 6+ MO (FLUZONE/FLULAVAL/F LUARIX) 2023-02-06 00:00:00 Completed [facility] Influenza Virus Vaccine Quad .5 mL IM 6+ MO (FLUZONE/FLULAVAL/F LUARIX) 2023-02-06 00:00:00 Completed [facility] SARS-COV-2 COVID-19 PFIZER VACCINE 2021-03-08 00:00:00 Completed SARS-COV-2 COVID-19 PFIZER VACCINE 2021-03-08 00:00:00 Completed [facility] SARS-COV-2 COVID-19 PFIZER VACCINE 2021-03-08 00:00:00 Completed [facility] SARS-COV-2 COVID-19 PFIZER VACCINE 2021-03-08 00:00:00 Completed [facility] SARS-COV-2 COVID-19 PFIZER VACCINE 2021-03-08 00:00:00 Completed [facility] SARS-COV-2 COVID-19 PFIZER VACCINE 2021-03-08 00:00:00 Completed [facility] SARS-COV-2 COVID-19 PFIZER VACCINE 2021-03-08 00:00:00 Completed [facility] SARS-COV-2 COVID-19 PFIZER VACCINE 2021-03-08 00:00:00 Completed [facility] SARS-COV-2 COVID-19 PFIZER VACCINE 2021-03-08 00:00:00 Completed [facility] SARS-COV-2 COVID-19 PFIZER VACCINE 2021-03-08 00:00:00 Completed [facility] SARS-COV-2 COVID-19 PFIZER VACCINE 2021-03-08 00:00:00 Completed [facility] SARS-COV-2 COVID-19 PFIZER VACCINE 2021-03-08 00:00:00 Completed [facility] SARS-COV-2 COVID-19 PFIZER VACCINE 2021-03-08 00:00:00 Completed [facility] SARS-COV-2 COVID-19 PFIZER VACCINE 2021-03-08 00:00:00 Completed [facility] SARS-COV-2 COVID-19 PFIZER VACCINE 2021-03-08 00:00:00 Completed [facility] SARS-COV-2 COVID-19 PFIZER VACCINE 2021-03-08 00:00:00 Completed [facility] SARS-COV-2 COVID-19 PFIZER VACCINE 2021-03-08 00:00:00 Completed [facility] SARS-COV-2 COVID-19 PFIZER VACCINE 2021-02-15 00:00:00 Completed [facility] SARS-COV-2 COVID-19 PFIZER VACCINE 2021-02-15 00:00:00 Completed [facility] SARS-COV-2 COVID-19 PFIZER VACCINE 2021-02-15 00:00:00 Completed [facility] SARS-COV-2 COVID-19 PFIZER VACCINE 2021-02-15 00:00:00 Completed [facility] SARS-COV-2 COVID-19 PFIZER VACCINE 2021-02-15 00:00:00 Completed [facility] SARS-COV-2 COVID-19 PFIZER VACCINE 2021-02-15 00:00:00 Completed [facility] SARS-COV-2 COVID-19 PFIZER VACCINE 2021-02-15 00:00:00 Completed [facility] SARS-COV-2 COVID-19 PFIZER VACCINE 2021-02-15 00:00:00 Completed [facility] SARS-COV-2 COVID-19 PFIZER VACCINE 2021-02-15 00:00:00 Completed [facility] SARS-COV-2 COVID-19 PFIZER VACCINE 2021-02-15 00:00:00 Completed [facility] SARS-COV-2 COVID-19 PFIZER VACCINE 2021-02-15 00:00:00 Completed [facility] SARS-COV-2 COVID-19 PFIZER VACCINE 2021-02-15 00:00:00 Completed [facility] SARS-COV-2 COVID-19 PFIZER VACCINE 2021-02-15 00:00:00 Completed [facility] SARS-COV-2 COVID-19 PFIZER VACCINE 2021-02-15 00:00:00 Completed [facility] SARS-COV-2 COVID-19 PFIZER VACCINE 2021-02-15 00:00:00 Completed [facility] SARS-COV-2 COVID-19 PFIZER VACCINE 2021-02-15 00:00:00 Completed [facility] SARS-COV-2 COVID-19 PFIZER VACCINE 2021-02-15 00:00:00 Completed [facility] Influenza Virus Vaccine Quad .5 mL IM 6+ MO (FLUZONE/FLULAVAL/F LUARIX) Unknown Completed [facility] SARS-COV-2 COVID-19 PFIZER VACCINE Unknown Completed [facility] Influenza Virus Vaccine Quad .5 mL IM 6+ MO (FLUZONE/FLULAVAL/F LUARIX) Unknown Completed [facility] SARS-COV-2 COVID-19 PFIZER VACCINE Unknown Completed [facility] Influenza Virus Vaccine Quad .5 mL IM 6+ MO (FLUZONE/FLULAVAL/F LUARIX) Unknown Completed [facility] SARS-COV-2 COVID-19 PFIZER VACCINE Unknown Completed [facility] Influenza Virus Vaccine Quad .5 mL IM 6+ MO (FLUZONE/FLULAVAL/F LUARIX) Unknown Completed [facility] SARS-COV-2 COVID-19 PFIZER VACCINE Unknown Completed [facility] SARS-COV-2 COVID-19 PFIZER VACCINE Unknown Completed [facility] Influenza Virus Vaccine Quad .5 mL IM 6+ MO (FLUZONE/FLULAVAL/F LUARIX) Unknown Completed [facility] SARS-COV-2 COVID-19 PFIZER VACCINE Unknown Completed [facility] Influenza Virus Vaccine Quad .5 mL IM 6+ MO (FLUZONE/FLULAVAL/F LUARIX) Unknown Completed [facility] Influenza, split virus, trivalent, PF (AFLURIA/FLUARIX/FL ULAVAL/FLUZONE) Unknown Completed [facility] SARS-COV-2 COVID-19 PFIZER VACCINE Unknown Completed [facility] Influenza Virus Vaccine Quad .5 mL IM 6+ MO (FLUZONE/FLULAVAL/F LUARIX) Unknown Completed [facility] SARS-COV-2 COVID-19 PFIZER VACCINE Unknown Completed [facility] Influenza Virus Vaccine Quad .5 mL IM 6+ MO (FLUZONE/FLULAVAL/F LUARIX) Unknown Completed [facility] SARS-COV-2 COVID-19 PFIZER VACCINE Unknown Completed [facility] Influenza Virus Vaccine Quad .5 mL IM 6+ MO (FLUZONE/FLULAVAL/F LUARIX) Unknown Completed [facility] SARS-COV-2 COVID-19 PFIZER VACCINE Unknown Completed [facility] Influenza Virus Vaccine Quad .5 mL IM 6+ MO (FLUZONE/FLULAVAL/F LUARIX) Unknown Completed [facility] SARS-COV-2 COVID-19 PFIZER VACCINE Unknown Completed [facility] Influenza Virus Vaccine Quad .5 mL IM 6+ MO (FLUZONE/FLULAVAL/F LUARIX) Unknown Completed [facility] Vital Signs Vital Name Observation Time Observation Value Comments S ource Systolic blood pressure 2025-03-15 17:57:00 200 mm[Hg] [facility] Diastolic blood pressure 2025-03-15 17:57:00 100 mm[Hg] [facility] Heart rate 2025-03-15 17:52:00 77 /min [facility] Body temperature 2025-03-15 17:52:00 35.72 Jasmin [facility] Respiratory rate 2025-03-15 17:52:00 18 /min [facility] Body height 2025-03-15 17:52:00 165.1 cm [facility] Body weight 2025-03-15 17:52:00 80.65 kg [facility] BMI 2025-03-15 17:52:00 29.59 kg/m2 [facility] Systolic blood pressure 2024-12-09 23:33:00 171 mm[Hg] [facility] Diastolic blood pressure 2024-12-09 23:33:00 94 mm[Hg] [facility] Heart rate 2024-12-09 23:33:00 91 /min [facility] Body temperature 2024-12-09 23:33:00 36.17 Jasmin [facility] Respiratory rate 2024-12-09 23:33:00 15 /min [facility] Oxygen saturation in Arterial blood by Pulse oximetry 2024-12-09 23:33:00 99 /min [facility] Body height 2024-12-09 20:12:00 165.1 cm [facility] Body weight 2024-12-09 20:12:00 87.091 kg [facility] BMI 2024-12-09 20:12:00 31.95 kg/m2 [facility] Systolic blood pressure 2024-11-12 19:20:00 150 mm[Hg] [facility] Diastolic blood pressure 2024-11-12 19:20:00 90 mm[Hg] [facility] Heart rate 2024-11-12 19:19:00 85 /min [facility] Body temperature 2024-11-12 19:19:00 35.72 Jasmin [facility] Respiratory rate 2024-11-12 19:19:00 18 /min [facility] Body height 2024-11-12 19:19:00 165.1 cm [facility] Body weight 2024-11-12 19:19:00 87.091 kg [facility] BMI 2024-11-12 19:19:00 31.95 kg/m2 [facility] Systolic blood pressure 2024-08-11 18:35:00 139 mm[Hg] [facility] Diastolic blood pressure 2024-08-11 18:35:00 84 mm[Hg] [facility] Heart rate 2024-08-11 18:35:00 89 /min [facility] Body temperature 2024-08-11 18:35:00 35.94 Jasmin [facility] Respiratory rate 2024-08-11 18:35:00 17 /min [facility] Body height 2024-08-11 18:35:00 165.1 cm [facility] Body weight 2024-08-11 18:35:00 84.777 kg [facility] BMI 2024-08-11 18:35:00 31.10 kg/m2 [facility] Systolic blood pressure 2024-05-13 19:17:00 160 mm[Hg] [facility] Diastolic blood pressure 2024-05-13 19:17:00 80 mm[Hg] [facility] Heart rate 2024-05-13 19:12:00 89 /min [facility] Body temperature 2024-05-13 19:12:00 35.5 Jasmin [facility] Respiratory rate 2024-05-13 19:12:00 18 /min [facility] Body height 2024-05-13 19:12:00 165.1 cm [facility] Body weight 2024-05-13 19:12:00 83.734 kg [facility] BMI 2024-05-13 19:12:00 30.72 kg/m2 [facility] Systolic blood pressure 2024-03-17 18:01:00 161 mm[Hg] [facility] Diastolic blood pressure 2024-03-17 18:01:00 95 mm[Hg] [facility] Heart rate 2024-03-17 18:01:00 91 /min [facility] Body temperature 2024-03-17 18:01:00 36.56 Jasmin [facility] Respiratory rate 2024-03-17 18:01:00 18 /min [facility] Body height 2024-03-17 18:01:00 165.1 cm [facility] Body weight 2024-03-17 18:01:00 84.913 kg [facility] BMI 2024-03-17 18:01:00 31.15 kg/m2 [facility] Systolic blood pressure 2024-03-09 18:04:00 185 mm[Hg] [facility] Diastolic blood pressure 2024-03-09 18:04:00 117 mm[Hg] [facility] Heart rate 2024-03-09 18:04:00 90 /min [facility] Body temperature 2024-03-09 18:04:00 36.39 Jasmin [facility] Respiratory rate 2024-03-09 18:04:00 18 /min [facility] Body height 2024-03-09 18:04:00 165.1 cm [facility] Body weight 2024-03-09 18:04:00 85.186 kg [facility] BMI 2024-03-09 18:04:00 31.25 kg/m2 [facility] Systolic blood pressure 2024-02-09 18:18:00 152 mm[Hg] [facility] Diastolic blood pressure 2024-02-09 18:18:00 94 mm[Hg] [facility] Heart rate 2024-02-09 18:18:00 82 /min [facility] Body temperature 2024-02-09 18:12:00 36.22 Jasmin [facility] Respiratory rate 2024-02-09 18:12:00 18 /min [facility] Body height 2024-02-09 18:12:00 165.1 cm [facility] Body weight 2024-02-09 18:12:00 85.872 kg [facility] BMI 2024-02-09 18:12:00 31.50 kg/m2 [facility] Systolic blood pressure 2024-01-15 03:00:00 170 mm[Hg] [facility] Diastolic blood pressure 2024-01-15 03:00:00 97 mm[Hg] [facility] Heart rate 2024-01-15 03:00:00 100 /min [facility] Respiratory rate 2024-01-15 03:00:00 16 /min [facility] Oxygen saturation in Arterial blood by Pulse oximetry 2024-01-15 03:00:00 100 /min [facility] Body temperature 2024-01-14 21:18:00 36.67 Jasmin [facility] Body weight 2024-01-14 21:16:00 88.451 kg [facility] BMI 2024-01-14 21:16:00 32.45 kg/m2 [facility] Systolic blood pressure 2024-01-11 19:41:00 177 mm[Hg] [facility] Diastolic blood pressure 2024-01-11 19:41:00 101 mm[Hg] [facility] Heart rate 2024-01-11 19:41:00 105 /min [facility] Respiratory rate 2024-01-11 19:41:00 18 /min [facility] Oxygen saturation in Arterial blood by Pulse oximetry 2024-01-11 19:41:00 100 /min [facility] Body temperature 2024-01-11 18:20:00 36.94 Jasmin [facility] Systolic blood pressure 2023-07-29 18:30:00 131 mm[Hg] [facility] Diastolic blood pressure 2023-07-29 18:30:00 90 mm[Hg] [facility] Heart rate 2023-07-29 18:30:00 101 /min [facility] Body temperature 2023-07-29 18:30:00 36.39 Jasmin [facility] Respiratory rate 2023-07-29 18:30:00 18 /min [facility] Body height 2023-07-29 18:30:00 165.1 cm [facility] Body weight 2023-07-29 18:30:00 88.633 kg [facility] BMI 2023-07-29 18:30:00 32.52 kg/m2 [facility] Body temperature 2023-02-11 16:05:00 36.78 Jasmin [facility] Body weight 2023-02-11 16:05:00 87.952 kg [facility] BMI 2023-02-11 16:05:00 32.27 kg/m2 [facility] Systolic blood pressure 2023-02-06 18:13:00 122 mm[Hg] [facility] Diastolic blood pressure 2023-02-06 18:13:00 78 mm[Hg] [facility] Heart rate 2023-02-06 18:08:00 83 /min [facility] Body temperature 2023-02-06 18:07:00 36.39 Jasmin [facility] Respiratory rate 2023-02-06 18:07:00 18 /min [facility] Body height 2023-02-06 18:07:00 165.1 cm [facility] Body weight 2023-02-06 18:07:00 86.093 kg [facility] BMI 2023-02-06 18:07:00 31.58 kg/m2 [facility] Systolic blood pressure 2022-09-27 19:56:00 154 mm[Hg] [facility] Diastolic blood pressure 2022-09-27 19:56:00 98 mm[Hg] [facility] Heart rate 2022-09-27 19:56:00 73 /min [facility] Respiratory rate 2022-09-27 19:56:00 16 /min [facility] Oxygen saturation in Arterial blood by Pulse oximetry 2022-09-27 19:56:00 100 /min [facility] Body temperature 2022-09-27 16:18:00 37 Jasmin [facility] Body weight 2022-09-27 16:18:00 87.544 kg [facility] BMI 2022-09-27 16:18:00 32.12 kg/m2 [facility] Systolic blood pressure 2022-09-19 22:53:37 126 mm[Hg] [facility] Diastolic blood pressure 2022-09-19 22:53:37 88 mm[Hg] [facility] Heart rate 2022-09-19 22:53:37 88 /min [facility] Respiratory rate 2022-09-19 22:53:37 18 /min [facility] Oxygen saturation in Arterial blood by Pulse oximetry 2022-09-19 22:53:37 99 /min [facility] Body temperature 2022-09-19 21:41:00 35.72 Jasmin [facility] Systolic blood pressure 2022-09-18 18:50:00 141 mm[Hg] [facility] Diastolic blood pressure 2022-09-18 18:50:00 92 mm[Hg] [facility] Heart rate 2022-09-18 18:50:00 95 /min [facility] Body temperature 2022-09-18 18:50:00 37.22 Jasmin [facility] Respiratory rate 2022-09-18 18:50:00 18 /min [facility] Body weight 2022-09-18 18:50:00 87.544 kg [facility] BMI 2022-09-18 18:50:00 32.12 kg/m2 [facility] Oxygen saturation in Arterial blood by Pulse oximetry 2022-09-18 18:50:00 99 /min [facility] Systolic blood pressure 2022-09-14 13:32:00 147 mm[Hg] [facility] Diastolic blood pressure 2022-09-14 13:32:00 94 mm[Hg] [facility] Heart rate 2022-09-14 13:32:00 98 /min [facility] Body temperature 2022-09-14 13:32:00 36.72 Jasmin [facility] Respiratory rate 2022-09-14 13:32:00 17 /min [facility] Body height 2022-09-14 13:32:00 165.1 cm [facility] Body weight 2022-09-14 13:32:00 82.555 kg [facility] BMI 2022-09-14 13:32:00 30.29 kg/m2 [facility] Oxygen saturation in Arterial blood by Pulse oximetry 2022-09-14 13:32:00 100 /min [facility] Systolic blood pressure 2022-07-03 17:43:00 147 mm[Hg] [facility] Diastolic blood pressure 2022-07-03 17:43:00 98 mm[Hg] [facility] Heart rate 2022-07-03 17:43:00 83 /min [facility] Body temperature 2022-07-03 17:43:00 37.61 Jasmin [facility] Respiratory rate 2022-07-03 17:43:00 18 /min [facility] Body height 2022-07-03 17:43:00 165.1 cm [facility] Body weight 2022-07-03 17:43:00 80.74 kg [facility] BMI 2022-07-03 17:43:00 29.62 kg/m2 [facility] Oxygen saturation in Arterial blood by Pulse oximetry 2022-07-03 17:43:00 100 /min [facility] Procedures Procedure Date / Time Performed Performing Clinician Source CT SOFT TISSUE NECK W CONTRAST 2024-12-09 22:28:36 Bernabe Tolentino [facility] TEST, SERUM 2024-12-09 21:10:00 Bernabe Tolentino [facility] COMP. METABOLIC PANEL (46063) 2024-12-09 21:10:00 Bernabe Tolentino [facility] CBC WITH DIFF 2024-12-09 21:10:00 Bernabe Tolentino [facility] BCCS-RELATED DOCUMENTATION 2024-08-25 23:25:13 D octor Unassigned, [place] [facility] "STATE SUPPLY" FLU VACC (), 6+ MONTHS, IM, TIV (AFLURIA/FLUARIX/FLULAVAL/ FLUZONE) 2024-08-11 18:53:04 Cullen Atkinson [facility] POCT TEST 2024-03-17 18:07:00 Mary Oakes [facility] CONSENT/REFUSAL FOR DIAGNOSIS AND TREATMENT 2024-02-09 17:59:35 Doctor Unassigned, [place] [facility] URINALYSIS 2024-01-15 02:50:00 [facility] 2024-01-14 21:53:00 Aren Cuevas [facility] HB ABO GROUPING 2024-01-14 21:53:00 Aren Cuevas [facility] EXTRA TUBE LT. BLUE 2024-01-14 21:53:00 Quan Cuevas [facility] EXTRA TUBE ORANGE 2024-01-14 21:53:00 Lou Cuevas [facility] CONSENT/REFUSAL FOR DIAGNOSIS AND TREATMENT 2024-01-14 21:06:07 Doctor Unassigned, [place] [facility] ASSIGNMENT OF BENEFITS 2024-01-11 19:18:38 Docto r Unassigned, [place] [facility] POCT TEST 2024-01-11 18:48:00 Jenna Kapoor [facility] CBC WITH DIFF 2024-01-11 18:47:00 [facility] URINALYSIS 2024-01-11 18:47:00 Jenna Kapoor [facility] CONSENT/REFUSAL FOR DIAGNOSIS AND TREATMENT 2024-01-11 18:16:05 Doctor Unassigned, [place] [facility] BCCS-RELATED DOCUMENTATION 2023-08-05 05:01:00 Dwayne barrett Unassigned, [place] [facility] GC & CHLAMYDIA AMPLIFIED ASSAY 2023-02-06 19:10:00 Julia Oakes [facility] HIV 1/2 AG-AB WITH REFLEX 2023-02-06 19:10:00 Julia Palomo [facility] HIGH RISK HPV-THIN PREP 2023-02-06 19:10:00 Julia Oakes [facility] TRICHOMONAS AMPLIFIED ASSAY 2023-02-06 19:10:00 Julia Oakes [facility] PAP SMEAR-LIQUID BASED-CP 2023-02-06 19:10:00 Julia Palomo [facility] SYPHILIS IGG/IGM 2023-02-06 19:10:00 Julia Oakes [facility] "RWSP SUMMER ONLY" FLU VACC(), 6+ MONTHS, IM, QUAD (FLUZONE/FLULAVAL/FLUARIX) 2023-02-06 19:08:03 Julia Oakes [facility] ASSIGNMENT OF BENEFITS 2023-02-06 17:54:16 Docto r Unassigned, [place] [facility] FOR[facility] 2022-12-13 15:45:38 Doctor Unassigned, [place] [facility] URINE DRUG (IMMUNOASSAY) - COMPREHENSIVE DRUG SCREEN 2022-09-27 17:01:00 Chelly Ohara [facility] URINALYSIS 2022-09-27 17:01:00 [facility] C[facility] 2022-09-27 17:01:00 Roland Levy [facility] CONSENT/REFUSAL FOR DIAGNOSIS AND TREATMENT 2022-09-27 16:55:29 Doctor Unassigned, [place] [facility] COMP. METABOLIC PANEL ([id number]) 2022-09-19 22:01:00 Charlette Grimm [facility] CBC WITH DIFF 2022-09-19 22:01:00 [facility] URINALYSIS 2022-09-19 22:01:00 Charlette Grimm [facility] CONSENT/REFUSAL FOR DIAGNOSIS AND TREATMENT 2022-09-19 21:34:44 Doctor Unassigned, [place] [facility] CONSENT/REFUSAL FOR DIAGNOSIS AND TREATMENT 2022-09-18 18:53:06 Doctor Unassigned, [place] [facility] CONSENT/REFUSAL FOR DIAGNOSIS AND TREATMENT 2022-09-14 13:26:46 Doctor Unassigned, [place] [facility] AL REMOVAL IMPACTED CERUMEN INSTRUMENTATION UNILAT 2022-07-03 20:09:56 Katja Thompson [facility] CONSENT/REFUSAL FOR DIAGNOSIS AND TREATMENT 2022-07-03 17:20:03 Doctor Unassigned, [place] [facility]AT[facility] FORM 2021-11-05 16:05:09 Doctor Unassigned, [place] [facility] Encounters Start Date/Time End Date/Time Encounter Type Admission Type Attending [facility] Care Facility Care Department Encounter ID Source 2025-03-15 13:00:00 2025-03-15 13:04:28 Outpatient MALATHI AKERS [facility] [id number] General acute hospital 2025-03-15 13:00:00 2025-03-15 13:04:28 Office Visit Malathi Childers [facility] 1..840.114 350.1.13.10 4.2.7.2.686 [id number] General acute hospital 2025-03-14 12:45:00 2025-03-14 12:45:00 Outpatient R MALATHI CHILDERS [facility] [id number] General acute hospital 2024-08-25 00:00:00 2025-01-08 06:53:18 Orders Only Doctor Unassigned, [place] Doctor Unassigned, [place] [facility] 1..840.114 350.1.13.10 4.2.7.2.686 [id number] General acute hospital 2024-12-09 14:15:00 2024-12-09 17:39:00 Emergency X BERNABE TOLENTINO [facility] [id number] General acute hospital 2024-12-09 14:15:00 2024-12-09 17:39:00 Emergency Bernabe Tolentino [facility] 1.84.114 350.1.13.10 4.2.7.2.686 [id number] General acute hospital 2024-12-07 07:21:54 2024-12-07 23:59:00 Outpatient R CULLEN ATKINSON [facility] [id number] General acute hospital 2024-12-07 07:21:54 2024-12-07 23:59:00 Hospital Encounter Cullen Atkinson [facility] 1.84.114 350.1.13.10 4.2.7.2.686 [id number] General acute hospital 2024-11-12 13:15:00 2024-11-12 13:38:24 Outpatient R MALATHI CHILDERS [facility] [id number] General acute hospital 2024-11-12 13:15:00 2024-11-12 13:38:24 Office Visit Malathi Childers [facility] 1.84.114 350.1.13.10 4.2.7.2.686 [id number] General acute hospital 2024-11-08 07:00:41 2024-11-08 23:59:00 Outpatient R CULLEN ATKINSON [facility] [id number] General acute hospital 2024-11-08 07:00:41 2024-11-08 23:59:00 Hospital Encounter Cullen Atkinson [facility] 1.84.114 350.1.13.10 4.2.7.2.686 [id number] General acute hospital 2024-11-08 09:15:00 2024-11-08 09:15:00 Outpatient R MALATHI CHILDERS [facility] [id number] General acute hospital 2024-11-08 09:15:00 2024-11-08 09:15:00 Outpatient R MALATHI CHILDERS [facility] [id number] General acute hospital 2024-08-11 13:30:00 2024-08-11 14:15:24 Outpatient R CULLEN ATKINSON [facility] [id number] General acute hospital 2024-08-11 13:30:00 2024-08-11 14:15:24 Office Visit Cullen Atkinson [facility] 1.2.840.114 350.1.13.10 4.2.7.2.686 [id number] General acute hospital 2024-06-30 00:00:00 2024-06-30 00:00:00 Outpatient [facility] [id number] General acute hospital 2024-05-13 14:15:00 2024-05-13 14:55:45 Outpatient R MALATHI CHILDERS [facility] [id number] General acute hospital 2024-05-13 14:15:00 2024-05-13 14:55:45 Office Visit Malathi Childers [facility] 1..840.114 350.1.13.10 4.2.7.2.686 [id number] General acute hospital 2024-05-13 14:15:00 2024-05-13 14:15:00 Outpatient R MALATHI CHILDERS [facility] [id number] General acute hospital 2024-04-28 12:30:00 2024-04-28 12:30:00 Outpatient R MALATHI CHILDERS [facility] [id number] General acute hospital 2024-03-17 12:45:00 2024-03-17 13:46:06 Outpatient R SHAYY JULIA [facility] [id number] General acute hospital 2024-03-17 12:45:00 2024-03-17 13:46:06 Office Visit Shayy Julia Ivania [facility] 1.2.840.114 350.1.13.10 4.2.7.2.686 [id number] General acute hospital 2024-03-09 13:30:00 2024-03-09 13:34:22 Outpatient R CULLEN ATKINSON [facility] [id number] General acute hospital 2024-03-09 13:30:00 2024-03-09 13:34:22 Office Visit Cullen Atkinson [facility] 1..840.114 350.1.13.10 4.2.7.2.686 [id number] General acute hospital 2024-02-11 00:00:00 2024-02-11 00:00:00 Telephone Cullen Atkinson [facility] 1.2.840.114 350.1.13.10 4.2.7.2.686 [id number] General acute hospital 2024-02-09 13:30:00 2024-02-09 14:06:10 Outpatient R CULLEN ATKINSON [facility] [id number] General acute hospital 2024-02-09 13:30:00 2024-02-09 14:06:10 Office Visit Cullen Atkinson [facility] 1.2.840.114 350.1.13.10 4.2.7.2.686 [id number] General acute hospital 2024-02-09 00:00:00 2024-02-09 00:00:00 Orders Only Doctor Unassigned, [place] [facility] 1.840.114 350.1.13.10 4.2.7.2.686 [id number] General acute hospital 2024-01-14 15:18:00 2024-01-14 21:46:00 Emergency X AREN CUEVAS [facility] ERT [id number] General acute hospital 2024-01-14 15:18:00 2024-01-14 21:46:00 Emergency Morrical, [facility] 1.0.114 350.1.13.10 4.2.7.2.686 [id number] General acute hospital 2024-01-11 12:23:00 2024-01-11 13:42:00 [id number] General acute hospital 2024-01-11 12:23:00 2024-01-11 13:42:00 Emergency Ebrabelkism, Davidia [facility] 1.0.114 350.1.13.10 4.2.7.2.686 [id number] General acute hospital 2023-08-26 00:00:00 2023-08-26 00:00:00 Telephone Cullen Atkinson [facility] 1.0.114 350.1.13.10 4.2.7.2.686 [id number] General acute hospital 2023-08-13 07:57:14 2023-08-13 23:59:00 Outpatient R JULIA OAKES [facility] [id number] General acute hospital 2023-08-13 07:57:14 2023-08-13 23:59:00 Hospital Encounter Julia Oakes [facility] 1.0.114 350.1.13.10 4.2.7.2.686 [id number] General acute hospital 2023-08-05 00:00:00 2023-08-05 00:00:00 Orders Only Doctor Unassigned, [place] [facility] 1.2.840.114 350.1.13.10 4.2.7.2.686 [id number] General acute hospital 2023-07-29 13:30:00 2023-07-29 13:45:00 Office Visit Cullen Atkinson [facility] 1.2.840.114 350.1.13.10 4.2.7.2.686 [id number] General acute hospital 2023-07-29 13:30:00 2023-07-29 13:30:00 Outpatient CULLEN MENA [facility] [id number] General acute hospital 2023-06-04 00:00:00 2023-06-04 00:00:00 Telephone Julia Oakes [facility] 1.2.840.114 350.1.13.10 4.2.7.2.686 [id number] General acute hospital 2023-04-08 06:54:10 2023-04-08 23:59:00 Hospital Encounter Julia Oakes [facility] 1..840.114 350.1.13.10 4.2.7.2.686 [id number] General acute hospital 2023-04-08 00:00:00 2023-04-08 23:59:00 Outpatient R JULIA OAKES [facility] [id number] General acute hospital 2023-03-17 00:00:00 2023-03-17 00:00:00 Outpatient [facility] [id number] General acute hospital 2023-02-11 11:00:00 2023-02-11 11:12:11 Nurse Visit Visit, Demetrio Nurse Julia Oakes [facility] 1.840.114 350.1.13.10 4.2.7.2.686 [id number] General acute hospital 2023-02-11 11:00:00 2023-02-11 11:00:00 Outpatient JULIA AVILA [facility] [id number] General acute hospital 2023-02-10 14:00:00 2023-02-10 14:00:00 Outpatient JULIA AVILA [facility] [id number] General acute hospital 2023-02-09 00:00:00 2023-02-09 00:00:00 Case Management Julia Oakes [facility] 1.840.114 350.1.13.10 4.2.7.2.686 [id number] General acute hospital 2023-02-06 13:00:00 2023-02-06 14:12:49 Outpatient JULIA AVILA [facility] [id number] General acute hospital 2023-02-06 13:00:00 2023-02-06 14:12:49 Office Visit Provider, Julia Lopez [facility] [employer] 1.840.114 350.1.13.10 4.2.7.2.686 [id number] General acute hospital 2023-02-06 00:00:00 2023-02-06 00:00:00 Orders Only Doctor Unassigned, [place] [facility] 1.84.114 350.1.13.10 4.2.7.2.686 [id number] General acute hospital 2023-01-03 13:00:00 2023-01-03 13:00:00 Outpatient CULLEN MENA [facility] [id number] General acute hospital 2022-12-13 00:00:00 2022-12-13 00:00:00 Outpatient [facility] [id number] General acute hospital 2022-12-13 00:00:00 2022-12-13 00:00:00 Orders Only Doctor Unassigned, [place] [facility] 1.840.114 [id number] General acute hospital 2022-10-01 15:06:10 2022-10-01 15:06:10 Outpatient [facility] [id number] 2022-09-27 11:19:00 2022-09-27 15:02:00 Emergency X [facility] ERT [id number] General acute hospital 2022-09-27 11:19:00 2022-09-27 15:02:00 Emergency [place] 1.840.114 [id number] General acute hospital 2022-09-19 16:43:00 2022-09-19 18:04:00 Emergency X CHARLETTE GRIMM [facility] ERT [id number] General acute hospital 2022-09-19 16:43:00 2022-09-19 18:04:00 Emergency Charlette Grimm S [facility] 1.840.114 350.1.13.10 4.2.7.2.686 [id number] General acute hospital 2022-09-18 13:54:00 2022-09-18 15:42:00 Emergency X RADHA MATSON [facility] ERT [id number] General acute hospital 2022-09-18 13:54:00 2022-09-18 15:42:00 Emergency Radha Matson [facility] 1.2.840.114 350.1.13.10 4.2.7.2.686 [id number] General acute hospital 2022-09-14 08:33:00 2022-09-14 10:02:00 Emergency X CHARLETTE GRIMM [facility] ERT [id number] General acute hospital 2022-09-14 08:33:00 2022-09-14 10:02:00 Emergency Charlette Grimm S [facility] 1.2.840.114 350.1.13.10 4.2.7.2.686 [id number] General acute hospital 2022-09-10 15:18:56 2022-09-10 15:18:56 Outpatient [facility] 1018 Aren Santos 2022-08-26 00:00:00 2022-08-26 00:00:00 Outpatient [facility] [id number] General acute hospital 2022-07-03 12:44:00 2022-07-03 15:27:00 Emergency X YANICK KATJA [facility] ERT [id number] General acute hospital 2022-07-03 12:44:00 2022-07-03 15:27:00 Emergency Katja Thompson C [facility] 1.2.840.114 350.1.13.10 4.2.7.2.686 [id number] General acute hospital 2022-07-03 00:00:00 2022-07-03 00:00:00 Orders Only Doctor Unassigned, [place] [facility] 1.2840.114 350.1.13.10 4.2.7.2.686 [id number] General acute hospital 2022-07-01 00:00:00 2022-07-01 00:00:00 Outpatient [facility] [id number] General acute hospital 2022-03-27 00:00:00 2022-03-27 00:00:00 Outpatient [facility] [id number] General acute hospital 2022-02-27 00:00:00 2022-02-27 00:00:00 Case Management Enedelia June [facility] 1..840.114 350.1.13.10 4.2.7.2.686 [id number] General acute hospital 2022-02-20 00:00:00 2022-02-20 00:00:00 Outpatient [facility] [id number] General acute hospital 2022-01-23 00:00:00 2022-01-23 00:00:00 Outpatient [facility] [id number] General acute hospital 2022-01-09 00:00:00 2022-01-09 00:00:00 Outpatient [facility] [id number] General acute hospital 2021-12-12 00:00:00 2021-12-12 00:00:00 Outpatient [facility] [id number] General acute hospital 2021-12-06 00:00:00 2021-12-06 00:00:00 [facility] 1..840.114 350.1.13.10 4.2.7.2.686 [id number] General acute hospital 2021-11-21 00:00:00 2021-11-21 00:00:00 [facility] 350.1.13.10 4.2.7.2.686 [id number] General acute hospital 2021-11-08 00:00:00 2021-11-08 00:00:00 Case [facility] 1..840.114 350.1.13.10 4.2.7.2.686 [id number] General acute hospital 2021-11-05 00:00:00 2021-11-05 00:00:00 Outpatient [facility] [id number] General acute hospital 2021-11-05 00:00:00 2021-11-05 00:00:00 Orders Only Doctor Unassigned, [place] [facility] 1.2.840.114 350.1.13.10 4.2.7.2.686 [id number] General acute hospital 2021-11-02 11:15:00 2021-11-02 13:41:22 [id number] acute hospital 2021-11-02 11:18:54 2021-11-02 11:33:54 Wax Pumper Visit 2, Adc Lab Aiyana Palm [facility] 1.2840.114 350.1.13.10 4.2.7.2.686 [id number] General acute hospital 2021-11-01 00:00:00 2021-11-01 00:00:00 Telephone Aiyana Palm [facility] 1.284.114 350.1.13.10 4.2.7.2.686 [id number] General acute hospital 2021-10-31 00:00:00 2021-10-31 00:00:00 Transition of Care Lisseth Carmen 1.2840.114 350.1.13.10 4.2.7.2.686 [id number] General acute hospital 2021-10-24 15:00:00 2021-10-30 17:30:00 In[id number] 2021-10-24 15:00:00 2021-10-30 17:30:00 Inpatient X [facility]ALEXY [facility] [id number] General acute hospital 2021-10-24 15:00:00 2021-10-30 17:30:00 Hospital Encounter Lakeisha Doyle, Coleen Benton, Alicia [facility] 1.2.840.114 350.1.13.10 4.2.7.2.686 [id number] General acute hospital 2021-10-30 00:00:00 2021-10-30 00:00:00 Case Management [facility] 1.2.840.114 350.1.13.10 4.2.7.2.686 [id number] General acute hospital 2021-10-29 00:00:00 2021-10-29 00:00:00 Telephone [facility] 1.2.840.114 350.1.13.10 4.2.7.2.686 [id number] General acute hospital Results Test Description Test Time Test Comments [...] is seen in the left upper lobe[facility] (21029[facility]2024-12-09 21:53:49* Test Item Value Reference Range Interpretation Comme nts NA (test code = 1938421006) 136 mmol/L 135-145 K (test code = 4134499976) 4.0 mmol/L 3.5-5.0 CL (test code = 6725274782) 104 mmol/L 98-108 CO2 TOTAL (test code = 7018944498) 26 mmol/L 23-31 AGAP (test code = 7568767945) 6 2-16 BUN (test code = 9860042230) 17 mg/dL 7-23 GLUCOSE (test code = 3263201824) 98 mg/dL 70-110 CREATININE (test code = 2160-0) 1.12 mg/dL 0.50-1.04 H TOTAL BILI (test code = 6502314964) 0.3 mg/dL 0.1-1.1 CALCIUM (test code = 0022897079) 9.2 mg/dL 8.6-10.6 T PROTEIN (test code = 3155224629) 7.0 g/dL 6.3-8.2 ALBUMIN (test code = 4811229600) 3.9 g/dL 3.5-5.0 ALK PHOS (test code = 5525194732) 68 U/L 34-122 ALTv (test code = 1742-6) 13 U/L 5-35 AST(SGOT) (test code = 2595139353) 35 U/L 13-40 eGFR (test code = 87236-9) 60.4 mL/min/1.73m2 CKD-EPI eGFR (2020). Assuming creatinine has been stable day-to-day for at least three months, the eGFR indicates Category G2 (60 - 89 mL/min/1.73 m2) Lab Interpretation (test code = 11422-0) Abnormal [facility] WITH [id number] 21:44:47* Test Item Value Reference Range Interpretation [...] g/dL 31.6-35.1 L RDW-SD (test code = 96334-2) 47.9 fL 39.0-49.9 RDW-CV (test code = 788-0) 14.7 % 12.0-15.5 PLT (test code = 777-3) 498 166-358 H MPV (test code = 05758-8) 9.2 fL 9.5-12.9 L NRBC/100 WBC (test code = 9188822809) 0.0 0.0-10.0 NRBC x10^3 (test code = 6462996707) See_Comment [Automated messa ge] The system which generated this result transmitted reference range: 10*3/?L. The reference range was not used to interpret this result as normal/abnormal. GRAN MAT (NEUT) % (test code = 770-8) 70.5 % IMM GRAN % (test code = 2165100563) 0.40 % LYMPH % (test code = 736-9) 16.0 % MONO % (test code = 5905-5) 10.2 % EOS % (test code = 713-8) 2.2 % BASO % (test code = 706-2) 0.7 % GRAN MAT x10^3(ANC) (test code = 3255485212) 6.79 10*3/uL 1.88-7.09 IMM GRAN x10^3 (test code = 2079604198) 0.04 10*3/uL 0.00-0.06 LYMPH x10^3 (test code = 731-0) 1.54 10*3/uL 1.32-3.29 MONO x10^3 (test code = 742-7) 0.98 10*3/uL 0.33-0.92 H EOS x10^3 (test code = 711-2) 0.21 10*3/uL 0.03-0.39 BASO x10^3 (test code = 704-7) 0.07 10*3/uL 0.01-0.07 Lab Interpretation (test code = 35407-2) [facility]normal [facility] [id number] 23:25:13 Ordered by an unspecified provider.[facility] [id number] 18:07:00* Test Item Value Reference Range Interpretation Comme nts POCT PREG (test code = 1605) Negative On board controls acceptable with C Line (test code = 3574) Yes POCT PREG LOT # (test code = 3575) POCT PREG TEST DATE ( test code = 3576) [facility] [id number] 18:07:00* Test Item Value Reference Range Interpretation Comme nts POCT PREG (test code = 1605) Negative On board controls acceptable with C Line (test code = 3574) Yes POCT PREG LOT # (test code = 3575) POCT PREG TEST DATE ( test code = 3576) [facility] Screen - ONCE [id number] 22:01:00 * Test Item Value Reference Range Interpretation Comme nts ABO & RH (test code = 20) O POSITIVE IAT (test code = 1185) Negative [facility] WITH [id number] 19:17:50* Test Item Value Reference Range Interpretation [...] g/dL 31.6-35.1 L RDW-SD (test code = 05521-0) 45.0 fL 39.0-49.9 RDW-CV (test code = 788-0) 16.2 % 12.0-15.5 H PLT (test code = 777-3) 508 166-358 H MPV (test code = 19199-5) 9.6 fL 9.5-12.9 NRBC/100 WBC (test code = 1079895895) 0.0 0.0-10.0 NRBC x10^3 (test code = 8490486167) See_Comment [Automated messa ge] The system which generated this result transmitted reference range: 10*3/?L. The reference range was not used to interpret this result as normal/abnormal. GRAN MAT (NEUT) % (test code = 770-8) 73.8 % IMM GRAN % (test code = 9299407099) 0.40 % LYMPH % (test code = 736-9) 15.1 % MONO % (test code = 5905-5) 8.8 % EOS % (test code = 713-8) 1.4 % BASO % (test code = 706-2) 0.5 % GRAN MAT x10^3(ANC) (test code = 9935772106) 7.53 10*3/uL 1.88-7.09 H IMM GRAN x10^3 (test code = 4731088316) 0.04 10*3/uL 0.00-0.06 LYMPH x10^3 (test code = 731-0) 1.54 10*3/uL 1.32-3.29 MONO x10^3 (test code = 742-7) 0.90 10*3/uL 0.33-0.92 EOS x10^3 (test code = 711-2) 0.14 10*3/uL 0.03-0.39 BASO x10^3 (test code = 704-7) 0.05 10*3/uL 0.01-0.07 Lab Interpretation (test code = 83368-6) Abnormal [facility] [id number] 18:48:00* Test Item Value Reference Range Interpretation Comme nts POCT PREG (test code = 1605) Negative On board controls acceptable with C Line (test code = 3574) Yes POCT PREG LOT # (test code = 3575) [id number] POCT PREG TEST DATE ( test code = 3576) 12-29-24 Lab Interpretation (test cod e = 57566-1) Normal [facility] ONLY - SYPHILIS [id number] 15:32:18* Test Item Value Reference Range Interpretation Comme [facility] Syphilis IgG/IgM (test code = 24494-2) Non-reactive Non-reactive RUTH (test code = RUTH) Non-reactive - No serologic evidence of T. pallidum infection. Cannot exclude incubating or early syphilis. Submit a second specimen in 2-4 weeks if syphilis is clinically suspected. Equivocal - Further testing to follow. Reactive - Further testing to follow. Lab Interpretation (test code = 12211-2) Normal [facility] ONLY - SYPHILIS [id number] 15:32:18* Test Item Value Reference Range Interpretation Comme [facility] Syphilis IgG/IgM (test code = 68140-6) Non-reactive Non-reactive RUTH (test code = RUTH) Non-reactive - No serologic evidence of T. pallidum infection. Cannot exclude incubating or early syphilis. Submit a second specimen in 2-4 weeks if syphilis is clinically suspected. Equivocal - Further testing to follow. Reactive - Further testing to follow. Lab Interpretation (test code = 08893-3) Normal [facility] acute hospital 1/2 AG-AB WITH [id number] 05:46:30* Test Item Value Reference Range Interpretation Comme [facility] HIV Semi-quantitative (test code = 22721-5) 0.08 Negative RUTH (test code = RUTH) Non-reactive for HIV-1 antigen and HIV-1/HIV-2 antibodies. ?No laboratory evidence of HIV infection. ?Repeat in 2-4 weeks if acute HIV infection is suspected. General acute hospital 1/2 AG-AB WITH [id number] 05:46:30* Test Item Value Reference Range Interpretation Comme [facility] HIV Semi-quantitative (test code = 73059-2) 0.08 Negative RUTH (test code = RUTH) Non-reactive for HIV-1 antigen and HIV-1/HIV-2 antibodies. ?No laboratory evidence of HIV infection. ?Repeat in 2-4 weeks if acute HIV infection is suspected. [facility]. METABOLIC PANEL (35245)2022-09-19 22:30:43* Test Item Value Reference Range Interpretation Comme nts NA (test code = 4947112728) 138 mmol/L 135-145 K (test code = 7617130201) 4.9 mmol/L 3.5-5.0 CL (test code = 4443797888) 102 mmol/L 98-108 CO2 TOTAL (test code = 1759536688) 24 mmol/L 23-31 AGAP (test code = 5989926337) 2-16 BUN (test code = 5213756521) 32 mg/dL 7-23 H GLUCOSE (test code = 3268781763) 80 mg/dL 70-110 CREATININE (test code = 3487500775) 1.84 mg/dL 0.50-1.04 H TOTAL BILI (test code = 6473319132) 0.9 mg/dL 0.1-1.1 CALCIUM (test code = 2897983816) 9.5 mg/dL 8.6-10.6 T PROTEIN (test code = 7318899538) 8.0 g/dL 6.3-8.2 ALBUMIN (test code = 3893646247) 4.9 g/dL 3.5-5.0 ALK PHOS (test code = 3019279076) 65 U/L 34-122 ALTv (test code = 1742-6) 15 U/L 5-35 AST(SGOT) (test code = 3634407812) 23 U/L 13-40 eGFR (test code = 8085925148) mL/min/1.73m2 RUTH (test code = RUTH) Association [...] imaging tests). Lab Interpretation (test code = 78729-6) Abnormal [facility] WITH [id number] 22:20:21* Test Item Value Reference Range Interpretation Comme nts WBC (test code = 6690-2) See_Comment [Automated MENABANQER] The system which generated this result transmitted reference range: 4.30 - 11.10 10*3/?L. The reference range was not used to interpret this result as normal/abnormal. RBC (test code = 789-8) See_Comment [Automated MENABANQER] The system which generated this result transmitted [...] 32.5 g/dL 31.6-35.1 RDW-SD (test code = 40188-6) 42.5 fL 39.0-49.9 RDW-CV (test code = 788-0) 13.8 % 12.0-15.5 PLT (test code = 777-3) See_Comment H [Automated MENABANQER] The system which generated this result transmitted reference range: 166 - 358 10*3/?L. The reference range was not used to interpret this result as normal/abnormal. MPV (test code = 16404-8) 10.0 fL 9.5-12.9 NRBC/100 WBC (test code = 7932607851) See_Comment [Automated me ssage] The system which generated this result transmitted reference range: 0.0 - 10.0 /100 WBCs. The reference range was not used to interpret this result as normal/abnormal. NRBC x10^3 (test code = 0738100187) See_Comment [Automated messa ge] The system which generated this result transmitted reference range: 10*3/?L. The reference range was not used to interpret this result as normal/abnormal. GRAN MAT (NEUT) % (test code = 770-8) 63.9 % IMM GRAN % (test code = 1922772372) 0.40 % LYMPH % (test code = 736-9) 22.8 % MONO % (test code = 5905-5) 10.7 % EOS % (test code = 713-8) 1.6 % BASO % (test code = 706-2) 0.6 % GRAN MAT x10^3(ANC) (test code = 4114426901) 6.15 10*3/uL 1.88-7.09 IMM GRAN x10^3 (test code = 0021931030) 0.04 10*3/uL 0.00-0.06 LYMPH x10^3 (test code = 731-0) 2.20 10*3/uL 1.32-3.29 MONO x10^3 (test code = 742-7) 1.03 10*3/uL 0.33-0.92 H EOS x10^3 (test code = 711-2) 0.15 10*3/uL 0.03-0.39 BASO x10^3 (test code = 704-7) 0.06 10*3/uL 0.01-0.07 Lab Interpretation (test code = 16038-5) Abnormal [facility] Notes Date/Time Note Provider Source 2024-12-09 17:38:42 Pt discharged with diagnosis of L facial swelling and dental infection. Printed and verbal instructions reviewed with and given to pt. Prescriptions given x 3. Pt verbalized understanding of teaching, medications, and recommended follow-up. Denies questions or concerns at this time. Pt ambulatory at discharge. Appears in no apparent distress. No ataxia noted. TECHNICAL ARCHITECT Francy Birch RN [facility] 2024-12-09 14:09:09 Pt arrived ambulatory states she has been having a HAx3 days, and woke up this morning with the left side of her face swollen, out of BP metoprolol x2days. TECHNICAL ARCHITECT Rita Mcneal RN [facility] 2024-11-12 13:15:00 Addended by: MALATHI CHILDERS on: 11/12/2024 01:49 PM Modules accepted: Level of Service [facility] 2024-02-11 15:50:36 Notified patient of lab results-anemia. Instructed patient to take OTC multi vitamin and iron/vitamin C or with orange juice to aide with absorption. Discussed foods high in iron. Pt verbalized understanding. KARLI DEVLIN RN 02/11/2024 3:52 PM Karli Devlin RN [facility] 2024-02-11 15:15:37 Please advise patient she is anemic, she should try otc iron and multiviatmin, vit c/orange juice to help with absorption, and eating iron rich foods KRISTI Nguyen 02/11/2024 3:16 PM [facility] 2024-01-14 21:46:29 Pt discharged to home. Discharge instructions given to pt regarding management of condition and instructions to follow up with PCP. Pt verbalized understanding. PIV removed without complications. Patient in possession of all belongings. Pt ambulates to [facility] with steady gait. E Putnam RN [facility] 2024-01-14 19:52:21 Reading room contacted regarding ultrasound results. Per radiologist, critical reads are priority and ultrasound scans will be sent to TRA. [facility] 2024-01-14 16:48:17 Pt to ultrasound via wheelchair. [facility] 2024-01-14 16:35:20 Nurse Report Report given to KATHLEEN Doty. Chief complaint, assessment findings, infusion verify and orders reviewed. Plan of care discussed between both nurses with verbalized understanding. No further questions, comments, or concerns at this time. Danika Odonnell RN, [facility] Danika Odonnell RN [facility] 2024-01-14 16:00:58 Pt ambulates to RR without assistance with steady gait. Pt able to give urine sample for possible UA. [facility] 2024-01-14 15:44:12 Pt given urine cup and notified UA is needed. Pt does not need to use RR at this time. [facility] 2024-01-14 15:37:10 Dr Cuevas in G2 for initial pt evaluation [facility] 2024-01-14 15:18:16 Barb Duff is a 48 year old female to ED for excessive vaginal bleeding and pelvic pain. Pt reports bleeding for the past 3 weeks that stopped last night. Pt reports clots. AAO X3, speaking clearly. E Jeffrey RN [facility] 2024-01-11 13:42:12 Discharged by provider. 

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
[2025-04-05 15:03] VITALS: BP 198/113; TEMP 98.1; O2SAT 100
== END 2025-04-05 14:59 | disposition home or self-care (01) ==
LOC: ER 13:40
DX: S16.1XXA Strain of muscle, fascia and tendon at neck level, initial encounter (principal); V49.49XA Driver injured in collision with other motor vehicles in traffic accident, initial encounter; F17.210 Nicotine dependence, cigarettes, uncomplicated